=== PATIENT | male | born 1950 | race Caucasian/White ===

== ENCOUNTER 2017-06-14 17:17 | Emergency (ER) | payer MEDICARE, OTHER ==
[2017-06-14] MEDS ORDERED: cloNIDine HCL 0.2 MG TAB PO STA (17:58)
[2017-06-14] MEDS ORDERED: predniSONE 20 MG TAB PO STA (17:58)
[2017-06-14] MEDS ORDERED: IPRATROPIUM-ALBUTEROL 3 ML NEB INHALATION STA (17:58)
--- NOTE | 2017-06-14 18:03 | ED ---
General Adult HPI - General Chief complaint: Upper Respiratory Infection Stated complaint: Cough Time Seen by Provider: 06/14/17 17:41 Source: patient Mode of arrival: ambulatory Limitations: no limitations - History of Present Illness Initial comments: This is a 66-year-old male with a history of hypertension, hyperlipidemia, neuropathy and long-time smoker who presents emergency department for cough and mild shortness of breath. He states is been going on for the last week or so. He denies any fevers or chills. No chest pain. No nausea or vomiting. He does state that he missed some of his blood pressure medications earlier in the day and ended up taking them around 2 PM today. He is on clonidine 0.3 mg 3 times a day, Norvasc daily, atenolol 50 mg twice a day. He denies history of COPD or pneumonia. He denies any other acute complaints. - Related Data Home Medications Medication Instructions Recorded Confirmed Aspirin 325 mg PO DAILY 05/23/14 06/14/17 Atenolol 50 mg PO BID 05/23/14 06/14/17 Gabapentin [Neurontin] 300 mg PO TID 05/23/14 06/14/17 Hydrocodone/Acetaminophen [[place] 1 tab PO QID PRN 05/23/14 06/14/17 10-325] Indomethacin [Indocin] 50 mg PO TID PRN 05/23/14 06/14/17 Lovastatin [Mevacor] 80 mg PO HS 05/23/14 06/14/17 Omeprazole [PriLOSEC] 20 mg PO DAILY 05/23/14 06/14/17 amLODIPine BESYLATE [Norvasc] 5 mg PO DAILY 05/23/14 06/14/17 cloNIDine HCL 0.3 mg PO TID 06/14/17 06/14/17 Previous Rx's Medication Instructions Recorded Albuterol Inhaler [Ventolin Hfa 1 - 2 puff INHALATION Q6HR PRN #1 06/14/17 Inhaler] inhaler Levofloxacin [Levaquin] 500 mg PO DAILY #7 tab 06/14/17 predniSONE 50 mg PO DAILY #4 tab 06/14/17 Allergies Allergy/AdvReac Type Severity Reaction Status Date / Time Iodinated Contrast- Oral and Allergy Rash/Hives Verified 06/14/17 19:09 IV Dye [Iodinated Contrast Media - IV Dye] Review of Systems ROS Statement: Those systems with pertinent positive or pertinent negative responses have been documented in the HPI. ROS Other: All systems not noted in ROS Statement are negative. Past Medical History Past Medical History: GERD/Reflux, Hypertension Additional Past Medical History / Comment(s): gout History of Any Multi-Drug Resistant Organisms: None Reported Past Surgical History: Back Surgery Additional Past Surgical History / Comment(s): back surgery x 2, amputation two toes rt foot, tracheostomy,"surgery for blockage in chest and legs", Past Anesthesia/Blood Transfusion Reactions: No Reported Reaction Past Psychological History: No Psychological Hx Reported Smoking Status: Current every day smoker General Exam - General Exam Comments Initial Comments: Constitutional: Awake alert Appears comfortable Head: Normocephalic atraumatic Eyes: no conjunctival injection No scleral icterus EOMI Neck: No JVD Supple Heart: Regular rate rhythm normal S1-S2 no murmurs Lungs: There is respiratory wheezing bilaterally with some mild crackling at the left lung base Abdomen: Soft nondistended nontender Extremities: Non edematous DP pulses intact Radial pulses intact Neuro: A&Ox3 No focal neurologic deficits Psych: Appropriate mood and affect Limitations: no limitations Course Vital Signs 06/14/17 06/14/17 06/14/17 17:29 18:25 18:32 Temperature 97.1 F L Pulse Rate 82 72 74 Respiratory 16 18 Rate Blood Pressure 191/101 164/91 O2 Sat by Pulse 97 100 Oximetry 06/14/17 06/14/17 18:37 19:11 Temperature 98.2 F Pulse Rate 70 Respiratory Rate Blood Pressure O2 Sat by Pulse Oximetry Medical Decision Making - Medical Decision Making This is a 66-year-old male who presents emergency department for cough. Chest x -ray was reviewed and did not show any signs of pneumonia. I believe the patient has bronchitis.; Steroids and albuterol and Levaquin. Follow his primary doctor. Return if worse. Disposition Clinical Impression: Bronchitis Disposition: HOME SELF-CARE Condition: Stable Instructions: Acute Bronchitis (ED) Prescriptions: Albuterol Inhaler [Ventolin Hfa Inhaler] 1 - 2 puff INHALATION Q6HR PRN #1 inhaler PRN Reason: Shortness Of Breath Levofloxacin [Levaquin] 500 mg PO DAILY #7 tab predniSONE 50 mg PO DAILY #4 tab Referrals: Harsha Patton DO [Primary Care Provider] - 1-2 days
--- NOTE | 2017-06-14 18:28 | XR ---
EXAMINATION TYPE: XR chest 2V DATE OF EXAM: 06/14/2017 COMPARISON: NONE HISTORY: Cough for one week TECHNIQUE: Frontal and lateral views of the chest are obtained. FINDINGS: Heart and mediastinum are normal. There is slight blunting of right costophrenic angle. Th ere is evidence of old lateral rib fracture. Lungs are clear of consolidation. There is no heart fail ure. There are no hilar masses. Thoracic spine is intact. IMPRESSION: Old right healed rib fractures with pleural diaphragmatic scarring. No acute lung diseas e. Normal heart.
[2017-06-14 18:36] VITALS: BP 164/91; RESP 18
[2017-06-14 18:37] VITALS: PULSE 70
[2017-06-14 19:12] VITALS: TEMP 98.2
== END 2017-06-14 19:13 | disposition home or self-care (01) ==
LOC: EC 17:17
DX: J40 Bronchitis, not specified as acute or chronic (principal); E78.5 Hyperlipidemia, unspecified; I10 Essential (primary) hypertension; K21.9 Gastro-esophageal reflux disease without esophagitis; G62.9 Polyneuropathy, unspecified; F17.200 Nicotine dependence, unspecified, uncomplicated; Z79.82 Long term (current) use of aspirin; Z79.899 Other long term (current) drug therapy; Z91.041 Radiographic dye allergy status
CPT/HCPCS: 99283 ×2; 94640; 71020; J7512

== ENCOUNTER 2019-03-21 08:50 | Day surgery (SDC) | payer MEDICARE, OTHER ==
[2019-03-01 13:13] VITALS: BMI 28.4
[~2019-03-21 08:50] MED LIST: LACTATED RINGERS 1,000 ML IV SCH; LIDOCAINE 1% 20 ML VIAL (10MG/ML) FOR IV START INTRADERMA PRN
[2019-03-21 09:16] VITALS: RESP 18; TEMP 98.1
[2019-03-21] MEDS ORDERED: PROPOFOL 10 MG/ML 20 ML VIAL IV ONE (09:26)
--- NOTE | 2019-03-21 10:23 | P.PCN ---
Date of Procedure: 03/21/19 Description of Procedure: BRIEF HISTORY: Patient is a 68-year-old pleasant male scheduled for an elective colonoscopy as a part of high risk screening with a prior history of colon polyps. The patient reports that recently he had a colonoscopy with polyps removed. He denies any familial history of colon cancer, abdominal pain, change in bowel habits, constipation, diarrhea or blood per rectum. PROCEDURE PERFORMED: Colonoscopy. PREOPERATIVE DIAGNOSIS: Personal history of high risk polyps, last colonoscopy 3 years ago. ESTIMATED BLOOD LOSS: Minimal. IV sedation per Anesthesia. PROCEDURE: After informed consent was obtained, the patient, was brought into the endoscopy unit. IV sedation was administered by Anesthesia under continuous monitoring. Digital rectal examination was normal. Initially the Olympus CF-190 flexible video colonoscope was then inserted in the rectum, gradually advanced into the cecum without any difficulty. Careful examination was performed as the scope was gradually being withdrawn. Ileocecal valve and the appendiceal orifice were visualized and appeared normal. Prep was excellent. Mucosa of the cecum, ascending colon, transverse colon, descending colon, sigmoid colon, and rectum appeared normal. 2 sessile polyps in the descending colon one measuring 6 mm removed with cold snare and 1 measuring 2 mm removed with cold forceps. A 1 mm sessile polyp on the rim of the appendiceal opening removed with cold forcep polypectomy. One sessile 3 mm hepatic flexure polyp removed with cold forcep polypectomy. One sessile 3 mm transverse colon polyp removed with cold forcep polypectomy. 2 sessile splenic flexure polyps one measuring 3 mm and one measuring 2 mm removed with cold forcep polypectomy. One sessile 3 mm sigmoid colon polyp removed with cold forcep polypectomy. Mild internal hemorrhoids. Retroflexion was performed in the rectum and no lesions were seen. The patient tolerated the procedure well. IMPRESSION: Normal-appearing colon from rectum to cecum. 8 polyps measuring 1-6 mm removed with combination of cold forceps and cold snare from the appendiceal opening, hepatic flexure, transverse colon, splenic flexure, ascending colon and sigmoid. Mild internal hemorrhoids. RECOMMENDATIONS: Findings of this examination were discussed with the patient and his family. Okay to resume diet. Okay to resume medications. Await pathology from biopsies. Anticipate repeat colonoscopy in 3 years pending pathology from polypectomies..
[2019-03-21 10:29] VITALS: BP 149/74; PULSE 52
== END 2019-03-21 11:30 | disposition home or self-care (01) ==
LOC: ORWHC2ENDO 08:50
PROVIDERS: ATTEND Internal Medicine
DX: Z12.11 Encounter for screening for malignant neoplasm of colon (principal); D12.4 Benign neoplasm of descending colon; D12.1 Benign neoplasm of appendix; K63.5 Polyp of colon; K64.8 Other hemorrhoids; K21.9 Gastro-esophageal reflux disease without esophagitis; M10.9 Gout, unspecified; I10 Essential (primary) hypertension; E78.5 Hyperlipidemia, unspecified; F17.210 Nicotine dependence, cigarettes, uncomplicated; Z86.010 Personal history of colon polyps; Z88.5 Allergy status to narcotic agent; Z91.041 Radiographic dye allergy status; Z79.891 Long term (current) use of opiate analgesic; Z79.899 Other long term (current) drug therapy; Z79.82 Long term (current) use of aspirin
CPT/HCPCS: 88305; 45385; 45380; J2704

== ENCOUNTER 2022-05-18 09:12 | Day surgery (SDC) | payer MEDICARE, OTHER ==
[2022-05-17 09:20] VITALS: BMI 28.1
[~2022-05-18 09:12] MED LIST changes: +LIDOCAINE 1% (10MG/ML) FOR IV START INTRADERMA PRN; -LIDOCAINE 1% 20 ML VIAL (10MG/ML) FOR IV START INTRADERMA PRN
[2022-05-18 10:19] VITALS: TEMP 97.7
[2022-05-18] MEDS ORDERED: PROPOFOL 10 MG/ML 20 ML VIAL IV ONE (10:52)
--- NOTE | 2022-05-18 11:11 | P.PCN ---
Date of Procedure: 05/18/22 Procedure(s) Performed: BRIEF HISTORY: Patient is a 71-year-old pleasant white male scheduled for an elective colonoscopy as a part of evaluation of prior history of colon polyps. Last colonoscopy was 3 years ago. PROCEDURE PERFORMED: Colonoscopy with biopsy. PREOPERATIVE DIAGNOSIS: History of colon polyps. IV sedation per Anesthesia. PROCEDURE: After informed consent was obtained, the patient, was brought into the endoscopy unit. IV sedation was administered by Anesthesia under continuous monitoring. Digital rectal examination was normal. Initially the Olympus CF-160 flexible video colonoscope was then inserted in the rectum, gradually advanced into the cecum without any difficulty. Careful examination was performed as the scope was gradually being withdrawn. Ileocecal valve and the appendiceal orifice were visualized and appeared normal. Prep was excellent. Mucosa of the cecum, appeared normal. Ascending colon there was a 3 mm sessile polyp removed by cold biopsy. In the descending colon there was another 3 mm polyp removed by cold biopsy. Rest of the ascending colon, transverse colon, descending colon, sigmoid colon, and rectum appeared normal. Sigmoid: There was a 4 mm polyp removed by cold biopsy. Retroflexion was performed in the rectum and no lesions were seen. The patient tolerated the procedure well. IMPRESSION: 3 mm ascending colon polyp status post cold biopsy 3 mm descending colon polyp status post cold biopsy 4 mm sigmoid colon polyp status post biopsy RECOMMENDATIONS: Findings of this examination were discussed with the patient as well as his family. He was advised to follow with the biopsy results. If the biopsy results adenoma he can have a repeat colonoscopy in 3 years..
[2022-05-18 11:29] VITALS: RESP 15
[2022-05-18 11:45] VITALS: PULSE 55
[2022-05-18 11:46] VITALS: BP 159/70
== END 2022-05-18 12:15 | disposition home or self-care (01) ==
LOC: ORWHC2ENDO 09:12
PROVIDERS: ATTEND Internal Medicine Gastroenterology
DX: Z12.11 Encounter for screening for malignant neoplasm of colon (principal); Z86.010 Personal history of colon polyps; D12.2 Benign neoplasm of ascending colon; D12.4 Benign neoplasm of descending colon; D12.5 Benign neoplasm of sigmoid colon; I25.10 Atherosclerotic heart disease of native coronary artery without angina pectoris; I10 Essential (primary) hypertension; E78.5 Hyperlipidemia, unspecified; F17.200 Nicotine dependence, unspecified, uncomplicated; M10.9 Gout, unspecified; K21.9 Gastro-esophageal reflux disease without esophagitis; Z97.2 Presence of dental prosthetic device (complete) (partial); Z88.4 Allergy status to anesthetic agent; Z79.82 Long term (current) use of aspirin; Z79.899 Other long term (current) drug therapy; Z91.041 Radiographic dye allergy status
CPT/HCPCS: 88305; 45380; J2704

== ENCOUNTER 2024-03-06 03:55 | Inpatient (IN) | payer MEDICARE, OTHER ==
[2024-03-06] MEDS: FUROSEMIDE 10 MG/ML 4 ML VIAL IV STA (04:04)
[2024-03-06] MEDS: NITROGLYCERIN SL TABS 0.4 MG TAB SUBLINGUAL STA (04:04)
[2024-03-06] MEDS: NITROGLYCERIN-D5W PMX 50 MG in DEXTROSE/WATER 1 250ML.BAG IV ONE (04:16)
--- NOTE | 2024-03-06 04:36 | ED ---
General Adult HPI - General Chief complaint: Shortness of Breath Stated complaint: [place] Time Seen by Provider: 03/06/24 03:57 Source: patient, EMS Mode of arrival: EMS Limitations: no limitations - History of Present Illness Initial comments: Dictation was produced using [employer] dictation software. please excuse any grammatical, word or spelling errors. Chief Complaint: 73-year-old male presents emergency department respiratory distress History of Present Illness: Patient 73-year-old male with multiple comorbidities. He is brought in by his ex significant other. He she is at the bedside states that he called her states that he was short of breath. She does not know much about his medical history. Patient denies any chest pain. Severely dyspneic in triage she was found to be 70% on room air. He does not wear home oxygen. Unable to obtain ROS due to dyspnea - Related Data Home Medications Medication Instructions Recorded Confirmed Aspirin 81 mg PO DAILY 05/23/14 05/17/22 Atenolol 50 mg PO BID 05/23/14 05/18/22 Gabapentin [Neurontin] 300 mg PO TID 05/23/14 05/18/22 Hydrocodone/Acetaminophen [[place] 1 tab PO Q8HR PRN 05/23/14 05/18/22 10-325] Lovastatin [Mevacor] 80 mg PO HS 05/23/14 05/18/22 Omeprazole [PriLOSEC] 20 mg PO QAM 05/23/14 05/18/22 cloNIDine HCL [[place]] 0.3 mg PO TID 06/14/17 05/18/22 Cholecalciferol [Vitamin D3 (25 25 mcg PO DAILY 05/17/22 05/18/22 Mcg = 1000 Iu)] allopurinoL 100 mg PO DAILY 05/17/22 05/18/22 amLODIPine [Norvasc] 10 mg PO DAILY 05/17/22 05/18/22 lisinopriL [Prinivil] 20 mg PO QAM 05/17/22 05/18/22 Allergies Allergy/AdvReac Type Severity Reaction Status Date / Time fentanyl Allergy Hallucinations, Verified 05/18/22 10:11 CHEST PAIN Iodinated Contrast Media Allergy Rash/Hives Verified 05/17/22 09:06 [Iodinated Contrast Media - IV Dye] Review of Systems ROS Statement: Those systems with pertinent positive or pertinent negative responses have been documented in the HPI. ROS Other: All systems not noted in ROS Statement are negative. Past Medical History Past Medical History: Coronary Artery Disease (CAD), GERD/Reflux, Hyperlipidemia, Hypertension Additional Past Medical History / Comment(s): gout, "hx 9 polyps", "legs give out", "bad back" History of Any Multi-Drug Resistant Organisms: None Reported Past Surgical History: Back Surgery Additional Past Surgical History / Comment(s): back surgery x 2, amputation two toes rt foot, tracheostomy,"surgery for blockage in chest and legs"- pt not sure what surgery, radha cataracts Past Anesthesia/Blood Transfusion Reactions: No Reported Reaction Past Psychological History: No Psychological Hx Reported Smoking Status: Current every day smoker - Past Family History Brother(s) Family Medical History: Cancer General Exam - General Exam Comments Initial Comments: PHYSICAL EXAM: General Impression: Mottled, pale, dyspneic cyanotic HEENT: Normocephalic atraumatic, extra-ocular movements intact, pupils equal and reactive to light bilaterally, mucous membranes Cardiovascular: Regular pulse Chest:, Diffuse corse crackles Abdomen: abdomen soft, non-tender, non-distended, no organomegaly Musculoskeletal: Pulses present and equal in all extremities, no peripheral edema Motor: no focal deficits noted Neurological: CN II-XII grossly intact, no focal motor or sensory deficits noted Skin: Intact with no visualized rashes Limitations: no limitations Course Vital Signs 03/06/24 03/06/24 03/06/24 04:02 04:10 04:30 Temperature 96.8 F L Pulse Rate 100 Respiratory 24 Rate Blood Pressure 149/119 O2 Sat by Pulse 92 L Oximetry Fraction of 100 100 Inspired Oxygen (FIO2) 03/06/24 03/06/24 03/06/24 04:44 04:48 05:01 Temperature Pulse Rate 112 H 101 H Respiratory Rate Blood Pressure 223/133 147/98 O2 Sat by Pulse 98 98 Oximetry Fraction of 100 Inspired Oxygen (FIO2) 03/06/24 03/06/24 03/06/24 05:18 05:31 05:45 Temperature Pulse Rate 88 80 84 Respiratory Rate Blood Pressure 126/51 126/51 160/70 O2 Sat by Pulse 98 98 99 Oximetry Fraction of Inspired Oxygen (FIO2) 03/06/24 06:00 Temperature 98.7 F Pulse Rate 72 Respiratory Rate Blood Pressure 104/44 O2 Sat by Pulse 98 Oximetry Fraction of Inspired Oxygen (FIO2) - Reevaluation(s) Reevaluation #1: 03/06/24 04:35 Patient rushed into trauma bay #1 from triage. He was seen and evaluated patient significantly ill-appearing with hypoxia cyanosis and mottled skin. Patient immediately placed on BiPAP. He did have some short runs of nonsustained V. tach. Pads were placed. He was given sublingual nitroglycerin after [id number] ultrasound revealed diffuse kendal B-lines. Patient's blood pressure improved. His color improved however he still severely dyspneic. Patient agreeable for endotracheal intubation and sedation. Intubated with no complications. Given 40 mg of IV Lasix. X-ray shows pulmonary edema. 03/06/24 04:36 EKG Findings - EKG Comments: EKG Findings:: My EKG interpretation: Ventricular rate 119, sinus tachycardia, multiple PVCs. MT interval 191, cures 113, QTc 375.. No MT prolongation, no QTC prolongation, no ST or T-wave changes noted. No old EKG for comparison Procedures - Intubation Sedative: Etomidate Paralytic: Rocuronium Laryngoscope: fiber optic video scope Size: 3 Assist Device Used: fiber optic device ET Tube Size: 7.5 ET Tube Uncuffed: No Tube Secured Depth (cm): 22 Tube Secured Location: lips Tube Placement Confirmation: visualized tube passing through cords, equal breath sounds bilaterally, no breath sounds over epigastrium Patient Tolerated Procedure: well Intubation Complications: none Medical Decision Making - Medical Decision Making Was pt. sent in by a medical professional or institution (, PA, HEALTH INFORMATION SYSTEMS TECHNICIAN, urgent care, hospital, or custodial...) When possible be specific @ -No Did you speak to anyone other than the patient for history (EMS, parent, family, police, friend...)? What history was obtained from this source @ -Spoke with nephew along with son's mother as described above Did you review nursing and triage notes (agree or disagree)? Why? @ -I reviewed and agree with nursing and triage notes Were old charts reviewed (outside hosp., previous admission, EMS record, old EKG, old radiological studies, urgent care reports/EKG's, custodial records)? Report findings @ -No old charts were reviewed Differential Diagnosis (chest pain, altered mental status, abdominal pain women, abdominal pain men, vaginal bleeding, musculoskeletal, weakness, fever, dyspnea, syncope, headache, dizziness, GI bleed, back pain, seizure, CVA, palpatations, mental health)? @ -Differential Dyspnea: Coronary syndrome, arrhythmia, tamponade, asthma, COPD, pulmonary embolism, pneumonia, pneumothorax, pulmonary effusion, anaphylaxis, diabetic ketoacidosis, flailed chest, pulmonary contusion, diaphragmatic rupture, anemia, neuromusc ular, this is not meant to be an all-inclusive list. EKG interpreted by me (3pts min.). @ -Above X-rays interpreted by me (1pt min.). @ -X-ray chest shows pulmonary edema CT interpreted by me (1pt min.). @ -None done U/S interpreted by me (1pt. min.). @ -None done What testing was considered but not performed or refused? (CT, X-rays, U/S, labs)? Why? @ -None What meds were considered but not given or refused? Why? @ -None Was smoking cessation discussed for >3mins.? @ -No Were there social determinants of health that impacted care today? How? (Homelessness, low income, unemployed, alcoholism, drug addiction, transportation, low edu. Level, literacy, decrease access to med. care, half-way, rehab)? @ -No Was there de-escalation of care discussed even if they declined (Discuss DNR or withdrawal of care, Hospice)? DNR status @ -No What co-morbidities impacted this encounter? (DM, HTN, Smoking, COPD, CAD, Cancer, CVA, ARF, Chemo, Hep., AIDS, mental health diagnosis, sleep apnea, morb id obesity)? @ -Tobacco abuse history Was patient admitted / discharged? Hospital course, mention meds given and route, prescriptions, significant lab abnormalities, going to OR and other pertinent info. @ -73-year-old male presents to the ER for acute respiratory failure. Patient severely dyspneic hypoxic cyanotic at the bedside. Immediately placed on BiPAP. Patient's blood pressure initially elevated. Patient given sublingual nitroglycerin placed on BiPAP for several minutes. His condition did not continue to improve. Endotracheal intubation was performed. Patient sedated. Given Lasix. Laboratory evaluation obtained. Leukocytosis of 15.9, coag panel unremarkable. D-dimer is elevated 3.57. Metabolic panel shows anion gap acidosis lactic acidosis 10.8. Troponin 0.03, BNP of 7600. Patient started on heparin. Patient be admitted to the ICU. Did you discuss the management of the patient with other professionals (professionals i.e. , PA, HEALTH INFORMATION SYSTEMS TECHNICIAN, lab, RT, psych nurse, social media developer, optical instrument assembly supervisor, teacher, founder and chief technical officer, case management rn)? Give summary @ -Discussed with Harsha, midlevel provider or ICU service. Case also discussed with hospitalist for admission. Was critical care preformed (if so, how long)? @ -Yes, 77 minutes Undiagnosed new problem with uncertain prognosis? @ -No Drug Therapy requiring intensive monitoring for toxicity (Heparin, Nitro, Insulin, Cardizem)? @ -No Were any procedures done? @ -No Diagnosis/symptom? Acute, or Chronic, or Acute on Chronic? Uncomplicated (without systemic symptoms) or Complicated (systemic symptoms)? @ -Respiratory failure Side effects of treatment? @ -No Exacerbation, Progression, or Severe Exacerbation? @ -No Poses a threat to life or bodily function? How? (Chest pain, [place], [place], pneumonia, PE, COPD, DKA, ARF, appy, cholecystitis, CVA, Diverticulitis, Homicidal, Suicidal, threat to staff... and all critical care pts) @ -yes - Lab Data Result diagrams: 03/06/24 04:12 03/06/24 04:12 Lab Results 03/06/24 03/06/24 03/06/24 Range/Units 04:12 04:12 04:12 WBC 15.9 H (3.8-10.6) k/uL RBC 6.08 H (4.30-5.90) m/uL Hgb 17.5 (13.0-17.5) gm/dL Hct 59.1 H* (39.0-53.0) % MCV 97.2 (80.0-100.0) fL MCH 28.9 (25.0-35.0) pg MCHC 29.7 L (31.0-37.0) g/dL RDW 14.3 (11.5-15.5) % Plt Count 292 (150-450) k/uL MPV 10.1 Neutrophils % 60 % Lymphocytes % 31 % Monocytes % 6 % Eosinophils % 1 % Basophils % 1 % Neutrophils # 9.6 H (1.3-7.7) k/uL Lymphocytes # 4.9 H (1.0-4.8) k/uL Monocytes # 1.0 (0-1.0) k/uL Eosinophils # 0.2 (0-0.7) k/uL Basophils # 0.1 (0-0.2) k/uL Hypochromasia Marked PT (10.0-12.5) sec INR (<1.2) APTT (22.0-30.0) sec D-Dimer (<0.60) mg/L FEU Sodium (137-145) mmol/L Potassium (3.5-5.1) mmol/L Chloride (98-107) mmol/L Carbon Dioxide (22-30) mmol/L Anion Gap mmol/L BUN (9-20) mg/dL Creatinine (0.66-1.25) mg/dL Est GFR (CKD-EPI)AfAm (>60 ml/min/1.73 sqM) Est GFR (CKD-EPI)NonAf (>60 ml/min/1.73 sqM) Glucose (74-99) mg/dL Plasma Lactic Acid Curtis 10.8 H* (0.7-2.0) mmol/L Calcium (8.4-10.2) mg/dL Total Bilirubin (0.2-1.3) mg/dL AST (17-59) U/L ALT (4-49) U/L Alkaline Phosphatase (38-126) U/L Troponin I 0.030 (0.000-0.034) ng/mL NT-Pro-B Natriuret Pep pg/mL Total Protein (6.3-8.2) g/dL Albumin (3.5-5.0) g/dL 03/06/24 03/06/24 Range/Units 04:12 04:15 WBC (3.8-10.6) k/uL RBC (4.30-5.90) m/uL Hgb (13.0-17.5) gm/dL Hct (39.0-53.0) % MCV (80.0-100.0) fL MCH (25.0-35.0) pg MCHC (31.0-37.0) g/dL RDW (11.5-15.5) % Plt Count (150-450) k/uL MPV Neutrophils % % Lymphocytes % % Monocytes % % Eosinophils % % Basophils % % Neutrophils # (1.3-7.7) k/uL Lymphocytes # (1.0-4.8) k/uL Monocytes # (0-1.0) k/uL Eosinophils # (0-0.7) k/uL Basophils # (0-0.2) k/uL Hypochromasia PT 10.7 (10.0-12.5) sec INR 1.0 (<1.2) APTT 26.8 (22.0-30.0) sec D-Dimer 3.57 H (<0.60) mg/L FEU Sodium 144 (137-145) mmol/L Potassium 3.8 (3.5-5.1) mmol/L Chloride 106 (98-107) mmol/L Carbon Dioxide 16 L (22-30) mmol/L Anion Gap 22 mmol/L BUN 20 (9-20) mg/dL Creatinine 1.81 H (0.66-1.25) mg/dL Est GFR (CKD-EPI)AfAm 41 (>60 ml/min/1.73 sqM) Est GFR (CKD-EPI)NonAf 36 (>60 ml/min/1.73 sqM) Glucose 212 H (74-99) mg/dL Plasma Lactic Acid Curtis (0.7-2.0) mmol/L Calcium 10.0 (8.4-10.2) mg/dL Total Bilirubin 0.8 (0.2-1.3) mg/dL AST 36 (17-59) U/L ALT 22 (4-49) U/L Alkaline Phosphatase 195 H (38-126) U/L Troponin I (0.000-0.034) ng/mL NT-Pro-B Natriuret Pep 7600 pg/mL Total Protein 8.0 (6.3-8.2) g/dL Albumin 4.9 (3.5-5.0) g/dL Disposition Clinical Impression: Respiratory failure Disposition: ADMITTED IP TO THIS [facility] Condition: Critical Decision Time: 06:15
[2024-03-06] MEDS: ETOMIDATE 2 MG/ML 10 ML VIAL IVP STA (04:37)
[2024-03-06] MEDS: ROCURONIUM 10 MG/ML (5 ML VIAL) IV STA (04:37)
[2024-03-06 05:02] LABS: ALT 22 U/L (4-49); AST 36 U/L (17-59); African American GFR (CKD) 41 (>60 ml/min/1.73 sqM); Albumin 4.9 g/dL (3.5-5.0); Alkaline Phosphatase 195 U/L (38-126); Anion Gap 22 mmol/L; Blood Urea Nitrogen 20 mg/dL (9-20); Carbon Dioxide 16 mmol/L (22-30); Chloride 106 mmol/L (98-107); Glucose 212 mg/dL (74-99); Non-African American GFR(CKD) 36 (>60 ml/min/1.73 sqM); Sodium 144 mmol/L (137-145); Total Bilirubin 0.8 mg/dL (0.2-1.3)
[2024-03-06 05:07] LABS: Potassium 3.8 mmol/L (3.5-5.1)
[2024-03-06 05:08] LABS: Basophils # (A) 0.1 k/uL (0-0.2); Basophils % (A) 1 %; Eosinophils # (A) 0.2 k/uL (0-0.7); Eosinophils % (A) 1 %; HGB 17.5 gm/dL (13.0-17.5); Hypochromasia Marked; Lymphocytes # (A) 4.9 k/uL (1.0-4.8); Lymphocytes % (A) 31 %; MCH 28.9 pg (25.0-35.0); MCHC 29.7 g/dL (31.0-37.0); MCV 97.2 fL (80.0-100.0); Mean Platelet Volume 10.1; Monocytes % (A) 6 %; Neutrophils # (A) 9.6 k/uL (1.3-7.7); Neutrophils % (A) 60 %; Platelet Count 292 k/uL (150-450); RBC 6.08 m/uL (4.30-5.90); RDW 14.3 % (11.5-15.5); WBC 15.9 k/uL (3.8-10.6)
[2024-03-06 05:11] LABS: NT-Pro-B-Type Natriuretic Pept 7600 pg/mL
[2024-03-06 05:17] LABS: Partial Thromboplastin Time 26.8 sec (22.0-30.0); Prothrombin Time 10.7 sec (10.0-12.5)
[2024-03-06] MEDS ORDERED: NALOXONE 0.4 MG/ML 1 ML VIAL IV PRN (05:30)
[2024-03-06] MEDS: SODIUM CHLORIDE 0.9% 1,000 ML IV SCH (05:40)
[2024-03-06 05:53] LABS: HCT 59.1 % (39.0-53.0)
[2024-03-06] MEDS: DEXAMETHASONE SOD PHOSPHATE 10 MG/ML 1 ML VIAL IV STA (05:53)
[2024-03-06] MEDS: HYDROmorphone 1 MG/ML 1 ML SYRINGE IVP STA (06:00)
[2024-03-06] MEDS: HEPARIN SODIUM 1,000 UN/ML (10ML VL) IV ONE (06:26)
[2024-03-06] MEDS: HEPARIN SOD,PORK IN 0.45% NACL 25,000 UNIT in 0.45% NACL 1 250ML.BAG IV SCH (06:27)
[2024-03-06] MEDS: methylPREDNISolone SOD SUCCI 125 MG/2 ML VIAL IV SCH (06:52)
--- NOTE | 2024-03-06 07:02 | XR ---
EXAM: XR Chest, 1 View CLINICAL HISTORY: ITS.REASON XR Reason: resp distress TECHNIQUE: Frontal view of the chest. COMPARISON: 06/14/17 FINDINGS: Lungs: Diffuse increased interstitial lung markings which may reflect developing edema or pneumonia. Prominent lung markings may partly reflect low lung volume. Pleural space: Again seen is blunting of the right lateral costophrenic angle and adjacent rib deformity. No pneumothorax. Heart: Cardiovascular silhouette, upper limits of normal. Mediastinum: Within normal limits. Bones/joints: Unremarkable. No acute fracture. Vasculature: Tortuous thoracic aorta. Tubes, lines and devices: Overlying chest leads obscure portion of the chest. IMPRESSION: 1. Low lung volume limit evaluation 2. Suspect mild interstitial edema or pneumonia.
[2024-03-06 07:17] LABS: Allen Test Performed? Yes
[2024-03-06 07:18] LABS: ABG PCO2 76 mmHg (35-45); ABG PH 7.14 (7.35-7.45)
[2024-03-06 07:19] LABS: ABG HCO3 26 mmol/L (21-25); ABG PO2 135 mmHg (83-108)
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
--- NOTE | 2024-03-06 07:44 | XR ---
EXAMINATION TYPE: XR chest 1V portable DATE OF EXAM: 03/06/2024 Comparison: 03/06/2024 earlier today Clinical History: 73-year-old male tube placement Findings: Interval satisfactory placement of ET and NG tubes. Heart remains mildly enlarged. Bilateral perihila r and diffuse interstitial and patchy opacities persist with interval worsening. Impression: 1. Satisfactory placement ET and NG tubes. 2. Interval worsening now with development of patchy pulmonary edema.
[2024-03-06] MEDS: IPRATROPIUM 0.5 MG/2.5 ML NEBU INHALATION STA (08:01)
[2024-03-06] MEDS: ALBUTEROL NEBULIZED 2.5 MG/3 ML INHALATION STA (08:01)
[2024-03-06] MEDS: AMIODARONE 360 MG in DEXTROSE 5% IN WATER 200 ML IV ONE (08:26)
[2024-03-06] MEDS: CISATRACURIUM 2 MG/ML 5 ML VIAL IV ONE (08:26)
--- NOTE | 2024-03-06 08:45 | P.PCN ---
Date of Procedure: 03/06/24 Preoperative Diagnosis: Acute cardiac arrest Postoperative Diagnosis: Acute cardiac arrest Procedure(s) Performed: Central line and arterial line insertion Anesthesia: local Surgeon: Ana Tolliver Estimated Blood Loss (ml): 0 Pathology: none sent Condition: critical Disposition: ICU Operative Findings: Central line insertion [facility] Central Line Insertion Practices form was completed starting with the first handwash prior to starting sterile technique. A time out was performed. My hands were washed immediately prior to the procedure. I wore a surgical cap, mask with protective eyewear, full gown and sterile gloves throughout the procedure. The patient was placed in Trendelenburg position. Left chest region was prepped using chlorhexidine scrub and draped in sterile fashion using a full drape and sterile probe cover and sterile gel employed. The medial and lateral heads of the sternocleidomastoid muscle were identified as was the carotid pulse. The introducer needle was inserted into the left subclavian vein under direct ultrasound visualization. Venous blood was withdrawn. The syringe was removed and a guidewire was advanced into the introducer needle. A small incision was made at the skin surface with a scalpel and the introducer needle was exchanged for a dilator over the guidewire. After appropriate dilation was obtained, the dilator was exchanged over the wire for a central venous catheter. The patient tolerated the procedure without any hemodynamic compromise. At time of procedure completion, all ports aspirated and flushed properly. Post-procedure chest x-ray is pending at this time. Estimated blood loss is 0 Arterial line Insert art line indication: Hemodynamic monitoring. A time-out was completed verifying correct patient, procedure, site, positioning, and implant(s) or special equipment if applicable. Allens test was performed to ensure adequate perfusion. The patients right wrist was prepped and draped in sterile fashion. 1% Lidocaine was used to anesthetize the area. An 18G [place] arterial line was introduced into the radial artery. The catheter was threaded over the guide wire and the needle was removed with appropriate pulsatile blood return. Blood loss was minimal. The catheter was then sutured in place to the skin and a sterile dressing applied. Perfusion to the extremity distal to the point of catheter insertion was checked and found to be adequate. The patient tolerated the procedure well and there were no complications.
[2024-03-06 08:58] LABS: ABG Base Excess -1.5 mmol/L; ABG HCO3 29 mmol/L (21-25); ABG Oxygen Saturation 90.9 % (94-97); ABG PCO2 68 mmHg (35-45); ABG PH 7.23 (7.35-7.45); ABG PO2 70 mmHg (83-108); ABG TCO2 31 mmol/L (19-24)
[2024-03-06 08:59] LABS: Allen Test Performed? no
--- NOTE | 2024-03-06 09:03 | P.EN ---
GISELLE TALI called overhead at 0 755. Initial rhythm was PEA. He was given 1 of epi and atropine prior to my arrival. I arrived at 0800. Patient had already achieved ROSC at 0758. Was in sinus tachycardia. Received 2 A of bicarb, 2 g of magnesium, 1 g of calcium. He had few runs of NSVT. Loaded with 300 mg of amiodarone and started on amiodarone drip. Blood pressure stabilized. Chest x- ray reviewed at bedside, shows acute pulmonary edema. Patient already on Lasix. Patient was intubated prior to code. Family was updated. Plan was signed out to the director dental services who is present at bedside. A total of 30 minutes spent at bedside.
--- NOTE | 2024-03-06 09:04 | XR ---
EXAMINATION TYPE: XR chest 1V portable DATE OF EXAM: 03/06/2024 Comparison: 03/06/2024 earlier today Clinical History: 73-year-old male line placement Findings: Interval placement of a left-sided subclavian CVC with tip at the lower SVC. Otherwise, ET tube tip a t the medial clavicular heads and NG tube remain in place. Mild cardiomegaly and bilateral consolidat ion especially upper and midlungs persists. Impression: Interval placement of a left-sided subclavian CVC with tip at the lower SVC. Otherwise, continuing bi lateral airspace disease.
--- NOTE | 2024-03-06 09:06 | XR ---
EXAMINATION TYPE: XR chest 1V portable DATE OF EXAM: 03/06/2024 Comparison: Earlier today Clinical History: 73-year-old male post cardiac arrest Findings: ET tube tip at the medial clavicular heads. NG tube courses below the diaphragm. Heart mildly enlarge d. Airspace disease especially upper and mid lungs with diffuse interstitial opacities. Aeration has worsened in the interval. Suture anchor right humeral head. Impression: Interval worsening bilateral airspace disease.
[2024-03-06 09:08] LABS: Basophils % (A) 0 %; Eosinophils # (A) 0.1 k/uL (0-0.7); Eosinophils % (A) 0 %; HCT 54.1 % (39.0-53.0); HGB 16.9 gm/dL (13.0-17.5); Lymphocytes # (A) 1.7 k/uL (1.0-4.8); Lymphocytes % (A) 9 %; MCH 29.4 pg (25.0-35.0); MCHC 31.3 g/dL (31.0-37.0); MCV 93.9 fL (80.0-100.0); Monocytes # (A) 0.6 k/uL (0-1.0); Monocytes % (A) 3 %; Neutrophils # (A) 16.9 k/uL (1.3-7.7); Neutrophils % (A) 87 %; Platelet Count 283 k/uL (150-450); RBC 5.76 m/uL (4.30-5.90); RDW 14.2 % (11.5-15.5); WBC 19.4 k/uL (3.8-10.6)
[2024-03-06] MEDS: NOREPINEPHRINE 4 MG in SODIUM CHLORIDE 0.9% 250 ML IV SCH (09:10)
[2024-03-06] MEDS: CHLORHEXIDINE GLUCONATE 15 ML CUP MUCOUS MEM SCH (09:30)
[2024-03-06] MEDS: FUROSEMIDE 10 MG/ML 4 ML VIAL IV SCH (09:31)
[2024-03-06] MEDS: BUDESONIDE 1 MG/2 ML NEBU INHALATION SCH (10:15)
[2024-03-06 10:16] LABS: ALT 20 U/L (4-49); AST 32 U/L (17-59); African American GFR (CKD) 38 (>60 ml/min/1.73 sqM); Albumin 3.6 g/dL (3.5-5.0); Alkaline Phosphatase 216 U/L (38-126); Anion Gap 11 mmol/L; Blood Urea Nitrogen 24 mg/dL (9-20); Calcium 11.2 mg/dL (8.4-10.2); Carbon Dioxide 24 mmol/L (22-30); Chloride 110 mmol/L (98-107); Glucose 184 mg/dL (74-99); Non-African American GFR(CKD) 33 (>60 ml/min/1.73 sqM); Potassium 4.5 mmol/L (3.5-5.1); Sodium 145 mmol/L (137-145); Total Protein 6.2 g/dL (6.3-8.2)
[2024-03-06] MEDS: FORMOTEROL FUMARATE 20 MCG/2 ML NEBU INHALATION SCH (10:16)
[2024-03-06] MEDS: IPRATROPIUM-ALBUTEROL 3 ML NEB INHALATION SCH (10:18)
[2024-03-06] MEDS: AZITHROMYCIN 500 MG in SODIUM CHLORIDE 0.9% 250 ML IVPB SCH (10:41)
[2024-03-06 11:39] LABS: Glucose,Whole Blood 214 mg/dL (70-110)
[2024-03-06] MEDS: AMIODARONE 450 MG in DEXTROSE 5% IN WATER 250 ML IV SCH (14:17)
--- NOTE | 2024-03-06 15:04 | P.HPIM ---
History of Present Illness H&P Date: 03/06/24 Chief Complaint: Short of breath This is a 73-year-old patient, follows with Dr. Patton. Patient admitted to the ER. He was presented to the ER brought in by his ex-. He was getting increasingly short of breath. She did not know much about patient's history. Pulse ox in the triage was found to be 70%. Does not wear oxygen at home. Patient was intubated in the ER. As BiPAP did not help. Subsequently patient was noted to have significant bigeminy's. Heart rate dropped down to 20s and lost his pulse. At 7:55 AM this morning code was called. Patient received epinephrine atropine calcium bicarbonate had a short run of spontaneous V. tach that resolved. Intubated placed in the ICU. This morning patient is on FiO2 100 and a PEEP of 10. Drips include IV Levophed at 0.17 mics, amiodarone drip, saline, IV heparin. Sedated Review of systems cannot be done patient sedated intubated Social history: Longstanding smoker. . Smoking since the age of 7 about 2 packs a day. Alcohol rarely Physical examination: VITAL SIGNS: 96.9, 78, 30, 89/55, 100% on the ventilator GENERAL: BMI 25.8, laying in bed intubated. EYES: Pupils equal. Conjunctiva julia l. HEENT: External appearance of nose and ears normal, oral cavity grossly normal. OG tube. Endotracheal tube. NECK: JVD not raised; masses not palpable. HEART: First and second heart sounds are normal; no edema. LUNGS: Respiratory increased, decreased breath sounds. ABDOMEN: Soft, nontender, liver spleen not palpable, no masses palpable. PSYCH: Patient sedated l. MUSCULOSKELETAL:No Clubbing/cyanosis;muscles-grossly intact NEUROLOGICAL: Cranial nerves grossly intact; no facial asymmetry, power and sensation grossly intact. LYMPHATICS: No lymph nodes palpable in the axilla and neck INVESTIGATIONS, reviewed in the clinical context: March 06, 2024: White count 19.4 hemoglobin 16.9 platelets 283 sodium 145 potassium 4.5 BUN 24 creatinine 1.93 ABG: pH 7.23 pCO2 68 pO2 70 Lactic acid 2.4 Troponin I 0.241 EKG tracing personally reviewed by me-sinus tachycardia, PVCs, P pulmonale pattern Chest x-ray film personally reviewed by me-infiltrate versus possible edema Assessment and plan: -Acute severe hypoxic hypercapnic respiratory failure from underlying COPD/p neumonia, with currently ventilator support 100% FiO2 and a PEEP of 10 -Acute severe COPD exacerbation in a current smoker IV Solu-Medrol. Nebulized Pulmicort. Perforomist. DuoNeb -Pneumonia suspect gram-negative organism IV ceftriaxone, Zithromax -Chronic nicotine dependence cigarette smoker Nicotine patch -Pulseless electrical activity secondary to respiratory failure. Patient received medications include epinephrine, atropine, calcium, bicarbonate -Episode of ventricular tachycardia likely precipitated by hypoxia infection IV amiodarone. IV heparin Cardiology consulted -IV heparin monitoring Follow PTT -Chronic gout Allopurinol 100 mg -Hypotensive shock IV Levophed -Essential hypertension, currently patient is hypotensive Hold off antihypertensives -GERD, stress ulcer prophylaxis IV Protonix 40 -Full code Consultation to cardiology, pulmonary. Critically ill Past Medical History Past Medical History: Coronary Artery Disease (CAD), GERD/Reflux, Hyperlipidemia, Hypertension Additional Past Medical History / Comment(s): gout, "hx 9 polyps", "legs give out", "bad back" History of Any Multi-Drug Resistant Organisms: None Reported Past Surgical History: Back Surgery Additional Past Surgical History / Comment(s): back surgery x 2, amputation two toes rt foot, tracheostomy,"surgery for blockage in chest and legs"- pt not sure what surgery, radha cataracts Past Anesthesia/Blood Transfusion Reactions: No Reported Reaction Past Psychological History: No Psychological Hx Reported Smoking Status: Current every day smoker - Past Family History Brother(s) Family Medical History: Cancer Medications and Allergies Home Medications Medication Instructions Recorded Confirmed Type Aspirin 325 mg PO DAILY 05/23/14 03/06/24 History Atenolol 50 mg PO BID 05/23/14 03/06/24 History Gabapentin [Neurontin] 300 mg PO TID 05/23/14 03/06/24 History Hydrocodone/Acetaminophen [[place] 1 tab PO Q8HR PRN 05/23/14 03/06/24 History 10-325] Omeprazole [PriLOSEC] 20 mg PO DAILY 05/23/14 03/06/24 History cloNIDine HCL [Catapres] 0.3 mg PO Q8H 06/14/17 03/06/24 History Cholecalciferol [Vitamin D3 (25 25 mcg PO DAILY 05/17/22 03/06/24 History Mcg = 1000 Iu)] allopurinoL 100 mg PO DAILY 05/17/22 03/06/24 History amLODIPine [Norvasc] 10 mg PO DAILY 05/17/22 03/06/24 History lisinopriL [Prinivil] 20 mg PO DAILY 05/17/22 03/06/24 History Albuterol Sulfate [Ventolin HFA] 2 puff INHALATION RT-QID PRN 03/06/24 03/06/24 History Atorvastatin Calcium [Lipitor] 80 mg PO DAILY 03/06/24 03/06/24 History Ipratropium-Albuterol Nebulize 3 ml INHALATION RT-QID PRN 03/06/24 03/06/24 History [Duoneb 0.5 mg-3 mg/3 ml Soln] Allergies Allergy/AdvReac Type Severity Reaction Status Date / Time Iodinated Contrast Media Allergy Rash/Hives Verified 03/06/24 09:42 [Iodinated Contrast Media - IV Dye] fentanyl AdvReac Hallucinations, Verified 03/06/24 09:42 CHEST PAIN Physical Exam Vitals: Vital Signs Temp Pulse Resp BP Pulse Ox FiO2 03/06/24 09:03 100 03/06/24 09:00 66 30 H 140/77 95 03/06/24 08:45 78 30 H 89/55 03/06/24 08:30 83 24 136/107 03/06/24 08:15 98 29 H 141/77 03/06/24 08:00 96.9 F L 22 97/42 03/06/24 07:50 32 H 03/06/24 07:20 40 L 18 99/45 98 03/06/24 07:17 100 03/06/24 07:10 65 140/56 99 03/06/24 06:53 96/43 03/06/24 06:46 96/42 03/06/24 06:25 88/42 03/06/24 06:00 98.7 F 72 104/44 98 03/06/24 05:45 84 160/70 99 03/06/24 05:31 80 126/51 98 03/06/24 05:18 88 126/51 98 03/06/24 05:01 101 H 147/98 98 03/06/24 04:48 112 H 223/133 98 03/06/24 04:44 100 03/06/24 04:30 100 03/06/24 04:10 100 03/06/24 04:02 96.8 F L 100 24 149/119 92 L Intake and Output 03/05/24 03/06/24 03/06/24 22:59 06:59 14:59 Intake Total 36.868 27.320 Balance 36.868 27.320 Intake: Intake, IV Titration 36.868 27.320 Amount Amiodarone 360 mg In 10.555 Dextrose 5% in Water 200 ml @ 1 MG/MIN 33.333 mls/ hr IV .Q6H ONE Rx#: [id number] Nitroglycerin-D5w Pmx 50 15.875 mg In Dextrose/Water 1 250ml.bag @ 50 MCG/MIN 15 mls/hr IV .[id number] ONE Rx#:[id number] propofoL 1,000 mg In 20.993 Empty Bag 1 bag @ 15 MCG/ KG/MIN 6.736 mls/hr IV . [id number] CHUCK Rx#:[id number] propofoL 1,000 mg In 16.765 Empty Bag 1 bag @ 15 MCG/ KG/MIN 6.736 mls/hr IV . [id number] CHUCK Rx#:[id number] Other: Weight 74.843 kg ABP, PAP, CO, CI - Last 8 Hours Arterial Blood Pressure 130/43 Arterial Blood Pressure 64/33 Arterial Blood Pressure 128/65 Results CBC & Chem 7: 03/06/24 08:56 03/06/24 08:56 Labs: Abnormal Lab Results - Last 24 Hours (Table) 03/06/24 03/06/24 03/06/24 Range/Units 04:12 04:12 04:12 WBC 15.9 H (3.8-10.6) k/uL RBC 6.08 H (4.30-5.90) m/uL Hct 59.1 H* (39.0-53.0) % MCHC 29.7 L (31.0-37.0) g/dL Neutrophils # 9.6 H (1.3-7.7) k/uL Lymphocytes # 4.9 H (1.0-4.8) k/uL D-Dimer (<0.60) mg/L FEU ABG pH (7.35-7.45) ABG pCO2 (35-45) mmHg ABG pO2 (83-108) mmHg ABG HCO3 (21-25) mmol/L ABG Total CO2 (19-24) mmol/L ABG O2 Saturation (94-97) % Carbon Dioxide 16 L (22-30) mmol/L Creatinine 1.81 H (0.66-1.25) mg/dL Glucose 212 H (74-99) mg/dL Plasma Lactic Acid Curtis 10.8 H* (0.7-2.0) mmol/L Alkaline Phosphatase 195 H (38-126) U/L Troponin I (0.000-0.034) ng/mL 03/06/24 03/06/24 03/06/24 Range/Units 04:15 04:52 08:33 WBC (3.8-10.6) k/uL RBC (4.30-5.90) m/uL Hct (39.0-53.0) % MCHC (31.0-37.0) g/dL Neutrophils # (1.3-7.7) k/uL Lymphocytes # (1.0-4.8) k/uL D-Dimer 3.57 H (<0.60) mg/L FEU ABG pH 7.14 L* 7.23 L (7.35-7.45) ABG pCO2 76 H* 68 H (35-45) mmHg ABG pO2 135 H 70 L (83-108) mmHg ABG HCO3 26 H 29 H (21-25) mmol/L ABG Total CO2 31 H (19-24) mmol/L ABG O2 Saturation 98.0 H 90.9 L (94-97) % Carbon Dioxide (22-30) mmol/L Creatinine (0.66-1.25) mg/dL Glucose (74-99) mg/dL Plasma Lactic Acid Curtis (0.7-2.0) mmol/L Alkaline Phosphatase (38-126) U/L Troponin I (0.000-0.034) ng/mL 03/06/24 03/06/24 03/06/24 Range/Units 08:56 09:09 09:10 WBC 19.4 H (3.8-10.6) k/uL RBC (4.30-5.90) m/uL Hct 54.1 H (39.0-53.0) % MCHC (31.0-37.0) g/dL Neutrophils # 16.9 H (1.3-7.7) k/uL Lymphocytes # (1.0-4.8) k/uL D-Dimer (<0.60) mg/L FEU ABG pH (7.35-7.45) ABG pCO2 (35-45) mmHg ABG pO2 (83-108) mmHg ABG HCO3 (21-25) mmol/L ABG Total CO2 (19-24) mmol/L ABG O2 Saturation (94-97) % Carbon Dioxide (22-30) mmol/L Creatinine (0.66-1.25) mg/dL Glucose (74-99) mg/dL Plasma Lactic Acid Curtis 2.4 H* (0.7-2.0) mmol/L Alkaline Phosphatase (38-126) U/L Troponin I 0.241 H* (0.000-0.034) ng/mL
[2024-03-06 15:44] LABS: Appearance,Urine Cloudy (Clear); Bacteria,Urine Occasional /hpf; Bilirubin,Urine Negative (Negative); Blood,Urine Moderate (Negative); Color,Urine Yellow; Glucose,Urine (UA) Negative (Negative); Hyaline Casts,Urine 3 /lpf (0-2); Ketones,Urine Negative (Negative); Leukocyte Esterase,Urine Negative (Negative); Mucus,Urine Rare /hpf; Nitrite,Urine Negative (Negative); Protein,Urine Trace (Negative); RBC,Urine 61 /hpf (0-5); Specific Gravity,Urine 1.011 (1.001-1.035); Squamous Epithelial Cell,Urine 1 /hpf (0-4); Urobilinogen,Urine <2.0 mg/dL (<2.0); WBC,Urine 5 /hpf (0-5)
[2024-03-06] MEDS: GABAPENTIN 300 MG CAP PO SCH (15:56)
[2024-03-06] MEDS: NICOTINE 21MG/24HR PATCH TRANSDERM SCH (15:56)
[2024-03-06] MEDS: allopurinoL 100 MG TAB PO SCH (15:56)
[2024-03-06] MEDS: ATORVASTATIN 80 MG TAB PO SCH (15:56)
[2024-03-06] MEDS: PANTOPRAZOLE 40 MG/10 ML VIAL IVP SCH (15:56)
[2024-03-06] MEDS: METOPROLOL SUCCINATE (ER) 25 MG TAB.ER.24H PO SCH ×2 (15:57→23:10)
[2024-03-06] MEDS ORDERED: IPRATROPIUM-ALBUTEROL 3 ML NEB INHALATION SCH (16:00)
[2024-03-06 17:28] LABS: African American GFR (CKD) 30 (>60 ml/min/1.73 sqM); Anion Gap 7 mmol/L; Blood Urea Nitrogen 28 mg/dL (9-20); Calcium 9.2 mg/dL (8.4-10.2); Carbon Dioxide 25 mmol/L (22-30); Chloride 109 mmol/L (98-107); Glucose 169 mg/dL (74-99); Non-African American GFR(CKD) 26 (>60 ml/min/1.73 sqM); Potassium 5.2 mmol/L (3.5-5.1); Sodium 141 mmol/L (137-145)
--- NOTE | 2024-03-06 17:42 | CA ---
Transthoracic Echo Report Name: Amari Jalloh Age: 73 Gender: M : 1950 Exam Date: 03/06/2024 11:12 Exam Location: [facility] Ht (in): 67 Wt (lb): 165 Ordering Physician: Harsha Jay Attending/Referring Phys: Body Mechanic Angela Aparicio RDCS Procedure CPT: Indications: evaluat LV function Cardiac Hx: Technical Quality: Technically difficult study Contrast 1: Total Dose (mL): Contrast 2: Total Dose (mL): MEASUREMENTS (Male / Female) Normal Values 2D ECHO LV Diastolic Diameter PLAX 4.5 cm 4.2 - 5.9 / 3.9 - 5.3 cm LV Systolic Diameter PLAX 3.9 cm IVS Diastolic Thickness 1.6 cm 0.6 - 1.0 / 0.6 - 0.9 cm LVPW Diastolic Thickness 1.6 cm 0.6 - 1.0 / 0.6 - 0.9 cm LV Relative Wall Thickness 0.7 RV Internal Dim ED PLAX 3.6 cm LA Systolic Diameter LX 3.4 cm 3.0 - 4.0 / 2.7 - 3.8 cm LV Diastolic Volume MOD 4C 63.3 cm??? LV Systolic Volume MOD 4C 33.5 cm??? LV Ejection Fraction MOD 4C 47.1 % LV Cardiac Index MOD 4C 1133.4 cm???/min???m??? LV Diastolic Length 4C 10.0 cm LV Systolic Length 4C 8.8 cm M-MODE Aortic Root Diameter MM 3.4 cm DOPPLER AV Peak Velocity 151.9 cm/s AV Peak Gradient 9.2 mmHg MV Deceleration Time 166.1 ms FINDINGS Left Ventricle Left ventricular ejection fraction is estimated at 45-50 %. Left ventricular cavity size normal. Severely increased left ventricular wall thickness. Limited study with inferolateral and inferoseptal hypokinesis Right Ventricle Mild right ventricular dilatation. Unable to estimate the right ventricular systolic pressure. Right Atrium Right atrium not well visualized. Left Atrium Normal left atrial size. Mitral Valve Mitral valve thickened. No mitral stenosis, regurgitation or prolapse. Aortic Valve Aortic valve not well visualized. No aortic valve stenosis or regurgitation. Tricuspid Valve Structurally normal tricuspid valve. No tricuspid stenosis, regurgitation or prolapse. Pulmonic Valve Pulmonic valve not well visualized. No pulmonic regurgitation. Pericardium No pericardial effusion. Aorta Normal size aortic root and proximal ascending aorta. CONCLUSIONS Technically difficult study. Limited echo. Overall left ventricle systolic function mildly impaired with a suggestion of segmental wall motion abnormality Very limited Doppler study Previewed by: Dr. Kelly Mack MD (Electronically Signed) Final Date: 06 March 2024 17:41
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
[2024-03-06] MEDS: ASPIRIN 81 MG PO SCH (22:57)
[2024-03-06 23:34] LABS: Glucose,Whole Blood 159 mg/dL (70-110)
[2024-03-07] MEDS: MORPHINE SULFATE 2 MG/ML SYRINGE IVP PRN (04:27)
[2024-03-07 05:33] LABS: ABG Base Excess -2.4 mmol/L; ABG HCO3 24 mmol/L (21-25); ABG Oxygen Saturation 99.8 % (94-97); ABG PCO2 49 mmHg (35-45); ABG PH 7.31 (7.35-7.45); ABG PO2 188 mmHg (83-108); ABG TCO2 26 mmol/L (19-24); Allen Test Performed? Yes
[2024-03-07 05:43] LABS: Basophils % (A) 0 %; Eosinophils # (A) 0.1 k/uL (0-0.7); Eosinophils % (A) 1 %; HCT 47.1 % (39.0-53.0); HGB 15.4 gm/dL (13.0-17.5); Lymphocytes # (A) 1.1 k/uL (1.0-4.8); Lymphocytes % (A) 6 %; MCH 29.9 pg (25.0-35.0); MCHC 32.7 g/dL (31.0-37.0); MCV 91.4 fL (80.0-100.0); Mean Platelet Volume 8.9; Monocytes # (A) 0.3 k/uL (0-1.0); Monocytes % (A) 2 %; Neutrophils # (A) 15.5 k/uL (1.3-7.7); Neutrophils % (A) 91 %; Platelet Count 235 k/uL (150-450); RBC 5.15 m/uL (4.30-5.90); RDW 14.9 % (11.5-15.5); WBC 17.1 k/uL (3.8-10.6)
[2024-03-07 06:20] LABS: Carbon Dioxide 21 mmol/L (22-30); Chloride 109 mmol/L (98-107); Glucose 179 mg/dL (74-99); Potassium 4.5 mmol/L (3.5-5.1); Sodium 140 mmol/L (137-145)
[2024-03-07 06:21] LABS: African American GFR (CKD) 29 (>60 ml/min/1.73 sqM); Anion Gap 10 mmol/L; Blood Urea Nitrogen 36 mg/dL (9-20); Calcium 9.1 mg/dL (8.4-10.2); Non-African American GFR(CKD) 25 (>60 ml/min/1.73 sqM)
--- NOTE | 2024-03-07 07:43 | XR ---
EXAMINATION TYPE: XR chest 1V portable DATE OF EXAM: 03/07/2024 5:21 AM CLINICAL INDICATION:Male, 73 years old with history of Tube placement; [facility] COMPARISON: Chest radiographs from 03/06/2024 TECHNIQUE: XR chest 1V portable Frontal view of the chest. FINDINGS: Lungs/Pleura: There is no evidence of pleural effusion, focal consolidation, or pneumothorax. Pulmonary vascularity: Unremarkable. Heart/mediastinum: Cardiomediastinal silhouette is unremarkable. Musculoskeletal: No acute osseous pathology. Other findings: None Lines/Tubes: Endotracheal tube radiopaque line is poorly visualized the tube may be 6.8 cm from the laar. Nasogastric tube with its distal tip and side-port projecting under the diaphragm. Left central venous catheter with distal tip at the cavoatrial junction. IMPRESSION: Endotracheal tube radiopaque line is poorly visualized the tube may be 6.8 cm from the lara. Consid er repeat film possible advancement up to 4 cm for optimal placement.
--- NOTE | 2024-03-07 10:51 | US ---
EXAMINATION TYPE: US kidneys/renal and bladder DATE OF EXAM: 03/07/2024 COMPARISON: NONE CLINICAL INDICATION: Male, 73 years old with history of patient has low urine output; Patient has low urine output. EXAM MEASUREMENTS: Right Kidney: 10.3 x 6.0 x 5.7 cm Left Kidney: 9.9 x 5.6 x 5.7 cm Exam is limited due to inability to turn patient on his sides due to current state in ICU. Right Kidney: No hydronephrosis or masses seen Left Kidney: No hydronephrosis or masses seen Bladder: Undistended, catheter is in place. Bilateral Jets seen: No, unable to evaluate. IMPRESSION: No obstructive uropathy.
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
--- NOTE | 2024-03-07 13:29 | P.PN ---
Subjective Progress Note Date: 03/07/24 HISTORY OF PRESENTING ILLNESS Patient is a 73-year-old male. Patient was intubated but examined and history submitted. History is mostly obtained from medical records. Patient has a past medical history of hypertension dyslipidemia, COPD and is a heavy smoker. He presented to the hospital because of respiratory distress. In the ER he was maintained on BiPAP which he failed and was subsequently intubated. In process of being shifting from a transportation bed to ICU bed, it was noticed that patient went into pulseless electrical activity at 0 7:55 AM. CODE BLUE was called. Patient received 1 amp of epi and atropine. Patient had ROSC at 0 758 AM. Patient only had brief chest compressions done. Post ROSC patient was noticed to go into a brief run of ventricular tachycardia. For this he was given 2 g of magnesium, 1 g of calcium, 300 mg of amiodarone and was started on amiodarone drip. Amiodarone for his discontinued thereafter once the patient was stabilized. On admission his troponin was negative. Repeat troponin after cardiac arrest was elevated at 0.2. Admission BNP 7600. On admission he had leukocytosis WBC 15.9, hemoglobin 17.5, respiratory acidosis, pH 7.14, pCO2 76, lactate of 10.8. Echocardiogram showed an EF of 40 to 45% with basal inferolateral wall h ypokinesia. Echocardiogram study was limited for valvular function assessment. Admission ECG showed sinus tachycardia with bigeminal pattern because of frequent PVCs. At the time of evaluation, telemetry showed sinus bradycardia with heart rate 58 bpm with bigeminal and trigeminal PVCs. Progress note 03/07/2024 BP 160/65, heart rate 88 bpm, on vent support, FiO2 40%, PEEP 8, does not appear volume overloaded 1 L urine output overnight WBC 17.1, hemoglobin 15.4, BUN 36, creatinine 2.4. Patient's creatinine has continued to trend up since admission. On admission was 1.8 Patient is off pressors, continues to be in sinus rhythm on telemetry. PHYSICAL EXAMINATION Vital signs reviewed. Head: Normocephalic. Eyes: Sclerae nonicteric. Neck: Brisk carotid upstroke, Lungs: ET tube in place, on vent support, mild crackles audible in bilateral lung love., Mild wheezing noticed. Heart: Regular rate and rhythm, S1-S2, no S3, mild systolic murmur audible Abdomen: Soft nontender, Extremities: No edema, Neuro: Sedated on vent support, detailed neuro exam was not performed. ASSESSMENT Elevated troponin, likely type II NSTEMI from hypoxemia PEA cardiac arrest, likely due to hypoxia and hypercapnia Cardiomyopathy, EF 40 to 45% with basal inferolateral wall hypokinesia Frequent PVCs in bigeminal pattern Acute hypoxic and hypercapnic respiratory failure along with respiratory distress requiring ventilator support DANIEL, ATN Anion gap metabolic acidosis with lactic acidosis likely due to hypoxia Acute COPD exacerbation Septic shock likely source pneumonia Echocardiogram showed an EF of 40 to 45% with basal inferolateral wall hypokinesia. Echocardiogram study was limited for valvular function assessment. PLAN Continue IV heparin drip. aspirin 81 mg, atorvastatin Increase metoprolol XL to 25 mg daily Patient is off pressors. Once patient's metabolic state and respiratory status improves and renal function stabilizes, patient would need ischemic evaluation with cardiac andrzej terization. Objective - Vital Signs Vital signs: Vital Signs Temp 99.6 F 03/07/24 08:00 Pulse 88 03/07/24 11:32 Resp 30 H 03/07/24 10:30 BP 146/55 03/07/24 10:30 Pulse Ox 100 03/07/24 10:30 FiO2 40 03/07/24 10:51 Intake & Output 03/06/24 03/07/24 03/07/24 18:59 06:59 18:59 Intake Total 1222.743 5463.341 315 Output Total 360 685 180 Balance 986.922 348.341 135 Weight 74.843 kg 82.5 kg Intake: IV 810 633 315 .9NS Pressure Bag 33 15 Azithromycin 500 mg In 250 Sodium Chloride 0.9% 250 ml @ 250 mls/hr IVPB DAILY [facility] Rx#:[id number] Sodium Chloride 0.9% 1, 510 600 250 000 ml @ 50 mls/hr IV . Q20H [facility] Rx#:[id number] cefTRIAXone 1 gm In 50 50 Sodium Chloride 0.9% 50 ml @ 100 mls/hr IVPB Q24HR [facility] Rx#:[id number] Intake, IV Titration 536.922 400.341 Amount Amiodarone 360 mg In 10.555 Dextrose 5% in Water 200 ml @ 1 MG/MIN 33.333 mls/ hr IV .Q6H [facility] Rx#: [id number] Heparin Sod,Pork in 0.45% 129.556 97.393 NaCl 25,000 unit In 0.45 % NaCl 1 250ml.bag @ 18 UNITS/KG/HR 13.472 mls/hr IV .[id number] [facility] Rx#: [id number] Norepinephrine 4 mg In 242.999 53.276 Sodium Chloride 0.9% 250 ml @ 0.03 MCG/KG/MIN 8. 555 mls/hr IV .Q24H [facility] Rx#:[id number] propofoL 1,000 mg In 153.812 249.672 Empty Bag 1 bag @ 15 MCG/ KG/MIN 6.736 mls/hr IV . [id number] [facility] Rx#:[id number] Output: Urine 360 685 180 Other: Voiding Method Indwelling Catheter Indwelling Catheter ABP, PAP, CO, CI - Last Documented Arterial Blood Pressure 98/41 - Labs CBC & Chem 7: 03/07/24 05:30 03/07/24 05:30 Labs: Abnormal Lab Results - Last 24 Hours (Table) 03/06/24 03/06/24 03/06/24 Range/Units 14:00 14:25 14:25 WBC (3.8-10.6) k/uL Neutrophils # (1.3-7.7) k/uL APTT 115.3 H* (22.0-30.0) sec ABG pH (7.35-7.45) ABG pCO2 (35-45) mmHg ABG pO2 (83-108) mmHg ABG Total CO2 (19-24) mmol/L ABG O2 Saturation (94-97) % Potassium (3.5-5.1) mmol/L Chloride (98-107) mmol/L Carbon Dioxide (22-30) mmol/L BUN (9-20) mg/dL Creatinine (0.66-1.25) mg/dL Glucose (74-99) mg/dL POC Glucose (mg/dL) (70-110) mg/dL Plasma Lactic Acid Curtis 2.1 H* (0.7-2.0) mmol/L Urine Protein Trace H (Negative) Urine Blood Moderate H (Negative) Urine RBC 61 H (0-5) /hpf Urine Bacteria Occasional H (None) /hpf Hyaline Casts 3 H (0-2) /lpf Urine Mucus Rare H (None) /hpf 07/03/24 07/03/24 07/03/24 Range/Units 17:00 23:30 23:30 WBC (3.8-10.6) k/uL Neutrophils # (1.3-7.7) k/uL APTT 87.3 H (22.0-30.0) sec ABG pH (7.35-7.45) ABG pCO2 (35-45) mmHg ABG pO2 (83-108) mmHg ABG Total CO2 (19-24) mmol/L ABG O2 Saturation (94-97) % Potassium 5.2 H 5.2 H (3.5-5.1) mmol/L Chloride 109 H (98-107) mmol/L Carbon Dioxide (22-30) mmol/L BUN 28 H (9-20) mg/dL Creatinine 2.38 H (0.66-1.25) mg/dL Glucose 169 H (74-99) mg/dL POC Glucose (mg/dL) (70-110) mg/dL Plasma Lactic Acid Curtis (0.7-2.0) mmol/L Urine Protein (Negative) Urine Blood (Negative) Urine RBC (0-5) /hpf Urine Bacteria (None) /hpf Hyaline Casts (0-2) /lpf Urine Mucus (None) /hpf 03/06/24 03/07/24 03/07/24 Range/Units 23:32 05:29 05:30 WBC 17.1 H (3.8-10.6) k/uL Neutrophils # 15.5 H (1.3-7.7) k/uL APTT (22.0-30.0) sec ABG pH 7.31 L (7.35-7.45) ABG pCO2 49 H (35-45) mmHg ABG pO2 188 H (83-108) mmHg ABG Total CO2 26 H (19-24) mmol/L ABG O2 Saturation 99.8 H (94-97) % Potassium (3.5-5.1) mmol/L Chloride (98-107) mmol/L Carbon Dioxide (22-30) mmol/L BUN (9-20) mg/dL Creatinine (0.66-1.25) mg/dL Glucose (74-99) mg/dL POC Glucose (mg/dL) 159 H (70-110) mg/dL Plasma Lactic Acid Curtis (0.7-2.0) mmol/L Urine Protein (Negative) Urine Blood (Negative) Urine RBC (0-5) /hpf Urine Bacteria (None) /hpf Hyaline Casts (0-2) /lpf Urine Mucus (None) /hpf 03/07/24 03/07/24 Range/Units 05:30 06:50 WBC (3.8-10.6) k/uL Neutrophils # (1.3-7.7) k/uL APTT 58.7 H (22.0-30.0) sec ABG pH (7.35-7.45) ABG pCO2 (35-45) mmHg ABG pO2 (83-108) mmHg ABG Total CO2 (19-24) mmol/L ABG O2 Saturation (94-97) % Potassium (3.5-5.1) mmol/L Chloride 109 H (98-107) mmol/L Carbon Dioxide 21 L (22-30) mmol/L BUN 36 H (9-20) mg/dL Creatinine 2.41 H (0.66-1.25) mg/dL Glucose 179 H (74-99) mg/dL POC Glucose (mg/dL) (70-110) mg/dL Plasma Lactic Acid Curtis (0.7-2.0) mmol/L Urine Protein (Negative) Urine Blood (Negative) Urine RBC (0-5) /hpf Urine Bacteria (None) /hpf Hyaline Casts (0-2) /lpf Urine Mucus (None) /hpf
[2024-03-07] MEDS: METOPROLOL SUCCINATE (ER) 25 MG TAB.ER.24H PO STA (13:45)
[2024-03-07 17:25] LABS: Glucose,Whole Blood 166 mg/dL (70-110)
[2024-03-07] MEDS ORDERED: DEXTROSE 50% SYRINGE 50 ML IVP PRN ×2 (19:08)
--- NOTE | 2024-03-07 19:51 | P.PN ---
Progress Note - Text Progress Note Date: 03/07/24 Chief Complaint: Short of breath This is a 73-year-old patient, follows with Dr. Patton. Patient admitted to the ER. He was presented to the ER brought in by his ex-. He was getting increasingly short of breath. She did not know much about patient's history. Pulse ox in the triage was found to be 70%. Does not wear oxygen at home. Patient was intubated in the ER. As BiPAP did not help. Subsequently patient was noted to have significant bigeminy's. Heart rate dropped down to 20s and lost his pulse. At 7:55 AM this morning code was called. Patient received epinephrine atropine calcium bicarbonate had a short run of spontaneous V. tach that resolved. Intubated placed in the ICU. This morning patient is on FiO2 100 and a PEEP of 10. Drips include IV Levophed at 0.17 mics, amiodarone drip, saline, IV heparin. Sedated March 07: ICU. Intubated. FiO2 40 and PEEP of 8. Telemetry showing bigeminy. Drips include IV heparin and propofol. Patient's son and [id number] at the bedside. They said that patient's had chronic back pain. Was smoking close to 2 packs a day. Also on IV antibiotic. Worsening creatinine. Active Medications Albuterol/Ipratropium (Ipratropium-Albuterol 3 Ml Neb) 3 ml INHALATION RT-Q4H [facility] Last Admin: 03/07/24 15:17 Dose: 3 ml Allopurinol (Allopurinol 100 Mg Tab) 100 mg PO DAILY [facility] Last Admin: 03/07/24 10:37 Dose: 100 mg Aspirin (Aspirin 81 Mg) 81 mg PO DAILY [facility] Last Admin: 03/07/24 10:37 Dose: 81 mg Atorvastatin Calcium (Atorvastatin 80 Mg Tab) 80 mg PO DAILY [facility] Last Admin: 03/07/24 10:37 Dose: 80 mg Budesonide (Budesonide 1 Mg/2 Ml Nebu) 1 mg INHALATION RT-BID [facility] Last Admin: 03/07/24 08:19 Dose: 1 mg Chlorhexidine Gluconate (Chlorhexidine Gluconate 15 Ml Cup) 15 ml MUCOUS MEM BID [facility] Last Admin: 03/07/24 10:36 Dose: 15 ml Dextrose/Water (Dextrose 50% Syringe 50 Ml) 25 ml IVP PER PROTOCOL PRN; Protocol PRN Reason: Hypoglycemia Dextrose/Water (Dextrose 50% Syringe 50 Ml) 50 ml IVP PER PROTOCOL PRN; Protocol PRN Reason: Hypoglycemia Formoterol Fumarate (Formoterol Fumarate 20 Mcg/2 Ml Nebu) 20 mcg INHALATION RT-BID [facility] Last Admin: 03/07/24 08:20 Dose: 20 mcg Gabapentin (Gabapentin 300 Mg Cap) 300 mg PO TID [facility] Last Admin: 03/07/24 17:03 Dose: 300 mg Heparin Sodium (Porcine) (Heparin Sodium 1,000 Un/Ml (10ml Vl)) 0 unit IV PER PROTOCOL PRN; Protocol PRN Reason: Low PTT Sodium Chloride (Saline 0.9%) 1,000 mls @ 50 mls/hr IV .Q20H [facility] Last Admin: 03/07/24 05:15 Dose: 50 mls/hr Heparin Sodium/Sodium Chloride (25,000 unit/ Sodium Chloride) 250 mls @ 13.472 mls/hr IV .[id number] [facility]; Protocol Last Admin: 03/07/24 02:16 Dose: 13 units/kg/hr, 9.73 mls/hr Azithromycin 500 mg/ Sodium (Chloride) 250 mls @ 250 mls/hr IVPB DAILY [facility]; Protocol Stop: 03/08/24 09:59 Last Admin: 03/07/24 11:43 Dose: 250 mls/hr Ceftriaxone Sodium 1 gm/ (Sodium Chloride) 50 mls @ 100 mls/hr IVPB Q24HR [facility]; Protocol Last Admin: 03/07/24 10:36 Dose: 100 mls/hr Norepinephrine Bitartrate 4 mg (/ Sodium Chloride) 254 mls @ 8.555 mls/hr IV .Q24H [facility]; Protocol Last Titration: 03/06/24 22:06 Dose: 0 mcg/kg/min, 0 mls/hr Propofol 1,000 mg/ IV Solution 100 mls @ 6.736 mls/hr IV .[id number] [facility]; Protocol Last Titration: 03/07/24 17:10 Dose: 50 mcg/kg/min, 22.453 mls/hr Insulin Aspart (Insulin Aspart (Novolog) 100 Unit/Ml Vial) 0 unit SQ Q6HR [facility]; Protocol Methylprednisolone Sodium Succinate (Methylprednisolone Sod Succi 125 Mg/2 Ml Vial) 60 mg IV Q6HR [facility] Last Admin: 03/07/24 17:03 Dose: 60 mg Metoprolol Tartrate (Metoprolol Tartrate 25 Mg Tab) 25 mg PO BID [facility] Morphine Sulfate (Morphine Sulfate 2 Mg/Ml Syringe) 2 mg IVP Q6HR PRN PRN Reason: Pain/Discomfort Last Admin: 03/07/24 17:02 Dose: 2 mg Naloxone HCl (Naloxone 0.4 Mg/Ml 1 Ml Vial) 0.2 mg IV Q2M PRN PRN Reason: Opioid Reversal Nicotine (Nicotine 21mg/24hr Patch) 1 patch TRANSDERM DAILY [facility] Last Admin: 03/07/24 10:37 Dose: 1 patch Pantoprazole Sodium (Pantoprazole 40 Mg/10 Ml Vial) 40 mg IVP DAILY [facility] Last Admin: 03/07/24 10:36 Dose: 40 mg Social history: Longstanding smoker. . Smoking since the age of 7 about 2 packs a day. Alcohol rarely Physical examination: VITAL SIGNS: Afebrile, 84, 30, 164 x 58, 100% on ventilator GENERAL: BMI 25.8, laying in bed intubated. EYES: Pupils equal. Conjunctiva julia l. HEENT: External appearance of nose and ears normal, oral cavity grossly normal. OG tube. Endotracheal tube. NECK: JVD not raised; masses not palpable. HEART: First and second heart sounds are normal; no edema. LUNGS: Respiratory increased, decreased breath sounds. ABDOMEN: Soft, nontender, liver spleen not palpable, no masses palpable. PSYCH: Patient sedated l. MUSCULOSKELETAL:No Clubbing/cyanosis;muscles-grossly intact NEUROLOGICAL: Cranial nerves grossly intact; no facial asymmetry, power and sensation grossly intact. INVESTIGATIONS, reviewed in the clinical context: March 07: White count 7.1 hemoglobin 15.4 platelets 235 potassium 4.5 BUN 36 creatinine 2.41 March 06, 2024: White count 19.4 hemoglobin 16.9 platelets 283 sodium 145 potassium 4.5 BUN 24 creatinine 1.93 ABG: pH 7.23 pCO2 68 pO2 70 Lactic acid 2.4 Troponin I 0.241 EKG tracing personally reviewed by me-sinus tachycardia, PVCs, P pulmonale pattern Chest x-ray film personally reviewed by me-infiltrate versus possible edema Assessment and plan: -Acute severe hypoxic hypercapnic respiratory failure from underlying COPD/pneumonia, with currently ventilator support FiO2 40 and PEEP of 8. -Acute severe COPD exacerbation in a current smoker IV Solu-Medrol. Nebulized Pulmicort. Perforomist. SohamoNeb -Pneumonia suspect gram-negative organism IV ceftriaxone, Zithromax -Acute kidney injury likely ATN from sepsis hypertension Follow I's and O's. Consult nephrology -Chronic nicotine dependence cigarette smoker Nicotine patch -Pulseless electrical activity secondary to respiratory failure. Patient received medications include epinephrine, atropine, calcium, bicarbonate -Episode of ventricular tachycardia likely precipitated by hypoxia infection IV amiodarone-discontinued. IV heparin Cardiology following -IV heparin monitoring Follow PTT -Chronic gout Allopurinol 100 mg -Hypotensive shock-corrected Received IV Levophed -Essential hypertension, Lopressor 25 twice daily added. -GERD, stress ulcer prophylaxis IV Protonix 40 -Full code Patient off Levophed. Lopressor added.. IV amiodarone discontinued. Given renal function cut back dose of Neurontin to twice daily. Consult nephrology. Past Medical History Past Medical History: Coronary Artery Disease (CAD), GERD/Reflux, Hyperlipidemia, Hypertension Additional Past Medical History / Comment(s): gout, "hx 9 polyps", "legs give out", "bad back" History of Any Multi-Drug Resistant Organisms: None Reported Past Surgical History: Back Surgery Additional Past Surgical History / Comment(s): back surgery x 2, amputation two toes rt foot, tracheostomy,"surgery for blockage in chest and legs"- pt not sure what surgery, radha cataracts Past Anesthesia/Blood Transfusion Reactions: No Reported Reaction Past Psychological History: No Psychological Hx Reported Smoking Status: Current every day smoker
[2024-03-07] MEDS: METOPROLOL TARTRATE 25 MG TAB PO SCH (19:56)
[2024-03-07] MEDS: GABAPENTIN 300 MG CAP PO SCH (19:56)
[2024-03-07] MEDS: CLEVIDIPINE BUTYRATE 25 MG in EMPTY BAG 1 BAG IV SCH (20:13)
[2024-03-07 23:13] LABS: Glucose,Whole Blood 178 mg/dL (70-110)
[2024-03-07] MEDS: INSULIN ASPART (NovoLOG) 100 UNIT/ML VIAL SQ SCH (23:36)
[2024-03-08] MEDS: MORPHINE SULFATE 2 MG/ML SYRINGE IVP PRN (02:36)
[2024-03-08 03:41] LABS: Basophils % (A) 0 %; Eosinophils # (A) 0.2 k/uL (0-0.7); Eosinophils % (A) 1 %; HGB 14.5 gm/dL (13.0-17.5); Lymphocytes # (A) 0.7 k/uL (1.0-4.8); Lymphocytes % (A) 4 %; MCH 28.2 pg (25.0-35.0); MCHC 30.8 g/dL (31.0-37.0); MCV 91.5 fL (80.0-100.0); Mean Platelet Volume 8.9; Monocytes # (A) 0.7 k/uL (0-1.0); Monocytes % (A) 4 %; Neutrophils # (A) 17.4 k/uL (1.3-7.7); Neutrophils % (A) 91 %; Platelet Count 236 k/uL (150-450); RBC 5.13 m/uL (4.30-5.90); RDW 15.1 % (11.5-15.5); WBC 19.1 k/uL (3.8-10.6)
[2024-03-08 03:57] LABS: African American GFR (CKD) 40 (>60 ml/min/1.73 sqM); Anion Gap 8 mmol/L; Blood Urea Nitrogen 38 mg/dL (9-20); Calcium 9.1 mg/dL (8.4-10.2); Carbon Dioxide 22 mmol/L (22-30); Chloride 109 mmol/L (98-107); Glucose 166 mg/dL (74-99); Non-African American GFR(CKD) 34 (>60 ml/min/1.73 sqM); Potassium 3.9 mmol/L (3.5-5.1); Sodium 139 mmol/L (137-145)
[2024-03-08] MEDS: HEPARIN SODIUM 1,000 UN/ML (10ML VL) IV PRN (04:20)
[2024-03-08] MEDS ORDERED: Potassium Replacement Protocol 1 EACH MISC MISCELLANE PRN (04:28)
[2024-03-08 05:05] LABS: Glucose,Whole Blood 162 mg/dL (70-110)
[2024-03-08] MEDS: POTASSIUM BICARBONATE/CIT AC 20 MEQ TABLET.EFF NG-TUBE SCH (05:08)
[2024-03-08 06:22] LABS: ABG HCO3 26 mmol/L (21-25); ABG Oxygen Saturation 98.8 % (94-97); ABG PCO2 44 mmHg (35-45); ABG PH 7.37 (7.35-7.45); ABG PO2 116 mmHg (83-108); ABG TCO2 27 mmol/L (19-24); Allen Test Performed? Yes
[2024-03-08] MEDS ORDERED: METOPROLOL SUCCINATE (ER) 25 MG TAB.ER.24H PO SCH (09:00)
--- NOTE | 2024-03-08 09:17 | XR ---
EXAMINATION TYPE: XR chest 1V portable DATE OF EXAM: 03/08/2024 Comparison: 03/07/2024 Clinical History: 73 year-old male tube placement Findings: ET tube tip at the medial clavicular heads. NG tube courses below the diaphragm. Left subclavian CVC tip at the lower SVC level. Portable technique further limited by prominent leftward patient rotation . There is some retrocardiac density which may be projectional. However, there is some blunting of th e right costophrenic angle. The left costophrenic angle is excluded from view. Impression: Portable exam further limited by prominent patient rotation. There appears to be a small right pleura l effusion with adjacent atelectasis and/or consolidation. Patchy retrocardiac opacity also noted. Th e left costophrenic angle is excluded from view.
--- NOTE | 2024-03-08 09:34 | XR ---
EXAMINATION TYPE: XR chest 1V DATE OF EXAM: 03/08/2024 COMPARISON: Earlier today HISTORY: 73-year-old male OG-tube placement TECHNIQUE: Single frontal view of the chest is obtained. FINDINGS: OG tube satisfactory. Left CVC tip at the mid to lower SVC level. The patient remains prom inently obliqued with the right and rotated toward the left. The thoracic inlet is excluded from view and the ET tube is not adequately assessed. Envoy small right effusion and patchy retrocardiac opaci ty. IMPRESSION: 1. OG tube satisfactory. 2. The patient remains prominently obliqued and rotated towards the left. The thoracic inlet is exclu ded from view on the current exam and ET tube is not adequately assessed. 3. Similar small right effusion with adjacent atelectasis and/or consolidation. Similar patchy retroc ardiac density.
[2024-03-08 10:06] LABS: ABG Base Excess -0.2 mmol/L; ABG HCO3 27 mmol/L (21-25); ABG Oxygen Saturation 98.8 % (94-97); ABG PCO2 52 mmHg (35-45); ABG PH 7.32 (7.35-7.45); ABG PO2 121 mmHg (83-108); ABG TCO2 28 mmol/L (19-24)
[2024-03-08] MEDS: cloNIDine HCL 0.1 MG TAB PO SCH (10:09)
[2024-03-08] MEDS: amLODIPine 10 MG TAB PO SCH (10:09)
[2024-03-08 11:45] LABS: Glucose,Whole Blood 160 mg/dL (70-110)
--- NOTE | 2024-03-08 12:03 | P.PN ---
Progress Note - Text Progress Note Date: 03/08/24 Chief Complaint: Short of breath This is a 73-year-old patient, follows with Dr. Patton. Patient admitted to the ER. He was presented to the ER brought in by his ex-. He was getting increasingly short of breath. She did not know much about patient's history. Pulse ox in the triage was found to be 70%. Does not wear oxygen at home. Patient was intubated in the ER. As BiPAP did not help. Subsequently patient was noted to have significant bigeminy's. Heart rate dropped down to 20s and lost his pulse. At 7:55 AM this morning code was called. Patient received epinephrine atropine calcium bicarbonate had a short run of spontaneous V. tach that resolved. Intubated placed in the ICU. This morning patient is on FiO2 100 and a PEEP of 10. Drips include IV Levophed at 0.17 mics, amiodarone drip, saline, IV heparin. Sedated March 07: ICU. Intubated. FiO2 40 and PEEP of 8. Telemetry showing bigeminy. Drips include IV heparin and propofol. Patient's son and [id number] at the bedside. They said that patient's had chronic back pain. Was smoking close to 2 packs a day. Also on IV antibiotic. Worsening creatinine. March 08: ICU. Intubated. Blood pressure was high last night. Put on Cleviprex drip. Having some immanuel blood per NG tube. Tube feeding has been held. IV Protonix increased to twice daily. Will DC IV heparin drip. Other drips include propofol and heparin. Patient sedated. Creatinine did drop to 1.88 Active Medications Albuterol/Ipratropium (Ipratropium-Albuterol 3 Ml Neb) 3 ml INHALATION RT-Q4H [facility] Last Admin: 03/08/24 11:29 Dose: 3 ml Allopurinol (Allopurinol 100 Mg Tab) 100 mg PO DAILY [facility] Last Admin: 03/08/24 10:09 Dose: 100 mg Amlodipine Besylate (Amlodipine 10 Mg Tab) 10 mg PO DAILY [facility] Last Admin: 03/08/24 10:09 Dose: 10 mg Atorvastatin Calcium (Atorvastatin 80 Mg Tab) 80 mg PO DAILY [facility] Last Admin: 03/08/24 10:09 Dose: 80 mg Budesonide (Budesonide 1 Mg/2 Ml Nebu) 1 mg INHALATION RT-BID [facility] Last Admin: 03/08/24 08:40 Dose: 1 mg Chlorhexidine Gluconate (Chlorhexidine Gluconate 15 Ml Cup) 15 ml MUCOUS MEM BID [facility] Last Admin: 03/08/24 10:09 Dose: 15 ml Clonidine (Clonidine Hcl 0.1 Mg Tab) 0.1 mg PO TID [facility] Last Admin: 03/08/24 10:09 Dose: 0.1 mg Dextrose/Water (Dextrose 50% Syringe 50 Ml) 25 ml IVP PER PROTOCOL PRN; Protocol PRN Reason: Hypoglycemia Dextrose/Water (Dextrose 50% Syringe 50 Ml) 50 ml IVP PER PROTOCOL PRN; Protocol PRN Reason: Hypoglycemia Formoterol Fumarate (Formoterol Fumarate 20 Mcg/2 Ml Nebu) 20 mcg INHALATION RT-BID [facility] Last Admin: 03/08/24 08:40 Dose: 20 mcg Gabapentin (Gabapentin 300 Mg Cap) 300 mg PO BID [facility] Last Admin: 03/08/24 10:09 Dose: 300 mg Hydralazine HCl (Hydralazine Hcl 20 Mg/Ml 1 Ml Vial) 10 mg IVP Q4HR PRN PRN Reason: Blood Pressure - High Hydromorphone HCl (Hydromorphone 1 Mg/Ml 1 Ml Syringe) 1 mg IVP Q2HR PRN PRN Reason: ventilator synchrony Sodium Chloride (Saline 0.9%) 1,000 mls @ 50 mls/hr IV .Q20H [facility] Last Admin: 03/08/24 08:00 Dose: 50 mls/hr Ceftriaxone Sodium 1 gm/ (Sodium Chloride) 50 mls @ 100 mls/hr IVPB Q24HR [facility]; Protocol Last Admin: 03/08/24 10:08 Dose: 100 mls/hr Clevidipine 25 mg/ IV Solution 50 mls @ 2 mls/hr IV .Q24H [facility]; Protocol Last Titration: 03/08/24 08:15 Dose: 3 mg/hr, 6 mls/hr Propofol 1,000 mg/ IV Solution 100 mls @ 22.453 mls/hr IV .Q4H28M [facility]; Protocol Insulin Aspart (Insulin Aspart (Novolog) 100 Unit/Ml Vial) 0 unit SQ Q6HR [facility]; Protocol Last Admin: 03/08/24 11:48 Dose: 2 unit Methylprednisolone Sodium Succinate (Methylprednisolone Sod Succi 40 Mg/Ml 1 Ml Vial) 40 mg IV Q12H [facility] Metoprolol Tartrate (Metoprolol Tartrate 25 Mg Tab) 25 mg PO BID [facility] Last Admin: 03/08/24 10:09 Dose: 25 mg Miscellaneous Information (Potassium Replacement Protocol 1 Each Misc) 1 each MISCELLANE DAILY PRN; Protocol PRN Reason: Per Protocol Morphine Sulfate (Morphine Sulfate 2 Mg/Ml Syringe) 2 mg IVP Q3H PRN PRN Reason: Pain/Discomfort Last Admin: 03/08/24 10:05 Dose: 2 mg Naloxone HCl (Naloxone 0.4 Mg/Ml 1 Ml Vial) 0.2 mg IV Q2M PRN PRN Reason: Opioid Reversal Nicotine (Nicotine 21mg/24hr Patch) 1 patch TRANSDERM DAILY [facility] Last Admin: 03/08/24 10:10 Dose: 1 patch Pantoprazole Sodium (Pantoprazole 40 Mg/10 Ml Vial) 40 mg IVP BID [facility] Social history: Longstanding smoker. . Smoking since the age of 7 about 2 packs a day. Alcohol rarely Physical examination: VITAL SIGNS: Afebrile, 98, 16, 122/56, 96% on the ventilator GENERAL: , laying in bed intubated. EYES: Pupils equal. Conjunctiva julia l. HEENT: External appearance of nose and ears normal, oral cavity grossly normal. OG tube-some blood. Endotracheal tube. NECK: JVD not raised; masses not palpable. HEART: First and second heart sounds are normal; no edema. LUNGS: Respiratory increased, decreased breath sounds. ABDOMEN: Soft, nontender, liver spleen not palpable, no masses palpable. PSYCH: Patient sedated l. MUSCULOSKELETAL:No Clubbing/cyanosis;muscles-grossly intact NEUROLOGICAL: Cranial nerves grossly intact; no facial asymmetry, power and sensation grossly intact. INVESTIGATIONS, reviewed in the clinical context: March 08: White count 9.1 hemoglobin 14.5 platelets 236 potassium 3.9 BUN 38 creatinine 1.88 March 07: White count 7.1 hemoglobin 15.4 platelets 235 potassium 4.5 BUN 36 creatinine 2.41 March 06, 2024: White count 19.4 hemoglobin 16.9 platelets 283 sodium 145 pota ssium 4.5 BUN 24 creatinine 1.93 ABG: pH 7.23 pCO2 68 pO2 70 Lactic acid 2.4 Troponin I 0.241 EKG tracing personally reviewed by me-sinus tachycardia, PVCs, P pulmonale pattern Chest x-ray film personally reviewed by me-infiltrate versus possible edema Assessment and plan: -Acute severe hypoxic hypercapnic respiratory failure from underlying COPD/pneumonia, with currently ventilator support FiO2 40 and PEEP of 5. -Acute severe COPD exacerbation in a current smoker IV Solu-Medrol. Nebulized Pulmicort. Perforomist. DuoNeb -Probable acute GI bleed with multiple risk factors including stress ulcer from being intubated, steroids,, IV heparin, Increase IV Protonix to twice daily. Stop IV heparin. -Pneumonia suspect gram-negative organism IV ceftriaxone, Zithromax -Acute kidney injury likely ATN from sepsis hypotension Follow I's and O's. Nephro allergy following -Chronic nicotine dependence cigarette smoker Nicotine patch -Pulseless electrical activity secondary to respiratory failure. Patient received medications include epinephrine, atropine, calcium, bicarbonate -Episode of ventricular tachycardia likely precipitated by hypoxia infection IV amiodarone-discontinued. IV heparin-DC Cardiology following -IV heparin monitoring Follow PTT -Chronic gout Allopurinol 100 mg -Hypotensive shock-corrected Received IV Levophed -Essential hypertension, Lopressor 25 twice daily added. -GERD, stress ulcer prophylaxis IV Protonix 40 twice daily -Full code DC IV heparin. Increase Protonix to twice daily. Other medications to continue. Prognosis guarded Past Medical History Past Medical History: Coronary Artery Disease (CAD), GERD/Reflux, Hyperlipidemia, Hypertension Additional Past Medical History / Comment(s): gout, "hx 9 polyps", "legs give out", "bad back" History of Any Multi-Drug Resistant Organisms: None Reported Past Surgical History: Back Surgery Additional Past Surgical History / Comment(s): back surgery x 2, amputation two toes rt foot, tracheostomy,"surgery for blockage in chest and legs"- pt not sure what surgery, radha cataracts Past Anesthesia/Blood Transfusion Reactions: No Reported Reaction Past Psychological History: No Psychological Hx Reported Smoking Status: Current every day smoker
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
[2024-03-08] MEDS: HYDROmorphone 1 MG/ML 1 ML SYRINGE IVP PRN (17:05)
[2024-03-08] MEDS: carvediloL 12.5 MG TAB PO SCH (17:54)
[2024-03-08] MEDS ORDERED: methylPREDNISolone SOD SUCCI 40 MG/ML 1 ML VIAL IV SCH (18:00)
[2024-03-08 18:02] LABS: Glucose,Whole Blood 142 mg/dL (70-110)
[2024-03-08] MEDS: PANTOPRAZOLE 40 MG/10 ML VIAL IVP SCH (20:20)
[2024-03-08] MEDS: methylPREDNISolone SOD SUCCI 40 MG/ML 1 ML VIAL IV SCH (20:21)
[2024-03-08] MEDS ORDERED: HEPARIN SODIUM 1,000 UN/ML (10ML VL) IV PRN (23:08)
[2024-03-08] MEDS: hydrALAZINE HCL 20 MG/ML 1 ML VIAL IVP PRN (23:09)
--- NOTE | 2024-03-08 23:13 | P.PN ---
Subjective Progress Note Date: 03/08/24 HISTORY OF PRESENTING ILLNESS Patient is a 73-year-old male. Patient was intubated but examined and history submitted. History is mostly obtained from medical records. Patient has a past medical history of hypertension dyslipidemia, COPD and is a heavy smoker. He presented to the hospital because of respiratory distress. In the ER he was maintained on BiPAP which he failed and was subsequently intubated. In process of being shifting from a transportation bed to ICU bed, it was noticed that patient went into pulseless electrical activity at 0 7:55 AM. CODE BLUE was called. Patient received 1 amp of epi and atropine. Patient had ROSC at 0 758 AM. Patient only had brief chest compressions done. Post ROSC patient was noticed to go into a brief run of ventricular tachycardia. For this he was given 2 g of magnesium, 1 g of calcium, 300 mg of amiodarone and was started on amiodarone drip. Amiodarone for his discontinued thereafter once the patient was stabilized. On admission his troponin was negative. Repeat troponin after cardiac arrest was elevated at 0.2. Admission BNP 7600. On admission he had leukocytosis WBC 15.9, hemoglobin 17.5, respiratory acidosis, pH 7.14, pCO2 76, lactate of 10.8. Echocardiogram showed an EF of 40 to 45% with basal inferolateral wall h ypokinesia. Echocardiogram study was limited for valvular function assessment. Admission ECG showed sinus tachycardia with bigeminal pattern because of frequent PVCs. At the time of evaluation, telemetry showed sinus bradycardia with heart rate 58 bpm with bigeminal and trigeminal PVCs. Progress note 03/07/2024 BP 160/65, heart rate 88 bpm, on vent support, FiO2 40%, PEEP 8, does not appear volume overloaded 1 L urine output overnight WBC 17.1, hemoglobin 15.4, BUN 36, creatinine 2.4. Patient's creatinine has continued to trend up since admission. On admission was 1.8 Patient is off pressors, continues to be in sinus rhythm on telemetry. 03/08/2024 History was revisited with the family present at bedside. Family denies any prior cardiovascular history. Does report prior history of significant smoking, hypertension. It appears that patient got admitted because of respiratory distress. On admission he had hypertensive emergency along with flash pulmonary edema. Creatinine 1.8 today. Improving from 2.4 yesterday. Urine output of abdominal 1000 mL. PHYSICAL EXAMINATION Vital signs reviewed. Head: Normocephalic. Eyes: Sclerae nonicteric. Neck: Brisk carotid upstroke, Lungs: ET tube in place, on vent support, mild crackles audible in bilateral lung love., Mild wheezing noticed. Heart: Regular rate and rhythm, S1-S2, no S3, mild systolic murmur audible Abdomen: Soft nontender, Extremities: No edema, Neuro: Sedated on vent support, detailed neuro exam was not performed. ASSESSMENT Elevated troponin, likely type II NSTEMI PEA cardiac arrest, likely due to hypoxia and hypercapnia Cardiomyopathy, EF 40 to 45% with basal inferolateral wall hypokinesia Frequent PVCs in bigeminal pattern Acute hypoxic and hypercapnic respiratory failure along with respiratory distr ess requiring ventilator support DANIEL, ATN Anion gap metabolic acidosis with lactic acidosis likely due to hypoxia Acute COPD exacerbation Septic shock likely source pneumonia 2 pack tobacco smoker Echocardiogram showed an EF of 40 to 45% with basal inferolateral wall hypokinesia. Echocardiogram study was limited for valvular function assessment. PLAN Continue IV heparin drip. Aspirin 81 mg, Atorvastatin Discontinue clonidine. Discontinue metoprolol. Start Coreg 25 mg twice daily that patient's blood pressure is high. Continue amlodipine 10mg daily. Once kidney function improves back to baseline, consider adding HF GDMT. Once patient's metabolic state and respiratory status improves and renal function stabilizes, patient would need ischemic evaluation with cardiac catheterization. Possible heart cath on monday. Consider repeating echocardiogram if patient does again in flash pulmonary edema. Objective - Vital Signs Vital signs: Vital Signs Temp 98.3 F 03/08/24 20:33 Pulse 66 03/08/24 22:00 Resp 16 03/08/24 22:00 BP 148/49 03/08/24 22:00 Pulse Ox 100 03/08/24 22:00 FiO2 40 03/08/24 20:33 Intake & Output 03/08/24 03/08/24 03/09/24 06:59 18:59 06:59 Intake Total 8243.785 4745.451 299 Output Total 575 945 110 Balance 960.590 326.451 189 Weight 88.1 kg 88.1 kg Intake: IV 689 966 169 .9NS Pressure Bag 39 36 9 Azithromycin 500 mg In 250 Sodium Chloride 0.9% 250 ml @ 250 mls/hr IVPB DAILY [facility] Rx#:[id number] Invasive Line 1 30 10 Sodium Chloride 0.9% 1, 650 600 150 000 ml @ 50 mls/hr IV . Q20H [facility] Rx#:[id number] cefTRIAXone 1 gm In 50 Sodium Chloride 0.9% 50 ml @ 100 mls/hr IVPB Q24HR [facility] Rx#:[id number] Intake, IV Titration 636.590 195.451 100 Amount Clevidipine Butyrate 25 83.500 34.167 mg In Empty Bag 1 bag @ 1 MG/HR 2 mls/hr IV .Q24H [facility] Rx#:[id number] Heparin Sod,Pork in 0.45% 253.791 69.227 NaCl 25,000 unit In 0.45 % NaCl 1 250ml.bag @ 18 UNITS/KG/HR 13.472 mls/hr IV .[id number] [facility] Rx#: [id number] propofoL 1,000 mg In 299.299 Empty Bag 1 bag @ 15 MCG/ KG/MIN 6.736 mls/hr IV . [id number] [facility] Rx#:[id number] propofoL 1,000 mg In 92.057 100 Empty Bag 1 bag @ 50 MCG/ KG/MIN 22.453 mls/hr IV . Q4H28M [facility] Rx#:[id number] Tube Feeding 120 20 30 Other 90 90 Output: Gastric Drainage 350 Urine 575 595 110 Other: Voiding Method Indwelling Catheter Indwelling Catheter Indwelling Catheter ABP, PAP, CO, CI - Last Documented Arterial Blood Pressure 131/49 - Labs CBC & Chem 7: 03/08/24 03:21 03/08/24 11:18 Labs: Abnormal Lab Results - Last 24 Hours (Table) 03/07/24 03/08/24 03/08/24 Range/Units 23:12 03:21 03:21 WBC 19.1 H (3.8-10.6) k/uL MCHC 30.8 L (31.0-37.0) g/dL Neutrophils # 17.4 H (1.3-7.7) k/uL Lymphocytes # 0.7 L (1.0-4.8) k/uL APTT 39.6 H (22.0-30.0) sec ABG pH (7.35-7.45) ABG pCO2 (35-45) mmHg ABG pO2 (83-108) mmHg ABG HCO3 (21-25) mmol/L ABG Total CO2 (19-24) mmol/L ABG O2 Saturation (94-97) % Chloride (98-107) mmol/L BUN (9-20) mg/dL Creatinine (0.66-1.25) mg/dL Glucose (74-99) mg/dL POC Glucose (mg/dL) 178 H (70-110) mg/dL Creatine Kinase (55-170) U/L Troponin I (0.000-0.034) ng/mL 03/08/24 03/08/24 03/08/24 Range/Units 03:21 05:03 06:18 WBC (3.8-10.6) k/uL MCHC (31.0-37.0) g/dL Neutrophils # (1.3-7.7) k/uL Lymphocytes # (1.0-4.8) k/uL APTT (22.0-30.0) sec ABG pH (7.35-7.45) ABG pCO2 (35-45) mmHg ABG pO2 116 H (83-108) mmHg ABG HCO3 26 H (21-25) mmol/L ABG Total CO2 27 H (19-24) mmol/L ABG O2 Saturation 98.8 H (94-97) % Chloride 109 H (98-107) mmol/L BUN 38 H (9-20) mg/dL Creatinine 1.88 H (0.66-1.25) mg/dL Glucose 166 H (74-99) mg/dL POC Glucose (mg/dL) 162 H (70-110) mg/dL Creatine Kinase (55-170) U/L Troponin I (0.000-0.034) ng/mL 03/08/24 03/08/24 03/08/24 Range/Units 10:04 10:46 11:42 WBC (3.8-10.6) k/uL MCHC (31.0-37.0) g/dL Neutrophils # (1.3-7.7) k/uL Lymphocytes # (1.0-4.8) k/uL APTT (22.0-30.0) sec ABG pH 7.32 L (7.35-7.45) ABG pCO2 52 H (35-45) mmHg ABG pO2 121 H (83-108) mmHg ABG HCO3 27 H (21-25) mmol/L ABG Total CO2 28 H (19-24) mmol/L ABG O2 Saturation 98.8 H (94-97) % Chloride (98-107) mmol/L BUN (9-20) mg/dL Creatinine (0.66-1.25) mg/dL Glucose (74-99) mg/dL POC Glucose (mg/dL) 160 H (70-110) mg/dL Creatine Kinase 5520 H* (55-170) U/L Troponin I (0.000-0.034) ng/mL 03/08/24 03/08/24 Range/Units 18:00 18:02 WBC (3.8-10.6) k/uL MCHC (31.0-37.0) g/dL Neutrophils # (1.3-7.7) k/uL Lymphocytes # (1.0-4.8) k/uL APTT (22.0-30.0) sec ABG pH (7.35-7.45) ABG pCO2 (35-45) mmHg ABG pO2 (83-108) mmHg ABG HCO3 (21-25) mmol/L ABG Total CO2 (19-24) mmol/L ABG O2 Saturation (94-97) % Chloride (98-107) mmol/L BUN (9-20) mg/dL Creatinine (0.66-1.25) mg/dL Glucose (74-99) mg/dL POC Glucose (mg/dL) 142 H (70-110) mg/dL Creatine Kinase (55-170) U/L Troponin I 0.443 H* (0.000-0.034) ng/mL Microbiology - Last 24 Hours (Table) 03/06/24 09:17 Blood Culture - Preliminary Blood 03/06/24 09:10 Blood Culture - Preliminary Blood 03/07/24 03:20 Gram Stain - Preliminary Sputum Sputum Culture - Preliminary
[2024-03-08] MEDS: ASPIRIN 81 MG PO SCH (23:14)
[2024-03-08] MEDS: HEPARIN SOD,PORK IN 0.45% NACL 25,000 UNIT in 0.45% NACL 1 250ML.BAG IV SCH (23:29)
[2024-03-08] MEDS: HEPARIN SODIUM 1,000 UN/ML (10ML VL) IV ONE (23:29)
[2024-03-08 23:31] LABS: Glucose,Whole Blood 165 mg/dL (70-110)
[2024-03-09 05:14] LABS: Basophils % (A) 0 %; Eosinophils # (A) 0.1 k/uL (0-0.7); Eosinophils % (A) 0 %; HCT 41.2 % (39.0-53.0); HGB 13.3 gm/dL (13.0-17.5); Lymphocytes # (A) 0.6 k/uL (1.0-4.8); Lymphocytes % (A) 4 %; MCH 29.8 pg (25.0-35.0); MCHC 32.3 g/dL (31.0-37.0); MCV 92.2 fL (80.0-100.0); Mean Platelet Volume 8.4; Monocytes # (A) 0.8 k/uL (0-1.0); Monocytes % (A) 6 %; Neutrophils # (A) 13.2 k/uL (1.3-7.7); Neutrophils % (A) 90 %; Platelet Count 192 k/uL (150-450); RBC 4.47 m/uL (4.30-5.90); RDW 15.3 % (11.5-15.5); WBC 14.7 k/uL (3.8-10.6)
[2024-03-09 05:41] LABS: ABG Base Excess 0.2 mmol/L; ABG HCO3 28 mmol/L (21-25); ABG Oxygen Saturation 94.5 % (94-97); ABG PCO2 58 mmHg (35-45); ABG PH 7.29 (7.35-7.45); ABG PO2 76 mmHg (83-108); ABG TCO2 30 mmol/L (19-24); Allen Test Performed? Yes
[2024-03-09 05:47] LABS: INR 0.9 (<1.2); Partial Thromboplastin Time 23.1 sec (22.0-30.0); Prothrombin Time 10.2 sec (10.0-12.5)
[2024-03-09 05:53] LABS: African American GFR (CKD) 55 (>60 ml/min/1.73 sqM); Anion Gap 3 mmol/L; Blood Urea Nitrogen 38 mg/dL (9-20); Carbon Dioxide 26 mmol/L (22-30); Chloride 111 mmol/L (98-107); Glucose 113 mg/dL (74-99); Non-African American GFR(CKD) 48 (>60 ml/min/1.73 sqM); Sodium 140 mmol/L (137-145)
[2024-03-09 05:54] LABS: Calcium 8.8 mg/dL (8.4-10.2); Potassium 4.5 mmol/L (3.5-5.1)
[2024-03-09 06:02] LABS: Creatine Kinase 2798 U/L (55-170)
[2024-03-09 06:05] LABS: Glucose,Whole Blood 117 mg/dL (70-110)
--- NOTE | 2024-03-09 10:10 | XR ---
EXAM: XR chest 1V portable CLINICAL INDICATION:Male, 73 years old with history of Tube placement; [facility] COMPARISON: 03/08/2024 TECHNIQUE: Chest single view. FINDINGS: Enteric tube extends below the diaphragm on the left with its tip beyond the field of view likely in the stomach. ET tube tip appears near the level of the clavicles about 6 cm above the lara. Left tsang bclavian CVC with tip over the SVC. Monitoring leads over the chest. Surgical anchor right humeral head. No acute bony abnormality is see n. Cardiomediastinal silhouette is stable. Heart appears mildly enlarged. Calcifications of the aorta. Slightly increased bibasilar opacities, and the costophrenic angles are slightly blunted. No visible pneumothorax. IMPRESSION: 1. Lines and tubes in place, as above. ET tube could be advanced 1 or 2 cm for more optimal position ing. 2. Bibasilar opacities likely small pleural effusions and atelectasis, with infectious process not e xcluded in the proper setting.
--- NOTE | 2024-03-09 11:36 | P.PN ---
Subjective patient is seen for follow-up for acute kidney injury. Patient remains on the vent. He is awake. Urine output at 40-60 mL per hour. Serum creatinine decrease to 1.4 mg/dL. Objective - Vital Signs Vital signs: Vital Signs Temp 98.2 F 03/09/24 08:30 Pulse 94 03/09/24 11:14 Resp 6 L 03/09/24 11:00 BP 187/84 03/09/24 11:00 Pulse Ox 95 03/09/24 11:00 FiO2 40 03/09/24 11:18 Intake & Output 03/08/24 03/09/24 03/09/24 18:59 06:59 18:59 Intake Total 7024.180 3421.682 469.100 Output Total 945 425 150 Balance 326.451 702.682 319.100 Weight 88.1 kg 86.6 kg Intake: IV 966 666 232 .9NS Pressure Bag 36 36 12 Azithromycin 500 mg In 250 Sodium Chloride 0.9% 250 ml @ 250 mls/hr IVPB DAILY [facility] Rx#:[id number] Invasive Line 1 30 30 20 Sodium Chloride 0.9% 1, 600 600 200 000 ml @ 50 mls/hr IV . Q20H [facility] Rx#:[id number] cefTRIAXone 1 gm In 50 Sodium Chloride 0.9% 50 ml @ 100 mls/hr IVPB Q24HR [facility] Rx#:[id number] Intake, IV Titration 195.451 291.682 107.100 Amount Clevidipine Butyrate 25 34.167 mg In Empty Bag 1 bag @ 1 MG/HR 2 mls/hr IV .Q24H [facility] Rx#:[id number] Heparin Sod,Pork in 0.45% 69.227 NaCl 25,000 unit In 0.45 % NaCl 1 250ml.bag @ 18 UNITS/KG/HR 13.472 mls/hr IV .[id number] [facility] Rx#: [id number] propofoL 1,000 mg In 92.057 291.682 107.100 Empty Bag 1 bag @ 50 MCG/ KG/MIN 22.453 mls/hr IV . Q4H28M [facility] Rx#:[id number] Tube Feeding 20 170 100 Other 90 30 Output: Gastric Drainage 350 Urine 595 425 150 Other: Voiding Method Indwelling Catheter Indwelling Catheter ABP, PAP, CO, CI - Last Documented Arterial Blood Pressure 183/75 - Exam patient is on the vent. Awake Examination of the heart S1 and S2 Examination of the lungs bilateral breath sounds are heard Abdomen is soft nontender Examination of lower extremity shows no significant edema - Labs CBC & Chem 7: 03/09/24 04:58 03/09/24 04:58 Labs: Abnormal Lab Results - Last 24 Hours (Table) 03/08/24 03/08/24 03/08/24 Range/Units 10:46 11:42 18:00 WBC (3.8-10.6) k/uL Neutrophils # (1.3-7.7) k/uL Lymphocytes # (1.0-4.8) k/uL ABG pH (7.35-7.45) ABG pCO2 (35-45) mmHg ABG pO2 (83-108) mmHg ABG HCO3 (21-25) mmol/L ABG Total CO2 (19-24) mmol/L Chloride (98-107) mmol/L BUN (9-20) mg/dL Creatinine (0.66-1.25) mg/dL Glucose (74-99) mg/dL POC Glucose (mg/dL) 160 H 142 H (70-110) mg/dL Creatine Kinase 5520 H* (55-170) U/L Troponin I (0.000-0.034) ng/mL 03/08/24 03/08/24 03/09/24 Range/Units 18:02 23:29 04:58 WBC 14.7 H (3.8-10.6) k/uL Neutrophils # 13.2 H (1.3-7.7) k/uL Lymphocytes # 0.6 L (1.0-4.8) k/uL ABG pH (7.35-7.45) ABG pCO2 (35-45) mmHg ABG pO2 (83-108) mmHg ABG HCO3 (21-25) mmol/L ABG Total CO2 (19-24) mmol/L Chloride (98-107) mmol/L BUN (9-20) mg/dL Creatinine (0.66-1.25) mg/dL Glucose (74-99) mg/dL POC Glucose (mg/dL) 165 H (70-110) mg/dL Creatine Kinase (55-170) U/L Troponin I 0.443 H* (0.000-0.034) ng/mL 03/09/24 03/09/24 03/09/24 Range/Units 04:58 05:41 06:04 WBC (3.8-10.6) k/uL Neutrophils # (1.3-7.7) k/uL Lymphocytes # (1.0-4.8) k/uL ABG pH 7.29 L (7.35-7.45) ABG pCO2 58 H (35-45) mmHg ABG pO2 76 L (83-108) mmHg ABG HCO3 28 H (21-25) mmol/L ABG Total CO2 30 H (19-24) mmol/L Chloride 111 H (98-107) mmol/L BUN 38 H (9-20) mg/dL Creatinine 1.43 H (0.66-1.25) mg/dL Glucose 113 H (74-99) mg/dL POC Glucose (mg/dL) 117 H (70-110) mg/dL Creatine Kinase 2798 H* (55-170) U/L Troponin I (0.000-0.034) ng/mL Microbiology - Last 24 Hours (Table) 03/07/24 03:20 Gram Stain - Preliminary Sputum Sputum Culture - Preliminary Presumptive Staph aureus 03/06/24 09:17 Blood Culture - Preliminary Blood 03/06/24 09:10 Blood Culture - Preliminary Blood Assessment and Plan Assessment: 1. Acute kidney injury, ATN, nonoliguric secondary to hypotension from cardiac arrest and rhabdo my lysis. Renal function has improved. UA shows hyaline casts. Ultrasound shows no evidence of obstructive uropathy. 2. Rhabdo my lysis status post cardiopulmonary arrest with CK at 55-0. 3. Acute hypoxic respiratory failure currently on the vent 4. CK D stage III with previous creatinine 1.5 mg/dL in 2016. Etiology is likely nephrosclerosis. 5. Hypertension with CK D stage III a Plan: continue with IV fluids consider restarting clonidine due to rebound hypertension with discontinuation of clonidine as long as mentation is not an issue.
[2024-03-09 11:38] LABS: Glucose,Whole Blood 127 mg/dL (70-110)
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
--- NOTE | 2024-03-09 13:21 | P.PN ---
Subjective Progress Note Date: 03/09/24 HISTORY OF PRESENTING ILLNESS Patient is a 73-year-old male. Patient was intubated but examined and history submitted. History is mostly obtained from medical records. Patient has a past medical history of hypertension dyslipidemia, COPD and is a heavy smoker. He presented to the hospital because of respiratory distress. In the ER he was maintained on BiPAP which he failed and was subsequently intubated. In process of being shifting from a transportation bed to ICU bed, it was noticed that patient went into pulseless electrical activity at 0 7:55 AM. CODE BLUE was called. Patient received 1 amp of epi and atropine. Patient had ROSC at 0 758 AM. Patient only had brief chest compressions done. Post ROSC patient was noticed to go into a brief run of ventricular tachycardia. For this he was given 2 g of magnesium, 1 g of calcium, 300 mg of amiodarone and was started on amiodarone drip. Amiodarone for his discontinued thereafter once the patient was stabilized. On admission his troponin was negative. Repeat troponin after cardiac arrest was elevated at 0.2. Admission BNP 7600. On admission he had leukocytosis WBC 15.9, hemoglobin 17.5, respiratory acidosis, pH 7.14, pCO2 76, lactate of 10.8. Echocardiogram showed an EF of 40 to 45% with basal inferolateral wall h ypokinesia. Echocardiogram study was limited for valvular function assessment. Admission ECG showed sinus tachycardia with bigeminal pattern because of frequent PVCs. At the time of evaluation, telemetry showed sinus bradycardia with heart rate 58 bpm with bigeminal and trigeminal PVCs. Progress note 03/07/2024 BP 160/65, heart rate 88 bpm, on vent support, FiO2 40%, PEEP 8, does not appear volume overloaded 1 L urine output overnight WBC 17.1, hemoglobin 15.4, BUN 36, creatinine 2.4. Patient's creatinine has continued to trend up since admission. On admission was 1.8 Patient is off pressors, continues to be in sinus rhythm on telemetry. 03/08/2024 History was revisited with the family present at bedside. Family denies any prior cardiovascular history. Does report prior history of significant smoking, hypertension. It appears that patient got admitted because of respiratory distress. On admission he had hypertensive emergency along with flash pulmonary edema. Creatinine 1.8 today. Improving from 2.4 yesterday. Urine output of approximately 1000 mL. 03/09/2024 Patient continues to be on vent support. Kidney function is improving, good urine output. Chest x-ray does not show significant pulmonary congestion. Hemodynamically stable, heart rate is 80s to 90s, sinus rhythm, systolic blood pressure 120-130s. PHYSICAL EXAMINATION Vital signs reviewed. Head: Normocephalic. Eyes: Sclerae nonicteric. Neck: Brisk carotid upstroke, Lungs: ET tube in place, on vent support, mild crackles audible in bilateral lung love., Mild wheezing noticed. Heart: Regular rate and rhythm, S1-S2, no S3, mild systolic murmur audible Abdomen: Soft nontender, Extremities: No edema, Neuro: Sedated on vent support, detailed neuro exam was not performed. ASSESSMENT Elevated troponin, likely type II NSTEMI PEA cardiac arrest, likely due to hypoxia and hypercapnia Cardiomyopathy, EF 40 to 45% with basal inferolateral wall hypokinesia Frequent PVCs in bigeminal pattern Acute hypoxic and hypercapnic respiratory failure along with respiratory distress requiring ventilator support DANIEL, ATN Anion gap metabolic acidosis with lactic acidosis likely due to hypoxia Acute COPD exacerbation Septic shock likely source pneumonia 2 pack tobacco smoker Echocardiogram showed an EF of 40 to 45% with basal inferolateral wall hypokinesia. Echocardiogram study was limited for valvular function assessment. PLAN Aspirin 81 mg, Atorvastatin. Currently IV heparin drip is on hold because of concerns of coffee-ground emesis in NG tube. If no further concerns of coffee-ground emesis, consider restarting IV heparin drip Coreg 25 mg twice daily that patient's blood pressure is high. Continue amlodipine 10mg daily. Once kidney function improves back to baseline, consider adding HF GDMT, including losartan, SGLT2, Aldactone. Consider reducing amlodipine then. Once patient's metabolic state and respiratory status improves and renal function stabilizes, patient would need ischemic evaluation with cardiac catheterization. Possible heart cath on monday. Consider repeating echocardiogram if patient does again in flash pulmonary edema. Objective - Vital Signs Vital signs: Vital Signs Temp 98.6 F 03/09/24 12:00 Pulse 91 03/09/24 13:00 Resp 16 03/09/24 13:00 BP 130/60 03/09/24 13:00 Pulse Ox 97 03/09/24 13:00 FiO2 40 03/09/24 13:00 Intake & Output 03/08/24 03/09/24 03/09/24 18:59 06:59 18:59 Intake Total 5811.234 1981.682 696.858 Output Total 945 425 240 Balance 326.451 702.682 456.858 Weight 88.1 kg 86.6 kg Intake: IV 966 666 338 .9NS Pressure Bag 36 36 18 Azithromycin 500 mg In 250 Sodium Chloride 0.9% 250 ml @ 250 mls/hr IVPB DAILY [facility] Rx#:[id number] Invasive Line 1 30 30 20 Sodium Chloride 0.9% 1, 600 600 300 000 ml @ 50 mls/hr IV . Q20H [facility] Rx#:[id number] cefTRIAXone 1 gm In 50 Sodium Chloride 0.9% 50 ml @ 100 mls/hr IVPB Q24HR [facility] Rx#:[id number] Intake, IV Titration 195.451 291.682 108.858 Amount Clevidipine Butyrate 25 34.167 mg In Empty Bag 1 bag @ 1 MG/HR 2 mls/hr IV .Q24H [facility] Rx#:[id number] Heparin Sod,Pork in 0.45% 69.227 NaCl 25,000 unit In 0.45 % NaCl 1 250ml.bag @ 18 UNITS/KG/HR 13.472 mls/hr IV .[id number] [facility] Rx#: [id number] propofoL 1,000 mg In 92.057 291.682 108.858 Empty Bag 1 bag @ 50 MCG/ KG/MIN 22.453 mls/hr IV . Q4H28M [facility] Rx#:[id number] Tube Feeding 20 170 190 Other 90 60 Output: Gastric Drainage 350 Urine 595 425 240 Other: Voiding Method Indwelling Catheter Indwelling Catheter Indwelling Catheter ABP, PAP, CO, CI - Last Documented Arterial Blood Pressure 148/52 - Labs CBC & Chem 7: 03/09/24 04:58 03/09/24 04:58 Labs: Abnormal Lab Results - Last 24 Hours (Table) 03/08/24 03/08/24 03/08/24 Range/Units 18:00 18:02 23:29 WBC (3.8-10.6) k/uL Neutrophils # (1.3-7.7) k/uL Lymphocytes # (1.0-4.8) k/uL ABG pH (7.35-7.45) ABG pCO2 (35-45) mmHg ABG pO2 (83-108) mmHg ABG HCO3 (21-25) mmol/L ABG Total CO2 (19-24) mmol/L Chloride (98-107) mmol/L BUN (9-20) mg/dL Creatinine (0.66-1.25) mg/dL Glucose (74-99) mg/dL POC Glucose (mg/dL) 142 H 165 H (70-110) mg/dL Creatine Kinase (55-170) U/L Troponin I 0.443 H* (0.000-0.034) ng/mL 03/09/24 03/09/24 03/09/24 Range/Units 04:58 04:58 05:41 WBC 14.7 H (3.8-10.6) k/uL Neutrophils # 13.2 H (1.3-7.7) k/uL Lymphocytes # 0.6 L (1.0-4.8) k/uL ABG pH 7.29 L (7.35-7.45) ABG pCO2 58 H (35-45) mmHg ABG pO2 76 L (83-108) mmHg ABG HCO3 28 H (21-25) mmol/L ABG Total CO2 30 H (19-24) mmol/L Chloride 111 H (98-107) mmol/L BUN 38 H (9-20) mg/dL Creatinine 1.43 H (0.66-1.25) mg/dL Glucose 113 H (74-99) mg/dL POC Glucose (mg/dL) (70-110) mg/dL Creatine Kinase 2798 H* (55-170) U/L Troponin I (0.000-0.034) ng/mL 03/09/24 03/09/24 Range/Units 06:04 11:37 WBC (3.8-10.6) k/uL Neutrophils # (1.3-7.7) k/uL Lymphocytes # (1.0-4.8) k/uL ABG pH (7.35-7.45) ABG pCO2 (35-45) mmHg ABG pO2 (83-108) mmHg ABG HCO3 (21-25) mmol/L ABG Total CO2 (19-24) mmol/L Chloride (98-107) mmol/L BUN (9-20) mg/dL Creatinine (0.66-1.25) mg/dL Glucose (74-99) mg/dL POC Glucose (mg/dL) 117 H 127 H (70-110) mg/dL Creatine Kinase (55-170) U/L Troponin I (0.000-0.034) ng/mL Microbiology - Last 24 Hours (Table) 03/07/24 03:20 Gram Stain - Preliminary Sputum Sputum Culture - Preliminary Presumptive Staph aureus 03/06/24 09:17 Blood Culture - Preliminary Blood 03/06/24 09:10 Blood Culture - Preliminary Blood
--- NOTE | 2024-03-09 15:16 | P.PN ---
Progress Note - Text Progress Note Date: 03/09/24 Chief Complaint: Short of breath This is a 73-year-old patient, follows with Dr. Patton. Patient admitted to the ER. He was presented to the ER brought in by his ex-. He was getting increasingly short of breath. She did not know much about patient's history. Pulse ox in the triage was found to be 70%. Does not wear oxygen at home. Patient was intubated in the ER. As BiPAP did not help. Subsequently patient was noted to have significant bigeminy's. Heart rate dropped down to 20s and lost his pulse. At 7:55 AM this morning code was called. Patient received epinephrine atropine calcium bicarbonate had a short run of spontaneous V. tach that resolved. Intubated placed in the ICU. This morning patient is on FiO2 100 and a PEEP of 10. Drips include IV Levophed at 0.17 mics, amiodarone drip, saline, IV heparin. Sedated March 07: ICU. Intubated. FiO2 40 and PEEP of 8. Telemetry showing bigeminy. Drips include IV heparin and propofol. Patient's son and [id number] at the bedside. They said that patient's had chronic back pain. Was smoking close to 2 packs a day. Also on IV antibiotic. Worsening creatinine. March 08: ICU. Intubated. Blood pressure was high last night. Put on Cleviprex drip. Having some immanuel blood per NG tube. Tube feeding has been held. IV Protonix increased to twice daily. Will DC IV heparin drip. Other drips include propofol and heparin. Patient sedated. Creatinine did drop to 1.88 March 09: ICU. Intubated. FiO2 40 and PEEP of 5. Sinus rhythm. Some PVCs. Tube feeding at 30 cc an hour. Getting IV propofol. Active Medications Albuterol/Ipratropium (Ipratropium-Albuterol 3 Ml Neb) 3 ml INHALATION RT-Q4H [facility] Last Admin: 03/09/24 11:01 Dose: 3 ml Allopurinol (Allopurinol 100 Mg Tab) 100 mg PO DAILY [facility] Last Admin: 03/09/24 08:24 Dose: 100 mg Amlodipine Besylate (Amlodipine 10 Mg Tab) 10 mg PO DAILY [facility] Last Admin: 03/09/24 08:24 Dose: 10 mg Aspirin (Aspirin 81 Mg) 81 mg PO DAILY [facility] Last Admin: 03/09/24 08:24 Dose: 81 mg Atorvastatin Calcium (Atorvastatin 80 Mg Tab) 80 mg PO DAILY [facility] Last Admin: 03/09/24 08:24 Dose: 80 mg Budesonide (Budesonide 1 Mg/2 Ml Nebu) 1 mg INHALATION RT-BID [facility] Last Admin: 03/09/24 07:27 Dose: 1 mg Carvedilol (Carvedilol 12.5 Mg Tab) 25 mg PO BID-W/MEALS [facility] Last Admin: 03/09/24 06:32 Dose: 25 mg Chlorhexidine Gluconate (Chlorhexidine Gluconate 15 Ml Cup) 15 ml MUCOUS MEM BID [facility] Last Admin: 03/09/24 08:22 Dose: 15 ml Dextrose/Water (Dextrose 50% Syringe 50 Ml) 25 ml IVP PER PROTOCOL PRN; Protocol PRN Reason: Hypoglycemia Dextrose/Water (Dextrose 50% Syringe 50 Ml) 50 ml IVP PER PROTOCOL PRN; Protocol PRN Reason: Hypoglycemia Formoterol Fumarate (Formoterol Fumarate 20 Mcg/2 Ml Nebu) 20 mcg INHALATION RT-BID [facility] Last Admin: 03/09/24 07:43 Dose: 20 mcg Gabapentin (Gabapentin 300 Mg Cap) 300 mg PO BID [facility] Last Admin: 03/09/24 08:24 Dose: 300 mg Heparin Sodium (Porcine) (Heparin Sodium,Porcine 5,000 Unit/Ml 1 Ml Vial) 5,000 unit SQ Q12HR [facility] Hydralazine HCl (Hydralazine Hcl 20 Mg/Ml 1 Ml Vial) 10 mg IVP Q4HR PRN PRN Reason: Blood Pressure - High Last Admin: 03/09/24 10:18 Dose: 10 mg Hydromorphone HCl (Hydromorphone 1 Mg/Ml 1 Ml Syringe) 1 mg IVP Q2HR PRN PRN Reason: ventilator synchrony Last Admin: 03/09/24 12:55 Dose: 1 mg Ceftriaxone Sodium 1 gm/ (Sodium Chloride) 50 mls @ 100 mls/hr IVPB Q24HR [facility]; Protocol Last Admin: 03/09/24 08:22 Dose: 100 mls/hr Clevidipine 25 mg/ IV Solution 50 mls @ 2 mls/hr IV .Q24H [facility]; Protocol Last Titration: 03/08/24 10:45 Dose: Infused Propofol 1,000 mg/ IV Solution 100 mls @ 22.453 mls/hr IV .Q4H28M [facility]; Protocol Last Titration: 03/09/24 11:34 Dose: 25 mcg/kg/min, 11.226 mls/hr Insulin Aspart (Insulin Aspart (Novolog) 100 Unit/Ml Vial) 0 unit SQ Q6HR [facility]; Protocol Last Admin: 03/09/24 11:38 Dose: Not Given Methylprednisolone Sodium Succinate (Methylprednisolone Sod Succi 40 Mg/Ml 1 Ml Vial) 40 mg IV Q12H [facility] Last Admin: 03/09/24 08:22 Dose: 40 mg Miscellaneous Information (Potassium Replacement Protocol 1 Each Misc) 1 each MISCELLANE DAILY PRN; Protocol PRN Reason: Per Protocol Morphine Sulfate (Morphine Sulfate 2 Mg/Ml Syringe) 2 mg IVP Q3H PRN PRN Reason: Pain/Discomfort Last Admin: 03/08/24 10:05 Dose: 2 mg Naloxone HCl (Naloxone 0.4 Mg/Ml 1 Ml Vial) 0.2 mg IV Q2M PRN PRN Reason: Opioid Reversal Nicotine (Nicotine 21mg/24hr Patch) 1 patch TRANSDERM DAILY [facility] Last Admin: 03/09/24 08:22 Dose: 1 patch Pantoprazole Sodium (Pantoprazole 40 Mg/10 Ml Vial) 40 mg IVP BID [facility] Last Admin: 03/09/24 08:29 Dose: 40 mg Social history: Longstanding smoker. . Smoking since the age of 7 about 2 packs a day. Alcohol rarely Physical examination: VITAL SIGNS: 98.6, 91, 16, 130/60, 97% on ventilator GENERAL: , laying in bed intubated. EYES: Pupils equal. Conjunctiva julia l. HEENT: External appearance of nose and ears normal, oral cavity grossly normal. OG tube-some blood. Endotracheal tube. NECK: JVD not raised; masses not palpable. HEART: First and second heart sounds are normal; no edema. LUNGS: Respiratory increased, decreased breath sounds. ABDOMEN: Soft, nontender, liver spleen not palpable, no masses palpable. PSYCH: Patient sedated MUSCULOSKELETAL:No Clubbing/cyanosis;muscles-grossly intact NEUROLOGICAL: Cranial nerves grossly intact; no facial asymmetry, power and sensation grossly intact. INVESTIGATIONS, reviewed in the clinical context: March 09: White count 14.7 hemoglobin 13.3 platelets 192 potassium 4.5 creatinine 1.43 March 08: White count 9.1 hemoglobin 14.5 platelets 236 potassium 3.9 BUN 38 creatinine 1.88 March 07: White count 7.1 hemoglobin 15.4 platelets 235 potassium 4.5 BUN 36 creatinine 2.41 March 06, 2024: White count 19.4 hemoglobin 16.9 platelets 283 sodium 145 po tassium 4.5 BUN 24 creatinine 1.93 ABG: pH 7.23 pCO2 68 pO2 70 Lactic acid 2.4 Troponin I 0.241 EKG tracing personally reviewed by me-sinus tachycardia, PVCs, P pulmonale pattern Chest x-ray film personally reviewed by me-infiltrate versus possible edema Assessment and plan: -Acute severe hypoxic hypercapnic respiratory failure from underlying COPD/pneumonia, with currently ventilator support FiO2 40 and PEEP of 5. -Acute severe COPD exacerbation in a current smoker IV Solu-Medrol 40 mg every 12. Nebulized Pulmicort. Perforomist. DuoNeb -Probable acute GI bleed with multiple risk factors including stress ulcer from being intubated, steroids,, IV heparin, IV Protonix to twice daily. IV heparin was discontinued for use. -Pneumonia suspect gram-negative organism IV ceftriaxone, Zithromax -Acute kidney injury likely ATN from sepsis hypotension Follow I's and O's. Nephro allergy following -Chronic nicotine dependence cigarette smoker Nicotine patch -Pulseless electrical activity secondary to respiratory failure. Patient received medications include epinephrine, atropine, calcium, bicarbonate -Episode of ventricular tachycardia likely precipitated by hypoxia infection IV amiodarone-discontinued. IV heparin-DC Cardiology following -IV heparin monitoring Follow PTT -Chronic gout Allopurinol 100 mg -Hypotensive shock-corrected Received IV Levophed -Essential hypertension, Lopressor 25 twice daily added. -GERD, stress ulcer prophylaxis IV Protonix 40 twice daily -Full code Continue current treatment plan. Tube feeding was started today. Medrol cut back. Patient tolerated Past Medical History Past Medical History: Coronary Artery Disease (CAD), GERD/Reflux, Hyperlipidemia, Hypertension Additional Past Medical History / Comment(s): gout, "hx 9 polyps", "legs give out", "bad back" History of Any Multi-Drug Resistant Organisms: None Reported Past Surgical History: Back Surgery Additional Past Surgical History / Comment(s): back surgery x 2, amputation two toes rt foot, tracheostomy,"surgery for blockage in chest and legs"- pt not sure what surgery, radha cataracts Past Anesthesia/Blood Transfusion Reactions: No Reported Reaction Past Psychological History: No Psychological Hx Reported Smoking Status: Current every day smoker
[2024-03-09 17:30] LABS: ABG Base Excess -0.5 mmol/L; ABG HCO3 27 mmol/L (21-25); ABG Oxygen Saturation 88.8 % (94-97); ABG PCO2 54 mmHg (35-45); ABG PH 7.31 (7.35-7.45); ABG TCO2 29 mmol/L (19-24); Allen Test Performed? Yes; Glucose,Whole Blood 127 mg/dL (70-110)
[2024-03-09 17:38] LABS: ABG PO2 59 mmHg (83-108)
--- NOTE | 2024-03-09 17:52 | XR ---
EXAMINATION TYPE: XR chest 1V portable DATE OF EXAM: 03/09/2024 5:20 PM CLINICAL INDICATION:Male, 73 years old with history of line placement, hypoxia; COMPARISON: Chest radiographs from 03/09/2024 TECHNIQUE: XR chest 1V portable Frontal view of the chest. FINDINGS: Lungs/Pleura: There is no evidence of pleural effusion, focal consolidation, or pneumothorax. Pulmonary vascularity: Unremarkable. Heart/mediastinum: Cardiomediastinal silhouette is enlarged and stable. Musculoskeletal: No acute osseous pathology. Other findings: None Lines/Tubes: Nasogastric tube with its distal tip and side-port projecting under the diaphragm. Left internal jugular central venous catheter with distal tip at the cavoatrial junction. IMPRESSION: 1. Support line and tube in appropriate position. 2. Cardiomegaly
--- NOTE | 2024-03-09 18:12 | XR ---
EXAMINATION TYPE: XR chest 1V portable DATE OF EXAM: 03/09/2024 5:56 PM CLINICAL INDICATION:Male, 73 years old with history of hypoxia; [facility] COMPARISON: Chest radiographs from same day TECHNIQUE: XR chest 1V portable Frontal view of the chest. FINDINGS: Lungs/Pleura: There is no evidence of pleural effusion, focal consolidation, or pneumothorax. Pulmonary vascularity: Unremarkable. Heart/mediastinum: Cardiomediastinal silhouette is unremarkable. Musculoskeletal: No acute osseous pathology. Other findings: None Lines/Tubes: Endotracheal tube with distal tip 5.8 cm above the lara. Nasogastric tube with its distal tip and side-port projecting under the diaphragm. Left internal jugular central venous catheter with distal tip at the cavoatrial junction. IMPRESSION: Endotracheal tube in high position consider advancement of 3 cm for optimal placement.
[2024-03-09] MEDS: FUROSEMIDE 10 MG/ML 10 ML VIAL IV STA (18:31)
[2024-03-09] MEDS: HEPARIN SODIUM,PORCINE 5,000 UNIT/ML 1 ML VIAL SQ SCH (20:00)
[2024-03-09] MEDS: SODIUM CHLORIDE 0.9% 1,000 ML IV SCH (20:01)
[2024-03-09 23:28] LABS: Glucose,Whole Blood 130 mg/dL (70-110)
[2024-03-10 05:18] LABS: Basophils % (A) 0 %; Eosinophils % (A) 0 %; HCT 43.7 % (39.0-53.0); HGB 13.3 gm/dL (13.0-17.5); Hypochromasia Slight; Lymphocytes # (A) 0.5 k/uL (1.0-4.8); Lymphocytes % (A) 5 %; MCH 28.7 pg (25.0-35.0); MCHC 30.4 g/dL (31.0-37.0); MCV 94.3 fL (80.0-100.0); Mean Platelet Volume 8.3; Monocytes # (A) 0.5 k/uL (0-1.0); Monocytes % (A) 5 %; Neutrophils # (A) 9.5 k/uL (1.3-7.7); Neutrophils % (A) 89 %; Platelet Count 200 k/uL (150-450); RBC 4.63 m/uL (4.30-5.90); RDW 14.7 % (11.5-15.5); WBC 10.7 k/uL (3.8-10.6)
[2024-03-10 05:23] LABS: Glucose,Whole Blood 124 mg/dL (70-110)
[2024-03-10 05:31] LABS: African American GFR (CKD) 51 (>60 ml/min/1.73 sqM); Anion Gap 4 mmol/L; Blood Urea Nitrogen 52 mg/dL (9-20); Calcium 8.9 mg/dL (8.4-10.2); Carbon Dioxide 25 mmol/L (22-30); Chloride 110 mmol/L (98-107); Glucose 138 mg/dL (74-99); Non-African American GFR(CKD) 44 (>60 ml/min/1.73 sqM); Potassium 4.9 mmol/L (3.5-5.1); Sodium 139 mmol/L (137-145)
[2024-03-10 05:59] LABS: ABG Base Excess 0.6 mmol/L; ABG HCO3 28 mmol/L (21-25); ABG Oxygen Saturation 100.2 % (94-97); ABG PCO2 56 mmHg (35-45); ABG PH 7.31 (7.35-7.45); ABG PO2 309 mmHg (83-108); ABG TCO2 30 mmol/L (19-24); Allen Test Performed? Yes
[2024-03-10 09:49] LABS: ABG Base Excess 0.9 mmol/L; ABG HCO3 28 mmol/L (21-25); ABG PCO2 55 mmHg (35-45); ABG PH 7.32 (7.35-7.45); ABG PO2 102 mmHg (83-108); ABG TCO2 30 mmol/L (19-24)
--- NOTE | 2024-03-10 11:28 | P.PN ---
Subjective patient is seen for follow-up for acute kidney injury. Patient remains on the vent. S/p IV Lasix yesterday. IV fluids are now discontinued. Cleviprex drip is off. Urine output at 40-70 mL per hour. Serum creatinine at 1.5 mg/dL. Blood pressure was high in the 200 range for systolic blood pressure. Currently slightly improved with sedation. Objective - Vital Signs Vital signs: Vital Signs Temp 98.4 F 03/10/24 08:00 Pulse 68 03/10/24 10:00 Resp 16 03/10/24 10:00 BP 130/60 03/10/24 10:00 Pulse Ox 100 03/10/24 10:00 FiO2 50 03/10/24 10:00 Intake & Output 03/09/24 03/10/24 03/10/24 18:59 06:59 18:59 Intake Total 0343.024 5400.391 304.789 Output Total 510 1260 175 Balance 742.021 -208.609 129.789 Weight 87 kg Intake: IV 613 409 89 .9NS Pressure Bag 33 39 9 Invasive Line 1 30 30 20 Sodium Chloride 0.9% 1, 240 60 000 ml @ 20 mls/hr IV . Q24H [facility] Rx#:[id number] Sodium Chloride 0.9% 1, 550 100 000 ml @ 50 mls/hr IV . Q20H [facility] Rx#:[id number] Intake, IV Titration 179.021 252.391 65.789 Amount propofoL 1,000 mg In 179.021 252.391 65.789 Empty Bag 1 bag @ 50 MCG/ KG/MIN 22.453 mls/hr IV . Q4H28M [facility] Rx#:[id number] Tube Feeding 340 390 120 Other 120 30 Output: Urine 510 1260 175 Other: Voiding Method Indwelling Catheter Indwelling Catheter Indwelling Catheter ABP, PAP, CO, CI - Last Documented Arterial Blood Pressure 151/58 - Exam patient is sedated and on the vent Examination of the heart S1 and S2 Examination of the lungs bilateral breath sounds are heard Abdomen is soft nontender Examination of lower extremity shows no significant edema - Labs CBC & Chem 7: 03/10/24 04:45 03/10/24 04:45 Labs: Abnormal Lab Results - Last 24 Hours (Table) 03/09/24 03/09/24 03/09/24 Range/Units 11:37 17:28 17:28 WBC (3.8-10.6) k/uL MCHC (31.0-37.0) g/dL Neutrophils # (1.3-7.7) k/uL Lymphocytes # (1.0-4.8) k/uL ABG pH 7.31 L (7.35-7.45) ABG pCO2 54 H (35-45) mmHg ABG pO2 59 L* (83-108) mmHg ABG HCO3 27 H (21-25) mmol/L ABG Total CO2 29 H (19-24) mmol/L ABG O2 Saturation 88.8 L (94-97) % Chloride (98-107) mmol/L BUN (9-20) mg/dL Creatinine (0.66-1.25) mg/dL Glucose (74-99) mg/dL POC Glucose (mg/dL) 127 H 127 H (70-110) mg/dL Creatine Kinase (55-170) U/L 03/09/24 03/10/24 03/10/24 Range/Units 23:27 04:45 04:45 WBC 10.7 H (3.8-10.6) k/uL MCHC 30.4 L (31.0-37.0) g/dL Neutrophils # 9.5 H (1.3-7.7) k/uL Lymphocytes # 0.5 L (1.0-4.8) k/uL ABG pH (7.35-7.45) ABG pCO2 (35-45) mmHg ABG pO2 (83-108) mmHg ABG HCO3 (21-25) mmol/L ABG Total CO2 (19-24) mmol/L ABG O2 Saturation (94-97) % Chloride 110 H (98-107) mmol/L BUN 52 H (9-20) mg/dL Creatinine 1.52 H (0.66-1.25) mg/dL Glucose 138 H (74-99) mg/dL POC Glucose (mg/dL) 130 H (70-110) mg/dL Creatine Kinase (55-170) U/L 03/10/24 03/10/24 03/10/24 Range/Units 04:45 05:22 05:54 WBC (3.8-10.6) k/uL MCHC (31.0-37.0) g/dL Neutrophils # (1.3-7.7) k/uL Lymphocytes # (1.0-4.8) k/uL ABG pH 7.31 L (7.35-7.45) ABG pCO2 56 H (35-45) mmHg ABG pO2 309 H (83-108) mmHg ABG HCO3 28 H (21-25) mmol/L ABG Total CO2 30 H (19-24) mmol/L ABG O2 Saturation 100.2 H (94-97) % Chloride (98-107) mmol/L BUN (9-20) mg/dL Creatinine (0.66-1.25) mg/dL Glucose (74-99) mg/dL POC Glucose (mg/dL) 124 H (70-110) mg/dL Creatine Kinase 1162 H* (55-170) U/L 03/10/24 Range/Units 09:46 WBC (3.8-10.6) k/uL MCHC (31.0-37.0) g/dL Neutrophils # (1.3-7.7) k/uL Lymphocytes # (1.0-4.8) k/uL ABG pH 7.32 L (7.35-7.45) ABG pCO2 55 H (35-45) mmHg ABG pO2 (83-108) mmHg ABG HCO3 28 H (21-25) mmol/L ABG Total CO2 30 H (19-24) mmol/L ABG O2 Saturation 98.0 H (94-97) % Chloride (98-107) mmol/L BUN (9-20) mg/dL Creatinine (0.66-1.25) mg/dL Glucose (74-99) mg/dL POC Glucose (mg/dL) (70-110) mg/dL Creatine Kinase (55-170) U/L Microbiology - Last 24 Hours (Table) 03/07/24 03:20 Gram Stain - Final Sputum Sputum Culture - Final Staphylococcus aureus 03/06/24 09:17 Blood Culture - Preliminary Blood 03/06/24 09:10 Blood Culture - Preliminary Blood Assessment and Plan Assessment: 1. Acute kidney injury, ATN, nonoliguric secondary to hypotension from cardiac arrest and rhabdomyolysis. Renal function has improved. UA shows hyaline casts. Ultrasound shows no evidence of obstructive uropathy. 2. Rhabdo myolysis status post cardiopulmonary arrest with CK at 5520. 3. Acute hypoxic respiratory failure currently on the vent 4. CK D stage III with previous creatinine 1.5 mg/dL in 2016. Etiology is likely nephrosclerosis. 5. Hypertension with CK D stage III a, component of rebound hypertension from withdrawal of clonidine Plan: continue off of IV fluids for now. restart clonidine due to rebound hypertension with discontinuation of clonidine.
[2024-03-10] MEDS: LACTULOSE 20 GM/30 ML CUP PO ONE (11:35)
[2024-03-10] MEDS: cloNIDine HCL 0.1 MG TAB PO STA (11:35)
[2024-03-10 11:44] LABS: Glucose,Whole Blood 165 mg/dL (70-110)
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
[2024-03-10] MEDS ORDERED: HEPARIN SODIUM 1,000 UN/ML (10ML VL) IV PRN (12:01)
[2024-03-10] MEDS: hydrALAZINE HCL 25 MG TAB PO SCH (12:06)
[2024-03-10] MEDS: ISOSORBIDE MONONITRATE ER 30 MG TAB.ER.24H PO SCH (12:10)
--- NOTE | 2024-03-10 12:30 | P.PN ---
Subjective Progress Note Date: 03/10/24 HISTORY OF PRESENTING ILLNESS Patient is a 73-year-old male. Patient was intubated but examined and history submitted. History is mostly obtained from medical records. Patient has a past medical history of hypertension dyslipidemia, COPD and is a heavy smoker. He presented to the hospital because of respiratory distress. In the ER he was maintained on BiPAP which he failed and was subsequently intubated. In process of being shifting from a transportation bed to ICU bed, it was noticed that patient went into pulseless electrical activity at 0 7:55 AM. CODE BLUE was called. Patient received 1 amp of epi and atropine. Patient had ROSC at 0 758 AM. Patient only had brief chest compressions done. Post ROSC patient was noticed to go into a brief run of ventricular tachycardia. For this he was given 2 g of magnesium, 1 g of calcium, 300 mg of amiodarone and was started on amiodarone drip. Amiodarone for his discontinued thereafter once the patient was stabilized. On admission his troponin was negative. Repeat troponin after cardiac arrest was elevated at 0.2. Admission BNP 7600. On admission he had leukocytosis WBC 15.9, hemoglobin 17.5, respiratory acidosis, pH 7.14, pCO2 76, lactate of 10.8. Echocardiogram showed an EF of 40 to 45% with basal inferolateral wall h ypokinesia. Echocardiogram study was limited for valvular function assessment. Admission ECG showed sinus tachycardia with bigeminal pattern because of frequent PVCs. At the time of evaluation, telemetry showed sinus bradycardia with heart rate 58 bpm with bigeminal and trigeminal PVCs. Progress note 03/07/2024 BP 160/65, heart rate 88 bpm, on vent support, FiO2 40%, PEEP 8, does not appear volume overloaded 1 L urine output overnight WBC 17.1, hemoglobin 15.4, BUN 36, creatinine 2.4. Patient's creatinine has continued to trend up since admission. On admission was 1.8 Patient is off pressors, continues to be in sinus rhythm on telemetry. 03/08/2024 History was revisited with the family present at bedside. Family denies any prior cardiovascular history. Does report prior history of significant smoking, hypertension. It appears that patient got admitted because of respiratory distress. On admission he had hypertensive emergency along with flash pulmonary edema. Creatinine 1.8 today. Improving from 2.4 yesterday. Urine output of approximately 1000 mL. 03/09/2024 Patient continues to be on vent support. Kidney function is improving, good urine output. Chest x-ray does not show significant pulmonary congestion. Hemodynamically stable, heart rate is 80s to 90s, sinus rhythm, systolic blood pressure 120-130s. March 10, 2024 During the sedation medication patient's blood pressure showed to drop and patient was having significant ventricular ectopy. No sustained arrhythmias though. For this he was started back on clonidine. It appears that patient was on clonidine 0.3 mg at home for blood pressure control. PHYSICAL EXAMINATION Vital signs reviewed. Head: Normocephalic. Eyes: Sclerae nonicteric. Neck: Brisk carotid upstroke, Lungs: ET tube in place, on vent support, mild crackles audible in bilateral lung love., Mild wheezing noticed. Heart: Regular rate and rhythm, S1-S2, no S3, mild systolic murmur audible Abdomen: Soft nontender, Extremities: No edema, Neuro: Sedated on vent support, detailed neuro exam was not performed. ASSESSMENT Elevated troponin, likely type II NSTEMI PEA cardiac arrest, likely due to hypoxia and hypercapnia Cardiomyopathy, EF 40 to 45% with basal inferolateral wall hypokinesia Frequent PVCs in bigeminal pattern Acute hypoxic and hypercapnic respiratory failure along with respiratory distress requiring ventilator support DANIEL, ATN Anion gap metabolic acidosis with lactic acidosis likely due to hypoxia Acute COPD exacerbation Septic shock likely source pneumonia 2 pack tobacco smoker Echocardiogram showed an EF of 40 to 45% with basal inferolateral wall hypokinesia. Echocardiogram study was limited for valvular function assessment. PLAN I will discontinue clonidine, increase Cardizem to 37.5 mg twice daily. Start Imdur 30 mg daily, hydralazine 25 mg 4 times daily. Use intermittent hydralazine IV push 10 mg if needed. Restart IV heparin drip. Aspirin 81 mg, Atorvastatin. If no further concerns of coffee-ground emesis, Continue amlodipine 10mg daily. Once kidney function improves back to baseline, consider adding HF GDMT, including losartan, SGLT2, Aldactone. Once patient's metabolic state and respiratory status improves and renal function stabilizes, patient would need ischemic evaluation with cardiac catheterization. Possible heart cath on monday. Consider repeating echocardiogram if patient does again in flash pulmonary edema. Objective - Vital Signs Vital signs: Vital Signs Temp 98.5 F 03/10/24 11:48 Pulse 78 03/10/24 11:50 Resp 16 03/10/24 11:50 BP 139/63 03/10/24 11:30 Pulse Ox 99 03/10/24 11:30 FiO2 50 03/10/24 11:30 Intake & Output 03/09/24 03/10/24 03/10/24 18:59 06:59 18:59 Intake Total 8736.091 2720.391 516.723 Output Total 510 1260 250 Balance 742.021 -208.609 266.723 Weight 87 kg Intake: IV 613 409 185 .9NS Pressure Bag 33 39 15 Invasive Line 1 30 30 20 Sodium Chloride 0.9% 1, 240 100 000 ml @ 20 mls/hr IV . Q24H [facility] Rx#:[id number] Sodium Chloride 0.9% 1, 550 100 000 ml @ 50 mls/hr IV . Q20H [facility] Rx#:[id number] cefTRIAXone 1 gm In 50 Sodium Chloride 0.9% 50 ml @ 100 mls/hr IVPB Q24HR [facility] Rx#:[id number] Intake, IV Titration 179.021 252.391 91.723 Amount propofoL 1,000 mg In 179.021 252.391 91.723 Empty Bag 1 bag @ 50 MCG/ KG/MIN 22.453 mls/hr IV . Q4H28M [facility] Rx#:[id number] Tube Feeding 340 390 180 Other 120 60 Output: Urine 510 1260 250 Other: Voiding Method Indwelling Catheter Indwelling Catheter Indwelling Catheter ABP, PAP, CO, CI - Last Documented Arterial Blood Pressure 135/52 - Labs CBC & Chem 7: 03/10/24 04:45 03/10/24 04:45 Labs: Abnormal Lab Results - Last 24 Hours (Table) 03/09/24 03/09/24 03/09/24 Range/Units 17:28 17:28 23:27 WBC (3.8-10.6) k/uL MCHC (31.0-37.0) g/dL Neutrophils # (1.3-7.7) k/uL Lymphocytes # (1.0-4.8) k/uL ABG pH 7.31 L (7.35-7.45) ABG pCO2 54 H (35-45) mmHg ABG pO2 59 L* (83-108) mmHg ABG HCO3 27 H (21-25) mmol/L ABG Total CO2 29 H (19-24) mmol/L ABG O2 Saturation 88.8 L (94-97) % Chloride (98-107) mmol/L BUN (9-20) mg/dL Creatinine (0.66-1.25) mg/dL Glucose (74-99) mg/dL POC Glucose (mg/dL) 127 H 130 H (70-110) mg/dL Creatine Kinase (55-170) U/L 03/10/24 03/10/24 03/10/24 Range/Units 04:45 04:45 04:45 WBC 10.7 H (3.8-10.6) k/uL MCHC 30.4 L (31.0-37.0) g/dL Neutrophils # 9.5 H (1.3-7.7) k/uL Lymphocytes # 0.5 L (1.0-4.8) k/uL ABG pH (7.35-7.45) ABG pCO2 (35-45) mmHg ABG pO2 (83-108) mmHg ABG HCO3 (21-25) mmol/L ABG Total CO2 (19-24) mmol/L ABG O2 Saturation (94-97) % Chloride 110 H (98-107) mmol/L BUN 52 H (9-20) mg/dL Creatinine 1.52 H (0.66-1.25) mg/dL Glucose 138 H (74-99) mg/dL POC Glucose (mg/dL) (70-110) mg/dL Creatine Kinase 1162 H* (55-170) U/L 03/10/24 03/10/24 03/10/24 Range/Units 05:22 05:54 09:46 WBC (3.8-10.6) k/uL MCHC (31.0-37.0) g/dL Neutrophils # (1.3-7.7) k/uL Lymphocytes # (1.0-4.8) k/uL ABG pH 7.31 L 7.32 L (7.35-7.45) ABG pCO2 56 H 55 H (35-45) mmHg ABG pO2 309 H (83-108) mmHg ABG HCO3 28 H 28 H (21-25) mmol/L ABG Total CO2 30 H 30 H (19-24) mmol/L ABG O2 Saturation 100.2 H 98.0 H (94-97) % Chloride (98-107) mmol/L BUN (9-20) mg/dL Creatinine (0.66-1.25) mg/dL Glucose (74-99) mg/dL POC Glucose (mg/dL) 124 H (70-110) mg/dL Creatine Kinase (55-170) U/L 03/10/24 Range/Units 11:42 WBC (3.8-10.6) k/uL MCHC (31.0-37.0) g/dL Neutrophils # (1.3-7.7) k/uL Lymphocytes # (1.0-4.8) k/uL ABG pH (7.35-7.45) ABG pCO2 (35-45) mmHg ABG pO2 (83-108) mmHg ABG HCO3 (21-25) mmol/L ABG Total CO2 (19-24) mmol/L ABG O2 Saturation (94-97) % Chloride (98-107) mmol/L BUN (9-20) mg/dL Creatinine (0.66-1.25) mg/dL Glucose (74-99) mg/dL POC Glucose (mg/dL) 165 H (70-110) mg/dL Creatine Kinase (55-170) U/L Microbiology - Last 24 Hours (Table) 03/07/24 03:20 Gram Stain - Final Sputum Sputum Culture - Final Staphylococcus aureus 03/06/24 09:17 Blood Culture - Preliminary Blood 03/06/24 09:10 Blood Culture - Preliminary Blood
[2024-03-10] MEDS: HEPARIN SODIUM 1,000 UN/ML (10ML VL) IV ONE (12:33)
[2024-03-10] MEDS: HEPARIN SOD,PORK IN 0.45% NACL 25,000 UNIT in 0.45% NACL 1 250ML.BAG IV SCH (12:34)
[2024-03-10 13:18] LABS: Basophils % (A) 0 %; Eosinophils # (A) 0.1 k/uL (0-0.7); Eosinophils % (A) 0 %; HCT 43.8 % (39.0-53.0); HGB 14.3 gm/dL (13.0-17.5); Lymphocytes # (A) 0.5 k/uL (1.0-4.8); Lymphocytes % (A) 4 %; MCH 30.5 pg (25.0-35.0); MCHC 32.7 g/dL (31.0-37.0); MCV 93.4 fL (80.0-100.0); Mean Platelet Volume 8.7; Monocytes # (A) 0.6 k/uL (0-1.0); Monocytes % (A) 5 %; Neutrophils # (A) 11.4 k/uL (1.3-7.7); Neutrophils % (A) 91 %; Platelet Count 188 k/uL (150-450); RBC 4.69 m/uL (4.30-5.90); RDW 15.1 % (11.5-15.5); WBC 12.5 k/uL (3.8-10.6)
[2024-03-10 13:28] LABS: INR 0.9 (<1.2); Prothrombin Time 9.8 sec (10.0-12.5)
[2024-03-10 13:29] LABS: Partial Thromboplastin Time 22.2 sec (22.0-30.0)
--- NOTE | 2024-03-10 16:00 | XR ---
EXAM: XR chest 1V portable CLINICAL INDICATION:Male, 73 years old with history of Plural effusion; [facility] COMPARISON: 03/09/2024 5:52 PM TECHNIQUE: Chest single view. FINDINGS: Lines/tubes/devices: ET tube tip 5.3 cm above the lara. NG/OG tube traverses below the diaphragm, e xtending into the left abdomen with the tip beyond the field of view. Left subclavian central line wi th tip over the mid SVC. Cardiomediastinum: Cardiac silhouette appears upper normal in size. Stable mediastinal silhouette. Atherosclerotic calcification of the aorta. Vasculature: Similar mild central vascular congestion. Lungs/pleura: Significantly improved aeration of the left lung with reexpansion compared to prior, decreased mid to lower lung opacities and decreased blunting of the costophrenic angle. Right lung is stable with sma ll band of atelectasis and space and probable tiny pleural effusion. No visualized pneumothorax. Bones/soft tissues: Bony thorax appears grossly intact as seen with mild degenerative changes. Surgical anchor right lisette ral head.. Regional soft tissues appear unremarkable. IMPRESSION: 1. Lines and tubes in place, as above. Recommend 2 cm advancement of the ET tube. 2. Significantly improved aeration of the left lung with reexpansion compared to prior, decreased mi d to lower lung opacities and decreased blunting of the costophrenic angle.
--- NOTE | 2024-03-10 16:19 | P.PN ---
Progress Note - Text Progress Note Date: 03/10/24 Chief Complaint: Short of breath This is a 73-year-old patient, follows with Dr. Patton. Patient admitted to the ER. He was presented to the ER brought in by his ex-. He was getting increasingly short of breath. She did not know much about patient's history. Pulse ox in the triage was found to be 70%. Does not wear oxygen at home. Patient was intubated in the ER. As BiPAP did not help. Subsequently patient was noted to have significant bigeminy's. Heart rate dropped down to 20s and lost his pulse. At 7:55 AM this morning code was called. Patient received epinephrine atropine calcium bicarbonate had a short run of spontaneous V. tach that resolved. Intubated placed in the ICU. This morning patient is on FiO2 100 and a PEEP of 10. Drips include IV Levophed at 0.17 mics, amiodarone drip, saline, IV heparin. Sedated March 07: ICU. Intubated. FiO2 40 and PEEP of 8. Telemetry showing bigeminy. Drips include IV heparin and propofol. Patient's son and [id number] at the bedside. They said that patient's had chronic back pain. Was smoking close to 2 packs a day. Also on IV antibiotic. Worsening creatinine. March 08: ICU. Intubated. Blood pressure was high last night. Put on Cleviprex drip. Having some immanuel blood per NG tube. Tube feeding has been held. IV Protonix increased to twice daily. Will DC IV heparin drip. Other drips include propofol and heparin. Patient sedated. Creatinine did drop to 1.88 March 09: ICU. Intubated. FiO2 40 and PEEP of 5. Sinus rhythm. Some PVCs. Tube feeding at 30 cc an hour. Getting IV propofol. March 10: ICU. Intubated. FiO2 50 and a PEEP of 5. Did not tolerate sedation holiday today. Medications adjusted by cardiology. Coreg was increased. Imdur and hydralazine was added. IV heparin was resumed. Still having PVCs. On propofol. Tube feeding at 30 cc an hour. No further bleeding through the OG tube Active Medications Albuterol/Ipratropium (Ipratropium-Albuterol 3 Ml Neb) 3 ml INHALATION RT-Q4H [facility]UCK Last Admin: 03/10/24 15:41 Dose: 3 ml Allopurinol (Allopurinol 100 Mg Tab) 100 mg PO DAILY [facility] Last Admin: 03/10/24 08:05 Dose: 100 mg Amlodipine Besylate (Amlodipine 10 Mg Tab) 10 mg PO DAILY [facility] Last Admin: 03/10/24 08:05 Dose: 10 mg Aspirin (Aspirin 81 Mg) 81 mg PO DAILY [facility] Last Admin: 03/10/24 08:05 Dose: 81 mg Atorvastatin Calcium (Atorvastatin 80 Mg Tab) 80 mg PO DAILY [facility] Last Admin: 03/10/24 08:05 Dose: 80 mg Budesonide (Budesonide 1 Mg/2 Ml Nebu) 1 mg INHALATION RT-BID [facility] Last Admin: 03/10/24 08:59 Dose: 1 mg Carvedilol (Carvedilol 12.5 Mg Tab) 37.5 mg PO BID-W/MEALS [facility] Chlorhexidine Gluconate (Chlorhexidine Gluconate 15 Ml Cup) 15 ml MUCOUS MEM BID [facility] Last Admin: 03/10/24 08:04 Dose: 15 ml Dextrose/Water (Dextrose 50% Syringe 50 Ml) 25 ml IVP PER PROTOCOL PRN; Protoco l PRN Reason: Hypoglycemia Dextrose/Water (Dextrose 50% Syringe 50 Ml) 50 ml IVP PER PROTOCOL PRN; Protocol PRN Reason: Hypoglycemia Formoterol Fumarate (Formoterol Fumarate 20 Mcg/2 Ml Nebu) 20 mcg INHALATION RT-BID [facility] Last Admin: 03/10/24 08:59 Dose: 20 mcg Gabapentin (Gabapentin 300 Mg Cap) 300 mg PO BID [facility] Last Admin: 03/10/24 08:05 Dose: 300 mg Heparin Sodium (Porcine) (Heparin Sodium 1,000 Un/Ml (10ml Vl)) 0 unit IV PER PROTOCOL PRN; Protocol PRN Reason: Low PTT Hydralazine HCl (Hydralazine Hcl 20 Mg/Ml 1 Ml Vial) 10 mg IVP Q4HR PRN PRN Reason: Blood Pressure - High Last Admin: 03/10/24 10:11 Dose: 10 mg Hydralazine HCl (Hydralazine Hcl 25 Mg Tab) 25 mg PO QID [facility] Last Admin: 03/10/24 12:06 Dose: 25 mg Hydromorphone HCl (Hydromorphone 1 Mg/Ml 1 Ml Syringe) 1 mg IVP Q2HR PRN PRN Reason: ventilator synchrony Last Admin: 03/10/24 15:28 Dose: 1 mg Ceftriaxone Sodium 1 gm/ (Sodium Chloride) 50 mls @ 100 mls/hr IVPB Q24HR [facility]; Protocol Last Admin: 03/10/24 08:05 Dose: 100 mls/hr Propofol 1,000 mg/ IV Solution 100 mls @ 22.453 mls/hr IV .Q4H28M [facility]; Protocol Last Admin: 03/10/24 11:36 Dose: 45 mcg/kg/min, 20.208 mls/hr Sodium Chloride (Saline 0.9%) 1,000 mls @ 20 mls/hr IV .Q24H [facility]UCK Last Admin: 03/09/24 20:01 Dose: 20 mls/hr Heparin Sodium/Sodium Chloride (25,000 unit/ Sodium Chloride) 250 mls @ 10.005 mls/hr IV .Q24H [facility]; Protocol Last Admin: 03/10/24 12:34 Dose: 11.5 units/kg/hr, 10.005 mls/hr Insulin Aspart (Insulin Aspart (Novolog) 100 Unit/Ml Vial) 0 unit SQ Q6HR [facility]; Protocol Last Admin: 03/10/24 11:45 Dose: 2 unit Isosorbide Mononitrate (Isosorbide Mononitrate Er 30 Mg Tab.Er.24h) 30 mg PO DAILY [facility] Last Admin: 03/10/24 12:10 Dose: 30 mg Methylprednisolone Sodium Succinate (Methylprednisolone Sod Succi 40 Mg/Ml 1 Ml Vial) 40 mg IV Q12H [facility] Last Admin: 03/10/24 08:04 Dose: 40 mg Miscellaneous Information (Potassium Replacement Protocol 1 Each Misc) 1 each MISCELLANE DAILY PRN; Protocol PRN Reason: Per Protocol Morphine Sulfate (Morphine Sulfate 2 Mg/Ml Syringe) 2 mg IVP Q3H PRN PRN Reason: Pain/Discomfort Last Admin: 03/08/24 10:05 Dose: 2 mg Naloxone HCl (Naloxone 0.4 Mg/Ml 1 Ml Vial) 0.2 mg IV Q2M PRN PRN Reason: Opioid Reversal Nicotine (Nicotine 21mg/24hr Patch) 1 patch TRANSDERM DAILY [facility] Last Admin: 03/10/24 08:04 Dose: 1 patch Pantoprazole Sodium (Pantoprazole 40 Mg/10 Ml Vial) 40 mg IVP BID [facility] Last Admin: 03/10/24 08:04 Dose: 40 mg Social history: Longstanding smoker. . Smoking since the age of 7 about 2 packs a day. Alcohol rarely Physical examination: VITAL SIGNS: Afebrile, 82, 16, 162/74, 98% on ventilator 50% GENERAL: , laying in bed intubated. EYES: Pupils equal. Conjunctiva julia l. HEENT: External appearance of nose and ears normal, oral cavity grossly normal. OG tube-some blood. Endotracheal tube. NECK: JVD not raised; masses not palpable. HEART: First and second heart sounds are normal; no edema. LUNGS: Respiratory increased, decreased breath sounds. ABDOMEN: Soft, nontender, liver spleen not palpable, no masses palpable. PSYCH: Patient sedated MUSCULOSKELETAL:No Clubbing/cyanosis;muscles-grossly intact NEUROLOGICAL: Cranial nerves grossly intact; no facial asymmetry, power and sensation grossly intact. INVESTIGATIONS, reviewed in the clinical context: March 10: White count 12.5 hemoglobin 14.3 platelets 188. Creatinine 1.52 March 09: White count 14.7 hemoglobin 13.3 platelets 192 potassium 4.5 creatinine 1.43 March 08: White count 9.1 hemoglobin 14.5 platelets 236 potassium 3.9 BUN 38 creatinine 1.88 March 07: White count 7.1 hemoglobin 15.4 platelets 235 potassium 4.5 BUN 36 creatinine 2.41 March 06, 2024: White count 19.4 hemoglobin 16.9 platelets 283 sodium 145 potassium 4.5 BUN 24 creatinine 1.93 ABG: pH 7.23 pCO2 68 pO2 70 Lactic acid 2.4 Troponin I 0.241 EKG tracing personally reviewed by me-sinus tachycardia, PVCs, P pulmonale pattern Chest x-ray film personally reviewed by me-infiltrate versus possible edema Assessment and plan: -Acute severe hypoxic hypercapnic respiratory failure from underlying COPD/pneumonia, with currently ventilator support FiO2 40 and PEEP of 5. -Acute severe COPD exacerbation in a current smoker IV Solu-Medrol 40 mg every 12. Nebulized Pulmicort. Perforomist. DuoNeb -Probable acute GI bleed with multiple risk factors including stress ulcer from being intubated, steroids,, IV heparin,: Resolved IV Protonix to twice daily. -Pneumonia suspect gram-negative organism IV ceftriaxone, Zithromax -Type II TX -Frequent PVCs in bigeminal pattern -Acute kidney injury likely ATN from sepsis hypotension Follow I's and O's. Nephrology following -Chronic nicotine dependence cigarette smoker Nicotine patch -Pulseless electrical activity secondary to respiratory failure. Patient received medications include epinephrine, atropine, calcium, bicarbonate -Episode of ventricular tachycardia likely precipitated by hypoxia infection IV amiodarone-discontinued. IV heparin-was temporarily discontinued because of GI bleed resumed Cardiology following -IV heparin monitoring Follow PTT -Chronic gout Allopurinol 100 mg -Hypotensive shock-corrected Received IV Levophed -Essential hypertension, uncontrolled Norvasc 10 mg a day. Coreg 37.5 twice daily. Hydralazine 25 mg 4 times daily. -GERD, stress ulcer prophylaxis IV Protonix 40 twice daily -Full code Tube feeding 30 cc an hour. IV heparin resumed per cardiology. Blood pressure medication adjusted. Past Medical History Past Medical History: Coronary Artery Disease (CAD), GERD/Reflux, Hyperlipidemia, Hypertension Additional Past Medical History / Comment(s): gout, "hx 9 polyps", "legs give out", "bad back" History of Any Multi-Drug Resistant Organisms: None Reported Past Surgical History: Back Surgery Additional Past Surgical History / Comment(s): back surgery x 2, amputation two toes rt foot, tracheostomy,"surgery for blockage in chest and legs"- pt not sure what surgery, radha cataracts Past Anesthesia/Blood Transfusion Reactions: No Reported Reaction Past Psychological History: No Psychological Hx Reported Smoking Status: Current every day smoker
[2024-03-10] MEDS: carvediloL 12.5 MG TAB PO SCH (16:36)
[2024-03-10 17:08] LABS: Glucose,Whole Blood 141 mg/dL (70-110)
[2024-03-10] MEDS ORDERED: METOCLOPRAMIDE 5 MG/ML 2 ML VIAL IVP SCH (18:45)
[2024-03-10] MEDS: METOCLOPRAMIDE 5 MG/ML 2 ML VIAL IVP SCH (19:07)
[2024-03-10] MEDS ORDERED: cloNIDine HCL 0.1 MG TAB PO SCH (21:00)
[2024-03-10 23:43] LABS: Glucose,Whole Blood 126 mg/dL (70-110)
[2024-03-11 04:41] LABS: Basophils % (A) 0 %; Eosinophils # (A) 0.1 k/uL (0-0.7); Eosinophils % (A) 1 %; HCT 40.7 % (39.0-53.0); HGB 13.3 gm/dL (13.0-17.5); Lymphocytes # (A) 0.5 k/uL (1.0-4.8); Lymphocytes % (A) 4 %; MCH 30.1 pg (25.0-35.0); MCHC 32.6 g/dL (31.0-37.0); MCV 92.4 fL (80.0-100.0); Mean Platelet Volume 8.8; Monocytes # (A) 0.7 k/uL (0-1.0); Monocytes % (A) 5 %; Neutrophils # (A) 12.3 k/uL (1.3-7.7); Neutrophils % (A) 90 %; Platelet Count 189 k/uL (150-450); WBC 13.7 k/uL (3.8-10.6)
[2024-03-11 04:51] LABS: INR 0.9 (<1.2); Partial Thromboplastin Time 53.9 sec (22.0-30.0)
[2024-03-11 05:48] LABS: Glucose,Whole Blood 126 mg/dL (70-110)
[2024-03-11 06:03] LABS: ABG Base Excess -0.1 mmol/L; ABG HCO3 27 mmol/L (21-25); ABG Oxygen Saturation 96.8 % (94-97); ABG PCO2 52 mmHg (35-45); ABG PH 7.32 (7.35-7.45); ABG PO2 89 mmHg (83-108); ABG TCO2 28 mmol/L (19-24); Allen Test Performed? Yes
[2024-03-11 07:22] LABS: African American GFR (CKD) 55 (>60 ml/min/1.73 sqM); Anion Gap 5 mmol/L; Blood Urea Nitrogen 61 mg/dL (9-20); Calcium 8.7 mg/dL (8.4-10.2); Carbon Dioxide 24 mmol/L (22-30); Chloride 111 mmol/L (98-107); Creatine Kinase 619 U/L (55-170); Glucose 143 mg/dL (74-99); Non-African American GFR(CKD) 47 (>60 ml/min/1.73 sqM); Potassium 5.1 mmol/L (3.5-5.1); Sodium 140 mmol/L (137-145)
--- NOTE | 2024-03-11 08:09 | PN ---
PROGRESS NOTE This is a 73-year-old gentleman who is admitted to ICU, intubated, sedated on the vent. He has history of hypertension, dyslipidemia, smoking, and was admitted to hospital with respiratory distress and went into pulseless electrical activity and had to be intubated and is in ICU since. He was initially given amiodarone, but subsequently, it had been stopped. He has been having frequent ventricular ectopy including runs of nonsustained VT, sinus rhythm with bigeminy, frequent PVCs. I am seeing him for the first time in the ER. He is intubated and on vent, and I spoke to the nurse. His blood pressures have been poorly controlled. He is currently on amlodipine, Coreg, and hydralazine. I will increase the dose of hydralazine for better blood pressure control. PHYSICAL EXAMINATION: GENERAL: The patient is on the vent, intubated, sedated. VITAL SIGNS: Blood pressure is 164/69, respiratory rate is 18, O2 saturation is 97%. CHEST: Diminished air entry bilaterally. HEART: First and second heart sounds. No gallop. No murmur. ABDOMEN: Soft. EXTREMITIES: Bilateral 1+ edema. An echocardiogram on this admission revealed an ejection fraction of 40% to 45% with inferolateral and inferoseptal hypokinesis. Lab showed a hemoglobin of 13.3. Potassium is 5.1, BUN is 60, creatinine is 1.4. He is on IV heparin along with aspirin, Norvasc 10 mg daily, Lipitor 80 mg daily, Coreg 37.5 mg b.i.d., hydralazine whose dose had just been increased, Imdur 30 mg daily. ASSESSMENT AND PLAN: 1. Vent-requiring respiratory failure. 2. Cardiac arrest with pulseless electrical activity, probably secondary to hypoxia and respiratory failure. 3. Type 2 myocardial infarction, thought to be secondary to respiratory failure. PLAN: I will increase the dose of hydralazine. We will talk to Dr. Kathleen. [id number] / GERALDN: [id number] /
[2024-03-11] MEDS: hydrALAZINE HCL 50 MG TAB PO SCH (08:29)
[2024-03-11] MEDS: FUROSEMIDE 10 MG/ML 4 ML VIAL IV SCH (09:37)
--- NOTE | 2024-03-11 10:48 | XR ---
EXAMINATION TYPE: XR chest 1V portable DATE OF EXAM: 03/11/2024 COMPARISON: 03/10/2024 INDICATION: Pleural effusion TECHNIQUE: Single frontal view of the chest is obtained. Patient is rotated to the left. FINDINGS: The heart size is upper limits of normal. The pulmonary vasculature is normal. Small right pleural effusion is present. Adjacent compressive atelectasis may be present Minimal left pleural effusion may be present. Endotracheal tube tip 9.6 cm above the lara. This could be advanced. Nasogastric tube transverses t he thorax tip in the left upper quadrant of the abdomen. Left central venous catheter is present with tip in the superior vena cava region. No thorax is evident. IMPRESSION: 1. Small bilateral pleural effusions. 2. Adjacent compressive atelectasis right lung base. 3. Lines and catheters discussed above. Endotracheal tube could be advanced.
--- NOTE | 2024-03-11 11:31 | P.PN ---
Subjective patient is seen for follow-up for acute kidney injury. Patient remains on the vent. S/p IV Lasix today. Urine output at 40-70 mL per hour. Serum creatinine at 1.4 mg/dL. Blood pressure had improved yesterday. Sedation is being decreased blood pre ssure is climbing up again. Objective - Vital Signs Vital signs: Vital Signs Temp 98.3 F 03/11/24 08:00 Pulse 73 03/11/24 11:14 Resp 18 03/11/24 11:00 BP 131/58 03/11/24 11:00 Pulse Ox 95 03/11/24 11:00 FiO2 50 03/11/24 11:03 Intake & Output 03/10/24 03/11/24 03/11/24 18:59 06:59 18:59 Intake Total 5099.848 0509.736 355.798 Output Total 447 600 Balance 567.723 414.736 355.798 Weight 85.8 kg 85.8 kg Intake: IV 343 359 20 .9NS Pressure Bag 33 39 Invasive Line 1 30 30 10 Invasive Line 2 10 30 10 Sodium Chloride 0.9% 1, 220 260 000 ml @ 20 mls/hr IV . Q24H [facility] Rx#:[id number] cefTRIAXone 1 gm In 50 Sodium Chloride 0.9% 50 ml @ 100 mls/hr IVPB Q24HR [facility] Rx#:[id number] Intake, IV Titration 191.723 265.736 335.798 Amount Heparin Sod,Pork in 0.45% 226.113 NaCl 25,000 unit In 0.45 % NaCl 1 250ml.bag @ 11.5 UNITS/KG/HR 10.005 mls/ hr IV .Q24H [facility] Rx#: [id number] propofoL 1,000 mg In 191.723 265.736 109.685 Empty Bag 1 bag @ 50 MCG/ KG/MIN 22.453 mls/hr IV . Q4H28M [facility] Rx#:[id number] Tube Feeding 390 390 Other 90 Output: Urine 447 600 Other: Voiding Method Indwelling Catheter Indwelling Catheter # Bowel Movements 0 0 ABP, PAP, CO, CI - Last Documented Arterial Blood Pressure 130/49 - Exam patient is sedated and on the vent Examination of the heart S1 and S2 Examination of the lungs bilateral breath sounds are heard Abdomen is soft nontender Examination of lower extremity shows no significant edema - Labs CBC & Chem 7: 03/11/24 04:15 03/11/24 04:15 Labs: Abnormal Lab Results - Last 24 Hours (Table) 03/10/24 03/10/24 03/10/24 Range/Units 11:42 12:10 12:20 WBC 12.5 H (3.8-10.6) k/uL Neutrophils # 11.4 H (1.3-7.7) k/uL Lymphocytes # 0.5 L (1.0-4.8) k/uL PT 9.8 L (10.0-12.5) sec APTT (22.0-30.0) sec ABG pH (7.35-7.45) ABG pCO2 (35-45) mmHg ABG HCO3 (21-25) mmol/L ABG Total CO2 (19-24) mmol/L Chloride (98-107) mmol/L BUN (9-20) mg/dL Creatinine (0.66-1.25) mg/dL Glucose (74-99) mg/dL POC Glucose (mg/dL) 165 H (70-110) mg/dL Creatine Kinase (55-170) U/L 03/10/24 03/10/24 03/10/24 Range/Units 17:07 18:21 23:42 WBC (3.8-10.6) k/uL Neutrophils # (1.3-7.7) k/uL Lymphocytes # (1.0-4.8) k/uL PT (10.0-12.5) sec APTT 62.2 H (22.0-30.0) sec ABG pH (7.35-7.45) ABG pCO2 (35-45) mmHg ABG HCO3 (21-25) mmol/L ABG Total CO2 (19-24) mmol/L Chloride (98-107) mmol/L BUN (9-20) mg/dL Creatinine (0.66-1.25) mg/dL Glucose (74-99) mg/dL POC Glucose (mg/dL) 141 H 126 H (70-110) mg/dL Creatine Kinase (55-170) U/L 03/11/24 03/11/24 03/11/24 Range/Units 04:15 04:15 04:15 WBC 13.7 H (3.8-10.6) k/uL Neutrophils # 12.3 H (1.3-7.7) k/uL Lymphocytes # 0.5 L (1.0-4.8) k/uL PT (10.0-12.5) sec APTT 53.9 H (22.0-30.0) sec ABG pH (7.35-7.45) ABG pCO2 (35-45) mmHg ABG HCO3 (21-25) mmol/L ABG Total CO2 (19-24) mmol/L Chloride 111 H (98-107) mmol/L BUN 61 H (9-20) mg/dL Creatinine 1.44 H (0.66-1.25) mg/dL Glucose 143 H (74-99) mg/dL POC Glucose (mg/dL) (70-110) mg/dL Creatine Kinase 619 H (55-170) U/L 03/11/24 03/11/24 Range/Units 05:46 05:47 WBC (3.8-10.6) k/uL Neutrophils # (1.3-7.7) k/uL Lymphocytes # (1.0-4.8) k/uL PT (10.0-12.5) sec APTT (22.0-30.0) sec ABG pH 7.32 L (7.35-7.45) ABG pCO2 52 H (35-45) mmHg ABG HCO3 27 H (21-25) mmol/L ABG Total CO2 28 H (19-24) mmol/L Chloride (98-107) mmol/L BUN (9-20) mg/dL Creatinine (0.66-1.25) mg/dL Glucose (74-99) mg/dL POC Glucose (mg/dL) 126 H (70-110) mg/dL Creatine Kinase (55-170) U/L Microbiology - Last 24 Hours (Table) 03/07/24 03:20 Gram Stain - Final Sputum Sputum Culture - Final Staphylococcus aureus Assessment and Plan Assessment: 1. Acute kidney injury, ATN, nonoliguric secondary to hypotension from cardiac arrest and rhabdomyolysis. Renal function has improved. UA shows hyaline casts. Ultrasound shows no evidence of obstructive uropathy. 2. Rhabdo myolysis status post cardiopulmonary arrest with CK at 5520. 3. Acute hypoxic respiratory failure currently on the vent 4. CK D stage III with previous creatinine 1.5 mg/dL in 2016. Etiology is likely nephrosclerosis. 5. Hypertension with CK D stage III a, component of rebound hypertension from withdrawal of clonidine Plan: continue off of IV fluids for now. agree with scheduled dose of Lasix
[2024-03-11 12:00] LABS: Glucose,Whole Blood 127 mg/dL (70-110)
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
--- NOTE | 2024-03-11 15:45 | P.PN ---
Subjective Progress Note Date: 03/11/24 Patient is evaluated today in follow-up in the intensive care unit. He remains on the mechanical ventilator currently intubated and sedated dated he has an FiO2 50 and a PEEP of 5. Patient initially presents to the hospital due to shortness of breath and was subsequently intubated. Patient remains hyper tensive with cardiology following closely and adjusting medications. Added hydralazine today. Patient remains on IV heparin will eventually need an ischemic workup. His ejection fraction was found to be 40 to 45%. He continues with enteral feedings. Chest x-ray today reveals small bilateral pleural effusions with adjacent compressive atelectasis right lung base. Blood cell count is 13.7, sodium 140, potassium 5.1, BUN of 61, creatinine of 1.44. Is on IV heparin, IV ceftriaxone, IV Solu-Medrol. IV Lasix was decreased to 40 mg daily. He is sedated with propofol and did not do well with his sedation holiday today. Unable to complete a review of systems at this time as patient is currently intubated and sedated Physical examination GENERAL: , laying in bed intubated. EYES: Pupils equal. Conjunctiva julia l. HEENT: External appearance of nose and ears normal, oral cavity grossly normal. OG tube-some blood. Endotracheal tube. NECK: JVD not raised; masses not palpable. HEART: First and second heart sounds are normal; no edema. LUNGS: Respiratory increased, decreased breath sounds. ABDOMEN: Soft, nontender, liver spleen not palpable, no masses palpable. PSYCH: Patient sedated MUSCULOSKELETAL:No Clubbing/cyanosis;muscles-grossly intact NEUROLOGICAL: Cranial nerves grossly intact; no facial asymmetry, power and sensation grossly intact. Assessment and plan -Acute severe hypoxic hypercapnic respiratory failure from underlying COPD/CHF -Bacterial pneumonia with sputum culture showing MSSA -Pulseless electrical activity/ episode of VTACH likely from repisatory failure and hypoxia; treated with IV amiodarone -Acute severe COPD exacerbation in a current smoker -Probable acute GI bleed with multiple risk factors including stress ulcer from being intubated, steroids, and IV heparin, Resolved. -Pneumonia suspect gram-negative organism -Type II PA; supply demand mismatch -Frequent PVCs in bigeminal pattern -Acute kidney injury likely ATN from sepsis hypotension -Chronic nicotine dependence cigarette smoker -Chronic gout -Hypotensive shock-corrected; Received IV Levophed -Essential hypertension, uncontrolled -GERD, stress ulcer prophylaxis GI prophylaxis IV Protonix 40 twice daily DVT prophylaxis IV heparin -Full code Plan IV Solu-Medrol 40 mg every 12. Nebulized Pulmicort. Perforomist. He Patient has been resumed on IV heparin with no further evidence of bleeding from the OG tube. Continue IV protonix. Continue with IV ceftriaxone, IV solumedrol Continue mechanical ventilator and sedation per cell manager Norvasc 10 mg a day. Coreg 37.5 twice daily. Hydralazine 25 mg 4 times daily. Cannot crush Imdur has been changed to Isosorbide mononitrate. Continue with enteral tube feedings. The impression and plan of care has been dictated by Rufina Fitzgerald, Nurse Practitioner as directed. Dr. Kaleb MD I have performed a history and physical examination and medical decision making of this patient, discussed the same with the dictator, and agree with the dictators assessment and plan as written, documented as a scribe. Based on total visit time, I have performed more than 50% of this visit. Objective - Vital Signs Vital signs: Vital Signs Temp 99.7 F H 03/11/24 00:00 Pulse 82 03/11/24 08:13 Resp 16 03/11/24 07:00 BP 149/61 03/11/24 07:00 Pulse Ox 96 03/11/24 07:00 FiO2 50 03/11/24 07:45 Intake & Output 03/10/24 03/11/24 03/11/24 18:59 06:59 18:59 Intake Total 3708.448 2562.736 Output Total 447 600 Balance 567.723 414.736 Weight 85.8 kg Intake: IV 343 359 .9NS Pressure Bag 33 39 Invasive Line 1 30 30 Invasive Line 2 10 30 Sodium Chloride 0.9% 1, 220 260 000 ml @ 20 mls/hr IV . Q24H [facility] Rx#:[id number] cefTRIAXone 1 gm In 50 Sodium Chloride 0.9% 50 ml @ 100 mls/hr IVPB Q24HR [facility] Rx#:[id number] Intake, IV Titration 191.723 265.736 Amount propofoL 1,000 mg In 191.723 265.736 Empty Bag 1 bag @ 50 MCG/ KG/MIN 22.453 mls/hr IV . Q4H28M [facility] Rx#:[id number] Tube Feeding 390 390 Other 90 Output: Urine 447 600 Other: Voiding Method Indwelling Catheter Indwelling Catheter # Bowel Movements 0 0 ABP, PAP, CO, CI - Last Documented Arterial Blood Pressure 146/53 - Labs CBC & Chem 7: 03/11/24 04:15 03/11/24 04:15 Labs: Abnormal Lab Results - Last 24 Hours (Table) 03/10/24 03/10/24 03/10/24 Range/Units 09:46 11:42 12:10 WBC 12.5 H (3.8-10.6) k/uL Neutrophils # 11.4 H (1.3-7.7) k/uL Lymphocytes # 0.5 L (1.0-4.8) k/uL PT (10.0-12.5) sec APTT (22.0-30.0) sec ABG pH 7.32 L (7.35-7.45) ABG pCO2 55 H (35-45) mmHg ABG HCO3 28 H (21-25) mmol/L ABG Total CO2 30 H (19-24) mmol/L ABG O2 Saturation 98.0 H (94-97) % Chloride (98-107) mmol/L BUN (9-20) mg/dL Creatinine (0.66-1.25) mg/dL Glucose (74-99) mg/dL POC Glucose (mg/dL) 165 H (70-110) mg/dL Creatine Kinase (55-170) U/L 03/10/24 03/10/24 03/10/24 Range/Units 12:20 17:07 18:21 WBC (3.8-10.6) k/uL Neutrophils # (1.3-7.7) k/uL Lymphocytes # (1.0-4.8) k/uL PT 9.8 L (10.0-12.5) sec APTT 62.2 H (22.0-30.0) sec ABG pH (7.35-7.45) ABG pCO2 (35-45) mmHg ABG HCO3 (21-25) mmol/L ABG Total CO2 (19-24) mmol/L ABG O2 Saturation (94-97) % Chloride (98-107) mmol/L BUN (9-20) mg/dL Creatinine (0.66-1.25) mg/dL Glucose (74-99) mg/dL POC Glucose (mg/dL) 141 H (70-110) mg/dL Creatine Kinase (55-170) U/L 03/10/24 03/11/24 03/11/24 Range/Units 23:42 04:15 04:15 WBC 13.7 H (3.8-10.6) k/uL Neutrophils # 12.3 H (1.3-7.7) k/uL Lymphocytes # 0.5 L (1.0-4.8) k/uL PT (10.0-12.5) sec APTT 53.9 H (22.0-30.0) sec ABG pH (7.35-7.45) ABG pCO2 (35-45) mmHg ABG HCO3 (21-25) mmol/L ABG Total CO2 (19-24) mmol/L ABG O2 Saturation (94-97) % Chloride (98-107) mmol/L BUN (9-20) mg/dL Creatinine (0.66-1.25) mg/dL Glucose (74-99) mg/dL POC Glucose (mg/dL) 126 H (70-110) mg/dL Creatine Kinase (55-170) U/L 03/11/24 03/11/24 03/11/24 Range/Units 04:15 05:46 05:47 WBC (3.8-10.6) k/uL Neutrophils # (1.3-7.7) k/uL Lymphocytes # (1.0-4.8) k/uL PT (10.0-12.5) sec APTT (22.0-30.0) sec ABG pH 7.32 L (7.35-7.45) ABG pCO2 52 H (35-45) mmHg ABG HCO3 27 H (21-25) mmol/L ABG Total CO2 28 H (19-24) mmol/L ABG O2 Saturation (94-97) % Chloride 111 H (98-107) mmol/L BUN 61 H (9-20) mg/dL Creatinine 1.44 H (0.66-1.25) mg/dL Glucose 143 H (74-99) mg/dL POC Glucose (mg/dL) 126 H (70-110) mg/dL Creatine Kinase 619 H (55-170) U/L Microbiology - Last 24 Hours (Table) 03/07/24 03:20 Gram Stain - Final Sputum Sputum Culture - Final Staphylococcus aureus Assessment and Plan Time with Patient: Greater than 30
[2024-03-11 17:16] LABS: Glucose,Whole Blood 173 mg/dL (70-110)
[2024-03-11] MEDS: ISOSORBIDE MONONITRATE 10 MG TAB PO SCH (17:19)
[2024-03-11 23:52] LABS: Glucose,Whole Blood 147 mg/dL (70-110)
[2024-03-12 05:00] LABS: Basophils % (A) 0 %; Eosinophils % (A) 0 %; HCT 41.5 % (39.0-53.0); HGB 13.4 gm/dL (13.0-17.5); Lymphocytes # (A) 0.5 k/uL (1.0-4.8); Lymphocytes % (A) 4 %; MCH 29.9 pg (25.0-35.0); MCHC 32.4 g/dL (31.0-37.0); MCV 92.3 fL (80.0-100.0); Mean Platelet Volume 8.8; Monocytes # (A) 0.6 k/uL (0-1.0); Monocytes % (A) 4 %; Neutrophils # (A) 12.5 k/uL (1.3-7.7); Neutrophils % (A) 91 %; Platelet Count 172 k/uL (150-450); RBC 4.49 m/uL (4.30-5.90); RDW 14.6 % (11.5-15.5); WBC 13.8 k/uL (3.8-10.6)
[2024-03-12 05:41] LABS: African American GFR (CKD) 54 (>60 ml/min/1.73 sqM); Anion Gap 7 mmol/L; Blood Urea Nitrogen 71 mg/dL (9-20); Calcium 8.8 mg/dL (8.4-10.2); Carbon Dioxide 23 mmol/L (22-30); Chloride 109 mmol/L (98-107); Glucose 164 mg/dL (74-99); Magnesium 2.4 mg/dL (1.6-2.3); Non-African American GFR(CKD) 47 (>60 ml/min/1.73 sqM); Sodium 139 mmol/L (137-145)
[2024-03-12 06:01] LABS: Glucose,Whole Blood 146 mg/dL (70-110)
[2024-03-12 06:09] LABS: ABG Base Excess 1.2 mmol/L; ABG HCO3 27 mmol/L (21-25); ABG Oxygen Saturation 96.7 % (94-97); ABG PCO2 47 mmHg (35-45); ABG PH 7.37 (7.35-7.45); ABG PO2 86 mmHg (83-108); ABG TCO2 29 mmol/L (19-24); Allen Test Performed? Yes
--- NOTE | 2024-03-12 08:01 | XR ---
EXAMINATION TYPE: XR chest 1V portable DATE OF EXAM: 03/12/2024 COMPARISON: 03/11/2024 INDICATION: Pleural effusion TECHNIQUE: Single frontal view of the chest is obtained. FINDINGS: The heart size is a prominent. The pulmonary vasculature is normal. There is some mild infiltrate along the right base. Minimal left and small right pleural effusions ar e present. These are stable. Endotracheal tube tip is above the lara. Nasogastric tube tip within the left upper quadrant of the abdomen. Left central venous catheter has its tip in the superior vena cava region. IMPRESSION: 1. Small right and minimal left pleural effusions, stable. 2. Compressive atelectasis right lung base. 3. Lines and catheters discussed above
--- NOTE | 2024-03-12 08:51 | PN ---
PROGRESS NOTE SUBJECTIVE: This is a 73-year-old gentleman who is intubated on vent. OBJECTIVE: VITAL SIGNS: Heart rate is 77 beats per minute. Blood pressure is 144/66, respiratory rate is 18. CHEST: Reveals diminished air entry at the bases. HEART: Reveals first and second heart sounds, no gallop. ABDOMEN: Soft. EXTREMITIES: Reveal 1+ edema bilaterally. LABORATORY DATA: His labs showed that the BUN is elevated at 71, creatinine is 1.4, hemoglobin is 13.4. An echocardiogram on this admission revealed LV systolic dysfunction with an ejection fraction of 45%. The patient is currently on amlodipine 10 mg daily, Lipitor 80, Coreg 37.5 p.o. b.i.d., and hydralazine 50 four times a day. The patient remains on IV heparin because of the non ST-segment elevation PA. Chest x- ray this morning revealed only compressive atelectasis. I am going to decrease the dose of Lasix and I will leave him on the 40 mg that he is on right now. ASSESSMENT: 1. Asr-YF-tweiont elevation PA, vent requiring respiratory failure. 2. Cardiac arrest with pulseless electrical activity. 3. Type 2 myocardial infarction. 4. Renal insufficiency with intravascular volume depletion. PLAN: Once the BUN starts coming down, we can consider doing a cardiac catheterization. DULCE / GERALDN: [id number] /
[2024-03-12 12:05] LABS: Glucose,Whole Blood 132 mg/dL (70-110)
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
--- NOTE | 2024-03-12 12:53 | P.PN ---
Subjective patient is seen for follow-up for acute kidney injury. Patient remains on the vent. maintained on IV Lasix Urine output at 50-100 mL per hour. Serum creatinine at 1.4 mg/dL. Objective - Vital Signs Vital signs: Vital Signs Temp 98.8 F 03/12/24 12:00 Pulse 78 03/12/24 12:00 Resp 16 03/12/24 12:00 BP 149/64 03/12/24 12:00 Pulse Ox 95 03/12/24 12:00 FiO2 50 03/12/24 12:00 Intake & Output 03/11/24 03/12/24 03/12/24 18:59 06:59 18:59 Intake Total 1245.077 872 494.225 Output Total 1450 805 640 Balance -204.923 67 -145.775 Weight 85.8 kg 86.5 kg Intake: IV 426 312 130 .9NS Pressure Bag 66 72 30 Invasive Line 1 20 Invasive Line 2 20 Sodium Chloride 0.9% 1, 220 240 100 000 ml @ 20 mls/hr IV . Q24H [facility] Rx#:[id number] cefTRIAXone 1 gm In 100 Sodium Chloride 0.9% 50 ml @ 100 mls/hr IVPB Q24HR [facility] Rx#:[id number] Intake, IV Titration 399.077 200 154.225 Amount Heparin Sod,Pork in 0.45% 226.113 NaCl 25,000 unit In 0.45 % NaCl 1 250ml.bag @ 11.5 UNITS/KG/HR 10.005 mls/ hr IV .Q24H [facility] Rx#: [id number] propofoL 1,000 mg In 172.964 200 154.225 Empty Bag 1 bag @ 50 MCG/ KG/MIN 22.453 mls/hr IV . Q4H28M [facility] Rx#:[id number] Tube Feeding 330 360 150 Other 90 60 Output: Urine 1450 805 640 Other: Voiding Method Indwelling Catheter Indwelling Catheter Indwelling Catheter ABP, PAP, CO, CI - Last Documented Arterial Blood Pressure 177/57 - Exam patient is sedated and on the vent Examination of the heart S1 and S2 Examination of the lungs bilateral breath sounds are heard Abdomen is soft nontender Examination of lower extremity shows no significant edema - Labs CBC & Chem 7: 03/12/24 04:15 03/12/24 04:15 Labs: Abnormal Lab Results - Last 24 Hours (Table) 03/11/24 03/11/24 03/12/24 Range/Units 17:15 23:50 04:15 WBC 13.8 H (3.8-10.6) k/uL Neutrophils # 12.5 H (1.3-7.7) k/uL Lymphocytes # 0.5 L (1.0-4.8) k/uL APTT (22.0-30.0) sec ABG pCO2 (35-45) mmHg ABG HCO3 (21-25) mmol/L ABG Total CO2 (19-24) mmol/L Chloride (98-107) mmol/L BUN (9-20) mg/dL Creatinine (0.66-1.25) mg/dL Glucose (74-99) mg/dL POC Glucose (mg/dL) 173 H 147 H (70-110) mg/dL Magnesium (1.6-2.3) mg/dL 03/12/24 03/12/24 03/12/24 Range/Units 04:15 04:15 05:59 WBC (3.8-10.6) k/uL Neutrophils # (1.3-7.7) k/uL Lymphocytes # (1.0-4.8) k/uL APTT 72.0 H (22.0-30.0) sec ABG pCO2 (35-45) mmHg ABG HCO3 (21-25) mmol/L ABG Total CO2 (19-24) mmol/L Chloride 109 H (98-107) mmol/L BUN 71 H (9-20) mg/dL Creatinine 1.45 H (0.66-1.25) mg/dL Glucose 164 H (74-99) mg/dL POC Glucose (mg/dL) 146 H (70-110) mg/dL Magnesium 2.4 H (1.6-2.3) mg/dL 03/12/24 03/12/24 Range/Units 06:05 12:02 WBC (3.8-10.6) k/uL Neutrophils # (1.3-7.7) k/uL Lymphocytes # (1.0-4.8) k/uL APTT (22.0-30.0) sec ABG pCO2 47 H (35-45) mmHg ABG HCO3 27 H (21-25) mmol/L ABG Total CO2 29 H (19-24) mmol/L Chloride (98-107) mmol/L BUN (9-20) mg/dL Creatinine (0.66-1.25) mg/dL Glucose (74-99) mg/dL POC Glucose (mg/dL) 132 H (70-110) mg/dL Magnesium (1.6-2.3) mg/dL Microbiology - Last 24 Hours (Table) 03/06/24 09:17 Blood Culture - Final Blood 03/06/24 09:10 Blood Culture - Final Blood Assessment and Plan Assessment: 1. Acute kidney injury, ATN, nonoliguric secondary to hypotension from cardiac arrest and rhabdomyolysis. Renal function has improved. UA shows hyaline casts. Ultrasound shows no evidence of obstructive uropathy. 2. Rhabdo myolysis status post cardiopulmonary arrest with CK at 5520. 3. Acute hypoxic respiratory failure currently on the vent 4. CK D stage III with previous creatinine 1.5 mg/dL in 2016. Etiology is likely nephrosclerosis. 5. Hypertension with CK D stage III a, possible component of rebound hypertension from withdrawal of clonidine Plan: continue off of IV fluids for now. continue with IV Lasix
--- NOTE | 2024-03-12 13:31 | P.PN ---
Subjective Progress Note Date: 03/12/24 Patient is evaluated today in follow-up in the intensive care unit. He remains on the mechanical ventilator currently intubated and sedated dated he has an FiO2 50 and a PEEP of 5. Patient initially presents to the hospital due to shortness of breath and was subsequently intubated. Patient remains hyper tensive with cardiology following closely and adjusting medications. Added hydralazine today. Patient remains on IV heparin will eventually need an ischemic workup. His ejection fraction was found to be 40 to 45%. He continues with enteral feedings. Chest x-ray today reveals small bilateral pleural effusions with adjacent compressive atelectasis right lung base. Blood cell count is 13.7, sodium 140, potassium 5.1, BUN of 61, creatinine of 1.44. Is on IV heparin, IV ceftriaxone, IV Solu-Medrol. IV Lasix was decreased to 40 mg daily. He is sedated with propofol and did not do well with his sedation holiday today. 03/12/2024 Patient is evaluated today and follow-up in the intensive care unit he remains on mechanical ventilator currently intubated and sedated with propofol. The last 2 days patient has not done well with his sedation holiday. Becomes significantly hypertensive. He was started on amlodipine as well as IV hydralazine as needed for improved blood pressure control. Cardiology is following this patient closely. He is on IV Lasix daily. Chest xray follow-up reveals small right and minimal left pleural effusion stable. There is compressive atelectasis of the right lung base. Remains on antibiotics for MSSA in sputum. Talked with patients daughter Korin over the phone who is the primary decision maker for the patient and for now would like to continue with all care and awaiting the brain CT results once completed. Unable to complete a review of systems at this time as patient is currently intubated and sedated Physical examination GENERAL: , laying in bed intubated. EYES: Pupils equal. Conjunctiva normal. HEENT: External appearance of nose and ears normal, oral cavity grossly normal. OG tube-some blood. Endotracheal tube. NECK: JVD not raised; masses not palpable. HEART: First and second heart sounds are normal; no edema. LUNGS: Respiratory increased, decreased breath sounds. ABDOMEN: Soft, nontender, liver spleen not palpable, no masses palpable. PSYCH: Patient sedated MUSCULOSKELETAL:No Clubbing/cyanosis;muscles-grossly intact NEUROLOGICAL: Cranial nerves grossly intact; no facial asymmetry, power and sensation grossly intact. Assessment and plan -Acute severe hypoxic hypercapnic respiratory failure from underlying COPD/CHF -Bacterial pneumonia with sputum culture showing MSSA -Pulseless electrical activity/ episode of VTACH likely from respiratory failure and hypoxia; treated with IV amiodarone -Acute severe COPD exacerbation in a current smoker -Probable acute GI bleed with multiple risk factors including stress ulcer from being intubated, steroids, and IV heparin, Resolved. -Type II NE; supply demand mismatch unable to fully rule out ischemic injury. -Frequent PVCs in bigeminal pattern -Acute kidney injury likely ATN from sepsis hypotension -Chronic nicotine dependence cigarette smoker -Chronic gout -Hypotensive shock-corrected; Received IV Levophed -Essential hypertension, uncontrolled -GERD, stress ulcer prophylaxis GI prophylaxis IV Protonix 40 twice daily DVT prophylaxis IV heparin -Full code Plan IV Solu-Medrol 40 mg every 12. Nebulized Pulmicort. Perforomist. He Patient has been resumed on IV heparin with no further evidence of bleeding from the OG tube. Continue IV protonix. Continue with IV ceftriaxone, IV solumedrol Continue mechanical ventilator and sedation per kardex clerk Norvasc 10 mg a day. Coreg 37.5 twice daily. Hydralazine 25 mg 4 times daily. with PRN hydralazine. Continue with enteral tube feedings. Pending renal function improvement patient will be considered for cardiac catheterization; for now continues on IV heparin. Discussed currently plan of care with family over the phone patient remains a full code. Total time spent greater than 30 minutes. The impression and plan of care has been dictated by Rufina Fitzgerald, Nurse Practitioner as directed. Dr. Kaleb MD I have performed a history and physical examination and medical decision making of this patient, discussed the same with the dictator, and agree with the dictators assessment and plan as written, documented as a scribe. Based on total visit time, I have performed more than 50% of this visit. Objective - Vital Signs Vital signs: Vital Signs Temp 98.8 F 03/12/24 12:00 Pulse 78 03/12/24 12:00 Resp 16 03/12/24 12:00 BP 149/64 03/12/24 12:00 Pulse Ox 95 03/12/24 12:00 FiO2 50 03/12/24 12:00 Intake & Output 03/11/24 03/12/24 03/12/24 18:59 06:59 18:59 Intake Total 1245.077 872 494.225 Output Total 1450 805 640 Balance -204.923 67 -145.775 Weight 85.8 kg 86.5 kg Intake: IV 426 312 130 .9NS Pressure Bag 66 72 30 Invasive Line 1 20 Invasive Line 2 20 Sodium Chloride 0.9% 1, 220 240 100 000 ml @ 20 mls/hr IV . Q24H [facility] Rx#:[id number] cefTRIAXone 1 gm In 100 Sodium Chloride 0.9% 50 ml @ 100 mls/hr IVPB Q24HR [facility] Rx#:[id number] Intake, IV Titration 399.077 200 154.225 Amount Heparin Sod,Pork in 0.45% 226.113 NaCl 25,000 unit In 0.45 % NaCl 1 250ml.bag @ 11.5 UNITS/KG/HR 10.005 mls/ hr IV .Q24H [facility] Rx#: [id number] propofoL 1,000 mg In 172.964 200 154.225 Empty Bag 1 bag @ 50 MCG/ KG/MIN 22.453 mls/hr IV . Q4H28M [facility] Rx#:[id number] Tube Feeding 330 360 150 Other 90 60 Output: Urine 1450 805 640 Other: Voiding Method Indwelling Catheter Indwelling Catheter Indwelling Catheter ABP, PAP, CO, CI - Last Documented Arterial Blood Pressure 177/57 - Labs CBC & Chem 7: 03/12/24 04:15 03/12/24 04:15 Labs: Abnormal Lab Results - Last 24 Hours (Table) 03/11/24 03/11/24 03/12/24 Range/Units 17:15 23:50 04:15 WBC 13.8 H (3.8-10.6) k/uL Neutrophils # 12.5 H (1.3-7.7) k/uL Lymphocytes # 0.5 L (1.0-4.8) k/uL APTT (22.0-30.0) sec ABG pCO2 (35-45) mmHg ABG HCO3 (21-25) mmol/L ABG Total CO2 (19-24) mmol/L Chloride (98-107) mmol/L BUN (9-20) mg/dL Creatinine (0.66-1.25) mg/dL Glucose (74-99) mg/dL POC Glucose (mg/dL) 173 H 147 H (70-110) mg/dL Magnesium (1.6-2.3) mg/dL 03/12/24 03/12/24 03/12/24 Range/Units 04:15 04:15 05:59 WBC (3.8-10.6) k/uL Neutrophils # (1.3-7.7) k/uL Lymphocytes # (1.0-4.8) k/uL APTT 72.0 H (22.0-30.0) sec ABG pCO2 (35-45) mmHg ABG HCO3 (21-25) mmol/L ABG Total CO2 (19-24) mmol/L Chloride 109 H (98-107) mmol/L BUN 71 H (9-20) mg/dL Creatinine 1.45 H (0.66-1.25) mg/dL Glucose 164 H (74-99) mg/dL POC Glucose (mg/dL) 146 H (70-110) mg/dL Magnesium 2.4 H (1.6-2.3) mg/dL 03/12/24 03/12/24 Range/Units 06:05 12:02 WBC (3.8-10.6) k/uL Neutrophils # (1.3-7.7) k/uL Lymphocytes # (1.0-4.8) k/uL APTT (22.0-30.0) sec ABG pCO2 47 H (35-45) mmHg ABG HCO3 27 H (21-25) mmol/L ABG Total CO2 29 H (19-24) mmol/L Chloride (98-107) mmol/L BUN (9-20) mg/dL Creatinine (0.66-1.25) mg/dL Glucose (74-99) mg/dL POC Glucose (mg/dL) 132 H (70-110) mg/dL Magnesium (1.6-2.3) mg/dL Microbiology - Last 24 Hours (Table) 03/06/24 09:17 Blood Culture - Final Blood 03/06/24 09:10 Blood Culture - Final Blood Assessment and Plan Time with Patient: Greater than 30
--- NOTE | 2024-03-12 13:44 | CT ---
EXAMINATION TYPE: CT brain wo con DATE OF EXAM: 03/12/2024 COMPARISON: None INDICATION: Unresponsive post arrest DLP: 1184.4 mGycm, Automated exposure control for dose reduction was used. CONTRAST: None CT of the brain is performed utilizing 3 mm thick sections through the posterior fossa and 3 mm thick sections through the remaining calvarium. Study is performed within 24 hours of arrival to the hosp ital. No abnormal hyperdensity is present to suggest an acute intracranial hemorrhage. No mass lesion is evident. No acute infarcts are evident. 3 mello-white matter interface appears preserved. No focal acute infarc ts are identified this time. MRI may be more sensitive Ventricles and sulci are appropriate for the patient age. Paranasal sinuses and mastoid air cells within the [id number] are clear. Endotracheal tube and oral gastric tube are present. IMPRESSION: 1. An acute intracranial process not radiographically apparent. MRI may be sensitive for early acut e changes
[2024-03-12 17:17] LABS: Glucose,Whole Blood 176 mg/dL (70-110)
[2024-03-12 22:30] LABS: Ionized Calcium 4.9 mg/dL (4.5-5.3)
[2024-03-12 22:42] LABS: Magnesium 2.4 mg/dL (1.6-2.3); Potassium 5.2 mmol/L (3.5-5.1)
[2024-03-12 23:27] LABS: Glucose,Whole Blood 170 mg/dL (70-110)
[2024-03-13 00:34] LABS: Glucose,Whole Blood 203 mg/dL (70-110)
[2024-03-13 05:22] LABS: Glucose,Whole Blood 163 mg/dL (70-110)
[2024-03-13 05:33] LABS: Basophils % (A) 0 %; Eosinophils % (A) 0 %; HCT 46.3 % (39.0-53.0); HGB 14.7 gm/dL (13.0-17.5); Lymphocytes # (A) 0.6 k/uL (1.0-4.8); Lymphocytes % (A) 4 %; MCH 29.3 pg (25.0-35.0); MCHC 31.8 g/dL (31.0-37.0); MCV 92.2 fL (80.0-100.0); Mean Platelet Volume 9.5; Monocytes # (A) 0.8 k/uL (0-1.0); Monocytes % (A) 5 %; Neutrophils # (A) 14.2 k/uL (1.3-7.7); Neutrophils % (A) 90 %; Platelet Count 216 k/uL (150-450); RBC 5.02 m/uL (4.30-5.90); RDW 14.5 % (11.5-15.5); WBC 15.7 k/uL (3.8-10.6)
[2024-03-13 05:43] LABS: ABG Base Excess 0.5 mmol/L; ABG HCO3 26 mmol/L (21-25); ABG PCO2 44 mmHg (35-45); ABG PH 7.38 (7.35-7.45); ABG PO2 101 mmHg (83-108); ABG TCO2 27 mmol/L (19-24); Allen Test Performed? Yes
[2024-03-13 05:52] LABS: African American GFR (CKD) 53 (>60 ml/min/1.73 sqM); Anion Gap 6 mmol/L; Blood Urea Nitrogen 78 mg/dL (9-20); Calcium 9.1 mg/dL (8.4-10.2); Carbon Dioxide 26 mmol/L (22-30); Chloride 109 mmol/L (98-107); Glucose 164 mg/dL (74-99); Magnesium 2.4 mg/dL (1.6-2.3); Non-African American GFR(CKD) 45 (>60 ml/min/1.73 sqM); Potassium 4.8 mmol/L (3.5-5.1); Sodium 141 mmol/L (137-145)
--- NOTE | 2024-03-13 07:58 | XR ---
EXAMINATION TYPE: XR chest 1V portable DATE OF EXAM: 03/13/2024 COMPARISON: 03/12/2024 INDICATION: Chemical ventilation difficulty breathing TECHNIQUE: Single frontal view of the chest is obtained. FINDINGS: The heart size is normal. The pulmonary vasculature is normal. Minimal left pleural effusion is present. No suspicious consolidation. Endotracheal tube tip is 8 cm above the lara. Nasogastric tube tip is within the left upper quadra nt of the abdomen. Left central venous catheter tip is in the superior vena cava region IMPRESSION: 1. Small left pleural effusion, stable. 2. Resolving right lower lobe infiltrate. 3. Lines and catheters discussed above. Endotracheal tube has been pulled back.
[2024-03-13] MEDS: hydrALAZINE HCL 50 MG TAB PO SCH (08:09)
[2024-03-13] MEDS: carvediloL 12.5 MG TAB PO STA (08:09)
[2024-03-13] MEDS: FUROSEMIDE 10 MG/ML 2 ML VIAL IV SCH (08:10)
--- NOTE | 2024-03-13 10:48 | PN ---
PROGRESS NOTE SUBJECTIVE: Amari is a 73-year-old gentleman, who is admitted to hospital with vent-requiring respiratory failure, cardiac arrest with pulseless electrical activity, and non ST- segment elevation LA. He has significant intravascular volume depletion with the BUN of 78 and creatinine of 1.4. I am going to cut back on the Lasix today. The plan at this stage is to wait until his renal functions improve and consider a cardiac catheterization. He remains on vent because he is poorly responsive. Blood pressure is poorly controlled and he continues to have quite a bit of ventricular ectopy. I will increase the dose of Coreg to 50 b.i.d. and increase the dose of hydralazine to 100 q.i.d. for better blood pressure control and to deal with the ventricular ectopy. OBJECTIVE: VITAL SIGNS: Heart rate is 80 beats per minute, blood pressure is 150/56, respiratory rate is 18. He is mechanically ventilated with an FiO2 of 45%. CHEST: Reveals bilateral rhonchi and diminished air entry. HEART: Reveals first and second heart sounds. Systolic murmur at the apex. ABDOMEN: Soft. EXTREMITIES: Reveals bilateral 1 to 2+ pitting edema. LABORATORY DATA: Labs show a hemoglobin of 14.7, potassium is 4.8, BUN is 78, creatinine is 1.4, sodium is 140. ASSESSMENT: 1. Non ST-segment elevation myocardial infarction. 2. Status post cardiac arrest. 3. Renal failure. 4. Vent-requiring respiratory failure. PLAN: I will continue the patient on current supportive care, better control his blood pressure. I will stop the IV heparin and start him on subcu heparin. MMODL / IJN: [id number] /
[2024-03-13 11:42] LABS: Glucose,Whole Blood 145 mg/dL (70-110)
--- NOTE | 2024-03-13 12:54 | CDI ---
Documentation Clarification Form Date: 03/13/2024 12:29:54 PM From: Rhiannon Branch RN CCDS Phone: [phone] Admit Date: 03/06/2024 05:31:00 AM Patient Name: Amari Jalloh Visit Number: [id number] Discharge Date: ATTENTION: The Clinical Documentation Specialists (CDI) and [facility] Coding Staff appreciate your assistance in clarifying documentation. Please respond to the clarification below the line at the bottom and electronically sign. The CDI & [facility] Coding staff will review the response and follow-up if needed. Please note: Queries are made part of the Legal Health Record. If you have any questions, please contact the author of this message via ITS. Rufina Fitzgerald NP The patient has Sepsis documented in medicine note, 03/07. Based on this information and the findings below, is there an additional diagnosis that is clinically appropriate for this patient? History/Risk Factors: 73 year old male presents to the ED for increasing shortness of breath. Patient was intubated in the ED. Subsequently patient was noted to have significant bigeminys. Heart rate dropped in the 20s and lost pulse. Medical history: longstanding smoker, COPD and HTN. HP, 03/06 Clinical Indicators: WBC, 03/06: 15.9 Neutrophils, 03/06: 9.6 Lactic acid, 03/06: 10.8 Sputum culture, 03/07: Final Staphylococcus aureus Vitals signs, 03/06: B/P 149/119, HR 100, SpO2 96.8 F Oral, RR 24, SpO2 92% non rebreather. HP, 03/06: pulseless electrical activity secondary to respiratory failure. Episode of ventricular tachycardia likely precipitated by hypoxia infection. Pneumonia suspect gram negative organism. Hypotensive shock. Treatment:03/06 03/06 Nitroglycerin IV; 03/06 Nitrostat sublingual x1; 03/06 Lasix iv x 1; Amidate 20mg iv x 1; Zemuron iv x 1; 03/06 03/08 Propofol iv; 03/06 Ventolin Inhalation x 1; 03/06 Decadron IV x 1; 03/06 Atrovent Inhalation x 1; 03/06 03/08 Heparin IV; 03/06 03/08 Norepinephrine IV; ID Consult: Antibiotics: 03/06 Azithromycin IVPB Q24H x 3 bags; 03/06 03/13 Ceftriaxone IVPB Q24H, Is there an additional diagnosis that is clinically appropriate for this patient? [ x ] Sepsis, present on admission [ ] Sepsis, developed during stay, not present on admission [ ] No additional diagnosis/not clinically significant [ ] Other, please specify [ ] Unable to determine SIRS Criteria: 2 or more of the following may indicate SIRS Temperature < 96.8F (36C) or > 101.0F (38.3C) Heart Rate > 90 bpm Respiratory Rate > 20 breaths/min or PaCO2 < 32 mmHg White Blood Cell Count > 12,000 or < 4,000 cells/mm3 or > 10% bands (Template Last Reviewed: September 2022) MTDD
--- NOTE | 2024-03-13 12:55 | P.PN ---
Subjective patient is seen for follow-up for acute kidney injury. Patient remains on the vent. blood pressure remains elevated and hydralazine and Coreg have been increased further. Urine output at 50-100 mL per hour. Serum creatinine at 1.4 mg/dL. B UN is disproportionately elevated from steroids. Objective - Vital Signs Vital signs: Vital Signs Temp 98.4 F 03/13/24 08:00 Pulse 87 03/13/24 11:16 Resp 21 03/13/24 11:16 BP 161/75 03/13/24 08:00 Pulse Ox 100 03/13/24 09:00 FiO2 45 03/13/24 11:13 Intake & Output 03/12/24 03/13/24 03/13/24 18:59 06:59 18:59 Intake Total 1264.234 888.130 638.684 Output Total 1335 610 550 Balance -70.766 278.130 88.684 Weight 95.7 kg Intake: IV 312 286 178 .9NS Pressure Bag 72 66 18 Sodium Chloride 0.9% 1, 240 220 60 000 ml @ 20 mls/hr IV . Q24H [facility] Rx#:[id number] cefTRIAXone 1 gm In 100 Sodium Chloride 0.9% 50 ml @ 100 mls/hr IVPB Q24HR [facility] Rx#:[id number] Intake, IV Titration 502.234 242.130 280.684 Amount Heparin Sod,Pork in 0.45% 250 172.086 NaCl 25,000 unit In 0.45 % NaCl 1 250ml.bag @ 11.5 UNITS/KG/HR 10.005 mls/ hr IV .Q24H [facility]UCK Rx#: [id number] propofoL 1,000 mg In 252.234 242.130 108.598 Empty Bag 1 bag @ 50 MCG/ KG/MIN 22.453 mls/hr IV . Q4H28M [facility]UCK Rx#:[id number] Tube Feeding 360 330 120 Other 90 30 60 Output: Urine 1335 610 550 Other: Voiding Method Indwelling Catheter Indwelling Catheter # Bowel Movements 0 ABP, PAP, CO, CI - Last Documented Arterial Blood Pressure 157/56 - Exam patient is sedated and on the vent Examination of the heart S1 and S2 Examination of the lungs bilateral breath sounds are heard Abdomen is soft nontender Examination of lower extremity shows no significant edema - Labs CBC & Chem 7: 03/13/24 04:15 03/13/24 04:15 Labs: Abnormal Lab Results - Last 24 Hours (Table) 03/12/24 03/12/24 03/12/24 Range/Units 17:16 21:59 23:26 WBC (3.8-10.6) k/uL Neutrophils # (1.3-7.7) k/uL Lymphocytes # (1.0-4.8) k/uL APTT (22.0-30.0) sec ABG HCO3 (21-25) mmol/L ABG Total CO2 (19-24) mmol/L ABG O2 Saturation (94-97) % Potassium 5.2 H (3.5-5.1) mmol/L Chloride 109 H (98-107) mmol/L BUN (9-20) mg/dL Creatinine (0.66-1.25) mg/dL Glucose (74-99) mg/dL POC Glucose (mg/dL) 176 H 170 H (70-110) mg/dL Magnesium 2.4 H (1.6-2.3) mg/dL 03/13/24 03/13/24 03/13/24 Range/Units 00:33 04:15 04:15 WBC 15.7 H (3.8-10.6) k/uL Neutrophils # 14.2 H (1.3-7.7) k/uL Lymphocytes # 0.6 L (1.0-4.8) k/uL APTT (22.0-30.0) sec ABG HCO3 (21-25) mmol/L ABG Total CO2 (19-24) mmol/L ABG O2 Saturation (94-97) % Potassium (3.5-5.1) mmol/L Chloride 109 H (98-107) mmol/L BUN 78 H (9-20) mg/dL Creatinine 1.49 H (0.66-1.25) mg/dL Glucose 164 H (74-99) mg/dL POC Glucose (mg/dL) 203 H (70-110) mg/dL Magnesium 2.4 H (1.6-2.3) mg/dL 03/13/24 03/13/24 03/13/24 Range/Units 05:21 05:22 05:34 WBC (3.8-10.6) k/uL Neutrophils # (1.3-7.7) k/uL Lymphocytes # (1.0-4.8) k/uL APTT 54.4 H (22.0-30.0) sec ABG HCO3 26 H (21-25) mmol/L ABG Total CO2 27 H (19-24) mmol/L ABG O2 Saturation 98.0 H (94-97) % Potassium (3.5-5.1) mmol/L Chloride (98-107) mmol/L BUN (9-20) mg/dL Creatinine (0.66-1.25) mg/dL Glucose (74-99) mg/dL POC Glucose (mg/dL) 163 H (70-110) mg/dL Magnesium (1.6-2.3) mg/dL 03/13/24 Range/Units 11:40 WBC (3.8-10.6) k/uL Neutrophils # (1.3-7.7) k/uL Lymphocytes # (1.0-4.8) k/uL APTT (22.0-30.0) sec ABG HCO3 (21-25) mmol/L ABG Total CO2 (19-24) mmol/L ABG O2 Saturation (94-97) % Potassium (3.5-5.1) mmol/L Chloride (98-107) mmol/L BUN (9-20) mg/dL Creatinine (0.66-1.25) mg/dL Glucose (74-99) mg/dL POC Glucose (mg/dL) 145 H (70-110) mg/dL Magnesium (1.6-2.3) mg/dL Assessment and Plan Assessment: 1. Acute kidney injury, ATN, nonoliguric secondary to hypotension from cardiac arrest and rhabdomyolysis. Renal function has improved. B UN is disproportionately elevated steroids. UA shows hyaline casts. Ultrasound shows no evidence of obstructive uropathy. 2. Rhabdo myolysis status post cardiopulmonary arrest with CK at 5520. 3. Acute hypoxic respiratory failure currently on the vent 4. CK D stage III with previous creatinine 1.5 mg/dL in 2016. Etiology is li almaz nephrosclerosis. 5. Hypertension with CK D stage III a, possible component of rebound hyperten lori from withdrawal of clonidine Plan: continue with IV Lasix. B UN is disproportionately elevated from steroids. Okay to proceed with cardiac cath if indicated.
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
--- NOTE | 2024-03-13 15:34 | P.PN ---
Subjective Progress Note Date: 03/13/24 Patient is evaluated today in follow-up in the intensive care unit. He remains on the mechanical ventilator currently intubated and sedated dated he has an FiO2 50 and a PEEP of 5. Patient initially presents to the hospital due to shortness of breath and was subsequently intubated. Patient remains hyper tensive with cardiology following closely and adjusting medications. Added hydralazine today. Patient remains on IV heparin will eventually need an ischemic workup. His ejection fraction was found to be 40 to 45%. He continues with enteral feedings. Chest x-ray today reveals small bilateral pleural effusions with adjacent compressive atelectasis right lung base. Blood cell count is 13.7, sodium 140, potassium 5.1, BUN of 61, creatinine of 1.44. Is on IV heparin, IV ceftriaxone, IV Solu-Medrol. IV Lasix was decreased to 40 mg daily. He is sedated with propofol and did not do well with his sedation holiday today. 03/12/2024 Patient is evaluated today and follow-up in the intensive care unit he remains on mechanical ventilator currently intubated and sedated with propofol. The last 2 days patient has not done well with his sedation holiday. Becomes significantly hypertensive. He was started on amlodipine as well as IV hydralazine as needed for improved blood pressure control. Cardiology is following this patient closely. He is on IV Lasix daily. Chest xray follow-up reveals small right and minimal left pleural effusion stable. There is compressive atelectasis of the right lung base. Remains on antibiotics for MSSA in sputum. Talked with patients daughter Korin over the phone who is the primary decision maker for the patient and for now would like to continue with all care and awaiting the brain CT results once completed. 03/13/2024 Patient is evaluated today in the ICU in follow up. Remains on the mechanical ventilator. Patient remains sedated with propofol is currently on a sedation holiday has spontaneous eye opening and reflexes, he has not been tracking eyes or responding to stimuli or commands. Patient chest xray today reveals small left pleural effusion, stable, resolving right lower lobe infiltrate. Brain CT done yesterday reveals no acute intracranial process. White blood cell count today 15.7, sodium 141, potassium 4.8, BUN 78, creatinine 1.49, glucose 145, magnesium 2.4. Continues on IV ceftriaxone. Remains on IV heparin. He is on IV solumedrol. Unable to complete a review of systems at this time as patient is currently intubated and sedated Physical examination GENERAL: , laying in bed intubated. EYES: Pupils equal. Conjunctiva normal. HEENT: External appearance of nose and ears normal, oral cavity grossly normal. OG tube-some blood. Endotracheal tube. NECK: JVD not raised; masses not palpable. HEART: First and second heart sounds are normal; no edema. LUNGS: Respiratory increased, decreased breath sounds. ABDOMEN: Soft, nontender, liver spleen not palpable, no masses palpable. PSYCH: Patient sedated MUSCULOSKELETAL:No Clubbing/cyanosis;muscles-grossly intact NEUROLOGICAL: Cranial nerves grossly intact; no facial asymmetry, power and sensation grossly intact. Assessment and plan -Acute severe hypoxic hypercapnic respiratory failure from underlying COPD/CHF -Bacterial pneumonia with sputum culture showing MSSA -Pulseless electrical activity/ episode of VTACH likely from respiratory failure and hypoxia; treated with IV amiodarone -Acute severe COPD exacerbation in a current smoker -Probable acute GI bleed with multiple risk factors including stress ulcer from being intubated, steroids, and IV heparin, Resolved. -Type II RI; supply demand mismatch unable to fully rule out ischemic injury. -Frequent PVCs in bigeminal pattern -Acute kidney injury likely ATN from sepsis hypotension -Chronic nicotine dependence cigarette smoker -Chronic gout -Hypotensive shock-corrected; Received IV Levophed -Essential hypertension, uncontrolled -GERD, stress ulcer prophylaxis GI prophylaxis IV Protonix 40 twice daily DVT prophylaxis IV heparin -Full code Plan IV Solu-Medrol 40 mg every 12. Nebulized Pulmicort. Perforomist. He Patient has been resumed on IV heparin with no further evidence of bleeding from the OG tube. Continue IV protonix. Continue with IV ceftriaxone, IV solumedrol Continue mechanical ventilator and sedation per gerentological physiotherapist Norvasc 10 mg a day. Coreg 37.5 twice daily. Hydralazine 25 mg 4 times daily. with PRN hydralazine. Continue with enteral tube feedings. Pending renal function improvement patient will be considered for cardiac catheterization; for now continues on IV heparin. Total time spent greater than 30 minutes. The impression and plan of care has been dictated by Rufina Fitzgerald, Nurse Practitioner as directed. Dr. Kaleb MD I have performed a history and physical examination and medical decision making of this patient, discussed the same with the dictator, and agree with the dictators assessment and plan as written, documented as a scribe. Based on total visit time, I have performed more than 50% of this visit. Objective - Vital Signs Vital signs: Vital Signs Temp 98.3 F 03/13/24 12:00 Pulse 93 03/13/24 15:17 Resp 20 03/13/24 15:17 BP 145/103 03/13/24 15:00 Pulse Ox 96 03/13/24 15:00 FiO2 45 03/13/24 15:01 Intake & Output 03/12/24 03/13/24 03/13/24 18:59 06:59 18:59 Intake Total 1264.234 527.020 8488.684 Output Total 4506 762 8921 Balance -70.766 278.130 -70.316 Weight 95.7 kg 95.7 kg Intake: IV 312 286 334 .9NS Pressure Bag 72 66 54 Sodium Chloride 0.9% 1, 240 220 180 000 ml @ 20 mls/hr IV . Q24H [facility] Rx#:[id number] cefTRIAXone 1 gm In 100 Sodium Chloride 0.9% 50 ml @ 100 mls/hr IVPB Q24HR [facility] Rx#:[id number] Intake, IV Titration 502.234 242.130 280.684 Amount Heparin Sod,Pork in 0.45% 250 172.086 NaCl 25,000 unit In 0.45 % NaCl 1 250ml.bag @ 11.5 UNITS/KG/HR 10.005 mls/ hr IV .Q24H [facility] Rx#: [id number] propofoL 1,000 mg In 252.234 242.130 108.598 Empty Bag 1 bag @ 50 MCG/ KG/MIN 22.453 mls/hr IV . Q4H28M [facility] Rx#:[id number] Tube Feeding 360 330 330 Other 90 30 90 Output: Urine 8556 939 4152 Other: Voiding Method Indwelling Catheter Indwelling Catheter Indwelling Catheter # Bowel Movements 0 ABP, PAP, CO, CI - Last Documented Arterial Blood Pressure 140/58 - Labs CBC & Chem 7: 03/13/24 04:15 03/13/24 04:15 Labs: Abnormal Lab Results - Last 24 Hours (Table) 03/12/24 03/12/24 03/12/24 Range/Units 17:16 21:59 23:26 WBC (3.8-10.6) k/uL Neutrophils # (1.3-7.7) k/uL Lymphocytes # (1.0-4.8) k/uL APTT (22.0-30.0) sec ABG HCO3 (21-25) mmol/L ABG Total CO2 (19-24) mmol/L ABG O2 Saturation (94-97) % Potassium 5.2 H (3.5-5.1) mmol/L Chloride 109 H (98-107) mmol/L BUN (9-20) mg/dL Creatinine (0.66-1.25) mg/dL Glucose (74-99) mg/dL POC Glucose (mg/dL) 176 H 170 H (70-110) mg/dL Magnesium 2.4 H (1.6-2.3) mg/dL 03/13/24 03/13/24 03/13/24 Range/Units 00:33 04:15 04:15 WBC 15.7 H (3.8-10.6) k/uL Neutrophils # 14.2 H (1.3-7.7) k/uL Lymphocytes # 0.6 L (1.0-4.8) k/uL APTT (22.0-30.0) sec ABG HCO3 (21-25) mmol/L ABG Total CO2 (19-24) mmol/L ABG O2 Saturation (94-97) % Potassium (3.5-5.1) mmol/L Chloride 109 H (98-107) mmol/L BUN 78 H (9-20) mg/dL Creatinine 1.49 H (0.66-1.25) mg/dL Glucose 164 H (74-99) mg/dL POC Glucose (mg/dL) 203 H (70-110) mg/dL Magnesium 2.4 H (1.6-2.3) mg/dL 03/13/24 03/13/24 03/13/24 Range/Units 05:21 05:22 05:34 WBC (3.8-10.6) k/uL Neutrophils # (1.3-7.7) k/uL Lymphocytes # (1.0-4.8) k/uL APTT 54.4 H (22.0-30.0) sec ABG HCO3 26 H (21-25) mmol/L ABG Total CO2 27 H (19-24) mmol/L ABG O2 Saturation 98.0 H (94-97) % Potassium (3.5-5.1) mmol/L Chloride (98-107) mmol/L BUN (9-20) mg/dL Creatinine (0.66-1.25) mg/dL Glucose (74-99) mg/dL POC Glucose (mg/dL) 163 H (70-110) mg/dL Magnesium (1.6-2.3) mg/dL 03/13/24 Range/Units 11:40 WBC (3.8-10.6) k/uL Neutrophils # (1.3-7.7) k/uL Lymphocytes # (1.0-4.8) k/uL APTT (22.0-30.0) sec ABG HCO3 (21-25) mmol/L ABG Total CO2 (19-24) mmol/L ABG O2 Saturation (94-97) % Potassium (3.5-5.1) mmol/L Chloride (98-107) mmol/L BUN (9-20) mg/dL Creatinine (0.66-1.25) mg/dL Glucose (74-99) mg/dL POC Glucose (mg/dL) 145 H (70-110) mg/dL Magnesium (1.6-2.3) mg/dL Assessment and Plan Time with Patient: Less than 30
[2024-03-13] MEDS: DEXMEDETOMIDINE/0.9% NACL(PMX) 400 MCG in EMPTY BAG 1 BAG IV SCH (16:00)
[2024-03-13] MEDS: carvediloL 12.5 MG TAB PO SCH (16:33)
[2024-03-13 17:47] LABS: Glucose,Whole Blood 159 mg/dL (70-110)
[2024-03-14] LABS: Glucose,Whole Blood 170 mg/dL (70-110)
[2024-03-14 05:19] LABS: Basophils % (A) 0 %; Eosinophils % (A) 0 %; HCT 45.4 % (39.0-53.0); HGB 14.3 gm/dL (13.0-17.5); Lymphocytes # (A) 0.5 k/uL (1.0-4.8); Lymphocytes % (A) 3 %; MCH 29.2 pg (25.0-35.0); MCHC 31.5 g/dL (31.0-37.0); MCV 92.5 fL (80.0-100.0); Mean Platelet Volume 9.4; Monocytes # (A) 0.6 k/uL (0-1.0); Monocytes % (A) 3 %; Neutrophils # (A) 16.2 k/uL (1.3-7.7); Neutrophils % (A) 93 %; Platelet Count 222 k/uL (150-450); RBC 4.91 m/uL (4.30-5.90); RDW 14.5 % (11.5-15.5); WBC 17.4 k/uL (3.8-10.6)
[2024-03-14 05:31] LABS: African American GFR (CKD) 53 (>60 ml/min/1.73 sqM); Anion Gap 6 mmol/L; Blood Urea Nitrogen 83 mg/dL (9-20); Calcium 9.1 mg/dL (8.4-10.2); Carbon Dioxide 25 mmol/L (22-30); Chloride 110 mmol/L (98-107); Glucose 165 mg/dL (74-99); Magnesium 2.5 mg/dL (1.6-2.3); Non-African American GFR(CKD) 46 (>60 ml/min/1.73 sqM); Potassium 4.9 mmol/L (3.5-5.1); Sodium 141 mmol/L (137-145)
[2024-03-14 05:38] LABS: ABG Base Excess 0.6 mmol/L; ABG HCO3 27 mmol/L (21-25); ABG PCO2 47 mmHg (35-45); ABG PH 7.36 (7.35-7.45); ABG PO2 103 mmHg (83-108); ABG TCO2 28 mmol/L (19-24)
[2024-03-14 05:46] LABS: Glucose,Whole Blood 153 mg/dL (70-110)
--- NOTE | 2024-03-14 07:38 | XR ---
EXAMINATION TYPE: XR chest 1V portable DATE OF EXAM: 03/14/2024 COMPARISON: 03/13/2024 INDICATION: Mechanical ventilation difficulty breathing TECHNIQUE: Single frontal view of the chest is obtained. FINDINGS: The heart size is normal. The pulmonary vasculature is somewhat prominent. Mild infiltrate is at the right base. Correlate for atelectasis. Minimal left pleural effusion may be present. Endotracheal tube tip is 5 cm both. Left central venous catheter tips in superior vena cava region. N asogastric tube tip is in the left upper quadrant of the abdomen. IMPRESSION: 1. Mild right basilar atelectasis. 2. Minimal left pleural effusion. 3. Lines and catheters discussed above
[2024-03-14 11:38] LABS: Glucose,Whole Blood 141 mg/dL (70-110)
--- NOTE | 2024-03-14 12:14 | P.PN ---
Subjective patient is seen for follow-up for acute kidney injury. Patient remains on the vent. Urine output at 50-100 mL per hour. Serum creatinine at 1.4 mg/dL. B UN is disproportionately elevated from steroids. Objective - Vital Signs Vital signs: Vital Signs Temp 98.2 F 03/14/24 08:00 Pulse 82 03/14/24 11:28 Resp 12 03/14/24 11:00 BP 142/60 03/14/24 11:00 Pulse Ox 99 03/14/24 11:00 FiO2 45 03/14/24 12:00 Intake & Output 03/13/24 03/14/24 03/14/24 18:59 06:59 18:59 Intake Total 1232.684 838.000 540.674 Output Total 1330 1115 425 Balance -97.316 -277.000 115.674 Weight 95.7 kg 86.1 kg Intake: IV 412 288 115 .9NS Pressure Bag 72 48 15 Sodium Chloride 0.9% 1, 240 240 100 000 ml @ 20 mls/hr IV . Q24H [facility] Rx#:[id number] cefTRIAXone 1 gm In 100 Sodium Chloride 0.9% 50 ml @ 100 mls/hr IVPB Q24HR [facility] Rx#:[id number] Intake, IV Titration 280.684 100.000 305.674 Amount Dexmedetomidine/0.9% NaCl 100.000 33.496 (Pmx) 400 mcg In Empty Bag 1 bag @ 0.2 MCG/KG/HR 4.785 mls/hr IV .[id number] [facility] Rx#:[id number] Heparin Sod,Pork in 0.45% 172.086 272.178 NaCl 25,000 unit In 0.45 % NaCl 1 250ml.bag @ 11.5 UNITS/KG/HR 10.005 mls/ hr IV .Q24H [facility] Rx#: [id number] propofoL 1,000 mg In 108.598 Empty Bag 1 bag @ 50 MCG/ KG/MIN 22.453 mls/hr IV . Q4H28M [facility] Rx#:[id number] Tube Feeding 420 420 90 Other 120 30 30 Output: Urine 1330 1115 425 Other: Voiding Method Indwelling Catheter Indwelling Catheter # Bowel Movements 0 0 0 ABP, PAP, CO, CI - Last Documented Arterial Blood Pressure 102/34 - Exam patient is sedated and on the vent Examination of the heart S1 and S2 Examination of the lungs bilateral breath sounds are heard Abdomen is soft nontender Examination of lower extremity shows no significant edema - Labs CBC & Chem 7: 03/14/24 04:20 03/14/24 04:20 Labs: Abnormal Lab Results - Last 24 Hours (Table) 03/13/24 03/13/24 03/14/24 Range/Units 17:46 23:58 03:54 WBC (3.8-10.6) k/uL Neutrophils # (1.3-7.7) k/uL Lymphocytes # (1.0-4.8) k/uL APTT (22.0-30.0) sec ABG pCO2 47 H (35-45) mmHg ABG HCO3 27 H (21-25) mmol/L ABG Total CO2 28 H (19-24) mmol/L ABG O2 Saturation 98.0 H (94-97) % Chloride (98-107) mmol/L BUN (9-20) mg/dL Creatinine (0.66-1.25) mg/dL Glucose (74-99) mg/dL POC Glucose (mg/dL) 159 H 170 H (70-110) mg/dL Magnesium (1.6-2.3) mg/dL 03/14/24 03/14/24 03/14/24 Range/Units 04:20 04:20 04:20 WBC 17.4 H (3.8-10.6) k/uL Neutrophils # 16.2 H (1.3-7.7) k/uL Lymphocytes # 0.5 L (1.0-4.8) k/uL APTT 50.8 H (22.0-30.0) sec ABG pCO2 (35-45) mmHg ABG HCO3 (21-25) mmol/L ABG Total CO2 (19-24) mmol/L ABG O2 Saturation (94-97) % Chloride 110 H (98-107) mmol/L BUN 83 H (9-20) mg/dL Creatinine 1.47 H (0.66-1.25) mg/dL Glucose 165 H (74-99) mg/dL POC Glucose (mg/dL) (70-110) mg/dL Magnesium 2.5 H (1.6-2.3) mg/dL 03/14/24 03/14/24 Range/Units 05:45 11:36 WBC (3.8-10.6) k/uL Neutrophils # (1.3-7.7) k/uL Lymphocytes # (1.0-4.8) k/uL APTT (22.0-30.0) sec ABG pCO2 (35-45) mmHg ABG HCO3 (21-25) mmol/L ABG Total CO2 (19-24) mmol/L ABG O2 Saturation (94-97) % Chloride (98-107) mmol/L BUN (9-20) mg/dL Creatinine (0.66-1.25) mg/dL Glucose (74-99) mg/dL POC Glucose (mg/dL) 153 H 141 H (70-110) mg/dL Magnesium (1.6-2.3) mg/dL Assessment and Plan Assessment: 1. Acute kidney injury, ATN, nonoliguric secondary to hypotension from cardiac arrest and rhabdomyolysis. Renal function has improved. B UN is disproportionately elevated steroids. UA shows hyaline casts. Ultrasound shows no evidence of obstructive uropathy. 2. Rhabdo myolysis status post cardiopulmonary arrest with CK at 5520. 3. Acute hypoxic respiratory failure currently on the vent 4. CK D stage III with previous creatinine 1.5 mg/dL in 2016. Etiology is likely nephrosclerosis. 5. Hypertension with CK D stage III a, possible component of rebound hypertension from withdrawal of clonidine Plan: continue with IV Lasix. B UN is disproportionately elevated from steroids. Okay to proceed with cardiac cath if indicated.
[2024-03-14] MEDS: LACTULOSE 20 GM/30 ML CUP PO ONE (12:40)
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
--- NOTE | 2024-03-14 14:30 | PN ---
PROGRESS NOTE SUBJECTIVE: Amari is a 73-year-old gentleman who has respiratory failure and is in the ICU, intubated on vent. He came in to hospital with respiratory failure and had cardiac arrest with pulseless electrical activity. Echocardiogram showed cardiomyopathy with wall motion abnormality and the plan is to perform a cardiac catheterization on him once he is clinically stable. His renal function is improved. Unfortunately, so far his creatinine remains elevated and more importantly his BUN is going up, it was 20 and it is 87 now. OBJECTIVE: GENERAL: Today, he is intubated, vented. VITAL SIGNS: Heart rate is 76 beats per minute, blood pressure is 130/80, respiratory rate is 18, and O2 saturation is 98% on FiO2 of 45. CHEST: Reveals occasional rhonchi and diminished air entry. HEART: Reveals first and second heart sounds. No gallop. No murmur. ABDOMEN: Soft. EXTREMITIES: Did not reveal any edema. Peripheral pulses are felt. LABORATORY DATA: Labs showed that the potassium is 4.9, BUN is 83, creatinine is 1.4, hemoglobin is 14.3, platelet count is 222. ASSESSMENT: 1. Vent-requiring respiratory failure. 2. Status post cardiac arrest. 3. [id number] elevation MO. PLAN: The patient had IV heparin since for more than a week now. I am going to stop it at this time and switch him to subcu heparin. The patient will need cardiac catheterization when more stable. DULCE / ANDRESSA: [id number] /
--- NOTE | 2024-03-14 15:26 | P.PN ---
Subjective Progress Note Date: 03/14/24 Patient is evaluated today in follow-up in the intensive care unit. He remains on the mechanical ventilator currently intubated and sedated dated he has an FiO2 50 and a PEEP of 5. Patient initially presents to the hospital due to shortness of breath and was subsequently intubated. Patient remains hyper tensive with cardiology following closely and adjusting medications. Added hydralazine today. Patient remains on IV heparin will eventually need an ischemic workup. His ejection fraction was found to be 40 to 45%. He continues with enteral feedings. Chest x-ray today reveals small bilateral pleural effusions with adjacent compressive atelectasis right lung base. Blood cell count is 13.7, sodium 140, potassium 5.1, BUN of 61, creatinine of 1.44. Is on IV heparin, IV ceftriaxone, IV Solu-Medrol. IV Lasix was decreased to 40 mg daily. He is sedated with propofol and did not do well with his sedation holiday today. 03/12/2024 Patient is evaluated today and follow-up in the intensive care unit he remains on mechanical ventilator currently intubated and sedated with propofol. The last 2 days patient has not done well with his sedation holiday. Becomes significantly hypertensive. He was started on amlodipine as well as IV hydralazine as needed for improved blood pressure control. Cardiology is following this patient closely. He is on IV Lasix daily. Chest xray follow-up reveals small right and minimal left pleural effusion stable. There is compressive atelectasis of the right lung base. Remains on antibiotics for MSSA in sputum. Talked with patients daughter Korin over the phone who is the primary decision maker for the patient and for now would like to continue with all care and awaiting the brain CT results once completed. 03/13/2024 Patient is evaluated today in the ICU in follow up. Remains on the mechanical ventilator. Patient remains sedated with propofol is currently on a sedation holiday has spontaneous eye opening and reflexes, he has not been tracking eyes or responding to stimuli or commands. Patient chest xray today reveals small left pleural effusion, stable, resolving right lower lobe infiltrate. Brain CT done yesterday reveals no acute intracranial process. White blood cell count today 15.7, sodium 141, potassium 4.8, BUN 78, creatinine 1.49, glucose 145, magnesium 2.4. Continues on IV ceftriaxone. Remains on IV heparin. He is on IV solumedrol. 03/14/2024 Patient is evaluated today in the intensive care unit in follow-up. He is off t he propofol and currently on Precedex and is currently on an assist-control with the ventilator. He does have spontaneous eye opening however he is not following commands at this time. He is on IV lasix daily. He is on IV solu- medrol. Patient is on IV ceftriaxone. Chest x-ray today shows mild right basilar atelectasis with minimal left right pleural effusion. White blood cell count today 17.4, sodium 141, BUN of 83, creatinine of 1.47. Unable tocomplete a review of systems at this time as patient is currently on the ventilator and sedated. Physical examination GENERAL: Sitting up in the bed. He is on the ventilator. EYES: Pupils equal. Conjunctiva normal. HEENT: External appearance of nose and ears normal, oral cavity grossly normal. OG tube. Endotracheal tube. NECK: JVD not raised; masses not palpable. HEART: First and second heart sounds are normal; no edema. LUNGS: Respiratory increased, decreased breath sounds. ABDOMEN: Soft, nontender, liver spleen not palpable, no masses palpable. PSYCH: Patient sedated MUSCULOSKELETAL:No Clubbing/cyanosis;muscles-grossly intact NEUROLOGICAL: Unable to follow commands. Assessment and plan -Acute severe hypoxic hypercapnic respiratory failure from underlying COPD/CHF -Bacterial pneumonia with sputum culture showing MSSA -Pulseless electrical activity/ episode of VTACH likely from respiratory failure and hypoxia; treated with IV amiodarone -Acute severe COPD exacerbation in a current smoker -Probable acute GI bleed with multiple risk factors including stress ulcer from being intubated, steroids, and IV heparin, Resolved. -Type II IL; supply demand mismatch unable to fully rule out ischemic injury. -Frequent PVCs in bigeminal pattern -Acute kidney injury likely ATN from sepsis hypotension -Chronic nicotine dependence cigarette smoker -Chronic gout -Hypotensive shock-corrected; Received IV Levophed -Essential hypertension, uncontrolled -GERD, stress ulcer prophylaxis GI prophylaxis IV Protonix 40 twice daily DVT prophylaxis subcu heparin -Full code Plan IV Solu-Medrol 40 mg every 12. Nebulized Pulmicort. Perforomist. Neliab Patient has been resumed on IV heparin with no further evidence of bleeding from the OG tube. Continue IV protonix. Continue with IV ceftriaxone, IV solumedrol Continue mechanical ventilator and sedation per council member Norvasc 10 mg a day. Coreg 50mg twice daily. Hydralazine 100 mg 4 times daily. with PRN hydralazine. Continue with enteral tube feedings. Total time spent greater than 30 minutes. The impression and plan of care has been dictated by Rufina Fitzgerald, Nurse Practitioner as directed. Dr. Kaleb MD I have performed a history and physical examination and medical decision making of this patient, discussed the same with the dictator, and agree with the d ictators assessment and plan as written, documented as a scribe. Based on total visit time, I have performed more than 50% of this visit. Objective - Vital Signs Vital signs: Vital Signs Temp 98.2 F 03/14/24 08:00 Pulse 64 03/14/24 15:00 Resp 16 03/14/24 12:00 BP 128/57 03/14/24 12:00 Pulse Ox 99 03/14/24 12:00 FiO2 45 03/14/24 15:01 Intake & Output 03/13/24 03/14/24 03/14/24 18:59 06:59 18:59 Intake Total 1232.684 838.000 595.375 Output Total 1330 1115 675 Balance -97.316 -277.000 -79.625 Weight 95.7 kg 86.1 kg 86.1 kg Intake: IV 412 288 138 .9NS Pressure Bag 72 48 18 Sodium Chloride 0.9% 1, 240 240 120 000 ml @ 20 mls/hr IV . Q24H [facility] Rx#:[id number] cefTRIAXone 1 gm In 100 Sodium Chloride 0.9% 50 ml @ 100 mls/hr IVPB Q24HR [facility] Rx#:[id number] Intake, IV Titration 280.684 100.000 337.375 Amount Dexmedetomidine/0.9% NaCl 100.000 65.197 (Pmx) 400 mcg In Empty Bag 1 bag @ 0.2 MCG/KG/HR 4.785 mls/hr IV .[id number] [facility] Rx#:[id number] Heparin Sod,Pork in 0.45% 172.086 272.178 NaCl 25,000 unit In 0.45 % NaCl 1 250ml.bag @ 11.5 UNITS/KG/HR 10.005 mls/ hr IV .Q24H [facility] Rx#: [id number] propofoL 1,000 mg In 108.598 Empty Bag 1 bag @ 50 MCG/ KG/MIN 22.453 mls/hr IV . Q4H28M [facility] Rx#:[id number] Tube Feeding 420 420 90 Other 120 30 30 Output: Urine 1330 1115 675 Other: Voiding Method Indwelling Catheter Indwelling Catheter Indwelling Catheter # Bowel Movements 0 0 0 ABP, PAP, CO, CI - Last Documented Arterial Blood Pressure 117/49 - Labs CBC & Chem 7: 03/14/24 04:20 03/14/24 04:20 Labs: Abnormal Lab Results - Last 24 Hours (Table) 03/13/24 03/13/24 03/14/24 Range/Units 17:46 23:58 03:54 WBC (3.8-10.6) k/uL Neutrophils # (1.3-7.7) k/uL Lymphocytes # (1.0-4.8) k/uL APTT (22.0-30.0) sec ABG pCO2 47 H (35-45) mmHg ABG HCO3 27 H (21-25) mmol/L ABG Total CO2 28 H (19-24) mmol/L ABG O2 Saturation 98.0 H (94-97) % Chloride (98-107) mmol/L BUN (9-20) mg/dL Creatinine (0.66-1.25) mg/dL Glucose (74-99) mg/dL POC Glucose (mg/dL) 159 H 170 H (70-110) mg/dL Magnesium (1.6-2.3) mg/dL 03/14/24 03/14/24 03/14/24 Range/Units 04:20 04:20 04:20 WBC 17.4 H (3.8-10.6) k/uL Neutrophils # 16.2 H (1.3-7.7) k/uL Lymphocytes # 0.5 L (1.0-4.8) k/uL APTT 50.8 H (22.0-30.0) sec ABG pCO2 (35-45) mmHg ABG HCO3 (21-25) mmol/L ABG Total CO2 (19-24) mmol/L ABG O2 Saturation (94-97) % Chloride 110 H (98-107) mmol/L BUN 83 H (9-20) mg/dL Creatinine 1.47 H (0.66-1.25) mg/dL Glucose 165 H (74-99) mg/dL POC Glucose (mg/dL) (70-110) mg/dL Magnesium 2.5 H (1.6-2.3) mg/dL 03/14/24 03/14/24 Range/Units 05:45 11:36 WBC (3.8-10.6) k/uL Neutrophils # (1.3-7.7) k/uL Lymphocytes # (1.0-4.8) k/uL APTT (22.0-30.0) sec ABG pCO2 (35-45) mmHg ABG HCO3 (21-25) mmol/L ABG Total CO2 (19-24) mmol/L ABG O2 Saturation (94-97) % Chloride (98-107) mmol/L BUN (9-20) mg/dL Creatinine (0.66-1.25) mg/dL Glucose (74-99) mg/dL POC Glucose (mg/dL) 153 H 141 H (70-110) mg/dL Magnesium (1.6-2.3) mg/dL Assessment and Plan Time with Patient: Less than 30
[2024-03-14] MEDS: HEPARIN SODIUM,PORCINE 5,000 UNIT/ML 1 ML VIAL SQ SCH (16:56)
[2024-03-14 17:36] LABS: Glucose,Whole Blood 199 mg/dL (70-110)
[2024-03-14] MEDS: bisacodyL 10 MG SUPP RECTAL PRN (18:06)
[2024-03-15 00:06] LABS: Glucose,Whole Blood 169 mg/dL (70-110)
[2024-03-15 04:42] LABS: ABG Base Excess 1.1 mmol/L; ABG HCO3 27 mmol/L (21-25); ABG Oxygen Saturation 98.4 % (94-97); ABG PCO2 46 mmHg (35-45); ABG PH 7.37 (7.35-7.45); ABG PO2 105 mmHg (83-108); ABG TCO2 28 mmol/L (19-24); Allen Test Performed? Yes
[2024-03-15 05:08] LABS: Basophils % (A) 0 %; Eosinophils % (A) 0 %; HGB 12.5 gm/dL (13.0-17.5); Lymphocytes # (A) 0.5 k/uL (1.0-4.8); Lymphocytes % (A) 5 %; MCH 29.8 pg (25.0-35.0); MCV 93.2 fL (80.0-100.0); Mean Platelet Volume 8.9; Monocytes # (A) 0.5 k/uL (0-1.0); Monocytes % (A) 5 %; Neutrophils # (A) 8.9 k/uL (1.3-7.7); Neutrophils % (A) 89 %; Platelet Count 189 k/uL (150-450); RBC 4.18 m/uL (4.30-5.90); RDW 14.5 % (11.5-15.5)
[2024-03-15 05:24] LABS: African American GFR (CKD) 64 (>60 ml/min/1.73 sqM); Anion Gap 3 mmol/L; Blood Urea Nitrogen 83 mg/dL (9-20); Calcium 9.2 mg/dL (8.4-10.2); Carbon Dioxide 26 mmol/L (22-30); Chloride 114 mmol/L (98-107); Glucose 193 mg/dL (74-99); Non-African American GFR(CKD) 55 (>60 ml/min/1.73 sqM); Potassium 4.5 mmol/L (3.5-5.1); Sodium 143 mmol/L (137-145)
[2024-03-15 05:57] LABS: Glucose,Whole Blood 203 mg/dL (70-110)
--- NOTE | 2024-03-15 08:25 | XR ---
EXAMINATION TYPE: XR chest 1V portable DATE OF EXAM: 03/15/2024 COMPARISON: 03/14/2024 INDICATION: ET tube placement TECHNIQUE: Single frontal view of the chest is obtained. FINDINGS: The heart size is normal. The pulmonary vasculature is normal. There may be a small retrocardiac infiltrate mild atelectasis above the right diaphragm may be presen t. Displacement of an endotracheal tube with the tip 6.1 cm above lara. Left central venous catheter t ip is in the superior vena cava region. Nasogastric tube transverses the thorax tip in the left upper quadrant of the abdomen. IMPRESSION: 1. Mild bibasilar infiltrates. Correlate for atelectasis and pneumonia. 2. Lines and catheters discussed above.
[2024-03-15] MEDS: amLODIPine 5 MG TAB PO SCH (09:03)
[2024-03-15 11:56] LABS: Glucose,Whole Blood 143 mg/dL (70-110)
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
--- NOTE | 2024-03-15 13:04 | PN ---
PROGRESS NOTE SUBJECTIVE: Amari is a 73-year-old gentleman, who is more awake and alert today. Still remains intubated and on vent. His labs show that the BUN is elevated at 83 with a creatinine of 1.2 and hemoglobin is 12.5. The patient is currently on aspirin, Norvasc, Lipitor, Coreg, hydralazine 100 q.i.d. and Imdur. The patient has had episodes of hypotension due to which I cut back on the dose of amlodipine. OBJECTIVE: GENERAL: Comfortable at rest. VITAL SIGNS: Heart rate is 70 beats per minute, blood pressure is 150/62, respiratory rate is 18. CHEST: Reveals good air entry bilaterally. I do not hear any crackles or rhonchi. HEART: Reveals first and second heart sounds. No gallop. EXTREMITIES: Did not reveal any edema. Peripheral pulses are felt. ASSESSMENT AND PLAN: 1. Status post cardiac arrest. 2. Frequent and complex ventricular ectopy. 3. Vent requiring respiratory failure. 4. Hypertension. PLAN: The patient will adjust the antihypertensives. The patient will undergo cardiac catheterization when more stable and renal functions are better. MMODL / IJN: [id number] /
--- NOTE | 2024-03-15 17:17 | P.PN ---
Subjective patient is seen for follow-up for acute kidney injury. Patient was extubated this morning. Urine output at 50-100 mL per hour. Serum creatinine at 1.27 mg/dL. B UN is disproportionately elevated from steroids. Objective - Vital Signs Vital signs: Vital Signs Temp 98.0 F 03/15/24 12:00 Pulse 73 03/15/24 16:00 Resp 12 03/15/24 16:00 BP 168/63 03/15/24 16:00 Pulse Ox 97 03/15/24 16:00 FiO2 40 03/15/24 12:00 Intake & Output 03/14/24 03/15/24 03/15/24 18:59 06:59 18:59 Intake Total 8662.422 3638.585 667 Output Total 1285 930 730 Balance -108.407 97.585 -63 Weight 86.1 kg 86.6 kg 86.6 kg Intake: IV 299 253 307 .9NS Pressure Bag 39 33 27 Sodium Chloride 0.9% 1, 260 220 180 000 ml @ 20 mls/hr IV . Q24H [facility] Rx#:[id number] cefTRIAXone 1 gm In 100 Sodium Chloride 0.9% 50 ml @ 100 mls/hr IVPB Q24HR [facility] Rx#:[id number] Intake, IV Titration 457.593 214.585 Amount Dexmedetomidine/0.9% NaCl 185.415 214.585 (Pmx) 400 mcg In Empty Bag 1 bag @ 0.2 MCG/KG/HR 4.785 mls/hr IV .[id number] [facility] Rx#:[id number] Heparin Sod,Pork in 0.45% 272.178 NaCl 25,000 unit In 0.45 % NaCl 1 250ml.bag @ 11.5 UNITS/KG/HR 10.005 mls/ hr IV .Q24H [facility] Rx#: [id number] Tube Feeding 330 440 360 Other 90 120 Output: Urine 1285 930 730 Other: Voiding Method Indwelling Catheter Indwelling Catheter Indwelling Catheter # Bowel Movements 0 1 ABP, PAP, CO, CI - Last Documented Arterial Blood Pressure 132/46 - Exam patient is awake, on BiPAP Examination of the heart S1 and S2 Examination of the lungs bilateral breath sounds are heard Abdomen is soft nontender Examination of lower extremity shows no significant edema - Labs CBC & Chem 7: 03/15/24 04:43 03/15/24 04:43 Labs: Abnormal Lab Results - Last 24 Hours (Table) 03/14/24 03/15/24 03/15/24 Range/Units 17:35 00:02 04:38 RBC (4.30-5.90) m/uL Hgb (13.0-17.5) gm/dL Neutrophils # (1.3-7.7) k/uL Lymphocytes # (1.0-4.8) k/uL ABG pCO2 46 H (35-45) mmHg ABG HCO3 27 H (21-25) mmol/L ABG Total CO2 28 H (19-24) mmol/L ABG O2 Saturation 98.4 H (94-97) % Chloride (98-107) mmol/L BUN (9-20) mg/dL Creatinine (0.66-1.25) mg/dL Glucose (74-99) mg/dL POC Glucose (mg/dL) 199 H 169 H (70-110) mg/dL 03/15/24 03/15/24 03/15/24 Range/Units 04:43 04:43 05:55 RBC 4.18 L (4.30-5.90) m/uL Hgb 12.5 L (13.0-17.5) gm/dL Neutrophils # 8.9 H (1.3-7.7) k/uL Lymphocytes # 0.5 L (1.0-4.8) k/uL ABG pCO2 (35-45) mmHg ABG HCO3 (21-25) mmol/L ABG Total CO2 (19-24) mmol/L ABG O2 Saturation (94-97) % Chloride 114 H (98-107) mmol/L BUN 83 H (9-20) mg/dL Creatinine 1.27 H (0.66-1.25) mg/dL Glucose 193 H (74-99) mg/dL POC Glucose (mg/dL) 203 H (70-110) mg/dL 03/15/24 Range/Units 11:54 RBC (4.30-5.90) m/uL Hgb (13.0-17.5) gm/dL Neutrophils # (1.3-7.7) k/uL Lymphocytes # (1.0-4.8) k/uL ABG pCO2 (35-45) mmHg ABG HCO3 (21-25) mmol/L ABG Total CO2 (19-24) mmol/L ABG O2 Saturation (94-97) % Chloride (98-107) mmol/L BUN (9-20) mg/dL Creatinine (0.66-1.25) mg/dL Glucose (74-99) mg/dL POC Glucose (mg/dL) 143 H (70-110) mg/dL Assessment and Plan Assessment: 1. Acute kidney injury, ATN, nonoliguric secondary to hypotension from cardiac arrest and rhabdomyolysis. Renal function has improved. B UN is disproportionately elevated steroids. UA shows hyaline casts. Ultrasound shows no evidence of obstructive uropathy. 2. Rhabdomyolysis status post cardiopulmonary arrest with CK at 5520, improved. 3. Acute hypoxic respiratory failure, status postextubation. 4. CK D stage III with previous creatinine 1.5 mg/dL in 2016. Etiology is likely nephrosclerosis. 5. Hypertension with CK D stage III a, better controlled. Plan: continue with IV Lasix. Repeat labs in a.m.
[2024-03-15 17:39] LABS: Glucose,Whole Blood 135 mg/dL (70-110)
[2024-03-15 19:53] LABS: Glucose,Whole Blood 168 mg/dL (70-110)
[2024-03-15] MEDS ORDERED: IPRATROPIUM-ALBUTEROL 3 ML NEB INHALATION PRN (20:09)
[2024-03-15] MEDS: INSULIN ASPART (NovoLOG) 100 UNIT/ML VIAL SQ SCH (20:57)
--- NOTE | 2024-03-16 00:12 | P.PN ---
Subjective Progress Note Date: 03/15/24 Patient is evaluated today in follow-up in the intensive care unit. He remains on the mechanical ventilator currently intubated and sedated dated he has an FiO2 50 and a PEEP of 5. Patient initially presents to the hospital due to shortness of breath and was subsequently intubated. Patient remains hyper tensive with cardiology following closely and adjusting medications. Added hydralazine today. Patient remains on IV heparin will eventually need an ischemic workup. His ejection fraction was found to be 40 to 45%. He continues with enteral feedings. Chest x-ray today reveals small bilateral pleural effusions with adjacent compressive atelectasis right lung base. Blood cell count is 13.7, sodium 140, potassium 5.1, BUN of 61, creatinine of 1.44. Is on IV heparin, IV ceftriaxone, IV Solu-Medrol. IV Lasix was decreased to 40 mg daily. He is sedated with propofol and did not do well with his sedation holiday today. 03/12/2024 Patient is evaluated today and follow-up in the intensive care unit he remains on mechanical ventilator currently intubated and sedated with propofol. The last 2 days patient has not done well with his sedation holiday. Becomes significantly hypertensive. He was started on amlodipine as well as IV hydralazine as needed for improved blood pressure control. Cardiology is following this patient closely. He is on IV Lasix daily. Chest xray follow-up reveals small right and minimal left pleural effusion stable. There is compressive atelectasis of the right lung base. Remains on antibiotics for MSSA in sputum. Talked with patients daughter Korin over the phone who is the primary decision maker for the patient and for now would like to continue with all care and awaiting the brain CT results once completed. 03/13/2024 Patient is evaluated today in the ICU in follow up. Remains on the mechanical ventilator. Patient remains sedated with propofol is currently on a sedation holiday has spontaneous eye opening and reflexes, he has not been tracking eyes or responding to stimuli or commands. Patient chest xray today reveals small left pleural effusion, stable, resolving right lower lobe infiltrate. Brain CT done yesterday reveals no acute intracranial process. White blood cell count today 15.7, sodium 141, potassium 4.8, BUN 78, creatinine 1.49, glucose 145, magnesium 2.4. Continues on IV ceftriaxone. Remains on IV heparin. He is on IV solumedrol. 03/14/2024 Patient is evaluated today in the intensive care unit in follow-up. He is off t he propofol and currently on Precedex and is currently on an assist-control with the ventilator. He does have spontaneous eye opening however he is not following commands at this time. He is on IV lasix daily. He is on IV solu- medrol. Patient is on IV ceftriaxone. Chest x-ray today shows mild right basilar atelectasis with minimal left right pleural effusion. White blood cell count today 17.4, sodium 141, BUN of 83, creatinine of 1.47. 03/15/2024 Patient is evaluated today resting in bed. Remains in the ICU. Patient currently has been extubated and is continued on BiPAP with FIO2 of 40%. He is more awake alert. His bowels are moving. He is on IV ceftriaxone. He is on precedex. He is on IV solumedrol. White blood cell count normalized 10.0, hgb 12.5. Sodium 143, potassium 4.5, BUN 83, creatinine 1.27. REVIEW OF SYSTEMS: Unable to complete due to clinical condition, patient is on BiPAP. Physical examination GENERAL: Sitting up in the bed. He is on the BiPAP EYES: Pupils equal. Conjunctiva normal. HEENT: External appearance of nose and ears normal, oral cavity grossly normal. OG tube. Endotracheal tube. NECK: JVD not raised; masses not palpable. HEART: First and second heart sounds are normal; no edema. LUNGS: Respiratory increased, decreased breath sounds. ABDOMEN: Soft, nontender, liver spleen not palpable, no masses palpable. PSYCH: Patient sedated MUSCULOSKELETAL:No Clubbing/cyanosis;muscles-grossly intact NEUROLOGICAL: Following commands Assessment and plan -Acute severe hypoxic hypercapnic respiratory failure from underlying COPD/CHF -Bacterial pneumonia with sputum culture showing MSSA -Pulseless electrical activity/ episode of VTACH likely from respiratory failure and hypoxia; treated with IV amiodarone -Acute severe COPD exacerbation in a current smoker -Probable acute GI bleed with multiple risk factors including stress ulcer from being intubated, steroids, and IV heparin, Resolved. -Type II HI; supply demand mismatch unable to fully rule out ischemic injury. -Frequent PVCs in bigeminal pattern -Acute kidney injury likely ATN from sepsis hypotension -Chronic nicotine dependence cigarette smoker -Chronic gout -Hypotensive shock-corrected; Received IV Levophed -Essential hypertension, uncontrolled -GERD, stress ulcer prophylaxis GI prophylaxis IV Protonix 40 twice daily DVT prophylaxis subcu heparin -Full code Plan IV Solu-Medrol 40 mg every 12. Nebulized Pulmicort. Perforomist. DuoNeb Continue IV protonix. Continue with IV ceftriaxone, IV solumedrol On BiPAP Norvasc 10 mg a day. Coreg 50mg twice daily. Hydralazine 100 mg 4 times daily. with PRN hydralazine. Repeat blood work in the AM The impression and plan of care has been dictated by Rufina Fitzgerald Nurse Practitioner as directed. Dr. Kaleb MD I have performed a history and physical examination and medical decision making of this patient, discussed the same with the dictator, and agree with the dictators assessment and plan as written, documented as a scribe. Based on total visit time, I have performed more than 50% of this visit. Objective - Vital Signs Vital signs: Vital Signs Temp 98.0 F 03/15/24 12:00 Pulse 68 03/15/24 13:00 Resp 13 03/15/24 13:00 BP 151/64 03/15/24 13:00 Pulse Ox 100 03/15/24 13:00 FiO2 40 03/15/24 12:00 Intake & Output 03/14/24 03/15/24 03/15/24 18:59 06:59 18:59 Intake Total 2367.278 1159.585 541 Output Total 1285 930 595 Balance -108.407 97.585 -54 Weight 86.1 kg 86.6 kg Intake: IV 299 253 261 .9NS Pressure Bag 39 33 21 Sodium Chloride 0.9% 1, 260 220 140 000 ml @ 20 mls/hr IV . Q24H [facility] Rx#:[id number] cefTRIAXone 1 gm In 100 Sodium Chloride 0.9% 50 ml @ 100 mls/hr IVPB Q24HR [facility] Rx#:[id number] Intake, IV Titration 457.593 214.585 Amount Dexmedetomidine/0.9% NaCl 185.415 214.585 (Pmx) 400 mcg In Empty Bag 1 bag @ 0.2 MCG/KG/HR 4.785 mls/hr IV .[id number] [facility] Rx#:[id number] Heparin Sod,Pork in 0.45% 272.178 NaCl 25,000 unit In 0.45 % NaCl 1 250ml.bag @ 11.5 UNITS/KG/HR 10.005 mls/ hr IV .Q24H [facility] Rx#: [id number] Tube Feeding 330 440 280 Other 90 120 Output: Urine 1285 930 595 Other: Voiding Method Indwelling Catheter Indwelling Catheter Indwelling Catheter # Bowel Movements 0 1 ABP, PAP, CO, CI - Last Documented Arterial Blood Pressure 90/31 - Labs CBC & Chem 7: 03/15/24 04:43 03/15/24 04:43 Labs: Abnormal Lab Results - Last 24 Hours (Table) 03/14/24 03/15/24 03/15/24 Range/Units 17:35 00:02 04:38 RBC (4.30-5.90) m/uL Hgb (13.0-17.5) gm/dL Neutrophils # (1.3-7.7) k/uL Lymphocytes # (1.0-4.8) k/uL ABG pCO2 46 H (35-45) mmHg ABG HCO3 27 H (21-25) mmol/L ABG Total CO2 28 H (19-24) mmol/L ABG O2 Saturation 98.4 H (94-97) % Chloride (98-107) mmol/L BUN (9-20) mg/dL Creatinine (0.66-1.25) mg/dL Glucose (74-99) mg/dL POC Glucose (mg/dL) 199 H 169 H (70-110) mg/dL 03/15/24 03/15/24 03/15/24 Range/Units 04:43 04:43 05:55 RBC 4.18 L (4.30-5.90) m/uL Hgb 12.5 L (13.0-17.5) gm/dL Neutrophils # 8.9 H (1.3-7.7) k/uL Lymphocytes # 0.5 L (1.0-4.8) k/uL ABG pCO2 (35-45) mmHg ABG HCO3 (21-25) mmol/L ABG Total CO2 (19-24) mmol/L ABG O2 Saturation (94-97) % Chloride 114 H (98-107) mmol/L BUN 83 H (9-20) mg/dL Creatinine 1.27 H (0.66-1.25) mg/dL Glucose 193 H (74-99) mg/dL POC Glucose (mg/dL) 203 H (70-110) mg/dL 03/15/24 Range/Units 11:54 RBC (4.30-5.90) m/uL Hgb (13.0-17.5) gm/dL Neutrophils # (1.3-7.7) k/uL Lymphocytes # (1.0-4.8) k/uL ABG pCO2 (35-45) mmHg ABG HCO3 (21-25) mmol/L ABG Total CO2 (19-24) mmol/L ABG O2 Saturation (94-97) % Chloride (98-107) mmol/L BUN (9-20) mg/dL Creatinine (0.66-1.25) mg/dL Glucose (74-99) mg/dL POC Glucose (mg/dL) 143 H (70-110) mg/dL Assessment and Plan Time with Patient: Less than 30
[2024-03-16 04:23] LABS: Glucose,Whole Blood 145 mg/dL (70-110)
[2024-03-16 05:23] LABS: Basophils % (A) 0 %; Eosinophils % (A) 0 %; HCT 43.5 % (39.0-53.0); HGB 13.7 gm/dL (13.0-17.5); Lymphocytes # (A) 0.6 k/uL (1.0-4.8); Lymphocytes % (A) 3 %; MCH 29.4 pg (25.0-35.0); MCHC 31.4 g/dL (31.0-37.0); MCV 93.6 fL (80.0-100.0); Mean Platelet Volume 9.2; Monocytes # (A) 0.5 k/uL (0-1.0); Monocytes % (A) 3 %; Neutrophils # (A) 16.4 k/uL (1.3-7.7); Neutrophils % (A) 93 %; Platelet Count 237 k/uL (150-450); RBC 4.65 m/uL (4.30-5.90); RDW 14.5 % (11.5-15.5); WBC 17.6 k/uL (3.8-10.6)
[2024-03-16 05:46] LABS: African American GFR (CKD) 72 (>60 ml/min/1.73 sqM); Anion Gap 4 mmol/L; Blood Urea Nitrogen 77 mg/dL (9-20); Calcium 9.5 mg/dL (8.4-10.2); Carbon Dioxide 26 mmol/L (22-30); Chloride 117 mmol/L (98-107); Glucose 155 mg/dL (74-99); Magnesium 2.4 mg/dL (1.6-2.3); Non-African American GFR(CKD) 62 (>60 ml/min/1.73 sqM); Potassium 4.8 mmol/L (3.5-5.1); Sodium 147 mmol/L (137-145)
[2024-03-16 06:37] LABS: Glucose,Whole Blood 121 mg/dL (70-110)
[2024-03-16] MEDS: IPRATROPIUM-ALBUTEROL 3 ML NEB INHALATION SCH (08:04)
--- NOTE | 2024-03-16 08:29 | P.PN ---
Subjective Patient is seen in follow-up for acute kidney injury. Renal function improved. Extubated March 15, 2024. Now on nasal cannula. Denies chest pain or shortness of breath. Sodium level 147 today. Vital signs are stable. General: No acute distress. HEENT: On nasal cannula. LUNGS: No audible rhonchi or wheezes. HEART: Rate and Rhythm are regular. ABDOMEN: Nontender. EXTREMITITES: Trace edema. Objective - Vital Signs Vital signs: Vital Signs Temp 98.2 F 03/16/24 00:00 Pulse 78 03/16/24 08:19 Resp 15 03/16/24 07:00 BP 130/86 03/16/24 07:00 Pulse Ox 97 03/16/24 08:09 FiO2 40 03/15/24 12:00 Intake & Output 03/15/24 03/16/24 03/16/24 18:59 06:59 18:59 Intake Total 1019 253 23 Output Total 980 925 75 Balance 39 -672 -52 Weight 86.6 kg 82.8 kg Intake: IV 399 253 23 .9NS Pressure Bag 39 33 3 Sodium Chloride 0.9% 1, 260 220 20 000 ml @ 20 mls/hr IV . Q24H [facility] Rx#:[id number] cefTRIAXone 1 gm In 100 Sodium Chloride 0.9% 50 ml @ 100 mls/hr IVPB Q24HR [facility] Rx#:[id number] Intake, IV Titration 100 Amount Dexmedetomidine/0.9% NaCl 100 (Pmx) 400 mcg In Empty Bag 1 bag @ 0.2 MCG/KG/HR 4.785 mls/hr IV .[id number] [facility] Rx#:[id number] Tube Feeding 520 Output: Urine 980 925 75 Other: Voiding Method Indwelling Catheter Indwelling Catheter ABP, PAP, CO, CI - Last Documented Arterial Blood Pressure 158/58 - Labs CBC & Chem 7: 03/16/24 04:22 03/16/24 04:22 Labs: Abnormal Lab Results - Last 24 Hours (Table) 03/15/24 03/15/24 03/15/24 Range/Units 11:54 17:37 19:52 WBC (3.8-10.6) k/uL Neutrophils # (1.3-7.7) k/uL Lymphocytes # (1.0-4.8) k/uL Sodium (137-145) mmol/L Chloride (98-107) mmol/L BUN (9-20) mg/dL Glucose (74-99) mg/dL POC Glucose (mg/dL) 143 H 135 H 168 H (70-110) mg/dL Magnesium (1.6-2.3) mg/dL 03/16/24 03/16/24 03/16/24 Range/Units 04:22 04:22 04:22 WBC 17.6 H (3.8-10.6) k/uL Neutrophils # 16.4 H (1.3-7.7) k/uL Lymphocytes # 0.6 L (1.0-4.8) k/uL Sodium 147 H (137-145) mmol/L Chloride 117 H (98-107) mmol/L BUN 77 H (9-20) mg/dL Glucose 155 H (74-99) mg/dL POC Glucose (mg/dL) 145 H (70-110) mg/dL Magnesium 2.4 H (1.6-2.3) mg/dL 03/16/24 Range/Units 06:36 WBC (3.8-10.6) k/uL Neutrophils # (1.3-7.7) k/uL Lymphocytes # (1.0-4.8) k/uL Sodium (137-145) mmol/L Chloride (98-107) mmol/L BUN (9-20) mg/dL Glucose (74-99) mg/dL POC Glucose (mg/dL) 121 H (70-110) mg/dL Magnesium (1.6-2.3) mg/dL Assessment and Plan Plan: Assessment: 1. Acute kidney injury secondary to ATN secondary to cardiac arrest and rhabdomyolysis. Renal function improved. Creatinine peaked at 2.41 this admission and is 1.15 today. No hydronephrosis noted on kidney ultrasound. 2. Status postcardiac arrest. 3. Rhabdomyolysis status postcardiac arrest. Improved. 4. Chronic kidney disease stage IIIa with creatinine 1.54 dated July 25, 2016. 5. Hypernatremia from lack of oral water intake and free water diuresis. 6. Hypertension with chronic kidney disease. Stable. 7. Acute systolic CHF ejection fraction of 45 to 50%. Plan: Start D5W at 60 cc an hour. Maintain low-dose Lasix. Started on dysphagia 1 pured diet. Speech eval pending. Repeat sodium level this afternoon. Continue to monitor renal function and urine output.
[2024-03-16] MEDS: DEXTROSE 5% IN WATER 1,000 ML IV ONE (09:42)
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
[2024-03-16 12:12] LABS: Glucose,Whole Blood 119 mg/dL (70-110)
--- NOTE | 2024-03-16 12:12 | PN ---
PROGRESS NOTE SUBJECTIVE: This is a 73-year-old gentleman, who was admitted to the ICU with respiratory failure and had cardiac arrest. He was extubated yesterday; appears alert, awake, stable hemodynamically, and his blood pressures are fairly well controlled on the current medications. He appears pleasantly confused. PHYSICAL EXAMINATION: VITAL SIGNS: Heart rate is 90 beats per minute, blood pressure is 140/80, and O2 saturation is 95%. CHEST: Reveals diminished air entry at the bases. HEART: Reveals first and second heart sounds. No gallop. EXTREMITIES: Reveals mild edema. Peripheral pulses are felt. LABORATORY DATA: Labs show that the white cell count is elevated at 17.6, platelet count is 237, and hemoglobin is 13.7. Potassium is 4.8, BUN is 77, and creatinine is 1.1. MEDICATIONS: Current medications include: 1. Norvasc. 2. Aspirin. 3. Lipitor. 4. Coreg. 5. Hydralazine 100 q.i.d. 6. Imdur. 7. Amlodipine 5 mg daily. ASSESSMENT AND PLAN: 1. Status post cardiac arrest. 2. Vent requiring respiratory failure. 3. Ventricular bigeminy. 4. Hypertension. I will continue the patient on current medications. We will consider cardiac cath when the patient is more stable from renal standpoint. MMODL / IJN: [id number] /
--- NOTE | 2024-03-16 15:07 | P.PN ---
Subjective Progress Note Date: 03/16/24 Patient is evaluated today in follow-up in the intensive care unit. He remains on the mechanical ventilator currently intubated and sedated dated he has an FiO2 50 and a PEEP of 5. Patient initially presents to the hospital due to shortness of breath and was subsequently intubated. Patient remains hyper tensive with cardiology following closely and adjusting medications. Added hydralazine today. Patient remains on IV heparin will eventually need an ischemic workup. His ejection fraction was found to be 40 to 45%. He continues with enteral feedings. Chest x-ray today reveals small bilateral pleural effusions with adjacent compressive atelectasis right lung base. Blood cell count is 13.7, sodium 140, potassium 5.1, BUN of 61, creatinine of 1.44. Is on IV heparin, IV ceftriaxone, IV Solu-Medrol. IV Lasix was decreased to 40 mg daily. He is sedated with propofol and did not do well with his sedation holiday today. 03/12/2024 Patient is evaluated today and follow-up in the intensive care unit he remains on mechanical ventilator currently intubated and sedated with propofol. The last 2 days patient has not done well with his sedation holiday. Becomes significantly hypertensive. He was started on amlodipine as well as IV hydralazine as needed for improved blood pressure control. Cardiology is following this patient closely. He is on IV Lasix daily. Chest xray follow-up reveals small right and minimal left pleural effusion stable. There is compressive atelectasis of the right lung base. Remains on antibiotics for MSSA in sputum. Talked with patients daughter Korin over the phone who is the primary decision maker for the patient and for now would like to continue with all care and awaiting the brain CT results once completed. 03/13/2024 Patient is evaluated today in the ICU in follow up. Remains on the mechanical ventilator. Patient remains sedated with propofol is currently on a sedation holiday has spontaneous eye opening and reflexes, he has not been tracking eyes or responding to stimuli or commands. Patient chest xray today reveals small left pleural effusion, stable, resolving right lower lobe infiltrate. Brain CT done yesterday reveals no acute intracranial process. White blood cell count today 15.7, sodium 141, potassium 4.8, BUN 78, creatinine 1.49, glucose 145, magnesium 2.4. Continues on IV ceftriaxone. Remains on IV heparin. He is on IV solumedrol. 03/14/2024 Patient is evaluated today in the intensive care unit in follow-up. He is off t he propofol and currently on Precedex and is currently on an assist-control with the ventilator. He does have spontaneous eye opening however he is not following commands at this time. He is on IV lasix daily. He is on IV solu- medrol. Patient is on IV ceftriaxone. Chest x-ray today shows mild right basilar atelectasis with minimal left right pleural effusion. White blood cell count today 17.4, sodium 141, BUN of 83, creatinine of 1.47. 03/15/2024 Patient is evaluated today resting in bed. Remains in the ICU. Patient currently has been extubated and is continued on BiPAP with FIO2 of 40%. He is more awake alert. His bowels are moving. He is on IV ceftriaxone. He is on precedex. He is on IV solumedrol. White blood cell count normalized 10.0, hgb 12.5. Sodium 143, potassium 4.5, BUN 83, creatinine 1.27. 03/16/2024 Patient is evaluated today resting in bed patient remains in the intensive care unit. Patient has been extubated aggressive extubated and currently weaned down to oxygen at 3 L nasal cannula. Mentation has significantly improved patient is currently alert and oriented x 2 at this time. Patient is asking for a drink of water. Diet has been advanced to dysphagia level 1. Monitor closely for any signs of aspiration and patient is currently pending a speech therapy evaluation. His bowels are moving. Patient remains on IV Solu-Medrol 40 mg every 12 hours additionally he is on IV Lasix 20 mg daily, remains on IV ceftriaxone. Currently Precedex has been discontinued. White blood cell count today is 17.6, sodium levels 147, BUN of 77, creatinine of 1.15, magnesium 2.4. Patient is and started on a dextrose drip for the hypernatremia. Patient will need to be evaluated physical therapy and Occupational Therapy. Plans for cardiac catheterization still remain on hold waiting for renal recovery. REVIEW OF SYSTEMS: Unable to complete due to clinical condition, patient is on nasal cannula, he is fixated on a drink of water and not answer questions. Physical examination GENERAL: Sitting up in the bed. He is on the 3 L of oxygen AO x 2. EYES: Pupils equal. Conjunctiva normal. HEENT: External appearance of nose and ears normal, oral cavity grossly normal. NECK: JVD not raised; masses not palpable. HEART: First and second heart sounds are normal; no edema. LUNGS: Respiratory increased, decreased breath sounds. ABDOMEN: Soft, nontender, liver spleen not palpable, no masses palpable. PSYCH: Awake alert oriented diffusely weak MUSCULOSKELETAL:No Clubbing/cyanosis;muscles-grossly intact NEUROLOGICAL: Following commands Assessment and plan -Acute severe hypoxic hypercapnic respiratory failure from underlying COPD/CHF -Bacterial pneumonia with sputum culture showing MSSA -Pulseless electrical activity/ episode of VTACH likely from respiratory failure and hypoxia; treated with IV amiodarone -Acute severe COPD exacerbation in a current smoker -Probable acute GI bleed with multiple risk factors including stress ulcer from being intubated, steroids, and IV heparin, Resolved. -Type II [place]; supply demand mismatch unable to fully rule out ischemic injury. -Frequent PVCs in bigeminal pattern -Acute kidney injury likely ATN from sepsis hypotension -Chronic nicotine dependence cigarette smoker -Chronic gout -Hypotensive shock-corrected; Received IV Levophed -Essential hypertension, uncontrolled -GERD, stress ulcer prophylaxis GI prophylaxis IV Protonix 40 twice daily DVT prophylaxis subcu heparin -Full code Plan IV Solu-Medrol 40 mg every 12. Nebulized Pulmicort. Perforomist. DuoNeb Continue IV protonix. Continue with IV ceftriaxone, IV solumedrol On BiPAP/nasal cannula support Norvasc 10 mg a day. Coreg 50mg twice daily. Hydralazine 100 mg 4 times daily. with PRN hydralazine. Cardiology following closely with current recommendations to hold off on cardiac catheterization monitor renal function closely Repeat blood work in the AM Patient started on a dextrose drip secondary to his hypernatremia; repeat blood work in the morning Physical therapy and occupational therapy have been consulted. The impression and plan of care has been dictated by Rufina Fitzgerald, Nurse Practitioner as directed. Dr. Kaleb MD I have performed a history and physical examination and medical decision making of this patient, discussed the same with the dictator, and agree with the dictators assessment and plan as written, documented as a scribe. Based on total visit time, I have performed more than 50% of this visit. Objective - Vital Signs Vital signs: Vital Signs Temp 98.2 F 03/16/24 00:00 Pulse 70 03/16/24 08:31 Resp 15 03/16/24 07:00 BP 130/86 03/16/24 07:00 Pulse Ox 97 03/16/24 08:09 FiO2 40 03/15/24 12:00 Intake & Output 03/15/24 03/16/24 03/16/24 18:59 06:59 18:59 Intake Total 1019 253 23 Output Total 980 925 75 Balance 39 -672 -52 Weight 86.6 kg 82.8 kg Intake: IV 399 253 23 .9NS Pressure Bag 39 33 3 Sodium Chloride 0.9% 1, 260 220 20 000 ml @ 20 mls/hr IV . Q24H [facility] Rx#:[id number] cefTRIAXone 1 gm In 100 Sodium Chloride 0.9% 50 ml @ 100 mls/hr IVPB Q24HR [facility] Rx#:[id number] Intake, IV Titration 100 Amount Dexmedetomidine/0.9% NaCl 100 (Pmx) 400 mcg In Empty Bag 1 bag @ 0.2 MCG/KG/HR 4.785 mls/hr IV .[id number] [facility] Rx#:[id number] Tube Feeding 520 Output: Urine 980 925 75 Other: Voiding Method Indwelling Catheter Indwelling Catheter ABP, PAP, CO, CI - Last Documented Arterial Blood Pressure 158/58 - Labs CBC & Chem 7: 03/16/24 04:22 03/16/24 04:22 Labs: Abnormal Lab Results - Last 24 Hours (Table) 03/15/24 03/15/24 03/15/24 Range/Units 11:54 17:37 19:52 WBC (3.8-10.6) k/uL Neutrophils # (1.3-7.7) k/uL Lymphocytes # (1.0-4.8) k/uL Sodium (137-145) mmol/L Chloride (98-107) mmol/L BUN (9-20) mg/dL Glucose (74-99) mg/dL POC Glucose (mg/dL) 143 H 135 H 168 H (70-110) mg/dL Magnesium (1.6-2.3) mg/dL 03/16/24 03/16/24 03/16/24 Range/Units 04:22 04:22 04:22 WBC 17.6 H (3.8-10.6) k/uL Neutrophils # 16.4 H (1.3-7.7) k/uL Lymphocytes # 0.6 L (1.0-4.8) k/uL Sodium 147 H (137-145) mmol/L Chloride 117 H (98-107) mmol/L BUN 77 H (9-20) mg/dL Glucose 155 H (74-99) mg/dL POC Glucose (mg/dL) 145 H (70-110) mg/dL Magnesium 2.4 H (1.6-2.3) mg/dL 03/16/24 Range/Units 06:36 WBC (3.8-10.6) k/uL Neutrophils # (1.3-7.7) k/uL Lymphocytes # (1.0-4.8) k/uL Sodium (137-145) mmol/L Chloride (98-107) mmol/L BUN (9-20) mg/dL Glucose (74-99) mg/dL POC Glucose (mg/dL) 121 H (70-110) mg/dL Magnesium (1.6-2.3) mg/dL Assessment and Plan Time with Patient: Less than 30
[2024-03-16 16:34] LABS: Glucose,Whole Blood 315 mg/dL (70-110)
[2024-03-16] MEDS: SODIUM CHLORIDE 0.45% 1,000 ML IV SCH (18:05)
[2024-03-16 19:53] LABS: Glucose,Whole Blood 292 mg/dL (70-110)
[2024-03-16] MEDS: DEXTROSE 5% IN WATER 100 ML with AMIODARONE 150 MG IV ONE (21:16)
[2024-03-16] MEDS: AMIODARONE 360 MG in DEXTROSE 5% IN WATER 200 ML IV ONE (21:30)
[2024-03-16] MEDS: HEPARIN SOD,PORK IN 0.45% NACL 25,000 UNIT in 0.45% NACL 1 250ML.BAG IV SCH (22:05)
[2024-03-16 22:27] LABS: Partial Thromboplastin Time 28.6 sec (22.0-30.0); Prothrombin Time 10.9 sec (10.0-12.5)
[2024-03-16 22:37] LABS: Basophils % (A) 0 %; Eosinophils % (A) 0 %; HCT 45.7 % (39.0-53.0); HGB 14.9 gm/dL (13.0-17.5); Lymphocytes # (A) 0.9 k/uL (1.0-4.8); Lymphocytes % (A) 6 %; MCH 30.7 pg (25.0-35.0); MCHC 32.6 g/dL (31.0-37.0); MCV 94.4 fL (80.0-100.0); Mean Platelet Volume 10.5; Monocytes # (A) 1.3 k/uL (0-1.0); Monocytes % (A) 8 %; Neutrophils # (A) 13.7 k/uL (1.3-7.7); Neutrophils % (A) 84 %; Platelet Count 174 k/uL (150-450); RBC 4.84 m/uL (4.30-5.90); RDW 14.7 % (11.5-15.5); WBC 16.3 k/uL (3.8-10.6)
[2024-03-17] MEDS: HEPARIN SODIUM 1,000 UN/ML (10ML VL) IV PRN (01:12)
[2024-03-17] MEDS: DILTIAZEM DRIP BOLUS FROM BAG 1 MG SOLN IV ONE (01:20)
[2024-03-17] MEDS: DILTIAZEM 125 MG in SODIUM CHLORIDE 0.9% 100 ML IV SCH (01:20)
[2024-03-17] MEDS: AMIODARONE 450 MG in DEXTROSE 5% IN WATER 250 ML IV SCH (03:10)
[2024-03-17 06:23] LABS: African American GFR (CKD) 88 (>60 ml/min/1.73 sqM); Anion Gap 8 mmol/L; Blood Urea Nitrogen 75 mg/dL (9-20); Calcium 9.4 mg/dL (8.4-10.2); Carbon Dioxide 21 mmol/L (22-30); Chloride 114 mmol/L (98-107); Glucose 156 mg/dL (74-99); Magnesium 2.4 mg/dL (1.6-2.3); Non-African American GFR(CKD) 76 (>60 ml/min/1.73 sqM); Potassium 4.8 mmol/L (3.5-5.1); Sodium 143 mmol/L (137-145)
[2024-03-17 06:34] LABS: Basophils % (A) 0 %; Eosinophils % (A) 0 %; HCT 44.1 % (39.0-53.0); HGB 14.2 gm/dL (13.0-17.5); Lymphocytes # (A) 0.8 k/uL (1.0-4.8); Lymphocytes % (A) 4 %; MCH 29.6 pg (25.0-35.0); MCHC 32.2 g/dL (31.0-37.0); MCV 91.9 fL (80.0-100.0); Monocytes # (A) 0.6 k/uL (0-1.0); Monocytes % (A) 3 %; Neutrophils # (A) 17.7 k/uL (1.3-7.7); Neutrophils % (A) 92 %; Platelet Count 218 k/uL (150-450); RBC 4.79 m/uL (4.30-5.90); RDW 14.6 % (11.5-15.5); WBC 19.1 k/uL (3.8-10.6)
[2024-03-17 06:43] LABS: Glucose,Whole Blood 149 mg/dL (70-110)
[2024-03-17] MEDS: DEXTROSE 5% IN WATER 1,000 ML IV ONE (09:21)
--- NOTE | 2024-03-17 10:41 | P.PN ---
Subjective Patient is seen in follow-up for acute kidney injury. Renal function improved. Extubated March 15, 2024. Now on nasal cannula. Denies chest pain or shortness of breath. Sodium level 143 today. Vital signs are stable. General: No acute distress. HEENT: On nasal cannula. LUNGS: No audible rhonchi or wheezes. HEART: Rate and Rhythm are regular. ABDOMEN: Nontender. EXTREMITITES: Trace edema. Objective - Vital Signs Vital signs: Vital Signs Temp 98.2 F 03/17/24 08:00 Pulse 101 H 03/17/24 08:07 Resp 20 03/17/24 08:00 BP 128/71 03/17/24 08:00 Pulse Ox 97 03/17/24 08:00 FiO2 40 03/15/24 12:00 Intake & Output 03/16/24 03/17/24 03/17/24 18:59 06:59 18:59 Intake Total 692 731.133 281.351 Output Total 1765 930 220 Balance -1073 -198.867 61.351 Weight 84.7 kg Intake: IV 692 600 150 .9NS Pressure Bag 12 Dextrose 5% in Water 1, 540 000 ml @ 60 mls/hr IV . [id number] [facility] Rx#:[id number] Sodium Chloride 0.45% 1, 50 600 150 000 ml @ 50 mls/hr IV . Q20H [facility] Rx#:[id number] Sodium Chloride 0.9% 1, 40 000 ml @ 20 mls/hr IV . Q24H [facility] Rx#:[id number] cefTRIAXone 1 gm In 50 Sodium Chloride 0.9% 50 ml @ 100 mls/hr IVPB Q24HR [facility] Rx#:[id number] Intake, IV Titration 31.133 131.351 Amount Heparin Sod,Pork in 0.45% 31.133 81.351 NaCl 25,000 unit In 0.45 % NaCl 1 250ml.bag @ 12 UNITS/KG/HR 9.936 mls/hr IV .Q24H [facility] Rx#: [id number] cefTRIAXone 1 gm In 50 Sodium Chloride 0.9% 50 ml @ 100 mls/hr IVPB Q24HR [facility] Rx#:[id number] Oral 100 Output: Urine 1765 930 220 Other: Voiding Method Indwelling Catheter Indwelling Catheter Indwelling Catheter # Bowel Movements 0 ABP, PAP, CO, CI - Last Documented Arterial Blood Pressure 142/56 - Labs CBC & Chem 7: 03/17/24 05:53 03/17/24 05:53 Labs: Abnormal Lab Results - Last 24 Hours (Table) 03/16/24 03/16/24 03/16/24 Range/Units 12:10 16:33 19:52 WBC (3.8-10.6) k/uL Neutrophils # (1.3-7.7) k/uL Lymphocytes # (1.0-4.8) k/uL Monocytes # (0-1.0) k/uL APTT (22.0-30.0) sec Chloride (98-107) mmol/L Carbon Dioxide (22-30) mmol/L BUN (9-20) mg/dL Glucose (74-99) mg/dL POC Glucose (mg/dL) 119 H 315 H 292 H (70-110) mg/dL Magnesium (1.6-2.3) mg/dL 03/16/24 03/17/24 03/17/24 Range/Units 21:55 05:53 05:53 WBC 16.3 H 19.1 H (3.8-10.6) k/uL Neutrophils # 13.7 H 17.7 H (1.3-7.7) k/uL Lymphocytes # 0.9 L 0.8 L (1.0-4.8) k/uL Monocytes # 1.3 H (0-1.0) k/uL APTT (22.0-30.0) sec Chloride 114 H (98-107) mmol/L Carbon Dioxide 21 L (22-30) mmol/L BUN 75 H (9-20) mg/dL Glucose 156 H (74-99) mg/dL POC Glucose (mg/dL) (70-110) mg/dL Magnesium 2.4 H (1.6-2.3) mg/dL 03/17/24 03/17/24 03/17/24 Range/Units 05:53 06:41 06:54 WBC (3.8-10.6) k/uL Neutrophils # (1.3-7.7) k/uL Lymphocytes # (1.0-4.8) k/uL Monocytes # (0-1.0) k/uL APTT >200.0 H* >200.0 H* (22.0-30.0) sec Chloride (98-107) mmol/L Carbon Dioxide (22-30) mmol/L BUN (9-20) mg/dL Glucose (74-99) mg/dL POC Glucose (mg/dL) 149 H (70-110) mg/dL Magnesium (1.6-2.3) mg/dL Assessment and Plan Plan: Assessment: 1. Acute kidney injury secondary to ATN secondary to cardiac arrest and rhabdomyolysis. Renal function improved. Creatinine 0.98. No hydronephrosis noted on kidney ultrasound. 2. Status postcardiac arrest. 3. Rhabdomyolysis status postcardiac arrest. Improved. 4. Chronic kidney disease stage IIIa with creatinine 1.54 dated July 25, 2016. 5. Hypernatremia from lack of oral water intake and free water diuresis. Better. 6. Hypertension with chronic kidney disease. Stable. 7. Acute systolic CHF ejection fraction of 45 to 50%. Plan: Change fluids to D5W at 40 cc an hour for maintenance fluids. Maintain low-dose Lasix. On dysphagia 1 pured diet. Continue to monitor renal function and urine output.
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
[2024-03-17 11:35] LABS: Glucose,Whole Blood 146 mg/dL (70-110)
--- NOTE | 2024-03-17 15:47 | P.PN ---
Subjective Progress Note Date: 03/17/24 Patient is evaluated today in follow-up in the intensive care unit. He remains on the mechanical ventilator currently intubated and sedated dated he has an FiO2 50 and a PEEP of 5. Patient initially presents to the hospital due to shortness of breath and was subsequently intubated. Patient remains hyper tensive with cardiology following closely and adjusting medications. Added hydralazine today. Patient remains on IV heparin will eventually need an ischemic workup. His ejection fraction was found to be 40 to 45%. He continues with enteral feedings. Chest x-ray today reveals small bilateral pleural effusions with adjacent compressive atelectasis right lung base. Blood cell count is 13.7, sodium 140, potassium 5.1, BUN of 61, creatinine of 1.44. Is on IV heparin, IV ceftriaxone, IV Solu-Medrol. IV Lasix was decreased to 40 mg daily. He is sedated with propofol and did not do well with his sedation holiday today. 03/12/2024 Patient is evaluated today and follow-up in the intensive care unit he remains on mechanical ventilator currently intubated and sedated with propofol. The last 2 days patient has not done well with his sedation holiday. Becomes significantly hypertensive. He was started on amlodipine as well as IV hydralazine as needed for improved blood pressure control. Cardiology is following this patient closely. He is on IV Lasix daily. Chest xray follow-up reveals small right and minimal left pleural effusion stable. There is compressive atelectasis of the right lung base. Remains on antibiotics for MSSA in sputum. Talked with patients daughter Korin over the phone who is the primary decision maker for the patient and for now would like to continue with all care and awaiting the brain CT results once completed. 03/13/2024 Patient is evaluated today in the ICU in follow up. Remains on the mechanical ventilator. Patient remains sedated with propofol is currently on a sedation holiday has spontaneous eye opening and reflexes, he has not been tracking eyes or responding to stimuli or commands. Patient chest xray today reveals small left pleural effusion, stable, resolving right lower lobe infiltrate. Brain CT done yesterday reveals no acute intracranial process. White blood cell count today 15.7, sodium 141, potassium 4.8, BUN 78, creatinine 1.49, glucose 145, magnesium 2.4. Continues on IV ceftriaxone. Remains on IV heparin. He is on IV solumedrol. 03/14/2024 Patient is evaluated today in the intensive care unit in follow-up. He is off t he propofol and currently on Precedex and is currently on an assist-control with the ventilator. He does have spontaneous eye opening however he is not following commands at this time. He is on IV lasix daily. He is on IV solu- medrol. Patient is on IV ceftriaxone. Chest x-ray today shows mild right basilar atelectasis with minimal left right pleural effusion. White blood cell count today 17.4, sodium 141, BUN of 83, creatinine of 1.47. 03/15/2024 Patient is evaluated today resting in bed. Remains in the ICU. Patient currently has been extubated and is continued on BiPAP with FIO2 of 40%. He is more awake alert. His bowels are moving. He is on IV ceftriaxone. He is on precedex. He is on IV solumedrol. White blood cell count normalized 10.0, hgb 12.5. Sodium 143, potassium 4.5, BUN 83, creatinine 1.27. 03/16/2024 Patient is evaluated today resting in bed patient remains in the intensive care unit. Patient has been extubated aggressive extubated and currently weaned down to oxygen at 3 L nasal cannula. Mentation has significantly improved patient is currently alert and oriented x 2 at this time. Patient is asking for a drink of water. Diet has been advanced to dysphagia level 1. Monitor closely for any signs of aspiration and patient is currently pending a speech therapy evaluation. His bowels are moving. Patient remains on IV Solu-Medrol 40 mg every 12 hours additionally he is on IV Lasix 20 mg daily, remains on IV ceftriaxone. Currently Precedex has been discontinued. White blood cell count today is 17.6, sodium levels 147, BUN of 77, creatinine of 1.15, magnesium 2.4. Patient is and started on a dextrose drip for the hypernatremia. Patient will need to be evaluated physical therapy and Occupational Therapy. Plans for cardiac catheterization still remain on hold waiting for renal recovery. 03/17/2024 Patient is evaluated today in follow up. Remains in the ICU went into atrial fibrillation overnight and continues on IV cardizem and IV amiodarone, also IV heparin. Patient remains on 3 L of oxygen via nasal cannula. Patient has been agitated today and not sleeping well. He is asking to be discharged home today. He is alert x 2, but confused. Patient has been started on diet and tolerating. Labs today are showing a white blood cell count of 19.1, stable hemoglobin at 14.2, sodium 143, BUN of 75, creatinine of 0.98. Patient remains in atrial fibrillation with rapid ventricular rate currently running in the low 110s, his blood pressure is also decreased to 120 to low 90s. Review of Systems Constitutional: Denied any fatigue denied any fever. Cardio vascular: denied any chest pain, palpitations Gastrointestinal: denied any nausea, vomiting, diarrhea Pulmonary: Denied any shortness of breath cough Neurologic denied any new focal deficits All inpatient medications were reviewed and appropriate changes in these medications as dictated in the interval history and assessment and plan. Physical examination GENERAL: Sitting up in the bed. He is on the 3 L of oxygen AO x 2. EYES: Pupils equal. Conjunctiva normal. HEENT: External appearance of nose and ears normal, oral cavity grossly normal. NECK: JVD not raised; masses not palpable. HEART: First and second heart sounds are normal; no edema. LUNGS: Respiratory increased, decreased breath sounds. ABDOMEN: Soft, nontender, liver spleen not palpable, no masses palpable. PSYCH: Awake alert oriented diffusely weak MUSCULOSKELETAL:No Clubbing/cyanosis;muscles-grossly intact NEUROLOGICAL: Following commands Assessment and plan -Acute severe hypoxic hypercapnic respiratory failure from underlying COPD/CHF -Bacterial pneumonia with sputum culture showing MSSA -Pulseless electrical activity/ episode of VTACH likely from respiratory failure and hypoxia; treated with IV amiodarone -Atrial fibrillation with rapid ventricular rate- -Acute severe COPD exacerbation in a current smoker -Probable acute GI bleed with multiple risk factors including stress ulcer from being intubated, steroids, and IV heparin, Resolved. -Type II GA; supply demand mismatch unable to fully rule out ischemic injury. -Frequent PVCs in bigeminal pattern -Acute kidney injury likely ATN from sepsis hypotension -Chronic nicotine dependence cigarette smoker -Chronic gout -Hypotensive shock-corrected; Received IV Levophed -Essential hypertension, uncontrolled -GERD, stress ulcer prophylaxis GI prophylaxis IV Protonix 40 twice daily DVT prophylaxis subcu heparin -Full code Plan Currently on IV amiodarone, IV Cardizem and IV heparin continues on cardiac portfolio management marketing remains in atrial fibrillation with rapid ventricular rate Continue IV protonix and monitor for acute bleeding hemoglobin remains stable Continue with IV ceftriaxone, IV solumedrol Nebulized Pulmicort. Perforomist. DuoNeb On BiPAP/nasal cannula support Norvasc 10 mg a day. Coreg 50mg twice daily. Hydralazine 100 mg 4 times daily. with PRN hydralazine. Cardiology following closely with current recommendations to hold off on cardiac catheterization monitor renal function closely Repeat blood work in the AM Patient started on a dextrose drip secondary to his hypernatremia; repeat blood work in the morning Physical therapy and occupational therapy have been consulted. The impression and plan of care has been dictated by Rufina Fitzgerald Nurse Practitioner as directed. Dr. Kaleb MD I have performed a history and physical examination and medical decision making of this patient, discussed the same with the dictator, and agree with the dictators assessment and plan as written, documented as a scribe. Based on total visit time, I have performed more than 50% of this visit. Objective - Vital Signs Vital signs: Vital Signs Temp 98.5 F 03/17/24 04:00 Pulse 101 H 03/17/24 08:07 Resp 26 H 03/17/24 07:00 BP 122/89 03/17/24 07:00 Pulse Ox 94 L 03/17/24 07:45 FiO2 40 03/15/24 12:00 Intake & Output 03/16/24 03/17/24 03/17/24 18:59 06:59 18:59 Intake Total 692 731.133 131.351 Output Total 1765 930 70 Balance -1073 -198.867 61.351 Weight 84.7 kg Intake: IV 692 600 50 .9NS Pressure Bag 12 Dextrose 5% in Water 1, 540 000 ml @ 60 mls/hr IV . [id number] [facility] Rx#:[id number] Sodium Chloride 0.45% 1, 50 600 50 000 ml @ 50 mls/hr IV . Q20H [facility] Rx#:[id number] Sodium Chloride 0.9% 1, 40 000 ml @ 20 mls/hr IV . Q24H [facility] Rx#:[id number] cefTRIAXone 1 gm In 50 Sodium Chloride 0.9% 50 ml @ 100 mls/hr IVPB Q24HR [facility] Rx#:[id number] Intake, IV Titration 31.133 81.351 Amount Heparin Sod,Pork in 0.45% 31.133 81.351 NaCl 25,000 unit In 0.45 % NaCl 1 250ml.bag @ 12 UNITS/KG/HR 9.936 mls/hr IV .Q24H [facility] Rx#: [id number] Oral 100 Output: Urine 1765 930 70 Other: Voiding Method Indwelling Catheter Indwelling Catheter # Bowel Movements 0 ABP, PAP, CO, CI - Last Documented Arterial Blood Pressure 142/56 - Labs CBC & Chem 7: 03/17/24 05:53 03/17/24 05:53 Labs: Abnormal Lab Results - Last 24 Hours (Table) 03/16/24 03/16/24 03/16/24 Range/Units 12:10 16:33 19:52 WBC (3.8-10.6) k/uL Neutrophils # (1.3-7.7) k/uL Lymphocytes # (1.0-4.8) k/uL Monocytes # (0-1.0) k/uL APTT (22.0-30.0) sec Chloride (98-107) mmol/L Carbon Dioxide (22-30) mmol/L BUN (9-20) mg/dL Glucose (74-99) mg/dL POC Glucose (mg/dL) 119 H 315 H 292 H (70-110) mg/dL Magnesium (1.6-2.3) mg/dL 03/16/24 03/17/24 03/17/24 Range/Units 21:55 05:53 05:53 WBC 16.3 H 19.1 H (3.8-10.6) k/uL Neutrophils # 13.7 H 17.7 H (1.3-7.7) k/uL Lymphocytes # 0.9 L 0.8 L (1.0-4.8) k/uL Monocytes # 1.3 H (0-1.0) k/uL APTT (22.0-30.0) sec Chloride 114 H (98-107) mmol/L Carbon Dioxide 21 L (22-30) mmol/L BUN 75 H (9-20) mg/dL Glucose 156 H (74-99) mg/dL POC Glucose (mg/dL) (70-110) mg/dL Magnesium 2.4 H (1.6-2.3) mg/dL 03/17/24 03/17/2424 Range/Units 05:53 06:41 06:54 WBC (3.8-10.6) k/uL Neutrophils # (1.3-7.7) k/uL Lymphocytes # (1.0-4.8) k/uL Monocytes # (0-1.0) k/uL APTT >200.0 H* >200.0 H* (22.0-30.0) sec Chloride (98-107) mmol/L Carbon Dioxide (22-30) mmol/L BUN (9-20) mg/dL Glucose (74-99) mg/dL POC Glucose (mg/dL) 149 H (70-110) mg/dL Magnesium (1.6-2.3) mg/dL Assessment and Plan Time with Patient: Less than 30
[2024-03-17 16:25] LABS: Glucose,Whole Blood 161 mg/dL (70-110)
[2024-03-17 20:54] LABS: Glucose,Whole Blood 130 mg/dL (70-110)
[2024-03-17] MEDS: QUEtiapine 25 MG TAB PO SCH (21:13)
--- NOTE | 2024-03-17 23:10 | PN ---
PROGRESS NOTE SUBJECTIVE: Douglas is a 73-year-old gentleman who is admitted to hospital with respiratory failure and had cardiac arrest with pulseless electrical activity. Yesterday, he developed episodes of atrial fibrillation with rapid ventricular rate. This morning, he is on intravenous Cardizem at 10 mg and is also on maintenance dose of amiodarone. I will increase the dose of his Cardizem to 15 mg/hour. Continue the amiodarone. The patient appears somewhat confused this morning. OBJECTIVE: VITAL SIGNS: Heart rate is around 120 beats per minute, blood pressure is 128/71, respiratory rate is 18, and O2 saturation is 97% on 2 L. CHEST: Reveals diminished air entry at the bases. HEART: Reveals first and second heart sounds, irregular rhythm. ABDOMEN: Soft. EXTREMITIES: Did not reveal any edema. LABORATORY DATA: Labs show a hemoglobin of 14.2, platelet count is 218, potassium is 4.8, and creatinine is 0.98. ASSESSMENT: 1. Atrial fibrillation with rapid ventricular rate. 2. Cardiorespiratory arrest. 3. Chest pain. PLAN: If the heart rate is well controlled tomorrow, I will talk to Dr. Higuera about cardiac catheterization. Continues to have renal failure, but given the episodes of chest discomfort that he had, we might have to take the risk of contrast-induced nephropathy. MMODL / IJN: [id number] /
[2024-03-18 05:53] LABS: Glucose,Whole Blood 177 mg/dL (70-110)
[2024-03-18 05:59] LABS: HCT 41.8 % (39.0-53.0); MCHC 31.1 g/dL (31.0-37.0); MCV 93.2 fL (80.0-100.0); Mean Platelet Volume 8.8; Platelet Count 242 k/uL (150-450); RBC 4.48 m/uL (4.30-5.90); RDW 14.4 % (11.5-15.5); WBC 17.1 k/uL (3.8-10.6)
[2024-03-18 06:27] LABS: African American GFR (CKD) 73 (>60 ml/min/1.73 sqM); Anion Gap 5 mmol/L; Blood Urea Nitrogen 71 mg/dL (9-20); Calcium 9.4 mg/dL (8.4-10.2); Carbon Dioxide 25 mmol/L (22-30); Chloride 112 mmol/L (98-107); Glucose 174 mg/dL (74-99); Non-African American GFR(CKD) 63 (>60 ml/min/1.73 sqM); Potassium 4.5 mmol/L (3.5-5.1); Sodium 142 mmol/L (137-145)
--- NOTE | 2024-03-18 09:15 | P.PN ---
Subjective Progress Note Date: 03/18/24 Patient is a 73-year-old male who was admitted to the hospital with acute respiratory failure, followed by PEA arrest. Once transferred to the ICU he converted to atrial fibrillation with rapid ventricular rate. He was started on IV antiarrhythmics and rate control medications. He has also on a heparin drip. Patient is awake and more alert today. He is starting to become combative and argumentative in regards to his care. He is refusing any further intervention. GENERAL: Well-appearing, well-nourished and in no acute distress. NECK: Supple without JVD or thyromegaly. LUNGS: Breath sounds coarse to auscultation bilaterally. Respiration equal and unlabored. HEART: Irregular rate and rhythm without murmurs, rubs or gallops. S1 and S2 heard. EXTREMITIES: Normal range of motion, no edema. No clubbing or cyanosis. Peripheral pulses intact and strong. TELEMETRY: Atrial fibrillation with heart rates in the 120s. Occasional PVCs LABS: WBC 17.1, hemoglobin 13.0 hematocrit 41.8, platelet 242, sodium 142, potassium 4.5, BUN 71, creatinine 1.19 IMPRESSION: Atrial fibrillation, poorly controlled ventricular rate PEA arrest Chronic chest pain Cardiomyopathy, unspecified, EF 45 to 50% Acute kidney injury, improved PLAN: The patient is refusing to undergo coronary angiogram Transition to oral medications Outpatient workup with primary big data analytics lead, Dr Kathleen I am dictating on behalf of Dr Christopher Sheriff's history/physical and assessment/plan. Objective - Vital Signs Vital signs: Vital Signs Temp 98.6 F 03/18/24 04:00 Pulse 123 H 03/18/24 07:00 Resp 11 L 03/18/24 07:00 BP 135/94 03/18/24 07:00 Pulse Ox 94 L 03/18/24 07:00 FiO2 40 03/15/24 12:00 Intake & Output 03/17/24 03/18/24 03/18/24 18:59 06:59 18:59 Intake Total 1016.090 692.559 40 Output Total 1070 725 45 Balance -53.910 -32.441 -5 Weight 84.5 kg Intake: IV 150 Sodium Chloride 0.45% 1, 150 000 ml @ 50 mls/hr IV . Q20H [facility] Rx#:[id number] Intake, IV Titration 866.090 692.559 40 Amount Amiodarone 450 mg In 221.949 Dextrose 5% in Water 250 ml @ 0.5 MG/MIN 16.667 mls/hr IV .Q15H [facility] Rx#: [id number] Dextrose 5% in Water 1, 280 440 40 000 ml @ 40 mls/hr IV . Q24H [facility] Rx#:[id number] Dextrose 5% in Water 100 80 40 ml @ 618 mls/hr IV .Q10M [facility] with Amiodarone 150 mg Rx#:[id number] Diltiazem 125 mg In 103.000 124.833 Sodium Chloride 0.9% 100 ml @ 10 MG/HR 10 mls/hr IV .[id number] [facility] Rx#: [id number] Heparin Sod,Pork in 0.45% 131.141 87.726 NaCl 25,000 unit In 0.45 % NaCl 1 250ml.bag @ 12 UNITS/KG/HR 9.936 mls/hr IV .Q24H [facility] Rx#: [id number] cefTRIAXone 1 gm In 50 Sodium Chloride 0.9% 50 ml @ 100 mls/hr IVPB Q24HR [facility] Rx#:[id number] Output: Urine 1070 725 45 Other: Voiding Method Indwelling Catheter Indwelling Catheter ABP, PAP, CO, CI - Last Documented Arterial Blood Pressure 142/56 - Labs CBC & Chem 7: 03/18/24 05:43 03/18/24 05:43 Labs: Abnormal Lab Results - Last 24 Hours (Table) 03/17/24 03/17/24 03/17/24 Range/Units 11:33 14:32 16:23 WBC (3.8-10.6) k/uL APTT 112.3 H* (22.0-30.0) sec Chloride (98-107) mmol/L BUN (9-20) mg/dL Glucose (74-99) mg/dL POC Glucose (mg/dL) 146 H 161 H (70-110) mg/dL 03/17/24 03/17/24 03/18/24 Range/Units 19:21 20:52 05:43 WBC 17.1 H (3.8-10.6) k/uL APTT 71.2 H (22.0-30.0) sec Chloride (98-107) mmol/L BUN (9-20) mg/dL Glucose (74-99) mg/dL POC Glucose (mg/dL) 130 H (70-110) mg/dL 03/18/24 03/18/24 03/18/24 Range/Units 05:43 05:43 05:52 WBC (3.8-10.6) k/uL APTT 58.4 H (22.0-30.0) sec Chloride 112 H (98-107) mmol/L BUN 71 H (9-20) mg/dL Glucose 174 H (74-99) mg/dL POC Glucose (mg/dL) 177 H (70-110) mg/dL
[2024-03-18] MEDS: AMIODARONE 200 MG TAB PO SCH (09:34)
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
--- NOTE | 2024-03-18 11:12 | P.PN ---
Subjective Patient is seen in follow-up for acute kidney injury. Renal function improved. Extubated March 15, 2024. Now on nasal cannula. Denies chest pain or shortness of breath. Sodium level stable at 142. Confused. Vital signs are stable. General: No acute distress. HEENT: On nasal cannula. LUNGS: No audible rhonchi or wheezes. HEART: Rate and Rhythm are regular. ABDOMEN: Nontender. EXTREMITITES: Trace edema. Objective - Vital Signs Vital signs: Vital Signs Temp 98.6 F 03/18/24 04:00 Pulse 123 H 03/18/24 07:00 Resp 11 L 03/18/24 07:00 BP 135/94 03/18/24 07:00 Pulse Ox 94 L 03/18/24 07:00 FiO2 40 03/15/24 12:00 Intake & Output 03/17/24 03/18/24 03/18/24 18:59 06:59 18:59 Intake Total 1016.090 692.559 40 Output Total 1070 725 45 Balance -53.910 -32.441 -5 Weight 84.5 kg Intake: IV 150 Sodium Chloride 0.45% 1, 150 000 ml @ 50 mls/hr IV . Q20H [facility] Rx#:[id number] Intake, IV Titration 866.090 692.559 40 Amount Amiodarone 450 mg In 221.949 Dextrose 5% in Water 250 ml @ 0.5 MG/MIN 16.667 mls/hr IV .Q15H [facility] Rx#: [id number] Dextrose 5% in Water 1, 280 440 40 000 ml @ 40 mls/hr IV . Q24H [facility] Rx#:[id number] Dextrose 5% in Water 100 80 40 ml @ 618 mls/hr IV .Q10M [facility] with Amiodarone 150 mg Rx#:[id number] Diltiazem 125 mg In 103.000 124.833 Sodium Chloride 0.9% 100 ml @ 10 MG/HR 10 mls/hr IV .[id number] [facility] Rx#: [id number] Heparin Sod,Pork in 0.45% 131.141 87.726 NaCl 25,000 unit In 0.45 % NaCl 1 250ml.bag @ 12 UNITS/KG/HR 9.936 mls/hr IV .Q24H [facility] Rx#: [id number] cefTRIAXone 1 gm In 50 Sodium Chloride 0.9% 50 ml @ 100 mls/hr IVPB Q24HR [facility] Rx#:[id number] Output: Urine 1070 725 45 Other: Voiding Method Indwelling Catheter Indwelling Catheter ABP, PAP, CO, CI - Last Documented Arterial Blood Pressure 142/56 - Labs CBC & Chem 7: 03/18/24 05:43 03/18/24 05:43 Labs: Abnormal Lab Results - Last 24 Hours (Table) 03/17/24 03/17/24 03/17/24 Range/Units 11:33 14:32 16:23 WBC (3.8-10.6) k/uL APTT 112.3 H* (22.0-30.0) sec Chloride (98-107) mmol/L BUN (9-20) mg/dL Glucose (74-99) mg/dL POC Glucose (mg/dL) 146 H 161 H (70-110) mg/dL 03/17/24 03/17/24 03/18/24 Range/Units 19:21 20:52 05:43 WBC 17.1 H (3.8-10.6) k/uL APTT 71.2 H (22.0-30.0) sec Chloride (98-107) mmol/L BUN (9-20) mg/dL Glucose (74-99) mg/dL POC Glucose (mg/dL) 130 H (70-110) mg/dL 03/18/24 03/18/24 03/18/24 Range/Units 05:43 05:43 05:52 WBC (3.8-10.6) k/uL APTT 58.4 H (22.0-30.0) sec Chloride 112 H (98-107) mmol/L BUN 71 H (9-20) mg/dL Glucose 174 H (74-99) mg/dL POC Glucose (mg/dL) 177 H (70-110) mg/dL Assessment and Plan Plan: Assessment: 1. Acute kidney injury secondary to ATN secondary to cardiac arrest and rhabdomyolysis. Renal function improved. Creatinine fairly stable at 1.14. No hydronephrosis noted on kidney ultrasound. 2. Status postcardiac arrest. 3. Rhabdomyolysis status postcardiac arrest. Improved. 4. Chronic kidney disease stage IIIa with creatinine 1.54 dated July 25, 2016. 5. Hypernatremia from lack of oral water intake and free water diuresis. Better. 6. Hypertension with chronic kidney disease. Stable. 7. Acute systolic CHF ejection fraction of 45 to 50%. Plan: Maintain off IV fluids. Maintain low-dose Lasix. On dysphagia 1 pured diet. Continue to monitor renal function and urine output.
[2024-03-18 13:10] LABS: Glucose,Whole Blood 138 mg/dL (70-110)
--- NOTE | 2024-03-18 15:07 | P.PN ---
Subjective Progress Note Date: 03/18/24 Patient is evaluated today in follow-up in the intensive care unit. He remains on the mechanical ventilator currently intubated and sedated dated he has an FiO2 50 and a PEEP of 5. Patient initially presents to the hospital due to shortness of breath and was subsequently intubated. Patient remains hyper tensive with cardiology following closely and adjusting medications. Added hydralazine today. Patient remains on IV heparin will eventually need an ischemic workup. His ejection fraction was found to be 40 to 45%. He continues with enteral feedings. Chest x-ray today reveals small bilateral pleural effusions with adjacent compressive atelectasis right lung base. Blood cell count is 13.7, sodium 140, potassium 5.1, BUN of 61, creatinine of 1.44. Is on IV heparin, IV ceftriaxone, IV Solu-Medrol. IV Lasix was decreased to 40 mg daily. He is sedated with propofol and did not do well with his sedation holiday today. 03/12/2024 Patient is evaluated today and follow-up in the intensive care unit he remains on mechanical ventilator currently intubated and sedated with propofol. The last 2 days patient has not done well with his sedation holiday. Becomes significantly hypertensive. He was started on amlodipine as well as IV hydralazine as needed for improved blood pressure control. Cardiology is following this patient closely. He is on IV Lasix daily. Chest xray follow-up reveals small right and minimal left pleural effusion stable. There is compressive atelectasis of the right lung base. Remains on antibiotics for MSSA in sputum. Talked with patients daughter Korin over the phone who is the primary decision maker for the patient and for now would like to continue with all care and awaiting the brain CT results once completed. 03/13/2024 Patient is evaluated today in the ICU in follow up. Remains on the mechanical ventilator. Patient remains sedated with propofol is currently on a sedation holiday has spontaneous eye opening and reflexes, he has not been tracking eyes or responding to stimuli or commands. Patient chest xray today reveals small left pleural effusion, stable, resolving right lower lobe infiltrate. Brain CT done yesterday reveals no acute intracranial process. White blood cell count today 15.7, sodium 141, potassium 4.8, BUN 78, creatinine 1.49, glucose 145, magnesium 2.4. Continues on IV ceftriaxone. Remains on IV heparin. He is on IV solumedrol. 03/14/2024 Patient is evaluated today in the intensive care unit in follow-up. He is off t he propofol and currently on Precedex and is currently on an assist-control with the ventilator. He does have spontaneous eye opening however he is not following commands at this time. He is on IV lasix daily. He is on IV solu- medrol. Patient is on IV ceftriaxone. Chest x-ray today shows mild right basilar atelectasis with minimal left right pleural effusion. White blood cell count today 17.4, sodium 141, BUN of 83, creatinine of 1.47. 03/15/2024 Patient is evaluated today resting in bed. Remains in the ICU. Patient currently has been extubated and is continued on BiPAP with FIO2 of 40%. He is more awake alert. His bowels are moving. He is on IV ceftriaxone. He is on precedex. He is on IV solumedrol. White blood cell count normalized 10.0, hgb 12.5. Sodium 143, potassium 4.5, BUN 83, creatinine 1.27. 03/16/2024 Patient is evaluated today resting in bed patient remains in the intensive care unit. Patient has been extubated aggressive extubated and currently weaned down to oxygen at 3 L nasal cannula. Mentation has significantly improved patient is currently alert and oriented x 2 at this time. Patient is asking for a drink of water. Diet has been advanced to dysphagia level 1. Monitor closely for any signs of aspiration and patient is currently pending a speech therapy evaluation. His bowels are moving. Patient remains on IV Solu-Medrol 40 mg every 12 hours additionally he is on IV Lasix 20 mg daily, remains on IV ceftriaxone. Currently Precedex has been discontinued. White blood cell count today is 17.6, sodium levels 147, BUN of 77, creatinine of 1.15, magnesium 2.4. Patient is and started on a dextrose drip for the hypernatremia. Patient will need to be evaluated physical therapy and Occupational Therapy. Plans for cardiac catheterization still remain on hold waiting for renal recovery. 03/17/2024 Patient is evaluated today in follow up. Remains in the ICU went into atrial fibrillation overnight and continues on IV cardizem and IV amiodarone, also IV heparin. Patient remains on 3 L of oxygen via nasal cannula. Patient has been agitated today and not sleeping well. He is asking to be discharged home today. He is alert x 2, but confused. Patient has been started on diet and tolerating. Labs today are showing a white blood cell count of 19.1, stable hemoglobin at 14.2, sodium 143, BUN of 75, creatinine of 0.98. Patient remains in atrial fibrillation with rapid ventricular rate currently running in the low 110s, his blood pressure is also decreased to 120 to low 90s. 03/18/2024 Patient remains in intensive care unit. He has been extubated and remains on 2 L of oxygen via nasal cannula. Patient is worsening agitation and confusion today. Patient is cussing and refusing to be evaluated. He is currently on 2 point soft restraints. He is asking to be discharged. Patient remains off IV Precedex and recommending to add a daily dose of Seroquel in addition to Seroquel at at bedtime. Patient remains on IV ceftriaxone. Patient is also on IV Cardizem and oral amiodarone he remains in atrial fibrillation with rapid ventricular rate. He is on IV heparin. Would recommend to decrease Solu-Medrol to 40 mg prednisone daily. Review of Systems Constitutional: Denied any fatigue denied any fever. Cardio vascular: denied any chest pain, palpitations Gastrointestinal: denied any nausea, vomiting, diarrhea Pulmonary: Denied any shortness of breath cough Neurologic denied any new focal deficits All inpatient medications were reviewed and appropriate changes in these medications as dictated in the interval history and assessment and plan. Physical examination GENERAL: Sitting up in the bed. He is on the 3 L of oxygen AO x 2. EYES: Pupils equal. Conjunctiva normal. HEENT: External appearance of nose and ears normal, oral cavity grossly normal. NECK: JVD not raised; masses not palpable. HEART: First and second heart sounds are normal; no edema. LUNGS: Respiratory increased, decreased breath sounds. ABDOMEN: Soft, nontender, liver spleen not palpable, no masses palpable. PSYCH: Awake alert oriented diffusely weak MUSCULOSKELETAL:No Clubbing/cyanosis;muscles-grossly intact NEUROLOGICAL: Following commands Assessment and plan -Acute severe hypoxic hypercapnic respiratory failure from underlying COPD/CHF -Altered mental status hospital acquired delirium likely exacerbated by steroid use -Bacterial pneumonia with sputum culture showing MSSA -Pulseless electrical activity/ episode of VTACH likely from respiratory failure and hypoxia; treated with IV amiodarone -Atrial fibrillation with rapid ventricular rate- -Acute severe COPD exacerbation in a current smoker -Probable acute GI bleed with multiple risk factors including stress ulcer from being intubated, steroids, and IV heparin, Resolved. -Type II WA; supply demand mismatch unable to fully rule out ischemic injury. -Frequent PVCs in bigeminal pattern -Acute kidney injury likely ATN from sepsis hypotension -Chronic nicotine dependence cigarette smoker -Chronic gout -Hypotensive shock-corrected; Received IV Levophed -Essential hypertension, uncontrolled -GERD, stress ulcer prophylaxis GI prophylaxis IV Protonix 40 twice daily DVT prophylaxis subcu heparin -Full code Plan Currently on IV Cardizem, transitioned to oral amiodarone and IV heparin continues on cardiac vocational rehabilitation consultant remains in atrial fibrillation with rapid ventricular rate Continue IV protonix and monitor for acute bleeding hemoglobin remains stable Continue with IV ceftriaxone, IV solumedrol Nebulized Pulmicort. Perforomist. DuoNeb On BiPAP/nasal cannula support Norvasc 10 mg a day. Coreg 50mg twice daily. Hydralazine 100 mg 4 times daily. with PRN hydralazine. Cardiology following closely with current recommendations for possible cardiac catheterization monitor renal function closely Repeat blood work in the AM Off IV fluids at this time Continue on seroquel twice a day Physical therapy and occupational therapy have been consulted. The impression and plan of care has been dictated by Rufina Fitzgerald, Nurse Practitioner as directed. Dr. Kaleb MD I have performed a history and physical examination and medical decision making of this patient, discussed the same with the dictator, and agree with the dictators assessment and plan as written, documented as a scribe. Based on total visit time, I have performed more than 50% of this visit. Objective - Vital Signs Vital signs: Vital Signs Temp 98.6 F 03/18/24 04:00 Pulse 123 H 03/18/24 07:00 Resp 11 L 03/18/24 07:00 BP 135/94 03/18/24 07:00 Pulse Ox 94 L 03/18/24 07:00 FiO2 40 03/15/24 12:00 Intake & Output 03/17/24 03/18/24 03/18/24 18:59 06:59 18:59 Intake Total 1016.090 692.559 163 Output Total 1070 725 45 Balance -53.910 -32.441 118 Weight 84.5 kg 84.5 kg Intake: IV 150 Sodium Chloride 0.45% 1, 150 000 ml @ 50 mls/hr IV . Q20H [facility] Rx#:[id number] Intake, IV Titration 866.090 692.559 163 Amount Amiodarone 450 mg In 221.949 Dextrose 5% in Water 250 ml @ 0.5 MG/MIN 16.667 mls/hr IV .Q15H [facility] Rx#: [id number] Dextrose 5% in Water 1, 280 440 40 000 ml @ 40 mls/hr IV . Q24H [facility] Rx#:[id number] Dextrose 5% in Water 100 80 40 ml @ 618 mls/hr IV .Q10M [facility] with Amiodarone 150 mg Rx#:[id number] Diltiazem 125 mg In 103.000 124.833 123 Sodium Chloride 0.9% 100 ml @ 10 MG/HR 10 mls/hr IV .[id number] [facility] Rx#: [id number] Heparin Sod,Pork in 0.45% 131.141 87.726 NaCl 25,000 unit In 0.45 % NaCl 1 250ml.bag @ 12 UNITS/KG/HR 9.936 mls/hr IV .Q24H [facility] Rx#: [id number] cefTRIAXone 1 gm In 50 Sodium Chloride 0.9% 50 ml @ 100 mls/hr IVPB Q24HR [facility] Rx#:[id number] Output: Urine 1070 725 45 Other: Voiding Method Indwelling Catheter Indwelling Catheter ABP, PAP, CO, CI - Last Documented Arterial Blood Pressure 142/56 - Labs CBC & Chem 7: 03/18/24 05:43 03/18/24 05:43 Labs: Abnormal Lab Results - Last 24 Hours (Table) 03/17/24 03/17/24 03/17/24 Range/Units 14:32 16:23 19:21 WBC (3.8-10.6) k/uL APTT 112.3 H* 71.2 H (22.0-30.0) sec Chloride (98-107) mmol/L BUN (9-20) mg/dL Glucose (74-99) mg/dL POC Glucose (mg/dL) 161 H (70-110) mg/dL 03/17/24 03/18/24 03/18/24 Range/Units 20:52 05:43 05:43 WBC 17.1 H (3.8-10.6) k/uL APTT 58.4 H (22.0-30.0) sec Chloride (98-107) mmol/L BUN (9-20) mg/dL Glucose (74-99) mg/dL POC Glucose (mg/dL) 130 H (70-110) mg/dL 03/18/24 03/18/24 03/18/24 Range/Units 05:43 05:52 13:09 WBC (3.8-10.6) k/uL APTT (22.0-30.0) sec Chloride 112 H (98-107) mmol/L BUN 71 H (9-20) mg/dL Glucose 174 H (74-99) mg/dL POC Glucose (mg/dL) 177 H 138 H (70-110) mg/dL Assessment and Plan Time with Patient: Less than 30
[2024-03-18 16:06] LABS: Glucose,Whole Blood 155 mg/dL (70-110)
[2024-03-18] MEDS: QUEtiapine 25 MG TAB PO SCH (16:28)
[2024-03-18 20:28] LABS: Glucose,Whole Blood 136 mg/dL (70-110)
[2024-03-19 06:13] LABS: Glucose,Whole Blood 113 mg/dL (70-110)
[2024-03-19 06:33] LABS: Basophils % (A) 0 %; Eosinophils % (A) 0 %; HCT 39.5 % (39.0-53.0); HGB 12.4 gm/dL (13.0-17.5); Lymphocytes # (A) 0.8 k/uL (1.0-4.8); Lymphocytes % (A) 6 %; MCH 29.4 pg (25.0-35.0); MCHC 31.5 g/dL (31.0-37.0); MCV 93.4 fL (80.0-100.0); Monocytes # (A) 0.7 k/uL (0-1.0); Monocytes % (A) 5 %; Neutrophils # (A) 11.9 k/uL (1.3-7.7); Neutrophils % (A) 88 %; Platelet Count 240 k/uL (150-450); RBC 4.23 m/uL (4.30-5.90); RDW 14.2 % (11.5-15.5); WBC 13.6 k/uL (3.8-10.6)
[2024-03-19 06:45] LABS: African American GFR (CKD) 72 (>60 ml/min/1.73 sqM); Anion Gap 2 mmol/L; Blood Urea Nitrogen 65 mg/dL (9-20); Calcium 9.2 mg/dL (8.4-10.2); Carbon Dioxide 25 mmol/L (22-30); Chloride 113 mmol/L (98-107); Glucose 119 mg/dL (74-99); Non-African American GFR(CKD) 62 (>60 ml/min/1.73 sqM); Potassium 4.2 mmol/L (3.5-5.1); Sodium 140 mmol/L (137-145)
[2024-03-19] MEDS: predniSONE 20 MG TAB PO SCH (09:17)
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
[2024-03-19 11:23] LABS: Glucose,Whole Blood 143 mg/dL (70-110)
--- NOTE | 2024-03-19 11:52 | P.PN ---
Subjective Patient is seen in follow-up for acute kidney injury. Renal function improved. Extubated March 15, 2024. Now on nasal cannula. Denies chest pain or shortness of breath. Vital signs are stable. General: No acute distress. HEENT: On nasal cannula. LUNGS: No audible rhonchi or wheezes. HEART: Rate and Rhythm are regular. ABDOMEN: Nontender. EXTREMITITES: Trace edema. Objective - Vital Signs Vital signs: Vital Signs Temp 98.3 F 03/19/24 08:00 Pulse 108 H 03/19/24 11:00 Resp 16 03/19/24 11:00 BP 114/58 03/19/24 10:00 Pulse Ox 94 L 03/19/24 10:00 FiO2 40 03/15/24 12:00 Intake & Output 03/18/24 03/19/24 03/19/24 18:59 06:59 18:59 Intake Total 333 255 155 Output Total 1230 820 140 Balance -897 -565 15 Weight 84.5 kg 88.6 kg Intake: IV 90 130 30 .9 kvo 90 130 30 Intake, IV Titration 243 125 125 Amount Dextrose 5% in Water 1, 120 000 ml @ 40 mls/hr IV . Q24H [facility] Rx#:[id number] Diltiazem 125 mg In 123 125 125 Sodium Chloride 0.9% 100 ml @ 10 MG/HR 10 mls/hr IV .[id number] [facility] Rx#: [id number] Output: Urine 1230 820 140 Other: Voiding Method Indwelling Catheter Indwelling Catheter Indwelling Catheter ABP, PAP, CO, CI - Last Documented Arterial Blood Pressure 142/56 - Labs CBC & Chem 7: 03/19/24 06:04 03/19/24 06:04 Labs: Abnormal Lab Results - Last 24 Hours (Table) 03/18/24 03/18/24 03/18/24 Range/Units 13:09 16:05 20:26 WBC (3.8-10.6) k/uL RBC (4.30-5.90) m/uL Hgb (13.0-17.5) gm/dL Neutrophils # (1.3-7.7) k/uL Lymphocytes # (1.0-4.8) k/uL APTT (22.0-30.0) sec Chloride (98-107) mmol/L BUN (9-20) mg/dL Glucose (74-99) mg/dL POC Glucose (mg/dL) 138 H 155 H 136 H (70-110) mg/dL 03/19/24 03/19/24 03/19/24 Range/Units 06:04 06:04 06:04 WBC 13.6 H (3.8-10.6) k/uL RBC 4.23 L (4.30-5.90) m/uL Hgb 12.4 L (13.0-17.5) gm/dL Neutrophils # 11.9 H (1.3-7.7) k/uL Lymphocytes # 0.8 L (1.0-4.8) k/uL APTT 52.8 H (22.0-30.0) sec Chloride 113 H (98-107) mmol/L BUN 65 H (9-20) mg/dL Glucose 119 H (74-99) mg/dL POC Glucose (mg/dL) (70-110) mg/dL 03/19/24 03/19/24 Range/Units 06:11 11:20 WBC (3.8-10.6) k/uL RBC (4.30-5.90) m/uL Hgb (13.0-17.5) gm/dL Neutrophils # (1.3-7.7) k/uL Lymphocytes # (1.0-4.8) k/uL APTT (22.0-30.0) sec Chloride (98-107) mmol/L BUN (9-20) mg/dL Glucose (74-99) mg/dL POC Glucose (mg/dL) 113 H 143 H (70-110) mg/dL Assessment and Plan Plan: Assessment: 1. Acute kidney injury secondary to ATN secondary to cardiac arrest and rhabdomyolysis. Renal function stable. No hydronephrosis noted on kidney ultrasound. 2. Status postcardiac arrest. 3. Rhabdomyolysis status postcardiac arrest. Improved. 4. Chronic kidney disease stage IIIa with creatinine 1.54 dated July 25, 2016. 5. Hypernatremia from lack of oral water intake and free water diuresis. Better. 6. Hypertension with chronic kidney disease. Stable. 7. Acute systolic CHF ejection fraction of 45 to 50%. 8. A-fib with RVR maintained on Cardizem drip. Plan: Maintain low-dose Lasix. On dysphagia 1 pured diet. Continue to monitor renal function and urine output.
[2024-03-19 16:07] LABS: Glucose,Whole Blood 216 mg/dL (70-110)
[2024-03-19 20:03] LABS: Glucose,Whole Blood 136 mg/dL (70-110)
--- NOTE | 2024-03-19 20:52 | P.PN ---
Subjective Progress Note Date: 03/19/24 Patient is evaluated today in follow-up in the intensive care unit. He remains on the mechanical ventilator currently intubated and sedated dated he has an FiO2 50 and a PEEP of 5. Patient initially presents to the hospital due to shortness of breath and was subsequently intubated. Patient remains hyper tensive with cardiology following closely and adjusting medications. Added hydralazine today. Patient remains on IV heparin will eventually need an ischemic workup. His ejection fraction was found to be 40 to 45%. He continues with enteral feedings. Chest x-ray today reveals small bilateral pleural effusions with adjacent compressive atelectasis right lung base. Blood cell count is 13.7, sodium 140, potassium 5.1, BUN of 61, creatinine of 1.44. Is on IV heparin, IV ceftriaxone, IV Solu-Medrol. IV Lasix was decreased to 40 mg daily. He is sedated with propofol and did not do well with his sedation holiday today. 03/12/2024 Patient is evaluated today and follow-up in the intensive care unit he remains on mechanical ventilator currently intubated and sedated with propofol. The last 2 days patient has not done well with his sedation holiday. Becomes significantly hypertensive. He was started on amlodipine as well as IV hydralazine as needed for improved blood pressure control. Cardiology is following this patient closely. He is on IV Lasix daily. Chest xray follow-up reveals small right and minimal left pleural effusion stable. There is compressive atelectasis of the right lung base. Remains on antibiotics for MSSA in sputum. Talked with patients daughter Korin over the phone who is the primary decision maker for the patient and for now would like to continue with all care and awaiting the brain CT results once completed. 03/13/2024 Patient is evaluated today in the ICU in follow up. Remains on the mechanical ventilator. Patient remains sedated with propofol is currently on a sedation holiday has spontaneous eye opening and reflexes, he has not been tracking eyes or responding to stimuli or commands. Patient chest xray today reveals small left pleural effusion, stable, resolving right lower lobe infiltrate. Brain CT done yesterday reveals no acute intracranial process. White blood cell count today 15.7, sodium 141, potassium 4.8, BUN 78, creatinine 1.49, glucose 145, magnesium 2.4. Continues on IV ceftriaxone. Remains on IV heparin. He is on IV solumedrol. 03/14/2024 Patient is evaluated today in the intensive care unit in follow-up. He is off t he propofol and currently on Precedex and is currently on an assist-control with the ventilator. He does have spontaneous eye opening however he is not following commands at this time. He is on IV lasix daily. He is on IV solu- medrol. Patient is on IV ceftriaxone. Chest x-ray today shows mild right basilar atelectasis with minimal left right pleural effusion. White blood cell count today 17.4, sodium 141, BUN of 83, creatinine of 1.47. 03/15/2024 Patient is evaluated today resting in bed. Remains in the ICU. Patient currently has been extubated and is continued on BiPAP with FIO2 of 40%. He is more awake alert. His bowels are moving. He is on IV ceftriaxone. He is on precedex. He is on IV solumedrol. White blood cell count normalized 10.0, hgb 12.5. Sodium 143, potassium 4.5, BUN 83, creatinine 1.27. 03/16/2024 Patient is evaluated today resting in bed patient remains in the intensive care unit. Patient has been extubated aggressive extubated and currently weaned down to oxygen at 3 L nasal cannula. Mentation has significantly improved patient is currently alert and oriented x 2 at this time. Patient is asking for a drink of water. Diet has been advanced to dysphagia level 1. Monitor closely for any signs of aspiration and patient is currently pending a speech therapy evaluation. His bowels are moving. Patient remains on IV Solu-Medrol 40 mg every 12 hours additionally he is on IV Lasix 20 mg daily, remains on IV ceftriaxone. Currently Precedex has been discontinued. White blood cell count today is 17.6, sodium levels 147, BUN of 77, creatinine of 1.15, magnesium 2.4. Patient is and started on a dextrose drip for the hypernatremia. Patient will need to be evaluated physical therapy and Occupational Therapy. Plans for cardiac catheterization still remain on hold waiting for renal recovery. 03/17/2024 Patient is evaluated today in follow up. Remains in the ICU went into atrial fibrillation overnight and continues on IV cardizem and IV amiodarone, also IV heparin. Patient remains on 3 L of oxygen via nasal cannula. Patient has been agitated today and not sleeping well. He is asking to be discharged home today. He is alert x 2, but confused. Patient has been started on diet and tolerating. Labs today are showing a white blood cell count of 19.1, stable hemoglobin at 14.2, sodium 143, BUN of 75, creatinine of 0.98. Patient remains in atrial fibrillation with rapid ventricular rate currently running in the low 110s, his blood pressure is also decreased to 120 to low 90s. 03/18/2024 Patient remains in intensive care unit. He has been extubated and remains on 2 L of oxygen via nasal cannula. Patient is worsening agitation and confusion today. Patient is cussing and refusing to be evaluated. He is currently on 2 point soft restraints. He is asking to be discharged. Patient remains off IV Precedex and recommending to add a daily dose of Seroquel in addition to Seroquel at at bedtime. Patient remains on IV ceftriaxone. Patient is also on IV Cardizem and oral amiodarone he remains in atrial fibrillation with rapid ventricular rate. He is on IV heparin. Would recommend to decrease Solu-Medrol to 40 mg prednisone daily. 03/19/2024 Patient is evaluated today in the ICU. Patient remains on oxygen at 4L nasal cannula. Patients mentation is slightly improved today. He has been started on seroquel twice a day. On oral prednisone. Remains in atrial fibrillation with rapid ventricular rate. Patient is continued on IV cardizem and IV heparin. Patient has refused cardiac catheterization at this point although he remains c onfused with waxing and waning mentation. Cardiology has recommended outpatient work up when medically cleared and discharged. Review of Systems Constitutional: Denied any fatigue denied any fever. Cardio vascular: denied any chest pain, palpitations Gastrointestinal: denied any nausea, vomiting, diarrhea Pulmonary: Denied any shortness of breath cough Neurologic denied any new focal deficits All inpatient medications were reviewed and appropriate changes in these medications as dictated in the interval history and assessment and plan. Physical examination GENERAL: Sitting up in the bed. He is on the 4 L of oxygen AO x 2. EYES: Pupils equal. Conjunctiva normal. HEENT: External appearance of nose and ears normal, oral cavity grossly normal. NECK: JVD not raised; masses not palpable. HEART: First and second heart sounds are normal; no edema. LUNGS: Respiratory increased, decreased breath sounds. ABDOMEN: Soft, nontender, liver spleen not palpable, no masses palpable. PSYCH: Awake alert oriented diffusely weak MUSCULOSKELETAL:No Clubbing/cyanosis;muscles-grossly intact NEUROLOGICAL: Following commands Assessment and plan -Acute severe hypoxic hypercapnic respiratory failure from underlying COPD/CHF -Altered mental status hospital acquired delirium/acute metabolic and toxic encephalopathy likely exacerbated by steroid use -Bacterial pneumonia with sputum culture showing MSSA -Pulseless electrical activity/ episode of VTACH likely from respiratory failure and hypoxia; treated with IV amiodarone -Atrial fibrillation with rapid ventricular rate- -Acute severe COPD exacerbation in a current smoker -Probable acute GI bleed with multiple risk factors including stress ulcer from being intubated, steroids, and IV heparin, Resolved. -Type II LA; supply demand mismatch unable to fully rule out ischemic injury. -Frequent PVCs in bigeminal pattern -Acute kidney injury likely ATN from sepsis hypotension -Chronic nicotine dependence cigarette smoker -Chronic gout -Hypotensive shock-corrected; Received IV Levophed -Essential hypertension, uncontrolled -GERD, stress ulcer prophylaxis GI prophylaxis IV Protonix 40 twice daily DVT prophylaxis subcu heparin -Full code Plan Currently on IV Cardizem, transitioned to oral amiodarone and IV heparin continues on cardiac warper creeler remains in atrial fibrillation with rapid ventricular rate Continue IV protonix and monitor for acute bleeding hemoglobin remains stable Continue with IV ceftriaxone, now on oral prednisone Nebulized Pulmicort. Perforomist. DuoNeb On BiPAP/nasal cannula support Norvasc 10 mg a day. Coreg 50mg twice daily. Hydralazine 100 mg 4 times daily. with PRN hydralazine. Cardiology following closely with current recommendations for further cardiac evaluation outpatient. Repeat blood work in the AM Off IV fluids at this time Continue on seroquel twice a day Physical therapy and occupational therapy have been consulted recommending subacute rehab at this time. The impression and plan of care has been dictated by Rufina Fitzgerald, Nurse Practitioner as directed. Dr. Kaleb MD I have performed a history and physical examination and medical decision making of this patient, discussed the same with the dictator, and agree with the dictators assessment and plan as written, documented as a scribe. Based on total visit time, I have performed more than 50% of this visit. Objective - Vital Signs Vital signs: Vital Signs Temp 98.3 F 03/19/24 08:00 Pulse 110 H 03/19/24 08:00 Resp 23 03/19/24 08:00 BP 120/101 03/19/24 08:00 Pulse Ox 93 L 03/19/24 08:00 FiO2 40 03/15/24 12:00 Intake & Output 03/18/24 03/19/24 03/19/24 18:59 06:59 18:59 Intake Total 333 255 135 Output Total 1230 820 50 Balance -897 -565 85 Weight 84.5 kg 88.6 kg Intake: IV 90 130 10 .9 kvo 90 130 10 Intake, IV Titration 243 125 125 Amount Dextrose 5% in Water 1, 120 000 ml @ 40 mls/hr IV . Q24H ONE Rx#:[id number] Diltiazem 125 mg In 123 125 125 Sodium Chloride 0.9% 100 ml @ 10 MG/HR 10 mls/hr IV .[id number] CHUCK Rx#: [id number] Output: Urine 1230 820 50 Other: Voiding Method Indwelling Catheter Indwelling Catheter ABP, PAP, CO, CI - Last Documented Arterial Blood Pressure 142/56 - Labs CBC & Chem 7: 03/19/24 06:04 03/19/24 06:04 Labs: Abnormal Lab Results - Last 24 Hours (Table) 03/18/24 03/18/24 03/18/24 Range/Units 13:09 16:05 20:26 WBC (3.8-10.6) k/uL RBC (4.30-5.90) m/uL Hgb (13.0-17.5) gm/dL Neutrophils # (1.3-7.7) k/uL Lymphocytes # (1.0-4.8) k/uL APTT (22.0-30.0) sec Chloride (98-107) mmol/L BUN (9-20) mg/dL Glucose (74-99) mg/dL POC Glucose (mg/dL) 138 H 155 H 136 H (70-110) mg/dL 03/19/24 03/19/24 03/19/24 Range/Units 06:04 06:04 06:04 WBC 13.6 H (3.8-10.6) k/uL RBC 4.23 L (4.30-5.90) m/uL Hgb 12.4 L (13.0-17.5) gm/dL Neutrophils # 11.9 H (1.3-7.7) k/uL Lymphocytes # 0.8 L (1.0-4.8) k/uL APTT 52.8 H (22.0-30.0) sec Chloride 113 H (98-107) mmol/L BUN 65 H (9-20) mg/dL Glucose 119 H (74-99) mg/dL POC Glucose (mg/dL) (70-110) mg/dL 03/19/24 Range/Units 06:11 WBC (3.8-10.6) k/uL RBC (4.30-5.90) m/uL Hgb (13.0-17.5) gm/dL Neutrophils # (1.3-7.7) k/uL Lymphocytes # (1.0-4.8) k/uL APTT (22.0-30.0) sec Chloride (98-107) mmol/L BUN (9-20) mg/dL Glucose (74-99) mg/dL POC Glucose (mg/dL) 113 H (70-110) mg/dL Assessment and Plan Time with Patient: Less than 30
[2024-03-20 05:41] LABS: Glucose,Whole Blood 116 mg/dL (70-110)
[2024-03-20 06:01] LABS: Basophils % (A) 0 %; Eosinophils % (A) 0 %; HCT 38.5 % (39.0-53.0); HGB 12.3 gm/dL (13.0-17.5); Lymphocytes # (A) 0.8 k/uL (1.0-4.8); Lymphocytes % (A) 6 %; MCH 30.3 pg (25.0-35.0); MCV 94.9 fL (80.0-100.0); Monocytes # (A) 0.6 k/uL (0-1.0); Monocytes % (A) 5 %; Neutrophils % (A) 88 %; Platelet Count 221 k/uL (150-450); RBC 4.05 m/uL (4.30-5.90); RDW 14.2 % (11.5-15.5); WBC 12.5 k/uL (3.8-10.6)
[2024-03-20 06:26] LABS: African American GFR (CKD) 70 (>60 ml/min/1.73 sqM); Anion Gap -1 mmol/L; Blood Urea Nitrogen 56 mg/dL (9-20); Calcium 9.1 mg/dL (8.4-10.2); Carbon Dioxide 29 mmol/L (22-30); Chloride 113 mmol/L (98-107); Glucose 102 mg/dL (74-99); Non-African American GFR(CKD) 61 (>60 ml/min/1.73 sqM); Potassium 4.6 mmol/L (3.5-5.1); Sodium 141 mmol/L (137-145)
[2024-03-20 11:11] LABS: Glucose,Whole Blood 120 mg/dL (70-110)
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
--- NOTE | 2024-03-20 14:57 | P.PN ---
Subjective Progress Note Date: 03/20/24 Patient is evaluated today in follow-up in the intensive care unit. He remains on the mechanical ventilator currently intubated and sedated dated he has an FiO2 50 and a PEEP of 5. Patient initially presents to the hospital due to shortness of breath and was subsequently intubated. Patient remains hyper tensive with cardiology following closely and adjusting medications. Added hydralazine today. Patient remains on IV heparin will eventually need an ischemic workup. His ejection fraction was found to be 40 to 45%. He continues with enteral feedings. Chest x-ray today reveals small bilateral pleural effusions with adjacent compressive atelectasis right lung base. Blood cell count is 13.7, sodium 140, potassium 5.1, BUN of 61, creatinine of 1.44. Is on IV heparin, IV ceftriaxone, IV Solu-Medrol. IV Lasix was decreased to 40 mg daily. He is sedated with propofol and did not do well with his sedation holiday today. 03/12/2024 Patient is evaluated today and follow-up in the intensive care unit he remains on mechanical ventilator currently intubated and sedated with propofol. The last 2 days patient has not done well with his sedation holiday. Becomes significantly hypertensive. He was started on amlodipine as well as IV hydralazine as needed for improved blood pressure control. Cardiology is following this patient closely. He is on IV Lasix daily. Chest xray follow-up reveals small right and minimal left pleural effusion stable. There is compressive atelectasis of the right lung base. Remains on antibiotics for MSSA in sputum. Talked with patients daughter Korin over the phone who is the primary decision maker for the patient and for now would like to continue with all care and awaiting the brain CT results once completed. 03/13/2024 Patient is evaluated today in the ICU in follow up. Remains on the mechanical ventilator. Patient remains sedated with propofol is currently on a sedation holiday has spontaneous eye opening and reflexes, he has not been tracking eyes or responding to stimuli or commands. Patient chest xray today reveals small left pleural effusion, stable, resolving right lower lobe infiltrate. Brain CT done yesterday reveals no acute intracranial process. White blood cell count today 15.7, sodium 141, potassium 4.8, BUN 78, creatinine 1.49, glucose 145, magnesium 2.4. Continues on IV ceftriaxone. Remains on IV heparin. He is on IV solumedrol. 03/14/2024 Patient is evaluated today in the intensive care unit in follow-up. He is off t he propofol and currently on Precedex and is currently on an assist-control with the ventilator. He does have spontaneous eye opening however he is not following commands at this time. He is on IV lasix daily. He is on IV solu- medrol. Patient is on IV ceftriaxone. Chest x-ray today shows mild right basilar atelectasis with minimal left right pleural effusion. White blood cell count today 17.4, sodium 141, BUN of 83, creatinine of 1.47. 03/15/2024 Patient is evaluated today resting in bed. Remains in the ICU. Patient currently has been extubated and is continued on BiPAP with FIO2 of 40%. He is more awake alert. His bowels are moving. He is on IV ceftriaxone. He is on precedex. He is on IV solumedrol. White blood cell count normalized 10.0, hgb 12.5. Sodium 143, potassium 4.5, BUN 83, creatinine 1.27. 03/16/2024 Patient is evaluated today resting in bed patient remains in the intensive care unit. Patient has been extubated aggressive extubated and currently weaned down to oxygen at 3 L nasal cannula. Mentation has significantly improved patient is currently alert and oriented x 2 at this time. Patient is asking for a drink of water. Diet has been advanced to dysphagia level 1. Monitor closely for any signs of aspiration and patient is currently pending a speech therapy evaluation. His bowels are moving. Patient remains on IV Solu-Medrol 40 mg every 12 hours additionally he is on IV Lasix 20 mg daily, remains on IV ceftriaxone. Currently Precedex has been discontinued. White blood cell count today is 17.6, sodium levels 147, BUN of 77, creatinine of 1.15, magnesium 2.4. Patient is and started on a dextrose drip for the hypernatremia. Patient will need to be evaluated physical therapy and Occupational Therapy. Plans for cardiac catheterization still remain on hold waiting for renal recovery. 03/17/2024 Patient is evaluated today in follow up. Remains in the ICU went into atrial fibrillation overnight and continues on IV cardizem and IV amiodarone, also IV heparin. Patient remains on 3 L of oxygen via nasal cannula. Patient has been agitated today and not sleeping well. He is asking to be discharged home today. He is alert x 2, but confused. Patient has been started on diet and tolerating. Labs today are showing a white blood cell count of 19.1, stable hemoglobin at 14.2, sodium 143, BUN of 75, creatinine of 0.98. Patient remains in atrial fibrillation with rapid ventricular rate currently running in the low 110s, his blood pressure is also decreased to 120 to low 90s. 03/18/2024 Patient remains in intensive care unit. He has been extubated and remains on 2 L of oxygen via nasal cannula. Patient is worsening agitation and confusion today. Patient is cussing and refusing to be evaluated. He is currently on 2 point soft restraints. He is asking to be discharged. Patient remains off IV Precedex and recommending to add a daily dose of Seroquel in addition to Seroquel at at bedtime. Patient remains on IV ceftriaxone. Patient is also on IV Cardizem and oral amiodarone he remains in atrial fibrillation with rapid ventricular rate. He is on IV heparin. Would recommend to decrease Solu-Medrol to 40 mg prednisone daily. 03/19/2024 Patient is evaluated today in the ICU. Patient remains on oxygen at 4L nasal cannula. Patients mentation is slightly improved today. He has been started on seroquel twice a day. On oral prednisone. Remains in atrial fibrillation with rapid ventricular rate. Patient is continued on IV cardizem and IV heparin. Patient has refused cardiac catheterization at this point although he remains c onfused with waxing and waning mentation. Cardiology has recommended outpatient work up when medically cleared and discharged. 03/20/2024 Patient is evaluated today in the intensive care unit. Patient appears less agitated today. He continues on Seroquel twice a day. Family at the bedside. Patient remains in atrial fibrillation with rapid ventricular rate continues on IV Cardizem as well as oral amiodarone. He remains on IV heparin. At this time cardiology has signed off and recommending medical management for his troponin elevation. Patient will be considered for cardiac catheterization on an outpatient basis. Patient continues on IV Lasix daily. Alcohol today is 12.5, hemoglobin 12.3, sodium 141, potassium 4.6, BUN 56, creatinine 1.17. Review of Systems Constitutional: Denied any fatigue denied any fever. Cardio vascular: denied any chest pain, palpitations Gastrointestinal: denied any nausea, vomiting, diarrhea Pulmonary: Denied any shortness of breath cough Neurologic denied any new focal deficits All inpatient medications were reviewed and appropriate changes in these medications as dictated in the interval history and assessment and plan. Physical examination GENERAL: Sitting up in the bed. He is on the 4 L of oxygen AO x 2. EYES: Pupils equal. Conjunctiva normal. HEENT: External appearance of nose and ears normal, oral cavity grossly normal. NECK: JVD not raised; masses not palpable. HEART: First and second heart sounds are normal; no edema. LUNGS: Respiratory increased, decreased breath sounds. ABDOMEN: Soft, nontender, liver spleen not palpable, no masses palpable. PSYCH: Awake alert oriented diffusely weak MUSCULOSKELETAL:No Clubbing/cyanosis;muscles-grossly intact NEUROLOGICAL: Following commands Assessment and plan -Acute severe hypoxic hypercapnic respiratory failure from underlying COPD/CHF -Altered mental status hospital acquired delirium/acute metabolic and toxic encephalopathy likely exacerbated by steroid use -Bacterial pneumonia with sputum culture showing MSSA -Pulseless electrical activity/ episode of VTACH likely from respiratory failure and hypoxia; treated with IV amiodarone -Atrial fibrillation with rapid ventricular rate- -Acute severe COPD exacerbation in a current smoker -Probable acute GI bleed with multiple risk factors including stress ulcer from being intubated, steroids, and IV heparin, Resolved. -Type II NE; supply demand mismatch unable to fully rule out ischemic injury. -Frequent PVCs in bigeminal pattern -Acute kidney injury likely ATN from sepsis hypotension -Chronic nicotine dependence cigarette smoker -Chronic gout -Hypotensive shock-corrected; Received IV Levophed -Essential hypertension, uncontrolled -GERD, stress ulcer prophylaxis GI prophylaxis IV Protonix 40 twice daily DVT prophylaxis subcu heparin -Full code Plan Currently on IV Cardizem, transitioned to oral amiodarone and IV heparin continues on cardiac child monitor remains in atrial fibrillation with rapid ventricular rate Continue IV protonix and monitor for acute bleeding hemoglobin remains stable Continue with IV ceftriaxone, now on oral prednisone Nebulized Pulmicort. Perforomist. DuoNeb On BiPAP/nasal cannula support Norvasc 10 mg a day. Coreg 50mg twice daily. Hydralazine 100 mg 4 times daily. with PRN hydralazine. Cardiology following closely with current recommendations for further cardiac evaluation outpatient. Repeat blood work in the AM Off IV fluids at this time Continue on seroquel twice a day Physical therapy and occupational therapy have been consulted recommending subacute rehab at this time. The impression and plan of care has been dictated by Nurse Adi Heath ctitioner as directed. Dr. Kaleb MD I have performed a history and physical examination and medical decision making of this patient, discussed the same with the dictator, and agree with the dictat ors assessment and plan as written, documented as a scribe. Based on total visit time, I have performed more than 50% of this visit. Objective - Vital Signs Vital signs: Vital Signs Temp 98.5 F 03/20/24 04:00 Pulse 105 H 03/20/24 07:52 Resp 15 03/20/24 07:00 BP 113/101 03/20/24 07:00 Pulse Ox 95 03/20/24 07:00 FiO2 40 03/15/24 12:00 Intake & Output 03/19/24 03/20/24 03/20/24 18:59 06:59 18:59 Intake Total 475.167 422.167 10 Output Total 1205 940 75 Balance -729.833 -517.833 -65 Weight 84.6 kg Intake: IV 110 120 10 .9 kvo 110 120 10 Intake, IV Titration 165.167 302.167 Amount Diltiazem 125 mg In 165.167 52.167 Sodium Chloride 0.9% 100 ml @ 10 MG/HR 10 mls/hr IV .[id number] [facility] Rx#: [id number] Heparin Sod,Pork in 0.45% 250 NaCl 25,000 unit In 0.45 % NaCl 1 250ml.bag @ 12 UNITS/KG/HR 9.936 mls/hr IV .Q24H [facility] Rx#: [id number] Oral 200 Output: Urine 1205 940 75 Other: Voiding Method Indwelling Catheter Indwelling Catheter ABP, PAP, CO, CI - Last Documented Arterial Blood Pressure 142/56 - Labs CBC & Chem 7: 03/20/24 05:35 03/20/24 05:35 Labs: Abnormal Lab Results - Last 24 Hours (Table) 03/19/24 03/19/24 03/19/24 Range/Units 11:20 16:05 20:02 WBC (3.8-10.6) k/uL RBC (4.30-5.90) m/uL Hgb (13.0-17.5) gm/dL Hct (39.0-53.0) % Neutrophils # (1.3-7.7) k/uL Lymphocytes # (1.0-4.8) k/uL APTT (22.0-30.0) sec Chloride (98-107) mmol/L BUN (9-20) mg/dL Glucose (74-99) mg/dL POC Glucose (mg/dL) 143 H 216 H 136 H (70-110) mg/dL 03/20/24 03/20/24 03/20/24 Range/Units 05:35 05:35 05:35 WBC 12.5 H (3.8-10.6) k/uL RBC 4.05 L (4.30-5.90) m/uL Hgb 12.3 L (13.0-17.5) gm/dL Hct 38.5 L (39.0-53.0) % Neutrophils # 11.0 H (1.3-7.7) k/uL Lymphocytes # 0.8 L (1.0-4.8) k/uL APTT 49.1 H (22.0-30.0) sec Chloride 113 H (98-107) mmol/L BUN 56 H (9-20) mg/dL Glucose 102 H (74-99) mg/dL POC Glucose (mg/dL) (70-110) mg/dL 03/20/24 Range/Units 05:38 WBC (3.8-10.6) k/uL RBC (4.30-5.90) m/uL Hgb (13.0-17.5) gm/dL Hct (39.0-53.0) % Neutrophils # (1.3-7.7) k/uL Lymphocytes # (1.0-4.8) k/uL APTT (22.0-30.0) sec Chloride (98-107) mmol/L BUN (9-20) mg/dL Glucose (74-99) mg/dL POC Glucose (mg/dL) 116 H (70-110) mg/dL Assessment and Plan Time with Patient: Less than 30
[2024-03-20 16:35] LABS: Glucose,Whole Blood 149 mg/dL (70-110)
[2024-03-20 19:59] LABS: Glucose,Whole Blood 158 mg/dL (70-110)
[2024-03-21 03:36] LABS: Basophils % (A) 0 %; Eosinophils # (A) 0.2 k/uL (0-0.7); Eosinophils % (A) 1 %; HCT 36.2 % (39.0-53.0); HGB 11.6 gm/dL (13.0-17.5); Lymphocytes # (A) 0.6 k/uL (1.0-4.8); Lymphocytes % (A) 5 %; MCH 29.3 pg (25.0-35.0); MCHC 31.9 g/dL (31.0-37.0); Mean Platelet Volume 9.3; Monocytes # (A) 0.5 k/uL (0-1.0); Monocytes % (A) 4 %; Neutrophils # (A) 10.6 k/uL (1.3-7.7); Neutrophils % (A) 89 %; Platelet Count 192 k/uL (150-450); RBC 3.94 m/uL (4.30-5.90); RDW 14.4 % (11.5-15.5)
[2024-03-21 04:08] LABS: African American GFR (CKD) 80 (>60 ml/min/1.73 sqM); Anion Gap 3 mmol/L; Blood Urea Nitrogen 52 mg/dL (9-20); Calcium 8.9 mg/dL (8.4-10.2); Carbon Dioxide 22 mmol/L (22-30); Chloride 110 mmol/L (98-107); Glucose 119 mg/dL (74-99); Non-African American GFR(CKD) 70 (>60 ml/min/1.73 sqM); Potassium 4.7 mmol/L (3.5-5.1); Sodium 135 mmol/L (137-145)
[2024-03-21 06:24] LABS: Glucose,Whole Blood 105 mg/dL (70-110)
[2024-03-21] MEDS: HYDROcodone/APAP 10-325MG 1 EACH TAB PO PRN (08:16)
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
[2024-03-21 11:31] LABS: Glucose,Whole Blood 139 mg/dL (70-110)
--- NOTE | 2024-03-21 15:31 | P.PN ---
Subjective Progress Note Date: 03/21/24 Patient is evaluated today in follow-up in the intensive care unit. He remains on the mechanical ventilator currently intubated and sedated dated he has an FiO2 50 and a PEEP of 5. Patient initially presents to the hospital due to shortness of breath and was subsequently intubated. Patient remains hyper tensive with cardiology following closely and adjusting medications. Added hydralazine today. Patient remains on IV heparin will eventually need an ischemic workup. His ejection fraction was found to be 40 to 45%. He continues with enteral feedings. Chest x-ray today reveals small bilateral pleural effusions with adjacent compressive atelectasis right lung base. Blood cell count is 13.7, sodium 140, potassium 5.1, BUN of 61, creatinine of 1.44. Is on IV heparin, IV ceftriaxone, IV Solu-Medrol. IV Lasix was decreased to 40 mg daily. He is sedated with propofol and did not do well with his sedation holiday today. 03/12/2024 Patient is evaluated today and follow-up in the intensive care unit he remains on mechanical ventilator currently intubated and sedated with propofol. The last 2 days patient has not done well with his sedation holiday. Becomes significantly hypertensive. He was started on amlodipine as well as IV hydralazine as needed for improved blood pressure control. Cardiology is following this patient closely. He is on IV Lasix daily. Chest xray follow-up reveals small right and minimal left pleural effusion stable. There is compressive atelectasis of the right lung base. Remains on antibiotics for MSSA in sputum. Talked with patients daughter Korin over the phone who is the primary decision maker for the patient and for now would like to continue with all care and awaiting the brain CT results once completed. 03/13/2024 Patient is evaluated today in the ICU in follow up. Remains on the mechanical ventilator. Patient remains sedated with propofol is currently on a sedation holiday has spontaneous eye opening and reflexes, he has not been tracking eyes or responding to stimuli or commands. Patient chest xray today reveals small left pleural effusion, stable, resolving right lower lobe infiltrate. Brain CT done yesterday reveals no acute intracranial process. White blood cell count today 15.7, sodium 141, potassium 4.8, BUN 78, creatinine 1.49, glucose 145, magnesium 2.4. Continues on IV ceftriaxone. Remains on IV heparin. He is on IV solumedrol. 03/14/2024 Patient is evaluated today in the intensive care unit in follow-up. He is off t he propofol and currently on Precedex and is currently on an assist-control with the ventilator. He does have spontaneous eye opening however he is not following commands at this time. He is on IV lasix daily. He is on IV solu- medrol. Patient is on IV ceftriaxone. Chest x-ray today shows mild right basilar atelectasis with minimal left right pleural effusion. White blood cell count today 17.4, sodium 141, BUN of 83, creatinine of 1.47. 03/15/2024 Patient is evaluated today resting in bed. Remains in the ICU. Patient currently has been extubated and is continued on BiPAP with FIO2 of 40%. He is more awake alert. His bowels are moving. He is on IV ceftriaxone. He is on precedex. He is on IV solumedrol. White blood cell count normalized 10.0, hgb 12.5. Sodium 143, potassium 4.5, BUN 83, creatinine 1.27. 03/16/2024 Patient is evaluated today resting in bed patient remains in the intensive care unit. Patient has been extubated aggressive extubated and currently weaned down to oxygen at 3 L nasal cannula. Mentation has significantly improved patient is currently alert and oriented x 2 at this time. Patient is asking for a drink of water. Diet has been advanced to dysphagia level 1. Monitor closely for any signs of aspiration and patient is currently pending a speech therapy evaluation. His bowels are moving. Patient remains on IV Solu-Medrol 40 mg every 12 hours additionally he is on IV Lasix 20 mg daily, remains on IV ceftriaxone. Currently Precedex has been discontinued. White blood cell count today is 17.6, sodium levels 147, BUN of 77, creatinine of 1.15, magnesium 2.4. Patient is and started on a dextrose drip for the hypernatremia. Patient will need to be evaluated physical therapy and Occupational Therapy. Plans for cardiac catheterization still remain on hold waiting for renal recovery. 03/17/2024 Patient is evaluated today in follow up. Remains in the ICU went into atrial fibrillation overnight and continues on IV cardizem and IV amiodarone, also IV heparin. Patient remains on 3 L of oxygen via nasal cannula. Patient has been agitated today and not sleeping well. He is asking to be discharged home today. He is alert x 2, but confused. Patient has been started on diet and tolerating. Labs today are showing a white blood cell count of 19.1, stable hemoglobin at 14.2, sodium 143, BUN of 75, creatinine of 0.98. Patient remains in atrial fibrillation with rapid ventricular rate currently running in the low 110s, his blood pressure is also decreased to 120 to low 90s. 03/18/2024 Patient remains in intensive care unit. He has been extubated and remains on 2 L of oxygen via nasal cannula. Patient is worsening agitation and confusion today. Patient is cussing and refusing to be evaluated. He is currently on 2 point soft restraints. He is asking to be discharged. Patient remains off IV Precedex and recommending to add a daily dose of Seroquel in addition to Seroquel at at bedtime. Patient remains on IV ceftriaxone. Patient is also on IV Cardizem and oral amiodarone he remains in atrial fibrillation with rapid ventricular rate. He is on IV heparin. Would recommend to decrease Solu-Medrol to 40 mg prednisone daily. 03/19/2024 Patient is evaluated today in the ICU. Patient remains on oxygen at 4L nasal cannula. Patients mentation is slightly improved today. He has been started on seroquel twice a day. On oral prednisone. Remains in atrial fibrillation with rapid ventricular rate. Patient is continued on IV cardizem and IV heparin. Patient has refused cardiac catheterization at this point although he remains c onfused with waxing and waning mentation. Cardiology has recommended outpatient work up when medically cleared and discharged. 03/20/2024 Patient is evaluated today in the intensive care unit. Patient appears less agitated today. He continues on Seroquel twice a day. Family at the bedside. Patient remains in atrial fibrillation with rapid ventricular rate continues on IV Cardizem as well as oral amiodarone. He remains on IV heparin. At this time cardiology has signed off and recommending medical management for his troponin elevation. Patient will be considered for cardiac catheterization on an outpatient basis. Patient continues on IV Lasix daily. Alcohol today is 12.5, hemoglobin 12.3, sodium 141, potassium 4.6, BUN 56, creatinine 1.17. 03/21/2024 Patient is evaluated today in intensive care unit patient has been downgraded to a cardiac stepdown unit. Patient does continue on Seroquel twice a day and has been less agitated. Patient remains significantly weak and will require rehab on discharge. Patient remains in atrial fibrillation with mostly controlled ventricular rate we will plan on weaning off the Cardizem drip today and transition to oral Cardizem. Additionally patient has been taken off of IV heparin and transition to oral Eliquis. Plan is for cardiac catheterization on an outpatient basis patient's not having any shortness of breath or chest discomfort at this time. He has been tolerating diet. He was having issues with dysphagia postextubation continues on a ground diet with one-to-one supervision and aspiration precautions. Labs today reveal a white blood cell count of 12.0, hemoglobin 11.6, sodium 135, potassium 4.7, BUN of 52, creatinine 1.05. Review of Systems Constitutional: Denied any fatigue denied any fever. Cardio vascular: denied any chest pain, palpitations Gastrointestinal: denied any nausea, vomiting, diarrhea Pulmonary: Denied any shortness of breath cough Neurologic denied any new focal deficits All inpatient medications were reviewed and appropriate changes in these medications as dictated in the interval history and assessment and plan. Physical examination GENERAL: Sitting up in the bed. He is on the 4 L of oxygen AO x 2. EYES: Pupils equal. Conjunctiva normal. HEENT: External appearance of nose and ears normal, oral cavity grossly normal. NECK: JVD not raised; masses not palpable. HEART: First and second heart sounds are normal; no edema. LUNGS: Respiratory increased, decreased breath sounds. ABDOMEN: Soft, nontender, liver spleen not palpable, no masses palpable. PSYCH: Awake alert oriented diffusely weak MUSCULOSKELETAL:No Clubbing/cyanosis;muscles-grossly intact NEUROLOGICAL: Following commands Assessment and plan -Acute severe hypoxic hypercapnic respiratory failure from underlying COPD/CHF -Altered mental status hospital acquired delirium/acute metabolic and toxic encephalopathy likely exacerbated by steroid use -Bacterial pneumonia with sputum culture showing MSSA -Pulseless electrical activity/ episode of VTACH likely from respiratory failure and hypoxia; treated with IV amiodarone -Atrial fibrillation with rapid ventricular rate- -Acute severe COPD exacerbation in a current smoker -Probable acute GI bleed with multiple risk factors including stress ulcer from being intubated, steroids, and IV heparin, Resolved. -Type II OR; supply demand mismatch unable to fully rule out ischemic injury. -Frequent PVCs in bigeminal pattern -Acute kidney injury likely ATN from sepsis hypotension -Chronic nicotine dependence cigarette smoker -Chronic gout -Hypotensive shock-corrected; Received IV Levophed -Essential hypertension, uncontrolled -GERD, stress ulcer prophylaxis GI prophylaxis IV Protonix 40 twice daily DVT prophylaxis subcu heparin -Full code Plan Patient has been transitioned to oral amiodarone, oral Cardizem, oral Eliquis. Patient will be continued on cardiac telemetry he has been downgraded from the intensive care unit to the 3 S. unit currently pending a bed at this time Continue IV protonix and monitor for acute bleeding hemoglobin remains stable Continue with IV ceftriaxone, now on oral prednisone Nebulized Pulmicort. Perforomist. DuoNeb On BiPAP/nasal cannula support Norvasc 10 mg a day, Hydralazine 100 mg 4 times daily. with PRN hydralazine. Carvedilol will be changed to metoprolol Current recommendations for further cardiac evaluation outpatient. Repeat blood work in the AM Off IV fluids at this time Continue on seroquel twice a day Physical therapy and occupational therapy have been consulted recommending subacute rehab at this time. The impression and plan of care has been dictated by Rufina Fitzgerald Nurse Practitioner as directed. Dr. Kaleb MD I have performed a history and physical examination and medical decision making of this patient, discussed the same with the dictator, and agree with the dictators assessment and plan as written, documented as a scribe. Based on total visit time, I have performed more than 50% of this visit. Objective - Vital Signs Vital signs: Vital Signs Temp 98.2 F 03/21/24 08:00 Pulse 99 03/21/24 09:00 Resp 20 03/21/24 09:00 BP 105/87 03/21/24 09:00 Pulse Ox 96 03/21/24 09:00 FiO2 40 03/15/24 12:00 Intake & Output 03/20/24 03/21/24 03/21/24 18:59 06:59 18:59 Intake Total 405.000 344 272.944 Output Total 1025 860 100 Balance -620.000 -516 172.944 Weight 84.6 kg 87.6 kg Intake: IV 230 260 40 .9 kvo 230 260 40 Intake, IV Titration 175.000 84 232.944 Amount Diltiazem 125 mg In 125.000 84 Sodium Chloride 0.9% 100 ml @ 10 MG/HR 10 mls/hr IV .[id number] [facility] Rx#: [id number] Heparin Sod,Pork in 0.45% 232.944 NaCl 25,000 unit In 0.45 % NaCl 1 250ml.bag @ 12 UNITS/KG/HR 9.936 mls/hr IV .Q24H [facility] Rx#: [id number] cefTRIAXone 1 gm In 50 Sodium Chloride 0.9% 50 ml @ 100 mls/hr IVPB Q24HR [facility] Rx#:[id number] Output: Urine 1025 860 100 Other: Voiding Method Indwelling Catheter Indwelling Catheter Indwelling Catheter ABP, PAP, CO, CI - Last Documented Arterial Blood Pressure 142/56 - Labs CBC & Chem 7: 03/21/24 03:19 03/21/24 03:19 Labs: Abnormal Lab Results - Last 24 Hours (Table) 03/20/24 03/20/24 03/20/24 Range/Units 11:10 16:33 19:57 WBC (3.8-10.6) k/uL RBC (4.30-5.90) m/uL Hgb (13.0-17.5) gm/dL Hct (39.0-53.0) % Neutrophils # (1.3-7.7) k/uL Lymphocytes # (1.0-4.8) k/uL APTT (22.0-30.0) sec Sodium (137-145) mmol/L Chloride (98-107) mmol/L BUN (9-20) mg/dL Glucose (74-99) mg/dL POC Glucose (mg/dL) 120 H 149 H 158 H (70-110) mg/dL 03/21/24 03/21/24 03/21/24 Range/Units 03:19 03:19 03:19 WBC 12.0 H (3.8-10.6) k/uL RBC 3.94 L (4.30-5.90) m/uL Hgb 11.6 L (13.0-17.5) gm/dL Hct 36.2 L (39.0-53.0) % Neutrophils # 10.6 H (1.3-7.7) k/uL Lymphocytes # 0.6 L (1.0-4.8) k/uL APTT 51.8 H (22.0-30.0) sec Sodium 135 L (137-145) mmol/L Chloride 110 H (98-107) mmol/L BUN 52 H (9-20) mg/dL Glucose 119 H (74-99) mg/dL POC Glucose (mg/dL) (70-110) mg/dL Assessment and Plan Time with Patient: Less than 30
[2024-03-21] MEDS: DILTIAZEM ORAL 30 MG TAB PO SCH (15:45)
[2024-03-21] MEDS: APIXABAN 5 MG TAB PO SCH (15:45)
[2024-03-21 16:29] LABS: Glucose,Whole Blood 168 mg/dL (70-110)
[2024-03-21 20:16] LABS: Glucose,Whole Blood 247 mg/dL (70-110)
[2024-03-21] MEDS: METOPROLOL TARTRATE 50 MG TAB PO SCH (20:26)
[2024-03-21] MEDS: SYMBICORT 160-4.5 MCG INHALER INHALATION SCH (21:40)
[2024-03-22 05:23] LABS: Glucose,Whole Blood 101 mg/dL (70-110)
[2024-03-22 11:45] LABS: Glucose,Whole Blood 115 mg/dL (70-110)
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
[2024-03-22 16:36] LABS: Glucose,Whole Blood 134 mg/dL (70-110)
[2024-03-22 20:04] LABS: Glucose,Whole Blood 172 mg/dL (70-110)
--- NOTE | 2024-03-23 02:08 | P.PN ---
Subjective Progress Note Date: 03/22/24 Patient is evaluated today in follow-up in the intensive care unit. He remains on the mechanical ventilator currently intubated and sedated dated he has an FiO2 50 and a PEEP of 5. Patient initially presents to the hospital due to shortness of breath and was subsequently intubated. Patient remains hy pertensive with cardiology following closely and adjusting medications. Added hydralazine today. Patient remains on IV heparin will eventually need an ischemic workup. His ejection fraction was found to be 40 to 45%. He continues with enteral feedings. Chest x-ray today reveals small bilateral pleural effusions with adjacent compressive atelectasis right lung base. Blood cell count is 13.7, sodium 140, potassium 5.1, BUN of 61, creatinine of 1.44. Is on IV heparin, IV ceftriaxone, IV Solu-Medrol. IV Lasix was decreased to 40 mg daily. He is sedated with propofol and did not do well with his sedation holiday today. 03/12/2024 Patient is evaluated today and follow-up in the intensive care unit he remains on mechanical ventilator currently intubated and sedated with propofol. The l ast 2 days patient has not done well with his sedation holiday. Becomes significantly hypertensive. He was started on amlodipine as well as IV hydralazine as needed for improved blood pressure control. Cardiology is following this patient closely. He is on IV Lasix daily. Chest xray follow-up reveals small right and minimal left pleural effusion stable. There is compressive atelectasis of the right lung base. Remains on antibiotics for MSSA in sputum. Talked with patients daughter Korin over the phone who is the primary decision maker for the patient and for now would like to continue with all care and awaiting the brain CT results once completed. 03/13/2024 Patient is evaluated today in the ICU in follow up. Remains on the mechanical ventilator. Patient remains sedated with propofol is currently on a sedation holiday has spontaneous eye opening and reflexes, he has not been tracking eyes or responding to stimuli or commands. Patient chest xray today reveals small left pleural effusion, stable, resolving right lower lobe infiltrate. Brain CT done yesterday reveals no acute intracranial process. White blood cell count today 15.7, sodium 141, potassium 4.8, BUN 78, creatinine 1.49, glucose 145, magnesium 2.4. Continues on IV ceftriaxone. Remains on IV heparin. He is on IV solumedrol. 03/14/2024 Patient is evaluated today in the intensive care unit in follow-up. He is off the propofol and currently on Precedex and is currently on an assist-control with the ventilator. He does have spontaneous eye opening however he is not following commands at this time. He is on IV lasix daily. He is on IV solu- medrol. Patient is on IV ceftriaxone. Chest x-ray today shows mild right basilar atelectasis with minimal left right pleural effusion. White blood cell count today 17.4, sodium 141, BUN of 83, creatinine of 1.47. 03/15/2024 Patient is evaluated today resting in bed. Remains in the ICU. Patient currently has been extubated and is continued on BiPAP with FIO2 of 40%. He is more awake alert. His bowels are moving. He is on IV ceftriaxone. He is on precedex. He is on IV solumedrol. White blood cell count normalized 10.0, hgb 12.5. Sodium 143, potassium 4.5, BUN 83, creatinine 1.27. 03/16/2024 Patient is evaluated today resting in bed patient remains in the intensive care unit. Patient has been extubated aggressive extubated and currently weaned down to oxygen at 3 L nasal cannula. Mentation has significantly improved patient is currently alert and oriented x 2 at this time. Patient is asking for a drink of water. Diet has been advanced to dysphagia level 1. Monitor closely for any signs of aspiration and patient is currently pending a speech therapy evaluation. His bowels are moving. Patient remains on IV Solu-Medrol 40 mg every 12 hours additionally he is on IV Lasix 20 mg daily, remains on IV ceftriaxone. Currently Precedex has been discontinued. White blood cell count today is 17.6, sodium levels 147, BUN of 77, creatinine of 1.15, magnesium 2.4. Patient is and started on a dextrose drip for the hypernatremia. Patient will need to be evaluated physical therapy and Occupational Therapy. Plans for cardiac catheterization still remain on hold waiting for renal recovery. 03/17/2024 Patient is evaluated today in follow up. Remains in the ICU went into atrial fibrillation overnight and continues on IV cardizem and IV amiodarone, also IV heparin. Patient remains on 3 L of oxygen via nasal cannula. Patient has been agitated today and not sleeping well. He is asking to be discharged home today. He is alert x 2, but confused. Patient has been started on diet and tolerating. Labs today are showing a white blood cell count of 19.1, stable hemoglobin at 14.2, sodium 143, BUN of 75, creatinine of 0.98. Patient remains in atrial fibrillation with rapid ventricular rate currently running in the low 110s, his blood pressure is also decreased to 120 to low 90s. 03/18/2024 Patient remains in intensive care unit. He has been extubated and remains on 2 L of oxygen via nasal cannula. Patient is worsening agitation and confusion today. Patient is cussing and refusing to be evaluated. He is currently on 2 point soft restraints. He is asking to be discharged. Patient remains off IV Precedex and recommending to add a daily dose of Seroquel in addition to Seroquel at at bedtime. Patient remains on IV ceftriaxone. Patient is also on IV Cardizem and oral amiodarone he remains in atrial fibrillation with rapid ventricular rate. He is on IV heparin. Would recommend to decrease Solu-Medrol to 40 mg prednisone daily. 03/19/2024 Patient is evaluated today in the ICU. Patient remains on oxygen at 4L nasal cannula. Patients mentation is slightly improved today. He has been started on seroquel twice a day. On oral prednisone. Remains in atrial fibrillation with rapid ventricular rate. Patient is continued on IV cardizem and IV heparin. Patient has refused cardiac catheterization at this point although he remains confused with waxing and waning mentation. Cardiology has recommended outpatient work up when medically cleared and discharged. 03/20/2024 Patient is evaluated today in the intensive care unit. Patient appears less agitated today. He continues on Seroquel twice a day. Family at the bedside. Patient remains in atrial fibrillation with rapid ventricular rate continues on IV Cardizem as well as oral amiodarone. He remains on IV heparin. At this time cardiology has signed off and recommending medical management for his troponin elevation. Patient will be considered for cardiac catheterization on an outpatient basis. Patient continues on IV Lasix daily. Alcohol today is 12.5, hemoglobin 12.3, sodium 141, potassium 4.6, BUN 56, creatinine 1.17. 03/21/2024 Patient is evaluated today in intensive care unit patient has been downgraded to a cardiac stepdown unit. Patient does continue on Seroquel twice a day and has been less agitated. Patient remains significantly weak and will require rehab on discharge. Patient remains in atrial fibrillation with mostly controlled ventricular rate we will plan on weaning off the Cardizem drip today and transition to oral Cardizem. Additionally patient has been taken off of IV heparin and transition to oral Eliquis. Plan is for cardiac catheterization on an outpatient basis patient's not having any shortness of breath or chest disco mfort at this time. He has been tolerating diet. He was having issues with dysphagia postextubation continues on a ground diet with one-to-one supervision and aspiration precautions. Labs today reveal a white blood cell count of 12.0, hemoglobin 11.6, sodium 135, potassium 4.7, BUN of 52, creatinine 1.05. 03/22/2024 Patient is seen and evaluated in follow-up with pulmonary following closely and awaiting reevaluation from PT/OT therapy to determine discharge planning. Patient will likely require rehab for continued strength and mobility. Cardiology recommending outpatient follow-up for cardiac catheterization and recommending to continue with current regimen at this time. Continue with aspiration precautions and supervision with meals Review of Systems Constitutional: Denied any fatigue denied any fever. Cardio vascular: denied any chest pain, palpitations Gastrointestinal: denied any nausea, vomiting, diarrhea Pulmonary: Denied any worsening shortness of breath cough Neurologic denied any new focal deficits, reports of generalized weakness All inpatient medications were reviewed and appropriate changes in these medications as dictated in the interval history and assessment and plan. Physical examination: GENERAL: 73-year-old male who is awake, alert and oriented x 2, sitting up in the bed. He is on the 3 L of oxygen AO x 2. EYES: Pupils equal. Conjunctiva normal. HEENT: External appearance of nose and ears normal, oral cavity grossly normal. NECK: JVD not raised; masses not palpable. HEART: First and second heart sounds are normal; no edema. LUNGS: Diminished breath sounds bilaterally with some coarse rhonchi noted ABDOMEN: Soft, nontender, bowel sounds noted, no guarding or rigidity noted PSYCH: Awake, alert and oriented x 2, diffusely weak MUSCULOSKELETAL:No Clubbing/cyanosis;muscles-grossly intact NEUROLOGICAL: Following commands Assessment: -Acute severe hypoxic hypercapnic respiratory failure from underlying COPD/CHF -Altered mental status, hospital acquired delirium/acute metabolic and toxic encephalopathy likely exacerbated by steroid use -Bacterial pneumonia with sputum culture showing MSSA -Pulseless electrical activity/ episode of VTACH likely from respiratory failure and hypoxia; treated with IV amiodarone -Atrial fibrillation with rapid ventricular rate, currently rate controlled -Acute severe COPD exacerbation in a current smoker -Probable acute GI bleed with multiple risk factors including stress ulcer from being intubated, steroids, and IV heparin, Resolved. -Type II MD; supply demand mismatch unable to fully rule out ischemic injury. Per cardiology outpatient cardiac catheterization once more stable -Frequent PVCs in bigeminal pattern -Acute kidney injury likely ATN from sepsis hypotension, improving -Chronic nicotine dependence cigarette smoker -Chronic gout -Hypotensive shock-corrected; Received IV Levophed -Essential hypertension, uncontrolled -GERD, stress ulcer prophylaxis GI prophylaxis IV Protonix 40 twice daily DVT prophylaxis subcu heparin -Full code Plan: Patient has been transitioned to oral amiodarone, oral Cardizem, oral Eliquis. Cardiology recommending outpatient follow-up with cardiac catheterization Patient will be continued on cardiac telemetry Continue IV protonix and monitor for acute bleeding hemoglobin remains stable, no active bleeding noted Continue with IV ceftriaxone, now on oral prednisone Nebulized Pulmicort. Perforomist. DuoNeb On BiPAP/nasal cannula support, currently 3 L via nasal cannula Norvasc 10 mg a day, Hydralazine 100 mg 4 times daily. with PRN hydralazine. Carvedilol will be changed to metoprolol Current recommendations for further cardiac evaluation outpatient. Repeat blood work in the AM Continue on seroquel twice a day Physical therapy and occupational therapy have been consulted recommending subacute rehab at this time. Awaiting updated PT/OT therapy notes and further discussion with case management/social work regarding discharge planning. Patient has had prolonged hospitalization including mechanical ventilation with significant weakness and would benefit from ECF on discharge. Overall prognosis is guarded The impression and plan of care has been dictated by Antionette Sagastume, Nurse Practitioner as directed. Dr. Kaleb MD I have performed a history and physical examination and medical decision making of this patient, discussed the same with the dictator, and agree with the dictators assessment and plan as written, documented as a scribe. Based on total visit time, I have performed more than 50% of this visit. Objective - Vital Signs Vital signs: Vital Signs Temp 97.7 F 03/22/24 08:24 Pulse 98 03/22/24 08:30 Resp 20 03/22/24 08:30 BP 94/66 03/22/24 08:24 Pulse Ox 95 03/22/24 08:25 FiO2 40 03/15/24 12:00 Intake & Output 03/21/24 03/22/24 03/22/24 18:59 06:59 18:59 Intake Total 471.694 10 490 Output Total 850 500 Balance -378.306 -490 490 Weight 86 kg Intake: IV 200 10 10 .9 kvo 200 Invasive Line 7 10 10 Intake, IV Titration 271.694 Amount Heparin Sod,Pork in 0.45% 271.694 NaCl 25,000 unit In 0.45 % NaCl 1 250ml.bag @ 12 UNITS/KG/HR 9.936 mls/hr IV .Q24H [facility] Rx#: [id number] Oral 480 Output: Urine 850 500 Other: Voiding Method Indwelling Catheter Urinal Urinal ABP, PAP, CO, CI - Last Documented Arterial Blood Pressure 142/56 - Labs CBC & Chem 7: 03/21/24 03:19 03/21/24 03:19 Labs: Abnormal Lab Results - Last 24 Hours (Table) 03/21/24 03/21/24 03/21/24 Range/Units 11:30 16:28 20:09 POC Glucose (mg/dL) 139 H 168 H 247 H (70-110) mg/dL
[2024-03-23 05:15] LABS: Glucose,Whole Blood 103 mg/dL (70-110)
[2024-03-23 07:16] LABS: Basophils % (A) 0 %; Eosinophils # (A) 0.1 k/uL (0-0.7); Eosinophils % (A) 1 %; HCT 35.8 % (39.0-53.0); HGB 11.8 gm/dL (13.0-17.5); Lymphocytes # (A) 1.3 k/uL (1.0-4.8); Lymphocytes % (A) 7 %; MCH 30.1 pg (25.0-35.0); MCV 91.3 fL (80.0-100.0); Mean Platelet Volume 8.8; Monocytes # (A) 0.5 k/uL (0-1.0); Monocytes % (A) 3 %; Neutrophils # (A) 14.9 k/uL (1.3-7.7); Neutrophils % (A) 88 %; Platelet Count 229 k/uL (150-450); RBC 3.92 m/uL (4.30-5.90); RDW 14.5 % (11.5-15.5); WBC 16.9 k/uL (3.8-10.6)
[2024-03-23 07:27] LABS: African American GFR (CKD) 64 (>60 ml/min/1.73 sqM); Anion Gap 2 mmol/L; Blood Urea Nitrogen 51 mg/dL (9-20); Carbon Dioxide 25 mmol/L (22-30); Chloride 105 mmol/L (98-107); Glucose 96 mg/dL (74-99); Non-African American GFR(CKD) 55 (>60 ml/min/1.73 sqM); Sodium 132 mmol/L (137-145)
[2024-03-23 11:42] LABS: Glucose,Whole Blood 137 mg/dL (70-110)
--- NOTE | 2024-03-23 12:34 | P.PN ---
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 12 days. Time with Patient: Less than 30
[2024-03-23 12:54] LABS: Magnesium 1.7 mg/dL (1.6-2.3)
--- NOTE | 2024-03-23 14:34 | P.PN ---
Subjective Progress Note Date: 03/23/24 Patient is evaluated today in follow-up in the intensive care unit. He remains on the mechanical ventilator currently intubated and sedated dated he has an FiO2 50 and a PEEP of 5. Patient initially presents to the hospital due to shortness of breath and was subsequently intubated. Patient remains hyper tensive with cardiology following closely and adjusting medications. Added hydralazine today. Patient remains on IV heparin will eventually need an ischemic workup. His ejection fraction was found to be 40 to 45%. He continues with enteral feedings. Chest x-ray today reveals small bilateral pleural effusions with adjacent compressive atelectasis right lung base. Blood cell count is 13.7, sodium 140, potassium 5.1, BUN of 61, creatinine of 1.44. Is on IV heparin, IV ceftriaxone, IV Solu-Medrol. IV Lasix was decreased to 40 mg daily. He is sedated with propofol and did not do well with his sedation holiday today. 03/12/2024 Patient is evaluated today and follow-up in the intensive care unit he remains on mechanical ventilator currently intubated and sedated with propofol. The last 2 days patient has not done well with his sedation holiday. Becomes significantly hypertensive. He was started on amlodipine as well as IV hydralazine as needed for improved blood pressure control. Cardiology is following this patient closely. He is on IV Lasix daily. Chest xray follow-up reveals small right and minimal left pleural effusion stable. There is compressive atelectasis of the right lung base. Remains on antibiotics for MSSA in sputum. Talked with patients daughter Korin over the phone who is the primary decision maker for the patient and for now would like to continue with all care and awaiting the brain CT results once completed. 03/13/2024 Patient is evaluated today in the ICU in follow up. Remains on the mechanical ventilator. Patient remains sedated with propofol is currently on a sedation holiday has spontaneous eye opening and reflexes, he has not been tracking eyes or responding to stimuli or commands. Patient chest xray today reveals small left pleural effusion, stable, resolving right lower lobe infiltrate. Brain CT done yesterday reveals no acute intracranial process. White blood cell count today 15.7, sodium 141, potassium 4.8, BUN 78, creatinine 1.49, glucose 145, magnesium 2.4. Continues on IV ceftriaxone. Remains on IV heparin. He is on IV solumedrol. 03/14/2024 Patient is evaluated today in the intensive care unit in follow-up. He is off t he propofol and currently on Precedex and is currently on an assist-control with the ventilator. He does have spontaneous eye opening however he is not following commands at this time. He is on IV lasix daily. He is on IV solu- medrol. Patient is on IV ceftriaxone. Chest x-ray today shows mild right basilar atelectasis with minimal left right pleural effusion. White blood cell count today 17.4, sodium 141, BUN of 83, creatinine of 1.47. 03/15/2024 Patient is evaluated today resting in bed. Remains in the ICU. Patient currently has been extubated and is continued on BiPAP with FIO2 of 40%. He is more awake alert. His bowels are moving. He is on IV ceftriaxone. He is on precedex. He is on IV solumedrol. White blood cell count normalized 10.0, hgb 12.5. Sodium 143, potassium 4.5, BUN 83, creatinine 1.27. 03/16/2024 Patient is evaluated today resting in bed patient remains in the intensive care unit. Patient has been extubated aggressive extubated and currently weaned down to oxygen at 3 L nasal cannula. Mentation has significantly improved patient is currently alert and oriented x 2 at this time. Patient is asking for a drink of water. Diet has been advanced to dysphagia level 1. Monitor closely for any signs of aspiration and patient is currently pending a speech therapy evaluation. His bowels are moving. Patient remains on IV Solu-Medrol 40 mg every 12 hours additionally he is on IV Lasix 20 mg daily, remains on IV ceftriaxone. Currently Precedex has been discontinued. White blood cell count today is 17.6, sodium levels 147, BUN of 77, creatinine of 1.15, magnesium 2.4. Patient is and started on a dextrose drip for the hypernatremia. Patient will need to be evaluated physical therapy and Occupational Therapy. Plans for cardiac catheterization still remain on hold waiting for renal recovery. 03/17/2024 Patient is evaluated today in follow up. Remains in the ICU went into atrial fibrillation overnight and continues on IV cardizem and IV amiodarone, also IV heparin. Patient remains on 3 L of oxygen via nasal cannula. Patient has been agitated today and not sleeping well. He is asking to be discharged home today. He is alert x 2, but confused. Patient has been started on diet and tolerating. Labs today are showing a white blood cell count of 19.1, stable hemoglobin at 14.2, sodium 143, BUN of 75, creatinine of 0.98. Patient remains in atrial fibrillation with rapid ventricular rate currently running in the low 110s, his blood pressure is also decreased to 120 to low 90s. 03/18/2024 Patient remains in intensive care unit. He has been extubated and remains on 2 L of oxygen via nasal cannula. Patient is worsening agitation and confusion today. Patient is cussing and refusing to be evaluated. He is currently on 2 point soft restraints. He is asking to be discharged. Patient remains off IV Precedex and recommending to add a daily dose of Seroquel in addition to Seroquel at at bedtime. Patient remains on IV ceftriaxone. Patient is also on IV Cardizem and oral amiodarone he remains in atrial fibrillation with rapid ventricular rate. He is on IV heparin. Would recommend to decrease Solu-Medrol to 40 mg prednisone daily. 03/19/2024 Patient is evaluated today in the ICU. Patient remains on oxygen at 4L nasal cannula. Patients mentation is slightly improved today. He has been started on seroquel twice a day. On oral prednisone. Remains in atrial fibrillation with rapid ventricular rate. Patient is continued on IV cardizem and IV heparin. Patient has refused cardiac catheterization at this point although he remains c onfused with waxing and waning mentation. Cardiology has recommended outpatient work up when medically cleared and discharged. 03/20/2024 Patient is evaluated today in the intensive care unit. Patient appears less agitated today. He continues on Seroquel twice a day. Family at the bedside. Patient remains in atrial fibrillation with rapid ventricular rate continues on IV Cardizem as well as oral amiodarone. He remains on IV heparin. At this time cardiology has signed off and recommending medical management for his troponin elevation. Patient will be considered for cardiac catheterization on an outpatient basis. Patient continues on IV Lasix daily. Alcohol today is 12.5, hemoglobin 12.3, sodium 141, potassium 4.6, BUN 56, creatinine 1.17. 03/21/2024 Patient is evaluated today in intensive care unit patient has been downgraded to a cardiac stepdown unit. Patient does continue on Seroquel twice a day and has been less agitated. Patient remains significantly weak and will require rehab on discharge. Patient remains in atrial fibrillation with mostly controlled ventricular rate we will plan on weaning off the Cardizem drip today and transition to oral Cardizem. Additionally patient has been taken off of IV heparin and transition to oral Eliquis. Plan is for cardiac catheterization on an outpatient basis patient's not having any shortness of breath or chest discomfort at this time. He has been tolerating diet. He was having issues with dysphagia postextubation continues on a ground diet with one-to-one supervision and aspiration precautions. Labs today reveal a white blood cell count of 12.0, hemoglobin 11.6, sodium 135, potassium 4.7, BUN of 52, creatinine 1.05. 03/22/2024 Patient is seen and evaluated in follow-up with pulmonary following closely and awaiting reevaluation from PT/OT therapy to determine discharge planning. Patient will likely require rehab for continued strength and mobility. Cardiology recommending outpatient follow-up for cardiac catheterization and recommending to continue with current regimen at this time. Continue with asp iration precautions and supervision with meals 03/23/2024 Patient is evaluated in follow up on the medical floor. Patient more lethargic today than yesterday, resting in bed. Patient will need physical therapy on discharge. Has been continued on IV lasix daily for the last 10 days. Today sodium level 132, BUN is 51 and creatinine is 1.26. proBNP 6280. He continues to have lower extremity edema. He has been retaining urine. White blood cell count 16.9. 95% on 3L of oxygen. Review of Systems Constitutional: Denied any fatigue denied any fever. Cardio vascular: denied any chest pain, palpitations Gastrointestinal: denied any nausea, vomiting, diarrhea Pulmonary: Denied any worsening shortness of breath cough Neurologic denied any new focal deficits, reports of generalized weakness All inpatient medications were reviewed and appropriate changes in these medications as dictated in the interval history and assessment and plan. Physical examination: GENERAL: 73-year-old male who is awake, alert and oriented x 2, sitting up in the bed. He is on the 3 L of oxygen AO x 2. EYES: Pupils equal. Conjunctiva normal. HEENT: External appearance of nose and ears normal, oral cavity grossly normal. NECK: JVD not raised; masses not palpable. HEART: First and second heart sounds are normal; no edema. LUNGS: Diminished breath sounds bilaterally with some coarse rhonchi noted ABDOMEN: Soft, nontender, bowel sounds noted, no guarding or rigidity noted PSYCH: Awake, alert and oriented x 2, diffusely weak MUSCULOSKELETAL:No Clubbing/cyanosis;muscles-grossly intact patient has +1 ankle edema. NEUROLOGICAL: Following commands Assessment: -Acute severe hypoxic hypercapnic respiratory failure from underlying COPD/CHF -Altered mental status, hospital acquired delirium/acute metabolic and toxic encephalopathy likely exacerbated by steroid use -Bacterial pneumonia with sputum culture showing MSSA -Pulseless electrical activity/ episode of VTACH likely from respiratory failure and hypoxia; treated with IV amiodarone -Atrial fibrillation with rapid ventricular rate, currently rate controlled -Acute severe COPD exacerbation in a current smoker -Probable acute GI bleed with multiple risk factors including stress ulcer from being intubated, steroids, and IV heparin, Resolved. -Type II NH; supply demand mismatch unable to fully rule out ischemic injury. Per cardiology outpatient cardiac catheterization once more stable -Acute systolic heart failure -Urinary retention requiring indwelling hays catheter. -Frequent PVCs in bigeminal pattern -Acute kidney injury likely ATN from sepsis hypotension, improving -Chronic nicotine dependence cigarette smoker -Chronic gout -Hypotensive shock-corrected; Received IV Levophed -Essential hypertension, uncontrolled -GERD, stress ulcer prophylaxis GI prophylaxis IV Protonix 40 twice daily DVT prophylaxis subcu heparin -Full code Plan: Patient has been transitioned to oral amiodarone, oral Cardizem, oral Eliquis. Cardiology recommending outpatient follow-up with cardiac catheterization Patient will be continued on cardiac telemetry Continue IV protonix and monitor for acute bleeding hemoglobin remains stable, no active bleeding noted Continue with IV ceftriaxone, now on oral prednisone Continue on IV lasix increased to twice a day proBNP remains elevated and patient continues with lower extremity edema. Nebulized Pulmicort. Perforomist. DuoNeb On BiPAP/nasal cannula support, currently 3 L via nasal cannula Norvasc 10 mg a day, Hydralazine 100 mg 4 times daily. Remains on oral metoprolol 100 mg BID. Current recommendations for further cardiac evaluation outpatient. Repeat blood work in the AM Continue on seroquel twice a day Physical therapy and occupational therapy have been consulted recommending subacute rehab at this time. Awaiting updated PT/OT therapy notes and further discussion with case management/social work regarding discharge planning. Patient has had prolonged hospitalization including mechanical ventilation with significant weakness and would benefit from ECF on discharge. Overall prognosis is guarded The impression and plan of care has been dictated by Nurse Kumar Prac titioner as directed. Dr. Kaleb MD I have performed a history and physical examination and medical decision making of this patient, discussed the same with the dictator, and agree with the dictators assessment and plan as written, documented as a scribe. Based on total visit time, I have performed more than 50% of this visit. Objective - Vital Signs Vital signs: Vital Signs Temp 97.5 F L 03/23/24 08:00 Pulse 94 03/23/24 09:05 Resp 18 03/23/24 08:00 BP 133/70 03/23/24 08:00 Pulse Ox 99 03/23/24 09:05 FiO2 40 03/15/24 12:00 Intake & Output 03/22/24 03/23/24 03/23/24 18:59 06:59 18:59 Intake Total 860 10 70 Output Total 600 400 Balance 260 -390 70 Weight 86 kg 86.5 kg Intake: IV 20 10 10 Invasive Line 7 20 10 10 Oral 840 60 Output: Urine 600 400 Straight 600 400 Other: Voiding Method Urinal Urinal Urinal # Voids 1 0 # Bowel Movements 0 ABP, PAP, CO, CI - Last Documented Arterial Blood Pressure 142/56 - Labs CBC & Chem 7: 03/23/24 06:55 03/23/24 06:55 Labs: Abnormal Lab Results - Last 24 Hours (Table) 03/22/24 03/22/24 03/22/24 Range/Units 11:42 16:28 20:03 WBC (3.8-10.6) k/uL RBC (4.30-5.90) m/uL Hgb (13.0-17.5) gm/dL Hct (39.0-53.0) % Neutrophils # (1.3-7.7) k/uL Sodium (137-145) mmol/L BUN (9-20) mg/dL Creatinine (0.66-1.25) mg/dL POC Glucose (mg/dL) 115 H 134 H 172 H (70-110) mg/dL 03/23/24 03/23/24 Range/Units 06:55 06:55 WBC 16.9 H (3.8-10.6) k/uL RBC 3.92 L (4.30-5.90) m/uL Hgb 11.8 L (13.0-17.5) gm/dL Hct 35.8 L (39.0-53.0) % Neutrophils # 14.9 H (1.3-7.7) k/uL Sodium 132 L (137-145) mmol/L BUN 51 H (9-20) mg/dL Creatinine 1.26 H (0.66-1.25) mg/dL POC Glucose (mg/dL) (70-110) mg/dL Assessment and Plan Time with Patient: Less than 30
[2024-03-23 16:24] LABS: Glucose,Whole Blood 147 mg/dL (70-110)
[2024-03-23 17:30] LABS: Appearance,Urine Cloudy (Clear); Bacteria,Urine Rare /hpf; Bilirubin,Urine Negative (Negative); Blood,Urine Moderate (Negative); Color,Urine Yellow; Glucose,Urine (UA) Negative (Negative); Hyaline Casts,Urine 3 /lpf (0-2); Ketones,Urine Negative (Negative); Leukocyte Esterase,Urine Large (Negative); Mucus,Urine Rare /hpf; Nitrite,Urine Negative (Negative); Protein,Urine Trace (Negative); RBC,Urine 103 /hpf (0-5); Specific Gravity,Urine 1.018 (1.001-1.035); Squamous Epithelial Cell,Urine <1 /hpf (0-4); Urobilinogen,Urine <2.0 mg/dL (<2.0); WBC,Urine 46 /hpf (0-5)
[2024-03-23 19:54] LABS: Glucose,Whole Blood 216 mg/dL (70-110)
[2024-03-23] MEDS: FUROSEMIDE 10 MG/ML 2 ML VIAL IV SCH (20:49)
[2024-03-24 05:16] LABS: Glucose,Whole Blood 147 mg/dL (70-110)
[2024-03-24 05:47] LABS: Basophils % (A) 0 %; Eosinophils # (A) 0.1 k/uL (0-0.7); Eosinophils % (A) 1 %; HCT 34.1 % (39.0-53.0); HGB 11.2 gm/dL (13.0-17.5); Lymphocytes # (A) 1.2 k/uL (1.0-4.8); Lymphocytes % (A) 6 %; MCH 29.7 pg (25.0-35.0); MCHC 32.8 g/dL (31.0-37.0); MCV 90.5 fL (80.0-100.0); Mean Platelet Volume 8.5; Monocytes # (A) 0.7 k/uL (0-1.0); Monocytes % (A) 4 %; Neutrophils # (A) 17.1 k/uL (1.3-7.7); Neutrophils % (A) 89 %; Platelet Count 232 k/uL (150-450); RBC 3.77 m/uL (4.30-5.90); RDW 14.4 % (11.5-15.5); WBC 19.3 k/uL (3.8-10.6)
[2024-03-24 06:02] LABS: African American GFR (CKD) 60 (>60 ml/min/1.73 sqM); Anion Gap 5 mmol/L; Blood Urea Nitrogen 54 mg/dL (9-20); Calcium 9.1 mg/dL (8.4-10.2); Carbon Dioxide 22 mmol/L (22-30); Chloride 104 mmol/L (98-107); Glucose 100 mg/dL (74-99); Non-African American GFR(CKD) 52 (>60 ml/min/1.73 sqM); Sodium 131 mmol/L (137-145)
--- NOTE | 2024-03-24 07:05 | P.PN ---
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 appears to be doing a bit better. He continues on oxygen at 4 L. He is still in atrial fibrillation with a controlled rate. His heart rates less than 100 bpm. He continues on Cardizem 10 mg/h, as well as saline at 10 cc an hour, and IV heparin. Apparently according to the nurses, the plans are not to send him for cardiac catheterization. The budesonide and formoterol changed to Symbicort 160/4.5, 2 puffs twice a day. After his next dose of Rocephin, will stop the antibiotic. He is a candidate for the 3 S. floor, although apparently no beds are currently available. Plan dated 03/22/2024. The patient appears to be doing relatively well. He denies any chest pain or p ressure. His oxygen requirements have come down 1 L from 4 to 3. In addition,the patient denies any respiratory issues including shortness of breath, cough, wheezing, chest tightness, or phlegm production. Labs, x-rays, and medications are reviewed. Yesterday, we changed budesonide and formoterol to Symbicort. The time being, the patient will be managed medically, heart catheterization. We will continue to follow make recommendations along the way. His antibiotic was discontinued after the last dose yesterday. Plan dated March 23, 2024. The patient appears to be doing relatively well. He denies any chest pain or pressure. He denies any shortness of breath, cough, wheezing, chest tightness, or phlegm production. 3 L saturation in the mid to high 90s. Labs, x-rays, and medications are reviewed. We will continue to follow. Prognosis is guarded. The patient continues on Symbicort, and updrafts. In addition, the patient is on prednisone 40 mg a day. That could be tapered over the next 10 to 12 days. Plan dated March 24, 2024. The patient is seen today in room 363. He appears to be doing much better. He is only on 3 L of oxygen. He is not receiving any IV fluids. Labs, x-rays, and all medications are reviewed. We will continue to follow until discharge. The patient is currently on prednisone, with a taper, Symbicort, and updrafts. No antibiotics. Prognosis is guarded. Time with Patient: Less than 30
[2024-03-24 11:27] LABS: Glucose,Whole Blood 136 mg/dL (70-110)
--- NOTE | 2024-03-24 11:56 | P.PN ---
Subjective Progress Note Date: 03/24/24 Patient seen in follow-up for DANIEL. Re-evaluation requested today due to mildly worsening kidney funciton. Initially DANIEL resolved with creatinine 1.0-1.2, now 1.3 today. Noted urinary retention yesterday after Maher removed and Maher was replaced. Patient denies any complaints today and is poor historian. Vital signs are stable. General: No acute distress. HEENT: On nasal cannula. LUNGS: No audible rhonchi or wheezes. HEART: Rate and Rhythm are regular. ABDOMEN: Nontender. EXTREMITITES: Trace edema. Objective - Vital Signs Vital signs: Vital Signs Temp 98.1 F 03/24/24 08:45 Pulse 86 03/24/24 11:51 Resp 16 03/24/24 08:46 BP 125/69 03/24/24 08:45 Pulse Ox 96 03/24/24 08:45 FiO2 40 03/15/24 12:00 Intake & Output 03/23/24 03/24/24 03/24/24 18:59 06:59 18:59 Intake Total 670 10 10 Output Total 750 750 175 Balance -80 -740 -165 Weight 84 kg Intake: IV 10 10 10 Invasive Line 7 10 10 10 Oral 660 Output: Urine 750 750 175 Other: Voiding Method Indwelling Catheter Indwelling Catheter Indwelling Catheter ABP, PAP, CO, CI - Last Documented Arterial Blood Pressure 142/56 - Labs CBC & Chem 7: 03/24/24 05:24 03/24/24 05:24 Labs: Abnormal Lab Results - Last 24 Hours (Table) 03/23/24 03/23/24 03/23/24 Range/Units 16:23 17:00 19:51 WBC (3.8-10.6) k/uL RBC (4.30-5.90) m/uL Hgb (13.0-17.5) gm/dL Hct (39.0-53.0) % Neutrophils # (1.3-7.7) k/uL Sodium (137-145) mmol/L BUN (9-20) mg/dL Creatinine (0.66-1.25) mg/dL Glucose (74-99) mg/dL POC Glucose (mg/dL) 147 H 216 H (70-110) mg/dL Urine Protein Trace H (Negative) Urine Blood Moderate H (Negative) Ur Leukocyte Esterase Large H (Negative) Urine RBC 103 H (0-5) /hpf Urine WBC 46 H (0-5) /hpf Urine WBC Clumps Few H (None) /hpf Urine Bacteria Rare H (None) /hpf Hyaline Casts 3 H (0-2) /lpf Urine Mucus Rare H (None) /hpf 03/24/24 03/24/24 03/24/24 Range/Units 05:12 05:24 05:24 WBC 19.3 H (3.8-10.6) k/uL RBC 3.77 L (4.30-5.90) m/uL Hgb 11.2 L (13.0-17.5) gm/dL Hct 34.1 L (39.0-53.0) % Neutrophils # 17.1 H (1.3-7.7) k/uL Sodium 131 L (137-145) mmol/L BUN 54 H (9-20) mg/dL Creatinine 1.34 H (0.66-1.25) mg/dL Glucose 100 H (74-99) mg/dL POC Glucose (mg/dL) 147 H (70-110) mg/dL Urine Protein (Negative) Urine Blood (Negative) Ur Leukocyte Esterase (Negative) Urine RBC (0-5) /hpf Urine WBC (0-5) /hpf Urine WBC Clumps (None) /hpf Urine Bacteria (None) /hpf Hyaline Casts (0-2) /lpf Urine Mucus (None) /hpf 03/24/24 Range/Units 11:25 WBC (3.8-10.6) k/uL RBC (4.30-5.90) m/uL Hgb (13.0-17.5) gm/dL Hct (39.0-53.0) % Neutrophils # (1.3-7.7) k/uL Sodium (137-145) mmol/L BUN (9-20) mg/dL Creatinine (0.66-1.25) mg/dL Glucose (74-99) mg/dL POC Glucose (mg/dL) 136 H (70-110) mg/dL Urine Protein (Negative) Urine Blood (Negative) Ur Leukocyte Esterase (Negative) Urine RBC (0-5) /hpf Urine WBC (0-5) /hpf Urine WBC Clumps (None) /hpf Urine Bacteria (None) /hpf Hyaline Casts (0-2) /lpf Urine Mucus (None) /hpf Assessment and Plan Assessment: 1. Acute kidney injury initially secondary to ATN secondary to cardiac arrest and rhabdomyolysis. Renal funciton resolved to 1.0, now up to 1.3 likely rela walter to diuresis and urinary retention. UA showed +hyaline casts with some blood and RBC with possible infection. 2. Status postcardiac arrest. 3. Rhabdomyolysis status postcardiac arrest. Improved. 4. Chronic kidney disease stage IIIa with creatinine 1.54 dated July 25, 2016. 5. Hypernatremia from lack of oral water intake and free water diuresis. Better. 6. Hypertension with chronic kidney disease. Stable. 7. Acute systolic CHF ejection fraction of 45 to 50%. 8. A-fib with RVR maintained on Cardizem drip. Plan: Given Lasix IV 20mg daily, consider holding tomorrow. Maher replaced yesterday after noted UR Continue strict I/O's Daily BMP
[2024-03-24] MEDS: SENNOSIDES-DOCUSATE SODIUM 1 EACH TAB PO SCH (12:40)
--- NOTE | 2024-03-24 13:59 | XR ---
EXAMINATION TYPE: XR chest 2V DATE OF EXAM: 03/24/2024 1:31 PM CLINICAL INDICATION:Male, 73 years old with history of elevated WBC; [facility] COMPARISON: Chest radiographs from 03/15/2024. TECHNIQUE: XR chest 2V Frontal view of the chest. FINDINGS: Lungs/Pleura: Blunting of the posterior costophrenic angle on lateral view with increased airspace op acities. There is an elevated right diaphragm. No evidence or pneumothorax. No left pleural effusion. Pulmonary vascularity: Unremarkable. Heart/mediastinum: Cardiomediastinal silhouette is unremarkable. Musculoskeletal: No acute osseous pathology. IMPRESSION: Airspace opacities with possible right pleural effusion.
[2024-03-24 16:37] LABS: Glucose,Whole Blood 166 mg/dL (70-110)
--- NOTE | 2024-03-24 18:54 | P.PN ---
Subjective Progress Note Date: 03/24/24 (]) Patient is evaluated today in follow-up in the intensive care unit. He remains on the mechanical ventilator currently intubated and sedated dated he has an FiO2 50 and a PEEP of 5. Patient initially presents to the hospital due to shortness of breath and was subsequently intubated. Patient remains h ypertensive with cardiology following closely and adjusting medications. Added hydralazine today. Patient remains on IV heparin will eventually need an ischemic workup. His ejection fraction was found to be 40 to 45%. He continues with enteral feedings. Chest x-ray today reveals small bilateral pleural effusions with adjacent compressive atelectasis right lung base. Blood cell count is 13.7, sodium 140, potassium 5.1, BUN of 61, creatinine of 1.44. Is on IV heparin, IV ceftriaxone, IV Solu-Medrol. IV Lasix was decreased to 40 mg daily. He is sedated with propofol and did not do well with his sedation holiday today. 03/12/2024 Patient is evaluated today and follow-up in the intensive care unit he remains on mechanical ventilator currently intubated and sedated with propofol. The last 2 days patient has not done well with his sedation holiday. Becomes significantly hypertensive. He was started on amlodipine as well as IV hydralazine as needed for improved blood pressure control. Cardiology is following this patient closely. He is on IV Lasix daily. Chest xray follow-up reveals small right and minimal left pleural effusion stable. There is compressive atelectasis of the right lung base. Remains on antibiotics for MSSA in sputum. Talked with patients daughter Korin over the phone who is the primary decision maker for the patient and for now would like to continue with all care and awaiting the brain CT results once completed. 03/13/2024 Patient is evaluated today in the ICU in follow up. Remains on the mechanical ventilator. Patient remains sedated with propofol is currently on a sedation holiday has spontaneous eye opening and reflexes, he has not been tracking eyes or responding to stimuli or commands. Patient chest xray today reveals small left pleural effusion, stable, resolving right lower lobe infiltrate. Brain CT done yesterday reveals no acute intracranial process. White blood cell count today 15.7, sodium 141, potassium 4.8, BUN 78, creatinine 1.49, glucose 145, magnesium 2.4. Continues on IV ceftriaxone. Remains on IV heparin. He is on IV s olumedrol. 03/14/2024 Patient is evaluated today in the intensive care unit in follow-up. He is off the propofol and currently on Precedex and is currently on an assist-control with the ventilator. He does have spontaneous eye opening however he is not following commands at this time. He is on IV lasix daily. He is on IV solu- medrol. Patient is on IV ceftriaxone. Chest x-ray today shows mild right basilar atelectasis with minimal left right pleural effusion. White blood cell count today 17.4, sodium 141, BUN of 83, creatinine of 1.47. 03/15/2024 Patient is evaluated today resting in bed. Remains in the ICU. Patient currently has been extubated and is continued on BiPAP with FIO2 of 40%. He is more awake alert. His bowels are moving. He is on IV ceftriaxone. He is on precedex. He is on IV solumedrol. White blood cell count normalized 10.0, hgb 12.5. Sodium 143, potassium 4.5, BUN 83, creatinine 1.27. 03/16/2024 Patient is evaluated today resting in bed patient remains in the intensive care unit. Patient has been extubated aggressive extubated and currently weaned down to oxygen at 3 L nasal cannula. Mentation has significantly improved patient is currently alert and oriented x 2 at this time. Patient is asking for a drink of water. Diet has been advanced to dysphagia level 1. Monitor closely for any signs of aspiration and patient is currently pending a speech therapy evaluation. His bowels are moving. Patient remains on IV Solu-Medrol 40 mg every 12 hours additionally he is on IV Lasix 20 mg daily, remains on IV ceftriaxone. Currently Precedex has been discontinued. White blood cell count today is 17.6, sodium levels 147, BUN of 77, creatinine of 1.15, magnesium 2.4. Patient is and started on a dextrose drip for the hypernatremia. Patient will need to be evaluated physical therapy and Occupational Therapy. Plans for cardiac catheterization still remain on hold waiting for renal recovery. 03/17/2024 Patient is evaluated today in follow up. Remains in the ICU went into atrial fibrillation overnight and continues on IV cardizem and IV amiodarone, also IV heparin. Patient remains on 3 L of oxygen via nasal cannula. Patient has been agitated today and not sleeping well. He is asking to be discharged home today. He is alert x 2, but confused. Patient has been started on diet and tolerating. Labs today are showing a white blood cell count of 19.1, stable hemoglobin at 14.2, sodium 143, BUN of 75, creatinine of 0.98. Patient remains in atrial fibrillation with rapid ventricular rate currently running in the low 110s, his blood pressure is also decreased to 120 to low 90s. 03/18/2024 Patient remains in intensive care unit. He has been extubated and remains on 2 L of oxygen via nasal cannula. Patient is worsening agitation and confusion today. Patient is cussing and refusing to be evaluated. He is currently on 2 point soft restraints. He is asking to be discharged. Patient remains off IV Precedex and recommending to add a daily dose of Seroquel in addition to Seroquel at at bedtime. Patient remains on IV ceftriaxone. Patient is also on IV Cardizem and oral amiodarone he remains in atrial fibrillation with rapid ventricular rate. He is on IV heparin. Would recommend to decrease Solu-Medrol to 40 mg prednisone daily. 03/19/2024 Patient is evaluated today in the ICU. Patient remains on oxygen at 4L nasal cannula. Patients mentation is slightly improved today. He has been started on seroquel twice a day. On oral prednisone. Remains in atrial fibrillation with rapid ventricular rate. Patient is continued on IV cardizem and IV heparin. Patient has refused cardiac catheterization at this point although he remains confused with waxing and waning mentation. Cardiology has recommended outpatient work up when medically cleared and discharged. 03/20/2024 Patient is evaluated today in the intensive care unit. Patient appears less agitated today. He continues on Seroquel twice a day. Family at the bedside. Patient remains in atrial fibrillation with rapid ventricular rate continues on IV Cardizem as well as oral amiodarone. He remains on IV heparin. At this time cardiology has signed off and recommending medical management for his troponin elevation. Patient will be considered for cardiac catheterization on an outpatient basis. Patient continues on IV Lasix daily. Alcohol today is 12.5, hemoglobin 12.3, sodium 141, potassium 4.6, BUN 56, creatinine 1.17. 03/21/2024 Patient is evaluated today in intensive care unit patient has been downgraded to a cardiac stepdown unit. Patient does continue on Seroquel twice a day and has been less agitated. Patient remains significantly weak and will require rehab on discharge. Patient remains in atrial fibrillation with mostly controlled ventricular rate we will plan on weaning off the Cardizem drip today and transition to oral Cardizem. Additionally patient has been taken off of IV heparin and transition to oral Eliquis. Plan is for cardiac catheterization on an outpatient basis patient's not having any shortness of breath or chest disc omfort at this time. He has been tolerating diet. He was having issues with dysphagia postextubation continues on a ground diet with one-to-one supervision and aspiration precautions. Labs today reveal a white blood cell count of 12.0, hemoglobin 11.6, sodium 135, potassium 4.7, BUN of 52, creatinine 1.05. 03/22/2024 Patient is seen and evaluated in follow-up with pulmonary following closely and awaiting reevaluation from PT/OT therapy to determine discharge planning. Patient will likely require rehab for continued strength and mobility. Cardiology recommending outpatient follow-up for cardiac catheterization and recommending to continue with current regimen at this time. Continue with aspiration precautions and supervision with meals 03/23/2024 Patient is evaluated in follow up on the medical floor. Patient more lethargic today than yesterday, resting in bed. Patient will need physical therapy on discharge. Has been continued on IV lasix daily for the last 10 days. Today sodium level 132, BUN is 51 and creatinine is 1.26. proBNP 6280. He continues to have lower extremity edema. He has been retaining urine. White blood cell count 16.9. 95% on 3L of oxygen. 03/24/2024 Patient evaluated in follow up on the medical floor. Resting in bed. Has had cough with sputum. White blood cell count up to 19. Patient has urinary catheter in place now. BNP was elevated at 6000, IV lasix was increased to BID although patient had worsening renal function and sodium level 131. Chest xray reveals a possible right pleural effusion. Review of Systems Constitutional: Denied any fatigue denied any fever. Cardio vascular: denied any chest pain, palpitations Gastrointestinal: denied any nausea, vomiting, diarrhea Pulmonary: Denied any worsening shortness of breath cough Neurologic denied any new focal deficits, reports of generalized weakness All inpatient medications were reviewed and appropriate changes in these medications as dictated in the interval history and assessment and plan. Physical examination: GENERAL: 73-year-old male who is awake, alert and oriented x 2, sitting up in the bed. He is on the 3 L of oxygen AO x 2. EYES: Pupils equal. Conjunctiva normal. HEENT: External appearance of nose and ears normal, oral cavity grossly normal. NECK: JVD not raised; masses not palpable. HEART: First and second heart sounds are normal; no edema. LUNGS: Diminished breath sounds bilaterally with some coarse rhonchi noted ABDOMEN: Soft, nontender, bowel sounds noted, no guarding or rigidity noted PSYCH: Awake, alert and oriented x 2, diffusely weak MUSCULOSKELETAL:No Clubbing/cyanosis;muscles-grossly intact patient has +1 ankle edema. NEUROLOGICAL: Following commands Assessment: -Acute severe hypoxic hypercapnic respiratory failure from underlying COPD/CHF -Altered mental status, hospital acquired delirium/acute metabolic and toxic encephalopathy likely exacerbated by steroid use -Bacterial pneumonia with sputum culture showing MSSA -Pulseless electrical activity/ episode of VTACH likely from respiratory failure and hypoxia; treated with IV amiodarone -Atrial fibrillation with rapid ventricular rate, currently rate controlled -Acute severe COPD exacerbation in a current smoker -Probable acute GI bleed with multiple risk factors including stress ulcer from being intubated, steroids, and IV heparin, Resolved. -Type II IN; supply demand mismatch unable to fully rule out ischemic injury. Per cardiology outpatient cardiac catheterization once more stable -Acute systolic heart failure -Urinary retention requiring indwelling hays catheter. -Frequent PVCs in bigeminal pattern -Acute kidney injury likely ATN from sepsis hypotension, improving -Chronic nicotine dependence cigarette smoker -Chronic gout -Hypotensive shock-corrected; Received IV Levophed -Essential hypertension, uncontrolled -GERD, stress ulcer prophylaxis GI prophylaxis IV Protonix 40 twice daily DVT prophylaxis subcu heparin -Full code Plan: Patient has been transitioned to oral amiodarone, oral Cardizem, oral Eliquis. Cardiology recommending outpatient follow-up with cardiac catheterization Patient will be continued on cardiac telemetry Continue IV protonix and monitor for acute bleeding hemoglobin remains stable, no active bleeding noted Continue with IV ceftriaxone, now on oral prednisone Lasix has been discontinued at this time secondary to worsening renal function. Nephrology following. Nebulized Pulmicort. Perforomist. Neliab On BiPAP/nasal cannula support, currently 3 L via nasal cannula Norvasc 10 mg a day, Hydralazine 100 mg 4 times daily. Remains on oral metoprolol 100 mg BID. Current recommendations for further cardiac evaluation outpatient. Repeat blood work in the AM Continue on seroquel twice a day Physical therapy and occupational therapy have been consulted recommending subacute rehab at this time. Awaiting updated PT/OT therapy notes and further discussion with case management/social work regarding discharge planning. Rebecca ent has had prolonged hospitalization including mechanical ventilation with significant weakness and would benefit from ECF on discharge. Repeat blood work in the morning. Overall prognosis is guarded The impression and plan of care has been dictated by Rufina Fitzgerald, Nurse Practitioner as directed. Dr. Kaleb MD I have performed a history and physical examination and medical decision making of this patient, discussed the same with the dictator, and agree with the dictators assessment and plan as written, documented as a scribe. Based on total visit time, I have performed more than 50% of this visit. Objective - Vital Signs Vital signs: Vital Signs Temp 97.6 F 03/24/24 16:00 Pulse 78 03/24/24 16:17 Resp 16 03/24/24 16:00 BP 121/71 03/24/24 16:00 Pulse Ox 97 03/24/24 16:00 FiO2 40 03/15/24 12:00 Intake & Output 03/23/24 03/24/24 03/24/24 18:59 06:59 18:59 Intake Total 670 10 364 Output Total 750 750 775 Balance -80 -740 -411 Weight 84 kg Intake: IV 10 10 10 Invasive Line 7 10 10 10 Oral 660 354 Output: Urine 750 750 775 Other: Voiding Method Indwelling Catheter Indwelling Catheter Indwelling Catheter ABP, PAP, CO, CI - Last Documented Arterial Blood Pressure 142/56 - Labs CBC & Chem 7: 03/24/24 05:24 03/24/24 05:24 Labs: Abnormal Lab Results - Last 24 Hours (Table) 03/23/24 03/24/24 03/24/24 Range/Units 19:51 05:12 05:24 WBC 19.3 H (3.8-10.6) k/uL RBC 3.77 L (4.30-5.90) m/uL Hgb 11.2 L (13.0-17.5) gm/dL Hct 34.1 L (39.0-53.0) % Neutrophils # 17.1 H (1.3-7.7) k/uL Sodium (137-145) mmol/L BUN (9-20) mg/dL Creatinine (0.66-1.25) mg/dL Glucose (74-99) mg/dL POC Glucose (mg/dL) 216 H 147 H (70-110) mg/dL 03/24/24 03/24/24 03/24/24 Range/Units 05:24 11:25 16:35 WBC (3.8-10.6) k/uL RBC (4.30-5.90) m/uL Hgb (13.0-17.5) gm/dL Hct (39.0-53.0) % Neutrophils # (1.3-7.7) k/uL Sodium 131 L (137-145) mmol/L BUN 54 H (9-20) mg/dL Creatinine 1.34 H (0.66-1.25) mg/dL Glucose 100 H (74-99) mg/dL POC Glucose (mg/dL) 136 H 166 H (70-110) mg/dL Assessment and Plan Time with Patient: Less than 30
[2024-03-24 20:07] LABS: Glucose,Whole Blood 243 mg/dL (70-110)
[2024-03-25 05:54] LABS: Glucose,Whole Blood 116 mg/dL (70-110)
[2024-03-25 07:47] LABS: African American GFR (CKD) 60 (>60 ml/min/1.73 sqM); Anion Gap 3 mmol/L; Blood Urea Nitrogen 55 mg/dL (9-20); Calcium 9.1 mg/dL (8.4-10.2); Carbon Dioxide 27 mmol/L (22-30); Chloride 103 mmol/L (98-107); Glucose 97 mg/dL (74-99); Magnesium 1.7 mg/dL (1.6-2.3); Non-African American GFR(CKD) 52 (>60 ml/min/1.73 sqM); Potassium 5.1 mmol/L (3.5-5.1); Sodium 133 mmol/L (137-145)
[2024-03-25 08:00] LABS: Basophils % (A) 0 %; Eosinophils % (A) 0 %; HCT 35.5 % (39.0-53.0); HGB 11.5 gm/dL (13.0-17.5); Lymphocytes # (A) 1.2 k/uL (1.0-4.8); Lymphocytes % (A) 7 %; MCH 29.5 pg (25.0-35.0); MCHC 32.5 g/dL (31.0-37.0); MCV 90.9 fL (80.0-100.0); Mean Platelet Volume 8.6; Monocytes # (A) 0.6 k/uL (0-1.0); Monocytes % (A) 3 %; Neutrophils # (A) 15.1 k/uL (1.3-7.7); Neutrophils % (A) 89 %; Platelet Count 263 k/uL (150-450); RDW 14.4 % (11.5-15.5)
[2024-03-25] MEDS ORDERED: Magnesium Replacement Protocol 1 EACH MISC MISCELLANE PRN (10:08)
[2024-03-25] MEDS: MAGNESIUM SULFATE-D5W PMX 1 GM in DEXTROSE/WATER 1 100ML.BAG IVPB ONE (10:47)
--- NOTE | 2024-03-25 11:32 | P.PN ---
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 dated 03/22/2024. The patient appears to be doing relatively well. He denies any chest pain or pressure. His oxygen requirements have come down 1 L from 4 to 3. In a ddition,the patient denies any respiratory issues including shortness of breath, cough, wheezing, chest tightness, or phlegm production. Labs, x-rays, and medications are reviewed. Yesterday, we changed budesonide and formoterol to Symbicort. The time being, the patient will be managed medically, heart catheterization. We will continue to follow make recommendations along the way. His antibiotic was discontinued after the last dose yesterday. Plan dated March 23, 2024. The patient appears to be doing relatively well. He denies any chest pain or pressure. He denies any shortness of breath, cough, wheezing, chest tightness, or phlegm production. 3 L saturation in the mid to high 90s. Labs, x-rays, and medications are reviewed. We will continue to follow. Prognosis is guarded. The patient continues on Symbicort, and updrafts. In addition, the patient is on prednisone 40 mg a day. That could be tapered over the next 10 to 12 days. Plan dated March 24, 2024. The patient is seen today in room 363. He appears to be doing much better. He is only on 3 L of oxygen. He is not receiving any IV fluids. Labs, x-rays, and all medications are reviewed. We will continue to follow until discharge. The patient is currently on prednisone, with a taper, Symbicort, and updrafts. No antibiotics. Prognosis is guarded. Plan dated March 25, 2024. The patient is seen in room 363. The patient is doing much better. He is currently on 2 L. Saturations are 100%. Labs, x-rays, medications are reviewed. We will continue to follow make recommendations. The patient is stable for discharge from the pulmonary standpoint. No additional recommendations at this time. Time with Patient: Less than 30
[2024-03-25 11:33] LABS: Glucose,Whole Blood 158 mg/dL (70-110)
--- NOTE | 2024-03-25 13:02 | P.PN ---
Subjective patient is seen for follow-up for acute kidney injury. No significant complaints today. Serum creatinine at 1.33 mg/dL. good urine output. Objective - Vital Signs Vital signs: Vital Signs Temp 97.5 F L 03/25/24 08:40 Pulse 64 03/25/24 12:05 Resp 18 03/25/24 12:05 BP 115/80 03/25/24 12:05 Pulse Ox 94 L 03/25/24 12:05 FiO2 40 03/15/24 12:00 Intake & Output 03/24/24 03/25/24 03/25/24 18:59 06:59 18:59 Intake Total 364 130 356 Output Total 775 450 Balance -411 -320 356 Weight 86 kg Intake: IV 10 10 Invasive Line 7 10 10 Oral 354 120 356 Output: Urine 775 450 Other: Voiding Method Indwelling Catheter Indwelling Catheter Indwelling Catheter ABP, PAP, CO, CI - Last Documented Arterial Blood Pressure 142/56 - Exam patient is awake, Comfortable no acute distress. Alert oriented 3. Examination of the heart S1 and S2 Examination of the lungs bilateral breath sounds are heard Abdomen is soft nontender Examination of lower extremity shows no significant edema - Labs CBC & Chem 7: 03/25/24 06:59 03/25/24 06:59 Labs: Abnormal Lab Results - Last 24 Hours (Table) 03/24/24 03/24/24 03/25/24 Range/Units 16:35 20:04 05:53 WBC (3.8-10.6) k/uL RBC (4.30-5.90) m/uL Hgb (13.0-17.5) gm/dL Hct (39.0-53.0) % Neutrophils # (1.3-7.7) k/uL Sodium (137-145) mmol/L BUN (9-20) mg/dL Creatinine (0.66-1.25) mg/dL POC Glucose (mg/dL) 166 H 243 H 116 H (70-110) mg/dL 03/25/24 03/25/24 03/25/24 Range/Units 06:59 06:59 11:31 WBC 17.0 H (3.8-10.6) k/uL RBC 3.90 L (4.30-5.90) m/uL Hgb 11.5 L (13.0-17.5) gm/dL Hct 35.5 L (39.0-53.0) % Neutrophils # 15.1 H (1.3-7.7) k/uL Sodium 133 L (137-145) mmol/L BUN 55 H (9-20) mg/dL Creatinine 1.33 H (0.66-1.25) mg/dL POC Glucose (mg/dL) 158 H (70-110) mg/dL Microbiology - Last 24 Hours (Table) 03/24/24 10:30 Urine Culture - Final Urine,Catheterized Assessment and Plan Assessment: 1. Acute kidney injury initially secondary to ATN secondary to cardiac arrest and rhabdomyolysis. Renal funciton resolved to 1.0, now up to 1.3 likely related to diuresis and urinary retention. maintained on IV fluids. UA shows hyaline casts. Ultrasound shows no evidence of obstructive uropathy. 2. Rhabdomyolysis status post cardiopulmonary arrest with CK at 5520, improved. 3. Acute hypoxic respiratory failure, status postextubation. 4. CK D stage III with previous creatinine 1.5 mg/dL in 2016. Etiology is likely nephrosclerosis. 5. Hypertension with CK D stage III a, better controlled. 6. A. fib with RVR, heart rate is better controlled now. Plan: continue with IV fluids. Monitor volume status closely. Repeat labs in a.m.
[2024-03-25] MEDS: SODIUM CHLORIDE 0.9% 1,000 ML IV SCH (13:45)
[2024-03-25 16:37] LABS: Glucose,Whole Blood 238 mg/dL (70-110)
[2024-03-25] MEDS: LACTULOSE 20 GM/30 ML CUP PO SCH (17:27)
[2024-03-25] MEDS ORDERED: BENZOCAINE/MENTHOL LOZENG 1 EACH LOZENGE MUCOUS MEM PRN (17:36)
--- NOTE | 2024-03-25 18:36 | P.PN ---
Subjective Progress Note Date: 03/25/24 Patient is evaluated today in follow-up in the intensive care unit. He remains on the mechanical ventilator currently intubated and sedated dated he has an FiO2 50 and a PEEP of 5. Patient initially presents to the hospital due to shortness of breath and was subsequently intubated. Patient remains hyper tensive with cardiology following closely and adjusting medications. Added hydralazine today. Patient remains on IV heparin will eventually need an ischemic workup. His ejection fraction was found to be 40 to 45%. He continues with enteral feedings. Chest x-ray today reveals small bilateral pleural effusions with adjacent compressive atelectasis right lung base. Blood cell count is 13.7, sodium 140, potassium 5.1, BUN of 61, creatinine of 1.44. Is on IV heparin, IV ceftriaxone, IV Solu-Medrol. IV Lasix was decreased to 40 mg daily. He is sedated with propofol and did not do well with his sedation holiday today. 03/12/2024 Patient is evaluated today and follow-up in the intensive care unit he remains on mechanical ventilator currently intubated and sedated with propofol. The last 2 days patient has not done well with his sedation holiday. Becomes significantly hypertensive. He was started on amlodipine as well as IV hydralazine as needed for improved blood pressure control. Cardiology is following this patient closely. He is on IV Lasix daily. Chest xray follow-up reveals small right and minimal left pleural effusion stable. There is compressive atelectasis of the right lung base. Remains on antibiotics for MSSA in sputum. Talked with patients daughter Korin over the phone who is the primary decision maker for the patient and for now would like to continue with all care and awaiting the brain CT results once completed. 03/13/2024 Patient is evaluated today in the ICU in follow up. Remains on the mechanical ventilator. Patient remains sedated with propofol is currently on a sedation holiday has spontaneous eye opening and reflexes, he has not been tracking eyes or responding to stimuli or commands. Patient chest xray today reveals small left pleural effusion, stable, resolving right lower lobe infiltrate. Brain CT done yesterday reveals no acute intracranial process. White blood cell count today 15.7, sodium 141, potassium 4.8, BUN 78, creatinine 1.49, glucose 145, magnesium 2.4. Continues on IV ceftriaxone. Remains on IV heparin. He is on IV solumedrol. 03/14/2024 Patient is evaluated today in the intensive care unit in follow-up. He is off t he propofol and currently on Precedex and is currently on an assist-control with the ventilator. He does have spontaneous eye opening however he is not following commands at this time. He is on IV lasix daily. He is on IV solu- medrol. Patient is on IV ceftriaxone. Chest x-ray today shows mild right basilar atelectasis with minimal left right pleural effusion. White blood cell count today 17.4, sodium 141, BUN of 83, creatinine of 1.47. 03/15/2024 Patient is evaluated today resting in bed. Remains in the ICU. Patient currently has been extubated and is continued on BiPAP with FIO2 of 40%. He is more awake alert. His bowels are moving. He is on IV ceftriaxone. He is on precedex. He is on IV solumedrol. White blood cell count normalized 10.0, hgb 12.5. Sodium 143, potassium 4.5, BUN 83, creatinine 1.27. 03/16/2024 Patient is evaluated today resting in bed patient remains in the intensive care unit. Patient has been extubated aggressive extubated and currently weaned down to oxygen at 3 L nasal cannula. Mentation has significantly improved patient is currently alert and oriented x 2 at this time. Patient is asking for a drink of water. Diet has been advanced to dysphagia level 1. Monitor closely for any signs of aspiration and patient is currently pending a speech therapy evaluation. His bowels are moving. Patient remains on IV Solu-Medrol 40 mg every 12 hours additionally he is on IV Lasix 20 mg daily, remains on IV ceftriaxone. Currently Precedex has been discontinued. White blood cell count today is 17.6, sodium levels 147, BUN of 77, creatinine of 1.15, magnesium 2.4. Patient is and started on a dextrose drip for the hypernatremia. Patient will need to be evaluated physical therapy and Occupational Therapy. Plans for cardiac catheterization still remain on hold waiting for renal recovery. 03/17/2024 Patient is evaluated today in follow up. Remains in the ICU went into atrial fibrillation overnight and continues on IV cardizem and IV amiodarone, also IV heparin. Patient remains on 3 L of oxygen via nasal cannula. Patient has been agitated today and not sleeping well. He is asking to be discharged home today. He is alert x 2, but confused. Patient has been started on diet and tolerating. Labs today are showing a white blood cell count of 19.1, stable hemoglobin at 14.2, sodium 143, BUN of 75, creatinine of 0.98. Patient remains in atrial fibrillation with rapid ventricular rate currently running in the low 110s, his blood pressure is also decreased to 120 to low 90s. 03/18/2024 Patient remains in intensive care unit. He has been extubated and remains on 2 L of oxygen via nasal cannula. Patient is worsening agitation and confusion today. Patient is cussing and refusing to be evaluated. He is currently on 2 point soft restraints. He is asking to be discharged. Patient remains off IV Precedex and recommending to add a daily dose of Seroquel in addition to Seroquel at at bedtime. Patient remains on IV ceftriaxone. Patient is also on IV Cardizem and oral amiodarone he remains in atrial fibrillation with rapid ventricular rate. He is on IV heparin. Would recommend to decrease Solu-Medrol to 40 mg prednisone daily. 03/19/2024 Patient is evaluated today in the ICU. Patient remains on oxygen at 4L nasal cannula. Patients mentation is slightly improved today. He has been started on seroquel twice a day. On oral prednisone. Remains in atrial fibrillation with rapid ventricular rate. Patient is continued on IV cardizem and IV heparin. Patient has refused cardiac catheterization at this point although he remains c onfused with waxing and waning mentation. Cardiology has recommended outpatient work up when medically cleared and discharged. 03/20/2024 Patient is evaluated today in the intensive care unit. Patient appears less agitated today. He continues on Seroquel twice a day. Family at the bedside. Patient remains in atrial fibrillation with rapid ventricular rate continues on IV Cardizem as well as oral amiodarone. He remains on IV heparin. At this time cardiology has signed off and recommending medical management for his troponin elevation. Patient will be considered for cardiac catheterization on an outpatient basis. Patient continues on IV Lasix daily. Alcohol today is 12.5, hemoglobin 12.3, sodium 141, potassium 4.6, BUN 56, creatinine 1.17. 03/21/2024 Patient is evaluated today in intensive care unit patient has been downgraded to a cardiac stepdown unit. Patient does continue on Seroquel twice a day and has been less agitated. Patient remains significantly weak and will require rehab on discharge. Patient remains in atrial fibrillation with mostly controlled ventricular rate we will plan on weaning off the Cardizem drip today and transition to oral Cardizem. Additionally patient has been taken off of IV heparin and transition to oral Eliquis. Plan is for cardiac catheterization on an outpatient basis patient's not having any shortness of breath or chest discomfort at this time. He has been tolerating diet. He was having issues with dysphagia postextubation continues on a ground diet with one-to-one supervision and aspiration precautions. Labs today reveal a white blood cell count of 12.0, hemoglobin 11.6, sodium 135, potassium 4.7, BUN of 52, creatinine 1.05. 03/22/2024 Patient is seen and evaluated in follow-up with pulmonary following closely and awaiting reevaluation from PT/OT therapy to determine discharge planning. Patient will likely require rehab for continued strength and mobility. Cardiology recommending outpatient follow-up for cardiac catheterization and recommending to continue with current regimen at this time. Continue with asp iration precautions and supervision with meals 03/23/2024 Patient is evaluated in follow up on the medical floor. Patient more lethargic today than yesterday, resting in bed. Patient will need physical therapy on discharge. Has been continued on IV lasix daily for the last 10 days. Today sodium level 132, BUN is 51 and creatinine is 1.26. proBNP 6280. He continues to have lower extremity edema. He has been retaining urine. White blood cell count 16.9. 95% on 3L of oxygen. 03/24/2024 Patient evaluated in follow up on the medical floor. Resting in bed. Has had cough with sputum. White blood cell count up to 19. Patient has urinary catheter in place now. BNP was elevated at 6000, IV lasix was increased to BID although patient had worsening renal function and sodium level 131. Chest xray reveals a possible right pleural effusion. 03/25/2024 Patient evaluated in follow up today more awake and alert. Continues on oxygen via nasal cannula. Continues with indwelling hays catheter. Continues with worsening lower extremity edema. Lasix was stopped due to worsening renal function and recommending gentle hydration. Monitor intake and output. Patient has not had bowel movement does have some abdominal distention noted on exam. White blood cell count 17.0, hgb 11.5, sodium 133, BUN 55, creatinine 1.33. Review of Systems Constitutional: Denied any fatigue denied any fever. Cardio vascular: denied any chest pain, palpitations Gastrointestinal: denied any nausea, vomiting, diarrhea Pulmonary: Denied any worsening shortness of breath cough Neurologic denied any new focal deficits, reports of generalized weakness All inpatient medications were reviewed and appropriate changes in these medications as dictated in the interval history and assessment and plan. Physical examination: GENERAL: 73-year-old male who is awake, alert and oriented x 2, sitting up in the bed. He is on the 3 L of oxygen AO x 2. EYES: Pupils equal. Conjunctiva normal. HEENT: External appearance of nose and ears normal, oral cavity grossly normal. NECK: JVD not raised; masses not palpable. HEART: First and second heart sounds are normal; no edema. LUNGS: Diminished breath sounds bilaterally with some coarse rhonchi noted ABDOMEN: Soft, nontender, bowel sounds noted, no guarding or rigidity noted PSYCH: Awake, alert and oriented x 2, diffusely weak MUSCULOSKELETAL:No Clubbing/cyanosis;muscles-grossly intact patient has +1 ankle edema. NEUROLOGICAL: Following commands Assessment: -Acute severe hypoxic hypercapnic respiratory failure from underlying COPD/CHF -Altered mental status, hospital acquired delirium/acute metabolic and toxic encephalopathy likely exacerbated by steroid use -Bacterial pneumonia with sputum culture showing MSSA -Pulseless electrical activity/ episode of VTACH likely from respiratory failure and hypoxia; treated with IV amiodarone -Atrial fibrillation with rapid ventricular rate, currently rate controlled -Acute severe COPD exacerbation in a current smoker -Probable acute GI bleed with multiple risk factors including stress ulcer from being intubated, steroids, and IV heparin, Resolved. -Type II WI; supply demand mismatch unable to fully rule out ischemic injury. Per cardiology outpatient cardiac catheterization once more stable -Acute systolic heart failure -Urinary retention requiring indwelling hays catheter. -Frequent PVCs in bigeminal pattern -Acute kidney injury likely ATN from sepsis hypotension, improving -Chronic nicotine dependence cigarette smoker -Chronic gout -Hypotensive shock-corrected; Received IV Levophed -Essential hypertension, uncontrolled -GERD, stress ulcer prophylaxis GI prophylaxis IV Protonix 40 twice daily DVT prophylaxis subcu heparin -Full code Plan: Patient has been transitioned to oral amiodarone, oral Cardizem, oral Eliquis. Cardiology recommending outpatient follow-up with cardiac catheterization Patient will be continued on cardiac telemetry Continue IV protonix and monitor for acute bleeding hemoglobin remains stable, no active bleeding noted Continue with IV ceftriaxone, now on oral prednisone Lasix has been discontinued at this time secondary to worsening renal function. Nephrology following. Patient will be gently hydrated Nebulized Pulmicort. Perforomist. DuoNeb On BiPAP/nasal cannula support, currently 3 L via nasal cannula Norvasc 10 mg a day, Hydralazine 100 mg 4 times daily. Remains on oral metoprolol 100 mg BID. Current recommendations for further cardiac evaluation outpatient. Repeat blood work in the AM Continue on seroquel twice a day Physical therapy and occupational therapy have been consulted recommending subacute rehab at this time. Awaiting updated PT/OT therapy notes and further discussion with case management/social work regarding discharge planning. Cl allen has had prolonged hospitalization including mechanical ventilation with significant weakness and would benefit from ECF on discharge. Repeat blood work in the morning. Overall prognosis is guarded The impression and plan of care has been dictated by Rufina Fitzgerald, Nurse Practitioner as directed. Dr. Kaleb MD I have performed a history and physical examination and medical decision making of this patient, discussed the same with the dictator, and agree with the dictators assessment and plan as written, documented as a scribe. Based on total visit time, I have performed more than 50% of this visit. Objective - Vital Signs Vital signs: Vital Signs Temp 98 F 03/25/24 15:35 Pulse 51 L 03/25/24 15:35 Resp 17 03/25/24 15:35 BP 121/76 03/25/24 15:35 Pulse Ox 96 03/25/24 15:35 FiO2 40 03/15/24 12:00 Intake & Output 03/24/24 03/25/24 03/25/24 18:59 06:59 18:59 Intake Total 364 130 716 Output Total 775 450 500 Balance -411 -320 216 Weight 86 kg Intake: IV 10 10 Invasive Line 7 10 10 Oral 354 120 716 Output: Urine 775 450 500 Other: Voiding Method Indwelling Catheter Indwelling Catheter Indwelling Catheter ABP, PAP, CO, CI - Last Documented Arterial Blood Pressure 142/56 - Labs CBC & Chem 7: 03/25/24 06:59 03/25/24 06:59 Labs: Abnormal Lab Results - Last 24 Hours (Table) 03/24/24 03/25/24 03/25/24 Range/Units 20:04 05:53 06:59 WBC 17.0 H (3.8-10.6) k/uL RBC 3.90 L (4.30-5.90) m/uL Hgb 11.5 L (13.0-17.5) gm/dL Hct 35.5 L (39.0-53.0) % Neutrophils # 15.1 H (1.3-7.7) k/uL Sodium (137-145) mmol/L BUN (9-20) mg/dL Creatinine (0.66-1.25) mg/dL POC Glucose (mg/dL) 243 H 116 H (70-110) mg/dL 03/25/24 03/25/24 03/25/24 Range/Units 06:59 11:31 16:33 WBC (3.8-10.6) k/uL RBC (4.30-5.90) m/uL Hgb (13.0-17.5) gm/dL Hct (39.0-53.0) % Neutrophils # (1.3-7.7) k/uL Sodium 133 L (137-145) mmol/L BUN 55 H (9-20) mg/dL Creatinine 1.33 H (0.66-1.25) mg/dL POC Glucose (mg/dL) 158 H 238 H (70-110) mg/dL Microbiology - Last 24 Hours (Table) 03/24/24 10:07 Blood Culture - Preliminary Blood 03/24/24 10:30 Urine Culture - Final Urine,Catheterized Assessment and Plan Time with Patient: Less than 30
[2024-03-25 19:47] LABS: Glucose,Whole Blood 159 mg/dL (70-110)
[2024-03-26 05:42] LABS: Glucose,Whole Blood 102 mg/dL (70-110)
[2024-03-26 06:21] LABS: Basophils % (A) 0 %; Eosinophils % (A) 0 %; HCT 34.5 % (39.0-53.0); Lymphocytes % (A) 6 %; MCH 29.2 pg (25.0-35.0); MCV 91.2 fL (80.0-100.0); Mean Platelet Volume 8.4; Monocytes # (A) 0.6 k/uL (0-1.0); Monocytes % (A) 4 %; Neutrophils % (A) 89 %; Platelet Count 265 k/uL (150-450); RBC 3.78 m/uL (4.30-5.90); RDW 14.6 % (11.5-15.5); WBC 15.7 k/uL (3.8-10.6)
[2024-03-26 06:41] LABS: African American GFR (CKD) 76 (>60 ml/min/1.73 sqM); Anion Gap 5 mmol/L; Blood Urea Nitrogen 52 mg/dL (9-20); Calcium 9.1 mg/dL (8.4-10.2); Carbon Dioxide 25 mmol/L (22-30); Chloride 106 mmol/L (98-107); Glucose 99 mg/dL (74-99); Non-African American GFR(CKD) 66 (>60 ml/min/1.73 sqM); Potassium 4.3 mmol/L (3.5-5.1); Sodium 136 mmol/L (137-145)
--- NOTE | 2024-03-26 10:51 | P.PN ---
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 a controlled rate. His heart rates less than 100 bpm. He continues on Cardizem 10 mg/h, as well as saline at 10 cc an hour, and IV heparin. Apparently according to the nurses, the plans are not to send him for cardiac catheterization. The budesonide and formoterol changed to Symbicort 160/4.5, 2 puffs twice a day. After his next dose of Rocephin, will stop the antibiotic. He is a candidate for the 3 S. floor, although apparently no beds are currently available. Plan dated 03/22/2024. The patient appears to be doing relatively well. He denies any chest pain or pressure. His oxygen requirements have come down 1 L from 4 to 3. In addition,the patient denies any respiratory issues including shortness of breath, cough, wheezing, chest tightness, or phlegm production. Labs, x-rays, and medications are reviewed. Yesterday, we changed budesonide and formoterol to Symbicort. The time being, the patient will be managed medically, heart catheterization. We will continue to follow make recommendations along the way. His antibiotic was discontinued after the last dose yesterday. Plan dated March 23, 2024. The patient appears to be doing relatively well. He denies any chest pain or pressure. He denies any shortness of breath, cough, wheezing, chest tightness, or phlegm production. 3 L saturation in the mid to high 90s. Labs, x-rays, and medications are reviewed. We will continue to follow. Prognosis is guarded. The patient continues on Symbicort, and updrafts. In addition, the patient is on prednisone 40 mg a day. That could be tapered over the next 10 to 12 days. Plan dated March 24, 2024. The patient is seen today in room 363. He appears to be doing much better. He is only on 3 L of oxygen. He is not receiving any IV fluids. Labs, x-rays, and all medications are reviewed. We will continue to follow until discharge. The patient is currently on prednisone, with a taper, Symbicort, and updrafts. No antibiotics. Prognosis is guarded. Plan dated March 25, 2024. The patient is seen in room 363. The patient is doing much better. He is currently on 2 L. Saturations are 100%. Labs, x-rays, medications are reviewed. We will continue to follow make recommendations. The patient is stable for discharge from the pulmonary standpoint. No additional recommendations at this time. Plan dated March 26, 2024. The patient is seen in room 363. From the pulmonary standpoint he is doing well. He continues on 2 L of oxygen. He is getting saline at 50 cc an hour. Labs, x-rays, medications are reviewed. From the pulmonary standpoint, the patient is cleared for discharge. We will continue to follow the patient, make recommendations. Prognosis is guarded. He is on appropriate medications for his lungs including Symbicort, updrafts, and prednisone. Time with Patient: Less than 30
[2024-03-26 11:37] LABS: Glucose,Whole Blood 98 mg/dL (70-110)
--- NOTE | 2024-03-26 11:59 | P.PN ---
Subjective patient is seen for follow-up for acute kidney injury. Serum creatinine decreased to 1.0 mg/dL. good urine output. complaining of abdominal distention. Objective - Vital Signs Vital signs: Vital Signs Temp 97.5 F L 03/26/24 09:45 Pulse 79 03/26/24 09:45 Resp 17 03/26/24 09:45 BP 132/79 03/26/24 09:45 Pulse Ox 94 L 03/26/24 09:45 FiO2 40 03/15/24 12:00 Intake & Output 03/25/24 03/26/24 03/26/24 18:59 06:59 18:59 Intake Total 952 Output Total 500 540 Balance 452 -540 Weight 97 kg Intake: Oral 952 Output: Urine 500 540 Other: Voiding Method Indwelling Catheter Indwelling Catheter Indwelling Catheter ABP, PAP, CO, CI - Last Documented Arterial Blood Pressure 142/56 - Exam patient is awake, Comfortable no acute distress. Alert oriented 3. Examination of the heart S1 and S2 Examination of the lungs bilateral breath sounds are heard Abdomen is soft , Distended, mildly tender Examination of lower extremity shows no significant edema - Labs CBC & Chem 7: 03/26/24 05:58 03/26/24 05:58 Labs: Abnormal Lab Results - Last 24 Hours (Table) 03/25/24 03/25/24 03/26/24 Range/Units 16:33 19:45 05:58 WBC (3.8-10.6) k/uL RBC (4.30-5.90) m/uL Hgb (13.0-17.5) gm/dL Hct (39.0-53.0) % Neutrophils # (1.3-7.7) k/uL Sodium 136 L (137-145) mmol/L BUN 52 H (9-20) mg/dL POC Glucose (mg/dL) 238 H 159 H (70-110) mg/dL 03/26/24 Range/Units 05:58 WBC 15.7 H (3.8-10.6) k/uL RBC 3.78 L (4.30-5.90) m/uL Hgb 11.0 L (13.0-17.5) gm/dL Hct 34.5 L (39.0-53.0) % Neutrophils # 14.0 H (1.3-7.7) k/uL Sodium (137-145) mmol/L BUN (9-20) mg/dL POC Glucose (mg/dL) (70-110) mg/dL Microbiology - Last 24 Hours (Table) 03/24/24 10:07 Blood Culture - Preliminary Blood 03/24/24 10:30 Urine Culture - Final Urine,Catheterized Assessment and Plan Assessment: 1. Acute kidney injury initially secondary to ATN secondary to cardiac arrest and rhabdomyolysis. Renal funciton resolved to 1.0, increased to 1.3 likely related to diuresis and urinary retention. maintained on IV fluids. Now decreased back to 1.0 today.UA shows hyaline casts. Ultrasound shows no evidence of obstructive uropathy. 2. Rhabdomyolysis status post cardiopulmonary arrest with CK at 5520, improved. 3. Acute hypoxic respiratory failure, status postextubation. 4. CK D stage III with previous creatinine 1.5 mg/dL in 2016. Etiology is likely nephrosclerosis. 5. Hypertension with CK D stage III a, better controlled. 6. A. fib with RVR, heart rate is better controlled now. Plan: continue with IV fluids. Monitor volume status closely. Consider abdominal imaging for distention, possible constipation Repeat labs in a.m.
[2024-03-26] MEDS: ONDANSETRON 4 MG/2 ML VIAL IVP PRN (12:11)
[2024-03-26] MEDS: SIMETHICONE 40 MG/0.6 ML DROPS 2,000 MG/30 ML BOTTLE PO SCH (12:11)
--- NOTE | 2024-03-26 12:32 | XR ---
EXAMINATION TYPE: XR abdomen 1V DATE OF EXAM: 03/26/2024 COMPARISON: NONE HISTORY: Pain TECHNIQUE: Single supine KUB image of the abdomen is obtained FINDINGS: Small bowel demonstrates no evidence for dilatation or air fluid levels. Moderate to large amount of retained fecal debris particularly within the right hemicolon. Gas and fecal material is seen in non-distended colon. No convincing evidence for pneumoperitoneum. No unusual calcifications. The lung bases are clear. The osseous structures are intact. Postoperative changes lower lumbar spine. IMPRESSION: 1. Moderate to large amount of retained fecal debris particularly within the right hemicolon.
[2024-03-26 13:42] VITALS: BMI 33.5
--- NOTE | 2024-03-26 14:39 | P.PN ---
Subjective Progress Note Date: 03/26/24 Patient is evaluated today in follow-up in the intensive care unit. He remains on the mechanical ventilator currently intubated and sedated dated he has an FiO2 50 and a PEEP of 5. Patient initially presents to the hospital due to shortness of breath and was subsequently intubated. Patient remains hyper tensive with cardiology following closely and adjusting medications. Added hydralazine today. Patient remains on IV heparin will eventually need an ischemic workup. His ejection fraction was found to be 40 to 45%. He continues with enteral feedings. Chest x-ray today reveals small bilateral pleural effusions with adjacent compressive atelectasis right lung base. Blood cell count is 13.7, sodium 140, potassium 5.1, BUN of 61, creatinine of 1.44. Is on IV heparin, IV ceftriaxone, IV Solu-Medrol. IV Lasix was decreased to 40 mg daily. He is sedated with propofol and did not do well with his sedation holiday today. 03/12/2024 Patient is evaluated today and follow-up in the intensive care unit he remains on mechanical ventilator currently intubated and sedated with propofol. The last 2 days patient has not done well with his sedation holiday. Becomes significantly hypertensive. He was started on amlodipine as well as IV hydralazine as needed for improved blood pressure control. Cardiology is following this patient closely. He is on IV Lasix daily. Chest xray follow-up reveals small right and minimal left pleural effusion stable. There is compressive atelectasis of the right lung base. Remains on antibiotics for MSSA in sputum. Talked with patients daughter Korin over the phone who is the primary decision maker for the patient and for now would like to continue with all care and awaiting the brain CT results once completed. 03/13/2024 Patient is evaluated today in the ICU in follow up. Remains on the mechanical ventilator. Patient remains sedated with propofol is currently on a sedation holiday has spontaneous eye opening and reflexes, he has not been tracking eyes or responding to stimuli or commands. Patient chest xray today reveals small left pleural effusion, stable, resolving right lower lobe infiltrate. Brain CT done yesterday reveals no acute intracranial process. White blood cell count today 15.7, sodium 141, potassium 4.8, BUN 78, creatinine 1.49, glucose 145, magnesium 2.4. Continues on IV ceftriaxone. Remains on IV heparin. He is on IV solumedrol. 03/14/2024 Patient is evaluated today in the intensive care unit in follow-up. He is off t he propofol and currently on Precedex and is currently on an assist-control with the ventilator. He does have spontaneous eye opening however he is not following commands at this time. He is on IV lasix daily. He is on IV solu- medrol. Patient is on IV ceftriaxone. Chest x-ray today shows mild right basilar atelectasis with minimal left right pleural effusion. White blood cell count today 17.4, sodium 141, BUN of 83, creatinine of 1.47. 03/15/2024 Patient is evaluated today resting in bed. Remains in the ICU. Patient currently has been extubated and is continued on BiPAP with FIO2 of 40%. He is more awake alert. His bowels are moving. He is on IV ceftriaxone. He is on precedex. He is on IV solumedrol. White blood cell count normalized 10.0, hgb 12.5. Sodium 143, potassium 4.5, BUN 83, creatinine 1.27. 03/16/2024 Patient is evaluated today resting in bed patient remains in the intensive care unit. Patient has been extubated aggressive extubated and currently weaned down to oxygen at 3 L nasal cannula. Mentation has significantly improved patient is currently alert and oriented x 2 at this time. Patient is asking for a drink of water. Diet has been advanced to dysphagia level 1. Monitor closely for any signs of aspiration and patient is currently pending a speech therapy evaluation. His bowels are moving. Patient remains on IV Solu-Medrol 40 mg every 12 hours additionally he is on IV Lasix 20 mg daily, remains on IV ceftriaxone. Currently Precedex has been discontinued. White blood cell count today is 17.6, sodium levels 147, BUN of 77, creatinine of 1.15, magnesium 2.4. Patient is and started on a dextrose drip for the hypernatremia. Patient will need to be evaluated physical therapy and Occupational Therapy. Plans for cardiac catheterization still remain on hold waiting for renal recovery. 03/17/2024 Patient is evaluated today in follow up. Remains in the ICU went into atrial fibrillation overnight and continues on IV cardizem and IV amiodarone, also IV heparin. Patient remains on 3 L of oxygen via nasal cannula. Patient has been agitated today and not sleeping well. He is asking to be discharged home today. He is alert x 2, but confused. Patient has been started on diet and tolerating. Labs today are showing a white blood cell count of 19.1, stable hemoglobin at 14.2, sodium 143, BUN of 75, creatinine of 0.98. Patient remains in atrial fibrillation with rapid ventricular rate currently running in the low 110s, his blood pressure is also decreased to 120 to low 90s. 03/18/2024 Patient remains in intensive care unit. He has been extubated and remains on 2 L of oxygen via nasal cannula. Patient is worsening agitation and confusion today. Patient is cussing and refusing to be evaluated. He is currently on 2 point soft restraints. He is asking to be discharged. Patient remains off IV Precedex and recommending to add a daily dose of Seroquel in addition to Seroquel at at bedtime. Patient remains on IV ceftriaxone. Patient is also on IV Cardizem and oral amiodarone he remains in atrial fibrillation with rapid ventricular rate. He is on IV heparin. Would recommend to decrease Solu-Medrol to 40 mg prednisone daily. 03/19/2024 Patient is evaluated today in the ICU. Patient remains on oxygen at 4L nasal cannula. Patients mentation is slightly improved today. He has been started on seroquel twice a day. On oral prednisone. Remains in atrial fibrillation with rapid ventricular rate. Patient is continued on IV cardizem and IV heparin. Patient has refused cardiac catheterization at this point although he remains c onfused with waxing and waning mentation. Cardiology has recommended outpatient work up when medically cleared and discharged. 03/20/2024 Patient is evaluated today in the intensive care unit. Patient appears less agitated today. He continues on Seroquel twice a day. Family at the bedside. Patient remains in atrial fibrillation with rapid ventricular rate continues on IV Cardizem as well as oral amiodarone. He remains on IV heparin. At this time cardiology has signed off and recommending medical management for his troponin elevation. Patient will be considered for cardiac catheterization on an outpatient basis. Patient continues on IV Lasix daily. Alcohol today is 12.5, hemoglobin 12.3, sodium 141, potassium 4.6, BUN 56, creatinine 1.17. 03/21/2024 Patient is evaluated today in intensive care unit patient has been downgraded to a cardiac stepdown unit. Patient does continue on Seroquel twice a day and has been less agitated. Patient remains significantly weak and will require rehab on discharge. Patient remains in atrial fibrillation with mostly controlled ventricular rate we will plan on weaning off the Cardizem drip today and transition to oral Cardizem. Additionally patient has been taken off of IV heparin and transition to oral Eliquis. Plan is for cardiac catheterization on an outpatient basis patient's not having any shortness of breath or chest discomfort at this time. He has been tolerating diet. He was having issues with dysphagia postextubation continues on a ground diet with one-to-one supervision and aspiration precautions. Labs today reveal a white blood cell count of 12.0, hemoglobin 11.6, sodium 135, potassium 4.7, BUN of 52, creatinine 1.05. 03/22/2024 Patient is seen and evaluated in follow-up with pulmonary following closely and awaiting reevaluation from PT/OT therapy to determine discharge planning. Patient will likely require rehab for continued strength and mobility. Cardiology recommending outpatient follow-up for cardiac catheterization and recommending to continue with current regimen at this time. Continue with asp iration precautions and supervision with meals 03/23/2024 Patient is evaluated in follow up on the medical floor. Patient more lethargic today than yesterday, resting in bed. Patient will need physical therapy on discharge. Has been continued on IV lasix daily for the last 10 days. Today sodium level 132, BUN is 51 and creatinine is 1.26. proBNP 6280. He continues to have lower extremity edema. He has been retaining urine. White blood cell count 16.9. 95% on 3L of oxygen. 03/24/2024 Patient evaluated in follow up on the medical floor. Resting in bed. Has had cough with sputum. White blood cell count up to 19. Patient has urinary catheter in place now. BNP was elevated at 6000, IV lasix was increased to BID although patient had worsening renal function and sodium level 131. Chest xray reveals a possible right pleural effusion. 03/25/2024 Patient evaluated in follow up today more awake and alert. Continues on oxygen via nasal cannula. Continues with indwelling hays catheter. Continues with worsening lower extremity edema. Lasix was stopped due to worsening renal function and recommending gentle hydration. Monitor intake and output. Patient has not had bowel movement does have some abdominal distention noted on exam. White blood cell count 17.0, hgb 11.5, sodium 133, BUN 55, creatinine 1.33. 03/26/2024 Patient is evaluated today in follow-up in the medical floor he is resting in bed. He appears more fatigued as compared to yesterday. Patient does report significant abdominal discomfort nausea bloating. He is passing a significant amount of gas did have a bowel movement will continue the lactulose and additionally will add simethicone for the gas pains. Abdominal x-ray reveals moderate to large amount of retained fecal debris particularly within the right hemicolon. Blood work is significantly improved with IV hydration although has significant lower extremity pitting edema. white blood cell count of 15.7, hemoglobin 1.0, sodium 136, BUN of 52, creatinine of 1.09. Review of Systems Constitutional: Denied any fatigue denied any fever. Cardio vascular: denied any chest pain, palpitations Gastrointestinal: denied any nausea, vomiting, diarrhea Pulmonary: Denied any worsening shortness of breath cough Neurologic denied any new focal deficits, reports of generalized weakness All inpatient medications were reviewed and appropriate changes in these medica tions as dictated in the interval history and assessment and plan. Physical examination: GENERAL: 73-year-old male who is awake, alert and oriented x 2, sitting up in the bed. He is on the 3 L of oxygen AO x 2. EYES: Pupils equal. Conjunctiva normal. HEENT: External appearance of nose and ears normal, oral cavity grossly normal. NECK: JVD not raised; masses not palpable. HEART: First and second heart sounds are normal; no edema. LUNGS: Diminished breath sounds bilaterally with some coarse rhonchi noted ABDOMEN: Soft, nontender, bowel sounds noted, no guarding or rigidity noted PSYCH: Awake, alert and oriented x 2, diffusely weak MUSCULOSKELETAL:No Clubbing/cyanosis;muscles-grossly intact patient has +1 ankle edema. NEUROLOGICAL: Following commands Assessment: -Acute severe hypoxic hypercapnic respiratory failure from underlying COPD/CHF improved and on 3L of oxygen. -Altered mental status, hospital acquired delirium/acute metabolic and toxic encephalopathy likely exacerbated by steroid use -Bacterial pneumonia with sputum culture showing MSSA -Pulseless electrical activity/ episode of VTACH likely from respiratory failure and hypoxia; treated with IV amiodarone -Atrial fibrillation with rapid ventricular rate, currently rate controlled -Constipation -Acute severe COPD exacerbation in a current smoker -Probable acute GI bleed with multiple risk factors including stress ulcer from being intubated, steroids, and IV heparin, Resolved. -Type II CO; supply demand mismatch unable to fully rule out ischemic injury. Per cardiology outpatient cardiac catheterization once more stable -Acute systolic heart failure -Urinary retention requiring indwelling hays catheter. -Frequent PVCs in bigeminal pattern -Acute kidney injury likely ATN from sepsis hypotension, improving -Chronic nicotine dependence cigarette smoker -Chronic gout -Hypotensive shock-corrected; Received IV Levophed -Essential hypertension, uncontrolled -GERD, stress ulcer prophylaxis GI prophylaxis IV Protonix 40 twice daily DVT prophylaxis subcu heparin -Full code Plan: Patient has been transitioned to oral amiodarone, oral Cardizem, oral Eliquis. Cardiology recommending outpatient follow-up with cardiac catheterization Patient will be continued on cardiac telemetry Continue IV protonix and monitor for acute bleeding hemoglobin remains stable, no active bleeding noted Continue with IV ceftriaxone, now on oral prednisone and begin to taper down to 30 mg daily starting tomorrow. Lasix has been discontinued at this time secondary to worsening renal function. Nephrology following. Patient will be gently hydrated Nebulized Pulmicort. Perforomist. DuoNeb On BiPAP/nasal cannula support, currently 3 L via nasal cannula Remains on oral metoprolol 100 mg BID, off norvasc and off hydralazine Current recommendations for further cardiac evaluation outpatient. Repeat blood work in the AM Continue on seroquel twice a day Physical therapy and occupational therapy have been consulted recommending subacute rehab at this time. Awaiting updated PT/OT therapy notes and further discussion with case management/social work regarding discharge planning. Patient has had prolonged hospitalization including mechanical ventilation with significant weakness and would benefit from ECF on discharge. Repeat blood work in the morning. Continue on lactulose and simethicone patient will receive soap suds enema If constipation resolves and blood work remains stable patient could be consider ed for discharge to rehab in the next 24 hours The impression and plan of care has been dictated by Rufina Fitzgerald Nurse Practitioner as directed. Dr. Kaleb MD I have performed a history and physical examination and medical decision making of this patient, discussed the same with the dictator, and agree with the dictators assessment and plan as written, documented as a scribe. Based on total visit time, I have performed more than 50% of this visit. Objective - Vital Signs Vital signs: Vital Signs Temp 97.5 F L 03/26/24 09:45 Pulse 79 03/26/24 09:45 Resp 17 03/26/24 09:45 BP 132/79 03/26/24 09:45 Pulse Ox 94 L 03/26/24 09:45 FiO2 40 03/15/24 12:00 Intake & Output 03/25/24 03/26/24 03/26/24 18:59 06:59 18:59 Intake Total 952 Output Total 500 540 Balance 452 -540 Weight 97 kg 97 kg Intake: Oral 952 Output: Urine 500 540 Other: Voiding Method Indwelling Catheter Indwelling Catheter Indwelling Catheter ABP, PAP, CO, CI - Last Documented Arterial Blood Pressure 142/56 - Labs CBC & Chem 7: 03/26/24 05:58 03/26/24 05:58 Labs: Abnormal Lab Results - Last 24 Hours (Table) 03/25/24 03/25/24 03/26/24 Range/Units 16:33 19:45 05:58 WBC (3.8-10.6) k/uL RBC (4.30-5.90) m/uL Hgb (13.0-17.5) gm/dL Hct (39.0-53.0) % Neutrophils # (1.3-7.7) k/uL Sodium 136 L (137-145) mmol/L BUN 52 H (9-20) mg/dL POC Glucose (mg/dL) 238 H 159 H (70-110) mg/dL 03/26/24 Range/Units 05:58 WBC 15.7 H (3.8-10.6) k/uL RBC 3.78 L (4.30-5.90) m/uL Hgb 11.0 L (13.0-17.5) gm/dL Hct 34.5 L (39.0-53.0) % Neutrophils # 14.0 H (1.3-7.7) k/uL Sodium (137-145) mmol/L BUN (9-20) mg/dL POC Glucose (mg/dL) (70-110) mg/dL Microbiology - Last 24 Hours (Table) 03/24/24 10:07 Blood Culture - Preliminary Blood 03/24/24 10:30 Urine Culture - Final Urine,Catheterized Assessment and Plan Time with Patient: Less than 30
[2024-03-26 16:25] LABS: Glucose,Whole Blood 114 mg/dL (70-110)
[2024-03-26 19:46] LABS: Glucose,Whole Blood 149 mg/dL (70-110)
[2024-03-26] MEDS: QUEtiapine 25 MG TAB PO PRN (22:57)
[2024-03-27 06:15] LABS: Glucose,Whole Blood 114 mg/dL (70-110)
[2024-03-27 08:25] LABS: Basophils % (A) 0 %; Eosinophils % (A) 0 %; Hypochromasia Slight; Lymphocytes # (A) 0.5 k/uL (1.0-4.8); Lymphocytes % (A) 2 %; MCH 29.6 pg (25.0-35.0); MCHC 31.3 g/dL (31.0-37.0); MCV 94.5 fL (80.0-100.0); Mean Platelet Volume 9.1; Monocytes % (A) 4 %; Neutrophils # (A) 22.1 k/uL (1.3-7.7); Neutrophils % (A) 94 %; Platelet Count 204 k/uL (150-450); RBC 3.39 m/uL (4.30-5.90); RDW 15.1 % (11.5-15.5); WBC 23.7 k/uL (3.8-10.6)
[2024-03-27 08:44] LABS: African American GFR (CKD) 61 (>60 ml/min/1.73 sqM); Anion Gap 3 mmol/L; Blood Urea Nitrogen 55 mg/dL (9-20); Carbon Dioxide 25 mmol/L (22-30); Chloride 106 mmol/L (98-107); Glucose 92 mg/dL (74-99); Magnesium 2.1 mg/dL (1.6-2.3); Non-African American GFR(CKD) 53 (>60 ml/min/1.73 sqM); Potassium 4.6 mmol/L (3.5-5.1); Sodium 134 mmol/L (137-145)
[2024-03-27] MEDS: predniSONE 10 MG TAB PO SCH (09:08)
--- NOTE | 2024-03-27 11:19 | P.PN ---
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 atrial fibrillation with RVR. The patient is currently on Cardizem at 10 mg an hour, and IV heparin via protocol. The patient's oxygenati on is not particularly great, and he continues on 4 L of oxygen. The patient is also on saline at 20 cc an hour. Labs, x-rays, and all medications are reviewed. Awaiting for cardiology to make a decision about cardiac catheterization. Patient's overall prognosis remains very guarded. We will co heber to follow the patient, and make recommendations along the way. Plan dated March 21, 2024. The patient appears to be doing a bit better. He continues on oxygen at 4 L. He is still in atrial fibrillation with a controlled rate. His heart rates less than 100 bpm. He continues on Cardizem 10 mg/h, as well as saline at 10 cc an hour, and IV heparin. Apparently according to the nurses, the plans are not to send him for cardiac catheterization. The budesonide and formoterol changed to Symbicort 160/4.5, 2 puffs twice a day. After his next dose of Rocephin, will stop the antibiotic. He is a candidate for the 3 S. floor, although apparently no beds are currently available. Plan dated 03/22/2024. The patient appears to be doing relatively well. He denies any chest pain or pressure. His oxygen requirements have come down 1 L from 4 to 3. In addition,the patient denies any respiratory issues including shortness of breath, cough, wheezing, chest tightness, or phlegm production. Labs, x-rays, and medications are reviewed. Yesterday, we changed budesonide and formoterol to Symbicort. The time being, the patient will be managed medically, heart catheterization. We will continue to follow make recommendations along the way. His antibiotic was discontinued after the last dose yesterday. Plan dated March 23, 2024. The patient appears to be doing relatively well. He denies any chest pain or pressure. He denies any shortness of breath, cough, wheezing, chest tightness, or phlegm production. 3 L saturation in the mid to high 90s. Labs, x-rays, and medications are reviewed. We will continue to follow. Prognosis is guarded. The patient continues on Symbicort, and updrafts. In addition, the patient is on prednisone 40 mg a day. That could be tapered over the next 10 to 12 days. Plan dated March 24, 2024. The patient is seen today in room 363. He appears to be doing much better. He is only on 3 L of oxygen. He is not receiving any IV fluids. Labs, x-rays, and all medications are reviewed. We will continue to follow until discharge. The patient is currently on prednisone, with a taper, Symbicort, and updrafts. No antibiotics. Prognosis is guarded. Plan dated March 25, 2024. The patient is seen in room 363. The patient is doing much better. He is currently on 2 L. Saturations are 100%. Labs, x-rays, medications are reviewed. We will continue to follow make recommendations. The patient is stable for discharge from the pulmonary standpoint. No additional recommendations at this time. Plan dated March 26, 2024. The patient is seen in room 363. From the pulmonary standpoint he is doing well. He continues on 2 L of oxygen. He is getting saline at 50 cc an hour. Labs, x-rays, medications are reviewed. From the pulmonary standpoint, the patient is cleared for discharge. We will continue to follow the patient, make recommendations. Prognosis is guarded. He is on appropriate medications for his lungs including Symbicort, updrafts, and prednisone. Plan dated March 27, 2024. The patient is seen today in room 363. He is resting comfortably. He has no respiratory issues including shortness of breath, cough, wheezing, chest tightness, or phlegm production. Labs, x-rays, medications are reviewed. We will continue to follow make recommendations along the way. From the pulmonary standpoint, the patient is stable for discharge. Time with Patient: Less than 30
[2024-03-27 11:53] LABS: Glucose,Whole Blood 107 mg/dL (70-110)
--- NOTE | 2024-03-27 11:56 | P.PN ---
Subjective patient is seen for follow-up for acute kidney injury. Serum creatinine at 1.3 today good urine output. complaining of abdominal distention. Abdominal x-ray showed evidence of constipation. Objective - Vital Signs Vital signs: Vital Signs Temp 98.4 F 03/27/24 09:00 Pulse 92 03/27/24 11:43 Resp 18 03/27/24 09:00 BP 112/56 03/27/24 09:00 Pulse Ox 97 03/27/24 09:00 FiO2 40 03/15/24 12:00 Intake & Output 03/26/24 03/27/24 03/27/24 18:59 06:59 18:59 Output Total 425 Balance -425 Weight 97 kg 87 kg Output: Urine 425 Other: Voiding Method Indwelling Catheter Indwelling Catheter Indwelling Catheter # Bowel Movements 3 0 ABP, PAP, CO, CI - Last Documented Arterial Blood Pressure 142/56 - Exam patient is awake, Comfortable no acute distress. Alert oriented 3. Examination of the heart S1 and S2 Examination of the lungs bilateral breath sounds are heard Abdomen is soft , Distended, mildly tender Examination of lower extremity shows no significant edema - Labs CBC & Chem 7: 03/27/24 07:42 03/27/24 07:42 Labs: Abnormal Lab Results - Last 24 Hours (Table) 03/26/24 03/26/24 03/27/24 Range/Units 16:23 19:44 06:14 WBC (3.8-10.6) k/uL RBC (4.30-5.90) m/uL Hgb (13.0-17.5) gm/dL Hct (39.0-53.0) % Neutrophils # (1.3-7.7) k/uL Lymphocytes # (1.0-4.8) k/uL Sodium (137-145) mmol/L BUN (9-20) mg/dL Creatinine (0.66-1.25) mg/dL POC Glucose (mg/dL) 114 H 149 H 114 H (70-110) mg/dL 03/27/24 03/27/24 Range/Units 07:42 07:42 WBC 23.7 H (3.8-10.6) k/uL RBC 3.39 L (4.30-5.90) m/uL Hgb 10.0 L (13.0-17.5) gm/dL Hct 32.0 L (39.0-53.0) % Neutrophils # 22.1 H (1.3-7.7) k/uL Lymphocytes # 0.5 L (1.0-4.8) k/uL Sodium 134 L (137-145) mmol/L BUN 55 H (9-20) mg/dL Creatinine 1.31 H (0.66-1.25) mg/dL POC Glucose (mg/dL) (70-110) mg/dL Microbiology - Last 24 Hours (Table) 03/24/24 10:07 Blood Culture - Preliminary Blood Assessment and Plan Assessment: 1. Acute kidney injury initially secondary to ATN secondary to cardiac arrest and rhabdomyolysis. Serum creatinine fluctuating between 1.0 -1.3 mg/dL. UA shows hyaline casts. Ultrasound shows no evidence of obstructive uropathy. 2. Rhabdomyolysis status post cardiopulmonary arrest with CK at 5520, improved. 3. Acute hypoxic respiratory failure, status postextubation. 4. CK D stage III with previous creatinine 1.5 mg/dL in 2016. Etiology is likely nephrosclerosis. 5. Hypertension with CK D stage III a, better controlled. 6. A. fib with RVR, heart rate is better controlled now. Plan: DC IV fluids as patient is hypervolemic. continue with Maher catheter Consider decreasing dose of Cardizem as blood pressure remains low. Repeat labs in a.m.
[2024-03-27] MEDS: BARIUM SULFATE 2% - 450 ML ORAL.SUSP BOTTLE PO PRN (13:14)
[2024-03-27] MEDS: METOCLOPRAMIDE 5 MG/ML 2 ML VIAL IVP STA (13:15)
[2024-03-27 16:42] LABS: Glucose,Whole Blood 169 mg/dL (70-110)
--- NOTE | 2024-03-27 18:14 | CT ---
EXAMINATION TYPE: CT abdomen pelvis wo con CT DLP: 945.1 mGycm, Automated exposure control for dose reduction was used. DATE OF EXAM: 03/27/2024 5:43 PM COMPARISON: None CLINICAL INDICATION:Male, 73 years old with history of abdominal pain, distention; Abdominal pain and distention, hx of MS. TECHNIQUE: Axial CT abdomen pelvis wo con;Sagittal and coronal reformats were created on a separate workstation. Contrast used: mL of , (none if empty) Oral contrast used: with Oral Contrast (none if empty) FINDINGS: LOWER CHEST: Small bilateral pleural effusions. Coronary artery atherosclerosis. Mild cardiomegaly. A ortic valve calcifications. ABDOMEN LIVER: Unremarkable GALLBLADDER AND BILE DUCTS: Portal venous gas along the periphery of the predominantly left hepatic l obe with suspected pneumatosis. Findings concerning for ischemic PANCREAS: Unremarkable. SPLEEN: Unremarkable. ADRENAL GLANDS: Unremarkable. KIDNEYS AND URETERS: No evidence of hydronephrosis or renal calculus. The ureters are unremarkable. PELVIS BLADDER: Nondistended with Maher catheter in place. REPRODUCTIVE: Unremarkable. ABDOMEN & PELVIS STOMACH AND BOWEL: No evidence of bowel obstruction. Pneumatosis intestinalis throughout multiple bow el loops in the abdomen possibly involving the ascending colon is well with irregular appearance of f rothy bowel dimas PERITONEUM/RETROPERITONEUM: No evidence of pneumoperitoneum or free fluid. VASCULATURE: No evidence of aortic aneurysm. Oral venous gas seen within the vasculature including se brayan 201 image 56. Stent grafts are noted within the right common iliac arteries with both stent josep t extending towards right groin and with one crossing over to the left. MUSCULOSKELETAL: No acute osseous abnormalities, postsurgical changes to the spine at L4-L5 and L5-S1 . Hardware appears intact. Severe degeneration changes of the spine with degenerative tearing ossifie d formation are present. LYMPH NODES: No gross evidence for lymphadenopathy. SOFT TISSUE/ABDOMINAL WALL: Unremarkable IMPRESSION: 1. Portal venous gas and pneumatosis intestinalis and possibly pneumatosis coli concerning for bowel ischemia. 2. Surgical consultation and correlation with serum markers within left at the recommended. 3. Small bilateral pleural effusions. 4. Coronary artery atherosclerosis. 5. Mild cardiomegaly. 6. Aortic valve calcifications. Findings communicated to Group message provider covering for Antionette Iyer 03/27/2024 6:[address] Hunter Aguillon.
[2024-03-27 19:25] LABS: Glucose,Whole Blood 122 mg/dL (70-110)
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
--- NOTE | 2024-03-28 04:39 | P.PN ---
Subjective Progress Note Date: 03/27/24 Patient is evaluated today in follow-up in the intensive care unit. He remains on the mechanical ventilator currently intubated and sedated dated he has an FiO2 50 and a PEEP of 5. Patient initially presents to the hospital due to shortness of breath and was subsequently intubated. Patient remains hyp ertensive with cardiology following closely and adjusting medications. Added hydralazine today. Patient remains on IV heparin will eventually need an ischemic workup. His ejection fraction was found to be 40 to 45%. He continues with enteral feedings. Chest x-ray today reveals small bilateral pleural effusions with adjacent compressive atelectasis right lung base. Blood cell count is 13.7, sodium 140, potassium 5.1, BUN of 61, creatinine of 1.44. Is on IV heparin, IV ceftriaxone, IV Solu-Medrol. IV Lasix was decreased to 40 mg daily. He is sedated with propofol and did not do well with his sedation holiday today. 03/12/2024 Patient is evaluated today and follow-up in the intensive care unit he remains on mechanical ventilator currently intubated and sedated with propofol. The st 2 days patient has not done well with his sedation holiday. Becomes significantly hypertensive. He was started on amlodipine as well as IV hydralazine as needed for improved blood pressure control. Cardiology is following this patient closely. He is on IV Lasix daily. Chest xray follow-up reveals small right and minimal left pleural effusion stable. There is compressive atelectasis of the right lung base. Remains on antibiotics for MSSA in sputum. Talked with patients daughter Korin over the phone who is the primary decision maker for the patient and for now would like to continue with all care and awaiting the brain CT results once completed. 03/13/2024 Patient is evaluated today in the ICU in follow up. Remains on the mechanical ventilator. Patient remains sedated with propofol is currently on a sedation holiday has spontaneous eye opening and reflexes, he has not been tracking eyes or responding to stimuli or commands. Patient chest xray today reveals small left pleural effusion, stable, resolving right lower lobe infiltrate. Brain CT done yesterday reveals no acute intracranial process. White blood cell count today 15.7, sodium 141, potassium 4.8, BUN 78, creatinine 1.49, glucose 145, magnesium 2.4. Continues on IV ceftriaxone. Remains on IV heparin. He is on IV solumedrol. 03/14/2024 Patient is evaluated today in the intensive care unit in follow-up. He is off the propofol and currently on Precedex and is currently on an assist-control with the ventilator. He does have spontaneous eye opening however he is not following commands at this time. He is on IV lasix daily. He is on IV solu- medrol. Patient is on IV ceftriaxone. Chest x-ray today shows mild right basilar atelectasis with minimal left right pleural effusion. White blood cell count today 17.4, sodium 141, BUN of 83, creatinine of 1.47. 03/15/2024 Patient is evaluated today resting in bed. Remains in the ICU. Patient currently has been extubated and is continued on BiPAP with FIO2 of 40%. He is more awake alert. His bowels are moving. He is on IV ceftriaxone. He is on precedex. He is on IV solumedrol. White blood cell count normalized 10.0, hgb 12.5. Sodium 143, potassium 4.5, BUN 83, creatinine 1.27. 03/16/2024 Patient is evaluated today resting in bed patient remains in the intensive care unit. Patient has been extubated aggressive extubated and currently weaned down to oxygen at 3 L nasal cannula. Mentation has significantly improved patient is currently alert and oriented x 2 at this time. Patient is asking for a drink of water. Diet has been advanced to dysphagia level 1. Monitor closely for any signs of aspiration and patient is currently pending a speech therapy evaluation. His bowels are moving. Patient remains on IV Solu-Medrol 40 mg every 12 hours additionally he is on IV Lasix 20 mg daily, remains on IV ceftriaxone. Currently Precedex has been discontinued. White blood cell count today is 17.6, sodium levels 147, BUN of 77, creatinine of 1.15, magnesium 2.4. Patient is and started on a dextrose drip for the hypernatremia. Patient will need to be evaluated physical therapy and Occupational Therapy. Plans for cardiac catheterization still remain on hold waiting for renal recovery. 03/17/2024 Patient is evaluated today in follow up. Remains in the ICU went into atrial fibrillation overnight and continues on IV cardizem and IV amiodarone, also IV heparin. Patient remains on 3 L of oxygen via nasal cannula. Patient has been agitated today and not sleeping well. He is asking to be discharged home today. He is alert x 2, but confused. Patient has been started on diet and tolerating. Labs today are showing a white blood cell count of 19.1, stable hemoglobin at 14.2, sodium 143, BUN of 75, creatinine of 0.98. Patient remains in atrial fibrillation with rapid ventricular rate currently running in the low 110s, his blood pressure is also decreased to 120 to low 90s. 03/18/2024 Patient remains in intensive care unit. He has been extubated and remains on 2 L of oxygen via nasal cannula. Patient is worsening agitation and confusion today. Patient is cussing and refusing to be evaluated. He is currently on 2 point soft restraints. He is asking to be discharged. Patient remains off IV Precedex and recommending to add a daily dose of Seroquel in addition to Seroquel at at bedtime. Patient remains on IV ceftriaxone. Patient is also on IV Cardizem and oral amiodarone he remains in atrial fibrillation with rapid ventricular rate. He is on IV heparin. Would recommend to decrease Solu-Medrol to 40 mg prednisone daily. 03/19/2024 Patient is evaluated today in the ICU. Patient remains on oxygen at 4L nasal cannula. Patients mentation is slightly improved today. He has been started on seroquel twice a day. On oral prednisone. Remains in atrial fibrillation with rapid ventricular rate. Patient is continued on IV cardizem and IV heparin. Patient has refused cardiac catheterization at this point although he remains confused with waxing and waning mentation. Cardiology has recommended outpatient work up when medically cleared and discharged. 03/20/2024 Patient is evaluated today in the intensive care unit. Patient appears less agitated today. He continues on Seroquel twice a day. Family at the bedside. Patient remains in atrial fibrillation with rapid ventricular rate continues on IV Cardizem as well as oral amiodarone. He remains on IV heparin. At this time cardiology has signed off and recommending medical management for his troponin elevation. Patient will be considered for cardiac catheterization on an outpatient basis. Patient continues on IV Lasix daily. Alcohol today is 12.5, hemoglobin 12.3, sodium 141, potassium 4.6, BUN 56, creatinine 1.17. 03/21/2024 Patient is evaluated today in intensive care unit patient has been downgraded to a cardiac stepdown unit. Patient does continue on Seroquel twice a day and has been less agitated. Patient remains significantly weak and will require rehab on discharge. Patient remains in atrial fibrillation with mostly controlled ventricular rate we will plan on weaning off the Cardizem drip today and transition to oral Cardizem. Additionally patient has been taken off of IV heparin and transition to oral Eliquis. Plan is for cardiac catheterization on an outpatient basis patient's not having any shortness of breath or chest discom fort at this time. He has been tolerating diet. He was having issues with dysphagia postextubation continues on a ground diet with one-to-one supervision and aspiration precautions. Labs today reveal a white blood cell count of 12.0, hemoglobin 11.6, sodium 135, potassium 4.7, BUN of 52, creatinine 1.05. 03/22/2024 Patient is seen and evaluated in follow-up with pulmonary following closely and awaiting reevaluation from PT/OT therapy to determine discharge planning. Patient will likely require rehab for continued strength and mobility. Cardiology recommending outpatient follow-up for cardiac catheterization and recommending to continue with current regimen at this time. Continue with a spiration precautions and supervision with meals 03/23/2024 Patient is evaluated in follow up on the medical floor. Patient more lethargic today than yesterday, resting in bed. Patient will need physical therapy on discharge. Has been continued on IV lasix daily for the last 10 days. Today sodium level 132, BUN is 51 and creatinine is 1.26. proBNP 6280. He continues to have lower extremity edema. He has been retaining urine. White blood cell count 16.9. 95% on 3L of oxygen. 03/24/2024 Patient evaluated in follow up on the medical floor. Resting in bed. Has had cough with sputum. White blood cell count up to 19. Patient has urinary catheter in place now. BNP was elevated at 6000, IV lasix was increased to BID although patient had worsening renal function and sodium level 131. Chest xray reveals a possible right pleural effusion. 03/25/2024 Patient evaluated in follow up today more awake and alert. Continues on oxygen via nasal cannula. Continues with indwelling hays catheter. Continues with worsening lower extremity edema. Lasix was stopped due to worsening renal function and recommending gentle hydration. Monitor intake and output. Patient has not had bowel movement does have some abdominal distention noted on exam. White blood cell count 17.0, hgb 11.5, sodium 133, BUN 55, creatinine 1.33. 03/26/2024 Patient is evaluated today in follow-up in the medical floor he is resting in bed. He appears more fatigued as compared to yesterday. Patient does report significant abdominal discomfort nausea bloating. He is passing a significant amount of gas did have a bowel movement will continue the lactulose and additionally will add simethicone for the gas pains. Abdominal x-ray reveals moderate to large amount of retained fecal debris particularly within the right hemicolon. Blood work is significantly improved with IV hydration although has significant lower extremity pitting edema. white blood cell count of 15.7, hemoglobin 1.0, sodium 136, BUN of 52, creatinine of 1.09. 03/27/2024 Patient seen in follow-up this morning currently sitting up in the chair in extreme pain reporting his abdomen is severe 10/10 pain. Patient per nursing staff was given home regimen and had 3 scant amount of stool that are mostly liquid. Patient is extremely restless in the chair and abdomen is distended. Patient is having extreme nausea with no vomiting at this time. Will obtain CT abdomen which is pending. White count is elevated and patient is maintained on antibiotics with infectious disease following. Review of Systems Constitutional: Denied any fatigue denied any fever. Cardio vascular: denied any chest pain, palpitations Gastrointestinal: Reporting extreme nausea, no vomiting, reported 3 episodes of diarrhea with severe abdominal pain Pulmonary: Denied any worsening shortness of breath cough Neurologic denied any new focal deficits, reports of generalized weakness All inpatient medications were reviewed and appropriate changes in these medications as dictated in the interval history and assessment and plan. Physical examination: GENERAL: 73-year-old male who is awake, alert and oriented x 2, sitting up in the chair. Appears to be in mild distress with abdominal pain and distention he is on the 3 L of oxygen AO x 2. EYES: Pupils equal. Conjunctiva normal. HEENT: External appearance of nose and ears normal, oral cavity grossly normal. NECK: JVD not raised; masses not palpable. HEART: First and second heart sounds are normal; no edema. LUNGS: Diminished breath sounds bilaterally with some coarse rhonchi noted ABDOMEN: Taut, distended, hypoactive bowel sounds, tender on palpation PSYCH: Awake, alert and oriented x 2, diffusely weak, anxious MUSCULOSKELETAL:No Clubbing/cyanosis;muscles-grossly intact patient has +1 ankle edema. NEUROLOGICAL: Following commands Assessment: -Acute severe hypoxic hypercapnic respiratory failure from underlying COPD/CHF improved and on 3L of oxygen. -Altered mental status, hospital acquired delirium/acute metabolic and toxic encephalopathy likely exacerbated by steroid use -Severe abdominal pain with concerns of ischemic bowel as noted on CT imaging -Bacterial pneumonia with sputum culture showing MSSA -Pulseless electrical activity/ episode of VTACH likely from respiratory failure and hypoxia; treated with IV amiodarone -Atrial fibrillation with rapid ventricular rate, currently rate controlled -Constipation -Acute severe COPD exacerbation in a current smoker -Probable acute GI bleed with multiple risk factors including stress ulcer from being intubated, steroids, and IV heparin, Resolved. -Type II [place]; supply demand mismatch unable to fully rule out ischemic injury. Per cardiology outpatient cardiac catheterization once more stable -Acute systolic heart failure -Urinary retention requiring indwelling hays catheter. -Frequent PVCs in bigeminal pattern -Acute kidney injury likely ATN from sepsis hypotension, improving -Chronic nicotine dependence cigarette smoker -Chronic gout -Hypotensive shock-corrected; Received IV Levophed -Essential hypertension, uncontrolled -GERD, stress ulcer prophylaxis GI prophylaxis IV Protonix 40 twice daily DVT prophylaxis subcu heparin -Full code Plan: Patient has been transitioned to oral amiodarone, oral Cardizem, oral Eliquis. Cardiology recommending outpatient follow-up with cardiac catheterization. Anticoagulation placed on hold in the event patient needs emergent surgery Patient noted to have severe abdominal pain with distention and hypoactive bowel sounds. Patient was started on bowel regimen for severe constipation yesterday and had 3 small loose stools per nursing staff. CT abdomen with critical results with concerns of possible ischemic bowel. General surgery was immediately consulted and discussing possible surgical intervention. Patient is extremely high risk given significant comorbidities. Patient is currently full code and need to discuss further with family regarding treatment plan and the need for possible emergent surgery Patient will be continued on cardiac telemetry Continue IV protonix and monitor for acute bleeding hemoglobin remains stable, no active bleeding noted Continue with IV ceftriaxone, now on oral prednisone and begin to taper down to 30 mg daily Lasix has been discontinued at this time secondary to worsening renal function. Nephrology following. Patient will be gently hydrated Nebulized Pulmicort. Perforomist. DuoNeb On BiPAP/nasal cannula support, currently 3 L via nasal cannula Repeat blood work in the AM Continue on seroquel twice a day Physical therapy and occupational therapy have been consulted recommending subacute rehab at this time. Awaiting updated PT/OT therapy notes and further discussion with case management/social work regarding discharge planning. Patient has had prolonged hospitalization including mechanical ventilation with significant weakness and would benefit from ECF on discharge. Continue to hold all bowel regimen and laxatives per surgery Overall prognosis is extremely guarded at this time The impression and plan of care has been dictated by Antionette Sagastume, Nurse Practitioner as directed. Dr. Kaleb MD I have performed a history and physical examination and medical decision making of this patient, discussed the same with the dictator, and agree with the dictators assessment and plan as written, documented as a scribe. Based on total visit time, I have performed more than 50% of this visit. Objective - Vital Signs Vital signs: Vital Signs Temp 98.3 F 03/27/24 04:00 Pulse 92 03/27/24 08:16 Resp 16 03/27/24 04:00 BP 117/86 03/27/24 04:00 Pulse Ox 100 03/27/24 04:00 FiO2 40 03/15/24 12:00 Intake & Output 03/26/24 03/27/24 03/27/24 18:59 06:59 18:59 Output Total 425 Balance -425 Weight 97 kg 87 kg Output: Urine 425 Other: Voiding Method Indwelling Catheter Indwelling Catheter # Bowel Movements 3 0 ABP, PAP, CO, CI - Last Documented Arterial Blood Pressure 142/56 - Labs CBC & Chem 7: 03/27/24 07:42 03/27/24 07:42 Labs: Abnormal Lab Results - Last 24 Hours (Table) 03/26/24 03/26/24 03/27/24 Range/Units 16:23 19:44 06:14 WBC (3.8-10.6) k/uL RBC (4.30-5.90) m/uL Hgb (13.0-17.5) gm/dL Hct (39.0-53.0) % Neutrophils # (1.3-7.7) k/uL Lymphocytes # (1.0-4.8) k/uL Sodium (137-145) mmol/L BUN (9-20) mg/dL Creatinine (0.66-1.25) mg/dL POC Glucose (mg/dL) 114 H 149 H 114 H (70-110) mg/dL 03/27/24 03/27/24 Range/Units 07:42 07:42 WBC 23.7 H (3.8-10.6) k/uL RBC 3.39 L (4.30-5.90) m/uL Hgb 10.0 L (13.0-17.5) gm/dL Hct 32.0 L (39.0-53.0) % Neutrophils # 22.1 H (1.3-7.7) k/uL Lymphocytes # 0.5 L (1.0-4.8) k/uL Sodium 134 L (137-145) mmol/L BUN 55 H (9-20) mg/dL Creatinine 1.31 H (0.66-1.25) mg/dL POC Glucose (mg/dL) (70-110) mg/dL Microbiology - Last 24 Hours (Table) 03/24/24 10:07 Blood Culture - Preliminary Blood
[2024-03-28 05:44] LABS: Glucose,Whole Blood 96 mg/dL (70-110)
[2024-03-28] MEDS: FUROSEMIDE 10 MG/ML 10 ML VIAL IV STA (06:46)
[2024-03-28 07:00] LABS: Basophils % (A) 0 %; Eosinophils % (A) 0 %; HCT 37.1 % (39.0-53.0); HGB 11.6 gm/dL (13.0-17.5); Hypochromasia Slight; Lymphocytes # (A) 0.3 k/uL (1.0-4.8); Lymphocytes % (A) 2 %; MCH 29.4 pg (25.0-35.0); MCHC 31.3 g/dL (31.0-37.0); MCV 93.9 fL (80.0-100.0); Mean Platelet Volume 8.6; Monocytes # (A) 0.4 k/uL (0-1.0); Monocytes % (A) 3 %; Neutrophils # (A) 14.6 k/uL (1.3-7.7); Neutrophils % (A) 95 %; Platelet Count 221 k/uL (150-450); RBC 3.95 m/uL (4.30-5.90); RDW 14.7 % (11.5-15.5); WBC 15.4 k/uL (3.8-10.6)
[2024-03-28 07:38] LABS: African American GFR (CKD) 47 (>60 ml/min/1.73 sqM); Anion Gap 6 mmol/L; Blood Urea Nitrogen 65 mg/dL (9-20); Calcium 8.8 mg/dL (8.4-10.2); Carbon Dioxide 22 mmol/L (22-30); Chloride 105 mmol/L (98-107); Glucose 79 mg/dL (74-99); Magnesium 2.1 mg/dL (1.6-2.3); Non-African American GFR(CKD) 41 (>60 ml/min/1.73 sqM); Potassium 5.4 mmol/L (3.5-5.1); Sodium 133 mmol/L (137-145)
[2024-03-28 08:36] VITALS: TEMP 97.4
[2024-03-28] MEDS: LIDOCAINE 4% PATCH TOPICAL SCH (10:03)
[2024-03-28 10:10] VITALS: BP 67/46; RESP 20
[2024-03-28 10:12] LABS: Glucose,Whole Blood 80 mg/dL (70-110)
[2024-03-28 10:20] VITALS: PULSE 103
[2024-03-28] MEDS ORDERED: SCOPOLAMINE 1 MG/72 HR PATCH TRANSDERM STA (10:23)
[2024-03-28] MEDS: MORPHINE SULFATE 2 MG/ML SYRINGE IVP STA (10:53)
[2024-03-28] MEDS: MORPHINE SULFATE (100 MG/2 ML) 100 MG in SODIUM CHLORIDE 0.9% 100 ML IV SCH (10:53)
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
--- NOTE | 2024-03-29 13:24 | P.DS ---
Providers Date of admission: 03/06/24 05:31 Expected date of discharge: 03/28/24 Attending physician: Tye Garcia Consults: 03/06/24 05:30 Consult Physician Stat Consulting Provider: Ana Tolliver Consult Reason/Comments: icu patient, discussed with kathy Do you want consulting provider notified?: Already Contacted 03/06/24 06:29 Consult Physician Urgent Consulting Provider: Kelly Mack Consult Reason/Comments: CHF; pulmonary edema Do you want consulting provider notified?: Yes 03/07/24 19:50 Consult Physician Routine Consulting Provider: Bin Abreu Consult Reason/Comments: DANIEL Do you want consulting provider notified?: Yes 03/24/24 09:19 Consult Physician Routine Consulting Provider: Bin Abreu Consult Reason/Comments: DANIEL Do you want consulting provider notified?: Yes 03/27/24 18:37 Consult Physician Stat Consulting Provider: Iza Sharp Consult Reason/Comments: abd pain, ischemia bowel Do you want consulting provider notified?: Yes Primary care physician: [facility] Course: Preliminary cause of Pneumatosis intestinalis and pneumatosis coli, bowel ischemia Final diagnosis -Acute severe hypoxic hypercapnic respiratory failure from underlying COPD/CHF improved and on 3L of oxygen. -Altered mental status, hospital acquired delirium/acute metabolic and toxic encephalopathy likely exacerbated by steroid use -Severe abdominal pain with concerns of ischemic bowel as noted on CT imaging on 03/27/2024 -Bacterial pneumonia with sputum culture showing MSSA -Pulseless electrical activity/ episode of VTACH likely from respiratory failure and hypoxia; treated with IV amiodarone -Atrial fibrillation with rapid ventricular rate, currently rate controlled -Constipation -Acute severe COPD exacerbation in a current smoker -Probable acute GI bleed with multiple risk factors including stress ulcer from being intubated, steroids, and IV heparin, Resolved. -Type II [place]; supply demand mismatch unable to fully rule out ischemic injury. Per cardiology outpatient cardiac catheterization once more stable -Acute systolic heart failure -Urinary retention requiring indwelling hays catheter. -Frequent PVCs in bigeminal pattern -Acute kidney injury likely ATN from sepsis hypotension, improving -Chronic nicotine dependence cigarette smoker -Chronic gout -Hypotensive shock-corrected; Received IV Levophed -Essential hypertension, uncontrolled -GERD, stress ulcer prophylaxis GI prophylaxis IV Protonix 40 twice daily DVT prophylaxis subcu heparin - no code Discharge disposition Patient has . According to nursing documentation, time of was approximately 1033 on 03/28/2024. Please refer to nursing documentation for further information. Family was present at bedside when CODE STATUS was addressed and patient was made comfort care. Total time taken greater than 35 minutes. Hospital course This is a 73-year-old male who has had an extensive hospitalization and was in the ICU on mechanical ventilation for quite some time due to severe COPD/CHF exacerbation. Patient has had prolonged hospitalization also cardiac arrest while hospitalized. Patient was experiencing some increasing abdominal pain and constipation 1 day prior started on a bowel regimen had a few bowel movements although having more distended abdomen with significant pain and restlessness. Patient did undergo imaging with a CT and general surgery consulted as there was pneumatosis intestinalis and pneumatosis coli suggestive of bowel ischemia. Patient was immediately made n.p.o. and discussing possibly requiring immediate surgical intervention. A team was called in the a.m. for hypotension as patient started developing worsening hypotension, increasing oxygen demands with hypoxia and continued severe pain. Family was at the bedside and concrete form setter had a discussion regarding CODE STATUS and made patient no code and agreeable with comfort measures. Patient was being started on comfort care measures as he was actively dying and . Time of was approximately 1033. Please refer to other documentation and consultation notes for further HPI. Interval course Patient is evaluated today in follow-up in the intensive care unit. He remains on the mechanical ventilator currently intubated and sedated dated he has an FiO2 50 and a PEEP of 5. Patient initially presents to the hospital due to shortness of breath and was subsequently intubated. Patient remains hypertensive with cardiology following closely and adjusting medications. Added hydralazine today. Patient remains on IV heparin will eventually need an ischemic workup. His ejection fraction was found to be 40 to 45%. He continues with enteral feedings. Chest x-ray today reveals small bilateral pleural effusions with adjacent compressive atelectasis right lung base. Blood cell count is 13.7, sodium 140, potassium 5.1, BUN of 61, creatinine of 1.44. Is on IV heparin, IV ceftriaxone, IV Solu-Medrol. IV Lasix was decreased to 40 mg daily. He is sedated with propofol and did not do well with his sedation holiday today. 03/12/2024 Patient is evaluated today and follow-up in the intensive care unit he remains on mechanical ventilator currently intubated and sedated with propofol. The last 2 days patient has not done well with his sedation holiday. Becomes significantly hypertensive. He was started on amlodipine as well as IV hydralazine as needed for improved blood pressure control. Cardiology is following this patient closely. He is on IV Lasix daily. Chest xray follow-up reveals small right and minimal left pleural effusion stable. There is compressive atelectasis of the right lung base. Remains on antibiotics for MSSA in sputum. Talked with patients daughter Korin over the phone who is the primary decision maker for the patient and for now would like to continue with all care and awaiting the brain CT results once completed. 03/13/2024 Patient is evaluated today in the ICU in follow up. Remains on the mechanical ventilator. Patient remains sedated with propofol is currently on a sedation holiday has spontaneous eye opening and reflexes, he has not been tracking eyes or responding to stimuli or commands. Patient chest xray today reveals small left pleural effusion, stable, resolving right lower lobe infiltrate. Brain CT done yesterday reveals no acute intracranial process. White blood cell count today 15.7, sodium 141, potassium 4.8, BUN 78, creatinine 1.49, glucose 145, magnesium 2.4. Continues on IV ceftriaxone. Remains on IV heparin. He is on IV solumedrol. 03/14/2024 Patient is evaluated today in the intensive care unit in follow-up. He is off the propofol and currently on Precedex and is currently on an assist-control with the ventilator. He does have spontaneous eye opening however he is not following commands at this time. He is on IV lasix daily. He is on IV solu- medrol. Patient is on IV ceftriaxone. Chest x-ray today shows mild right basilar atelectasis with minimal left right pleural effusion. White blood cell count today 17.4, sodium 141, BUN of 83, creatinine of 1.47. 03/15/2024 Patient is evaluated today resting in bed. Remains in the ICU. Patient currently has been extubated and is continued on BiPAP with FIO2 of 40%. He is more awake alert. His bowels are moving. He is on IV ceftriaxone. He is on precedex. He is on IV solumedrol. White blood cell count normalized 10.0, hgb 12.5. Sodium 143, potassium 4.5, BUN 83, creatinine 1.27. 03/16/2024 Patient is evaluated today resting in bed patient remains in the intensive care unit. Patient has been extubated aggressive extubated and currently weaned down to oxygen at 3 L nasal cannula. Mentation has significantly improved patient is currently alert and oriented x 2 at this time. Patient is asking for a drink of water. Diet has been advanced to dysphagia level 1. Monitor closely for any signs of aspiration and patient is currently pending a speech therapy evaluation. His bowels are moving. Patient remains on IV Solu-Medrol 40 mg every 12 hours additionally he is on IV Lasix 20 mg daily, remains on IV ceftriaxone. Currently Precedex has been discontinued. White blood cell count today is 17.6, sodium levels 147, BUN of 77, creatinine of 1.15, magnesium 2.4. Patient is and started on a dextrose drip for the hypernatremia. Patient will need to be evaluated physical therapy and Occupational Therapy. Plans for cardiac catheterization still remain on hold waiting for renal recovery. 03/17/2024 Patient is evaluated today in follow up. Remains in the ICU went into atrial fibrillation overnight and continues on IV cardizem and IV amiodarone, also IV heparin. Patient remains on 3 L of oxygen via nasal cannula. Patient has been agitated today and not sleeping well. He is asking to be discharged home today. He is alert x 2, but confused. Patient has been started on diet and tolerating. Labs today are showing a white blood cell count of 19.1, stable hemoglobin at 14.2, sodium 143, BUN of 75, creatinine of 0.98. Patient remains in atrial fibrillation with rapid ventricular rate currently running in the low 110s, his blood pressure is also decreased to 120 to low 90s. 03/18/2024 Patient remains in intensive care unit. He has been extubated and remains on 2 L of oxygen via nasal cannula. Patient is worsening agitation and confusion today. Patient is cussing and refusing to be evaluated. He is currently on 2 point soft restraints. He is asking to be discharged. Patient remains off IV Precedex and recommending to add a daily dose of Seroquel in addition to Seroquel at at bedtime. Patient remains on IV ceftriaxone. Patient is also on IV Cardizem and oral amiodarone he remains in atrial fibrillation with rapid ventricular rate. He is on IV heparin. Would recommend to decrease Solu-Medrol to 40 mg prednisone daily. 03/19/2024 Patient is evaluated today in the ICU. Patient remains on oxygen at 4L nasal cannula. Patients mentation is slightly improved today. He has been started on seroquel twice a day. On oral prednisone. Remains in atrial fibrillation with rapid ventricular rate. Patient is continued on IV cardizem and IV heparin. Patient has refused cardiac catheterization at this point although he remains confused with waxing and waning mentation. Cardiology has recommended outpatient work up when medically cleared and discharged. 03/20/2024 Patient is evaluated today in the intensive care unit. Patient appears less agitated today. He continues on Seroquel twice a day. Family at the bedside. Patient remains in atrial fibrillation with rapid ventricular rate continues on IV Cardizem as well as oral amiodarone. He remains on IV heparin. At this time cardiology has signed off and recommending medical management for his troponin elevation. Patient will be considered for cardiac catheterization on an outpatient basis. Patient continues on IV Lasix daily. Alcohol today is 12.5, hemoglobin 12.3, sodium 141, potassium 4.6, BUN 56, creatinine 1.17. 03/21/2024 Patient is evaluated today in intensive care unit patient has been downgraded to a cardiac stepdown unit. Patient does continue on Seroquel twice a day and has been less agitated. Patient remains significantly weak and will require rehab on discharge. Patient remains in atrial fibrillation with mostly controlled ventricular rate we will plan on weaning off the Cardizem drip today and transition to oral Cardizem. Additionally patient has been taken off of IV heparin and transition to oral Eliquis. Plan is for cardiac catheterization on an outpatient basis patient's not having any shortness of breath or chest discomfort at this time. He has been tolerating diet. He was having issues with dysphagia postextubation continues on a ground diet with one-to-one supervision and aspiration precautions. Labs today reveal a white blood cell count of 12.0, hemoglobin 11.6, sodium 135, potassium 4.7, BUN of 52, creatinine 1.05. 03/22/2024 Patient is seen and evaluated in follow-up with pulmonary following closely and awaiting reevaluation from PT/OT therapy to determine discharge planning. Patient will likely require rehab for continued strength and mobility. Cardiology recommending outpatient follow-up for cardiac catheterization and recommending to continue with current regimen at this time. Continue with aspiration precautions and supervision with meals 03/23/2024 Patient is evaluated in follow up on the medical floor. Patient more lethargic today than yesterday, resting in bed. Patient will need physical therapy on dis charge. Has been continued on IV lasix daily for the last 10 days. Today sodium level 132, BUN is 51 and creatinine is 1.26. proBNP 6280. He continues to have lower extremity edema. He has been retaining urine. White blood cell count 16.9. 95% on 3L of oxygen. 03/24/2024 Patient evaluated in follow up on the medical floor. Resting in bed. Has had cough with sputum. White blood cell count up to 19. Patient has urinary catheter in place now. BNP was elevated at 6000, IV lasix was increased to BID although patient had worsening renal function and sodium level 131. Chest xray reveals a possible right pleural effusion. 03/25/2024 Patient evaluated in follow up today more awake and alert. Continues on oxygen via nasal cannula. Continues with indwelling hays catheter. Continues with worsening lower extremity edema. Lasix was stopped due to worsening renal function and recommending gentle hydration. Monitor intake and output. Patient has not had bowel movement does have some abdominal distention noted on exam. White blood cell count 17.0, hgb 11.5, sodium 133, BUN 55, creatinine 1.33. 03/26/2024 Patient is evaluated today in follow-up in the medical floor he is resting in bed. He appears more fatigued as compared to yesterday. Patient does report significant abdominal discomfort nausea bloating. He is passing a significant amount of gas did have a bowel movement will continue the lactulose and additionally will add simethicone for the gas pains. Abdominal x-ray reveals moderate to large amount of retained fecal debris particularly within the right hemicolon. Blood work is significantly improved with IV hydration although has significant lower extremity pitting edema. white blood cell count of 15.7, hemoglobin 1.0, sodium 136, BUN of 52, creatinine of 1.09. 03/27/2024 Patient seen in follow-up this morning currently sitting up in the chair in extreme pain reporting his abdomen is severe 10/10 pain. Patient per nursing staff was given home regimen and had 3 scant amount of stool that are mostly liquid. Patient is extremely restless in the chair and abdomen is distended. Patient is having extreme nausea with no vomiting at this time. Will obtain CT abdomen which is pending. White count is elevated and patient is maintained on antibiotics with infectious disease following. The impression and plan of care has been dictated by Antionette Sagastume, Nurse Practitioner as directed. Dr. Zeus MD I have performed a history and physical examination and medical decision making of this patient, discussed the same with the dictator, and agree with the dictators assessment and plan as written, documented as a scribe. Based on total visit time, I have performed more than 50% of this visit. Patient Condition at Discharge: Critical Plan - Discharge Summary Discharge Rx Participant: No New Discharge Prescriptions: No Action Omeprazole [PriLOSEC] 20 mg PO DAILY Gabapentin [Neurontin] 300 mg PO TID Hydrocodone/Acetaminophen [[place] 10-325] 1 tab PO Q8HR PRN PRN Reason: Pain Aspirin 325 mg PO DAILY Atenolol 50 mg PO BID cloNIDine HCL [Catapres] 0.3 mg PO Q8H Cholecalciferol [Vitamin D3 (25 Mcg = 1000 Iu)] 25 mcg PO DAILY Ipratropium-Albuterol Nebulize [Duoneb 0.5 mg-3 mg/3 ml Soln] 3 ml INHALATION RT-QID PRN PRN Reason: Shortness Of Breath allopurinoL 100 mg PO DAILY amLODIPine [Norvasc] 10 mg PO DAILY lisinopriL [Prinivil] 20 mg PO DAILY Albuterol Sulfate [Ventolin HFA] 2 puff INHALATION RT-QID PRN PRN Reason: Shortness Of Breath Atorvastatin Calcium [Lipitor] 80 mg PO DAILY Discharge Medication List Aspirin 325 mg PO DAILY 05/23/14 [History] Atenolol 50 mg PO BID 05/23/14 [History] Gabapentin [Neurontin] 300 mg PO TID 05/23/14 [History] Hydrocodone/Acetaminophen [[place] 10-325] 1 tab PO Q8HR PRN 05/23/14 [History] Omeprazole [PriLOSEC] 20 mg PO DAILY 05/23/14 [History] cloNIDine HCL [Catapres] 0.3 mg PO Q8H 06/14/17 [History] Cholecalciferol [Vitamin D3 (25 Mcg = 1000 Iu)] 25 mcg PO DAILY 05/17/22 [History] allopurinoL 100 mg PO DAILY 05/17/22 [History] amLODIPine [Norvasc] 10 mg PO DAILY 05/17/22 [History] lisinopriL [Prinivil] 20 mg PO DAILY 05/17/22 [History] Albuterol Sulfate [Ventolin HFA] 2 puff INHALATION RT-QID PRN 03/06/24 [History] Atorvastatin Calcium [Lipitor] 80 mg PO DAILY 03/06/24 [History] Ipratropium-Albuterol Nebulize [Duoneb 0.5 mg-3 mg/3 ml Soln] 3 ml INHALATION RT-QID PRN 03/06/24 [History] Follow up Appointment(s)/Referral(s): Harsha Patton DO [Primary Care Provider] - 1-2 days Discharge Disposition: - Preliminary Cause of Preliminary Cause of : Pneumatosis intestinalis and pneumatosis coli, bowel ischemia
== END 2024-03-28 14:17 | disposition expired | DRG 870 ==
LOC: EC 03:55 → 2SICU 05:31 → 3SCARD 03-21 19:01
PROVIDERS: ADMIT Hospitalist; ATTEND Hospitalist
PROC: 0BH17EZ Insertion of Endotracheal Airway into Trachea, Via Natural or Artificial Opening (ICD-10-PCS; principal; 2024-03-06)
PROC: 5A1955Z Respiratory Ventilation, Greater than 96 Consecutive Hours (ICD-10-PCS; principal; 2024-03-06)
PROC: 0DH67UZ Insertion of Feeding Device into Stomach, Via Natural or Artificial Opening (ICD-10-PCS; 2024-03-06)
PROC: 3E0G76Z Introduction of Nutritional Substance into Upper GI, Via Natural or Artificial Opening (ICD-10-PCS; 2024-03-06)
PROC: 5A12012 Performance of Cardiac Output, Single, Manual (ICD-10-PCS; 2024-03-06)
PROC: 4A133J1 Monitoring of Arterial Pulse, Peripheral, Percutaneous Approach (ICD-10-PCS; 2024-03-06)
PROC: 03HY32Z Insertion of Monitoring Device into Upper Artery, Percutaneous Approach (ICD-10-PCS; 2024-03-06)
PROC: 02HV33Z Insertion of Infusion Device into Superior Vena Cava, Percutaneous Approach (ICD-10-PCS; 2024-03-06)
PROC: 4A133B1 Monitoring of Arterial Pressure, Peripheral, Percutaneous Approach (ICD-10-PCS; 2024-03-06)
PROC: 3E043XZ Introduction of Vasopressor into Central Vein, Percutaneous Approach (ICD-10-PCS; 2024-03-06)
DX: A41.9 Sepsis, unspecified organism (principal); G92.8 Other toxic encephalopathy; I21.A1 Myocardial infarction type 2; I50.21 Acute systolic (congestive) heart failure; J15.9 Unspecified bacterial pneumonia; J96.01 Acute respiratory failure with hypoxia; J96.02 Acute respiratory failure with hypercapnia; K27.0 Acute peptic ulcer, site unspecified, with hemorrhage; N17.0 Acute kidney failure with tubular necrosis; R65.21 Severe sepsis with septic shock; E87.0 Hyperosmolality and hypernatremia; E87.4 Mixed disorder of acid-base balance; F05 Delirium due to known physiological condition; I13.0 Hypertensive heart and chronic kidney disease with heart failure and stage 1 through stage 4 chronic kidney disease, or unspecified chronic kidney disease; I16.1 Hypertensive emergency; I42.9 Cardiomyopathy, unspecified; I47.20 Ventricular tachycardia, unspecified; J44.0 Chronic obstructive pulmonary disease with (acute) lower respiratory infection; J44.1 Chronic obstructive pulmonary disease with (acute) exacerbation; J98.11 Atelectasis; M62.82 Rhabdomyolysis; I46.9 Cardiac arrest, cause unspecified; I73.9 Peripheral vascular disease, unspecified; Z51.5 Encounter for palliative care; Z66 Do not resuscitate; E78.5 Hyperlipidemia, unspecified; E86.9 Volume depletion, unspecified; R00.1 Bradycardia, unspecified; F17.210 Nicotine dependence, cigarettes, uncomplicated; G89.29 Other chronic pain; R79.1 Abnormal coagulation profile; I25.10 Atherosclerotic heart disease of native coronary artery without angina pectoris; I48.91 Unspecified atrial fibrillation; I49.3 Ventricular premature depolarization; K59.00 Constipation, unspecified; K21.9 Gastro-esophageal reflux disease without esophagitis; R33.9 Retention of urine, unspecified; I65.29 Occlusion and stenosis of unspecified carotid artery; T45.515A Adverse effect of anticoagulants, initial encounter; K63.89 Other specified diseases of intestine; M1A.9XX0 Chronic gout, unspecified, without tophus (tophi); N18.31 Chronic kidney disease, stage 3a; R13.10 Dysphagia, unspecified; T38.0X5A Adverse effect of glucocorticoids and synthetic analogues, initial encounter; Z78.1 Physical restraint status; Z79.82 Long term (current) use of aspirin; Z79.899 Other long term (current) drug therapy; Z89.429 Acquired absence of other toe(s), unspecified side; Z20.822 Contact with and (suspected) exposure to COVID-19; Z91.041 Radiographic dye allergy status; Z86.010 Personal history of colon polyps; Z88.5 Allergy status to narcotic agent; Z90.49 Acquired absence of other specified parts of digestive tract; Z93.2 Ileostomy status
CPT/HCPCS: 31500; 36415; 36600; 70450; 71045; 71046; 74018; 74176; 76770; 80048; 80051; 80053; 81001; 82330; 82550; 82805; 83605; 83735; 83880; 84132; 84295; 84484; 85025; 85027; 85379; 85610; 85730; 87040; 87070; 87077; 87086; 87186; 87205; 87636; 92950; 93005; 93306; 94002; 94003; 94640; 94660; 94760; 96365; 96366; 96368; 99291; 99292